=== PATIENT | female | born 1955 | race Caucasian/White ===

== ENCOUNTER 2019-01-14 13:45 | Inpatient (IN) | payer SELFPAY ==
[~2019-01-14] VITALS: Ht 160 cm; Wt 39.5 kg
[2019-01-14 15:08] LABS: VENOUS BASE EXCESS -3.6 (-2.0-2.0); VENOUS HCO3 29.7 MEQ/L (23.0-27.0); VENOUS O2 SATURATION 71.7 % (60.0-80.0); VENOUS PARTIAL PRESSURE CO2 90.7 mmHg (38.0-50.0); VENOUS PARTIAL PRESSURE O2 49.3 mmHg (30.0-50.0); VENOUS PH 7.133 UNITS (7.330-7.430); VENOUS STANDARD HCO3 20.8 MEQ/L; VENOUS TOTAL CO2 32.5 MEQ/L (24.0-28.0)
[2019-01-14 15:11] LABS: BASO # 0.1 10^3/uL (0.0-0.2); BASO % 0.7 % (0.0-1.0); HEMATOCRIT 58.2 % (36.0-47.0); LYMPH # 1.4 10^3/uL (1.5-4.5); LYMPH % 13.7 % (24.0-44.0); MEAN CORPUSCULAR HEMOGLOBIN 32.7 pg (27.0-33.0); MEAN CORPUSCULAR HGB CONC 33.2 g/dl (32.0-36.5); MEAN CORPUSCULAR VOLUME 98.6 fl (80.0-96.0); MONO # 0.6 10^3/uL (0.0-0.8); MONO % 5.4 % (0.0-5.0); NEUTROPHILS # 8.1 10^3/uL (1.8-7.7); NEUTROPHILS % 79.6 % (36.0-66.0); PLATELET COUNT, AUTOMATED 262 10^3/uL (150-450); WHITE BLOOD COUNT 10.2 10^3/uL (4.0-10.0)
--- NOTE | 2019-01-14 15:12 | REP ---
HISTORY: Weakness. COMPARISON: 09/07/2005, which is the latest prior, a two view exam. The technique utilized in obtaining the radiograph has magnified the cardiac silhouette and accentuated the interstitial markings. The lung loyola are markedly hyperexpanded. There is marked enlargement of the pulmonary arteries. The heart is enlarged and accentuated by technique. There are no patchy opacities or pleural effusions. IMPRESSION: Marked lung field hyperexpansion and evidence of pulmonary arterial hypertension. There is cardiomegaly accentuated by technique. Electronically Signed by Angel Blount DO 01/14/2019 03:40 P
[2019-01-14 15:14] LABS: HEMOGLOBIN 19.3 g/dl (12.0-15.5)
[2019-01-14] MEDS ORDERED: CALCIUM GLUCONATE 1,000 MG in D5W MINI-BAG PLUS 100 ML IV ONE ×2 (15:30→22:15)
[2019-01-14 15:33] LABS: ERYTHROCYTE SEDIMENTATION RATE 1 mm/hr (0-30)
[2019-01-14 15:59] LABS: ABG BASE EXCESS -3.5 (-2.0-2.0); ABG HCO3 28.5 MEQ/L (22.0-26.0); ABG O2 SATURATION 92.3 % (95.0-99.0); ABG PARTIAL PRESSURE O2 81.2 mmHg (75.0-100.0); ABG STANDARD HCO3 21.4 MEQ/L (22.0-26.0)
[2019-01-14 16:00] LABS: ABG PARTIAL PRESSURE CO2 81.6 mmHg (35.0-45.0); ABG pH (ARTERIAL) 7.161 UNITS (7.350-7.450)
[2019-01-14 17:51] LABS: ALBUMIN 3.7 GM/DL (3.2-5.2); BILIRUBIN,DIRECT 0.5 MG/DL (0.0-0.2); BILIRUBIN,TOTAL 1.1 MG/DL (0.2-1.0); C REACTIVE PROTEIN QUANTITATIV 0.46 MG/DL (0.00-0.30); CREATININE FOR GFR 1.23 MG/DL (0.55-1.30); GLOMERULAR FILTRATION RATE 46.8 (>45); MB/CK RELATIVE INDEX 6.03 (< OR =4); TOTAL PROTEIN 6.6 GM/DL (6.4-8.2); TROPONIN I 0.1 NG/ML (< 0.10)
--- NOTE | 2019-01-14 17:58 | ECGEPIP ---
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
[2019-01-14 18:05] LABS: PREALBUMIN 8.9 MG/DL (20.0-40.0)
[2019-01-14 18:39] LABS: ABG BASE EXCESS -1.4 (-2.0-2.0); ABG HCO3 29.3 MEQ/L (22.0-26.0); ABG O2 SATURATION 92.3 % (95.0-99.0); ABG PARTIAL PRESSURE O2 77.1 mmHg (75.0-100.0); ABG STANDARD HCO3 23.1 MEQ/L (22.0-26.0); ABG TOTAL CO2 31.6 MEQ/L (23.0-31.0); ABG pH (ARTERIAL) 7.211 UNITS (7.350-7.450)
[2019-01-14 18:40] LABS: ABG PARTIAL PRESSURE CO2 74.7 mmHg (35.0-45.0)
[2019-01-14] MEDS ORDERED: NS 500 ML IV ONE ×2 (19:15→20:00)
[2019-01-14] MEDS ORDERED: ISOVUE-370 76% 100ML VIAL (Q9967) As Ordered ONE (19:26)
[2019-01-14 20:18] LABS: CALCIUM LEVEL 8.8 MG/DL (8.8-10.2); CREATININE FOR GFR 1.09 MG/DL (0.55-1.30); GLOMERULAR FILTRATION RATE 53.8 (>45)
[2019-01-14 20:32] LABS: AMPHETAMINES LEVEL URINE NEGATIVE (NEGATIVE); BARBITURATES URINE NEGATIVE (NEGATIVE); BENZODIAZEPINES URINE NEGATIVE (NEGATIVE); CANNABINOIDS URINE NEGATIVE (NEGATIVE); COCAINE METABOLITE URINE NEGATIVE (NEGATIVE); METHADONE URINE NEGATIVE (NEGATIVE); OPIATES URINE NEGATIVE (NEGATIVE); PHENCYCLIDINE URINE NEGATIVE (NEGATIVE)
--- NOTE | 2019-01-14 20:33 | REPVR ---
EXAM: CT Head Without Contrast EXAM DATE/TIME: 01/14/2019 7:52 PM CLINICAL HISTORY: 63 years old, female; Signs and symptoms; Altered mental status/memory loss TECHNIQUE: Imaging protocol: Axial computed tomography images of the head without contrast. Radiation optimization: All CT scans at this facility use at least one of these dose optimization techniques: automated exposure control; mA and/or kV adjustment per patient size (includes targeted exams where dose is matched to clinical indication); or iterative reconstruction. COMPARISON: No relevant prior studies available. FINDINGS: Brain: Normal. No hemorrhage. Unremarkable white matter. No mass effect. Ventricles: Normal. No ventriculomegaly. Bones/joints: Unremarkable. No acute fracture. Sinuses: Visualized sinuses are unremarkable. No fluid levels. Mastoid air cells: Visualized mastoid air cells are well aerated. No mastoid effusion. Soft tissues: Unremarkable. IMPRESSION: No acute intracranial abnormality. Electronically signed by: Antonio Kemp On 01/14/2019 20:33:52 PM
[2019-01-14] MEDS ORDERED: DEXTROSE 50% 50 ML SYRINGE IV STA (20:36)
[2019-01-14] MEDS ORDERED: HumuLIN R (REGULAR) INSULIN (NovoLIN R) **100U/ML** PER UNIT IV STA (20:36)
[2019-01-14 20:45] LABS: ABG BASE EXCESS -1.1 (-2.0-2.0); ABG HCO3 29.3 MEQ/L (22.0-26.0); ABG O2 SATURATION 97.6 % (95.0-99.0); ABG PARTIAL PRESSURE O2 119.7 mmHg (75.0-100.0); ABG STANDARD HCO3 23.6 MEQ/L (22.0-26.0); ABG TOTAL CO2 31.5 MEQ/L (23.0-31.0)
[2019-01-14 20:47] LABS: ABG PARTIAL PRESSURE CO2 72.3 mmHg (35.0-45.0); ABG pH (ARTERIAL) 7.225 UNITS (7.350-7.450)
--- NOTE | 2019-01-14 20:58 | REPVR ---
EXAM: CT Angiography Chest With Contrast EXAM DATE/TIME: 01/14/2019 7:52 PM CLINICAL HISTORY: 63 years old, female; Signs and symptoms; Other: AMS; Discoloration or erythema; Lower extremity; Bilateral; Additional info: Altered mental status, PT unable to walk this week, PT put on bipap. PT aggitated on table, angio chest and runoff scanned together for fastest exam TECHNIQUE: Imaging protocol: Axial computed tomographic angiography images of the chest with intravenous contrast using CT angiography protocol. Coronal and sagittal reformatted images were created and reviewed. 3D rendering: MIP and 3D reconstructed images were created and reviewed. Radiation optimization: All CT scans at this facility use at least one of these dose optimization techniques: automated exposure control; mA and/or kV adjustment per patient size (includes targeted exams where dose is matched to clinical indication); or iterative reconstruction. Contrast material: ISOVUE 370; Contrast volume: 90 ml; Contrast route: IV; COMPARISON: CR PORTABLE CHEST X-RAY 01/14/2019 2:29 PM FINDINGS: Pulmonary arteries: There are no pulmonary emboli. Aorta: The aorta demonstrates mild atherosclerotic calcification. There is no aortic dissection or aneurysm. Lungs: Calcified granuloma right upper lobe, lingula lobe. Thickened bronchial miller both lower lobes right greater than left, findings consistent with peribronchial inflammation or bronchitis. Moderate to severe bilateral centrilobular emphysema most pronounced in the mid and upper lung zones. Pleural space: Normal. No pneumothorax. No pleural effusion. Heart: Normal. No cardiomegaly. No pericardial effusion. Lymph nodes: Bilateral calcified hilar lymphadenopathy. Bones/joints: Unremarkable. No acute fracture. Soft tissues: Unremarkable. IMPRESSION: 1. Thickened bronchial miller both lower lobes right greater than left, findings consistent with peribronchial inflammation or bronchitis. 2. Moderate to severe bilateral centrilobular emphysema most pronounced in the mid and upper lung zones. 3. There is no aortic dissection or aneurysm. 4. There are no pulmonary emboli. EXAM: CT Bilateral Angiogram of the Abdominal Aorta and Bilateral Lower Extremities (Run-off) With IV Contrast EXAM DATE/TIME: 01/14/2019 7:52 PM CLINICAL HISTORY: 63 years old, female; Signs and symptoms; Other: AMS; Discoloration or erythema; Lower extremity; Bilateral; Additional info: Altered mental status, PT unable to walk this week, PT put on bipap. PT aggitated on table, angio chest and runoff scanned together for fastest exam TECHNIQUE: Imaging protocol: Bilateral CT angiogram of the abdominal aorta, pelvis and bilateral lower extremities with IV iodinated contrast. Coronal and sagittal reformatted images were created and reviewed. 3D rendering: MIP and 3D reconstructed images were created and reviewed. Radiation optimization: All CT scans at this facility use at least one of these dose optimization techniques: automated exposure control; mA and/or kV adjustment per patient size (includes targeted exams where dose is matched to clinical indication); or iterative reconstruction. Contrast material: ISOVUE 370; Contrast volume: 90 ml; Contrast route: IV; COMPARISON: CR PORTABLE CHEST X-RAY 01/14/2019 2:29 PM FINDINGS: Aorta: The aorta demonstrates mild atherosclerotic calcification. Celiac trunk and mesenteric arteries: No occlusion or significant stenosis. Renal arteries: No occlusion or significant stenosis. Right iliac arteries: Mild atherosclerotic calcifications in the right iliac artery. Right femoral/popliteal arteries: Mild atherosclerotic changes in the right common femoral artery without evidence of high-grade stenosis. Mild diffuse atherosclerosis with attenuated flow in the superficial femoral artery which is patent but is diffusely narrowed lumen. Attenuated appearance of the right popliteal artery which is patent. Right infrapopliteal arteries: Three-vessel attenuated flow to the ankle on the right via the anterior tibial, posterior tibial and peroneal arteries.. Left iliac arteries: Mild atherosclerotic calcifications of the left iliac artery. Left femoral/popliteal arteries: Moderate atherosclerotic changes with moderate narrowing in the left common femoral artery. Mild diffuse atherosclerosis with attenuated flow throughout the course of the left superficial femoral artery which is patent. Patent but attenuated appearance of the left popliteal artery. Left infrapopliteal arteries: Three-vessel attenuated flow to the left ankle via the anterior tibial, posterior tibial and peroneal arteries. Liver: No mass. Gallbladder and bile ducts: Unremarkable. No calcified stones. No ductal dilation. Pancreas: Stop pancreatic atrophy. Pancreatic duct dilated to 3.5 cm in the pancreatic body. Spleen: The spleen demonstrates punctate calcifications, consistent with remote granulomatous organism exposure. Adrenals: Normal. No mass. Kidneys and ureters: Stop fatty liver left renal cyst measures 1.7 cm. Stomach and bowel: Unremarkable. No obstruction. No mucosal thickening. Appendix: No evidence of appendicitis. Bladder: Unremarkable. No mass. Catheter demonstrated. Reproductive: Unremarkable as visualized. Intraperitoneal space: Free fluid in the cul-de-sac. Lymph nodes: No lymphadenopathy. Bones/joints: No acute fracture. No dislocation. Soft tissues: Marked diffuse edema in both legs. There is soft tissue edema demonstrated in the abdominal wall, flanks and buttock regions consistent with anasarca. IMPRESSION: 1. Marked diffuse edema in both legs. 2. Anasarca. 3. Mild atherosclerotic changes in the abdominal aorta and iliac arteries. Markedly attenuated appearance of the leg arteries extending from the common femoral artery to the ankles bilaterally. Finding may be related to low flow however compression related to marked edema may also be etiologic. Electronically signed by: Antonio Kemp On 01/14/2019 20:58:06 PM
[2019-01-14] MEDS ORDERED: PATIROMER SORBITEX CALCIUM 8.4 GM POWDER PACKET (VELTASSA) PO ONE (21:15)
[2019-01-14] MEDS ORDERED: ACETAMINOPHEN TAB 650MG DOSE (2X325MG) PO PRN (22:15)
[2019-01-14] MEDS ORDERED: THIAMINE HCL 200 MG/2 ML VIAL (J3411) IV ONE (22:15)
[2019-01-14] MEDS ORDERED: MOM 30ML SUSPENSION UDC PO PRN (22:15)
[2019-01-14] MEDS ORDERED: MAALOX 30 ML SUSP *UDC PO PRN (22:15)
[2019-01-14] MEDS ORDERED: NS 1,000 ML IV SCH (22:15)
[2019-01-14] MEDS: LevoFLOXacin IV 750 MG in APPROPRIATE DILUENT 1 EA IV SCH (22:37)
[2019-01-14 23:46] VITALS: BP 113/67
[2019-01-14 23:58] LABS: OSMOLALITY URINE 561 MOSM/KG (500-800)
[2019-01-15] VITALS (28 sets, daily range): BP systolic 82–111; BP diastolic 50–69; O2SAT 92–98
[2019-01-15] MEDS ORDERED: PATIROMER SORBITEX CALCIUM 8.4 GM POWDER PACKET (VELTASSA) PO ONE
[2019-01-15 00:15] LABS: SODIUM,RANDOM URINE < 10 MEQ/L
[2019-01-15 00:19] LABS: CALCIUM LEVEL 8.6 MG/DL (8.8-10.2); CREATININE FOR GFR 1.02 MG/DL (0.55-1.30); GLOMERULAR FILTRATION RATE 58.1 (>45); POTASSIUM SERUM 5.4 MEQ/L (3.5-5.1)
[2019-01-15] MEDS ORDERED: IPRATROPIUM 0.5MG/ALBUTEROL 2.5MG INH SOL UD 3ML (DUONEB)(J7620) NEB PRN (00:45)
[2019-01-15] MEDS ORDERED: LORazepam 2 MG TAB PO PRN (00:45)
[2019-01-15] MEDS ORDERED: methylPREDNISolone INJ 125 MG/2 ML VIAL (J2930) IV SCH (01:00)
[2019-01-15 01:06] LABS: MAGNESIUM LEVEL 2.3 MG/DL (1.8-2.4); MB/CK RELATIVE INDEX 6.03 (< OR =4); TROPONIN I 0.07 NG/ML (< 0.10)
--- NOTE | 2019-01-15 01:12 | HPEPDOC ---
General Date of Admission January 14, 2019 at 22:09 Chief Complaint The patient is a 63-year-old female admitted with a reason for visit of Hyperka lemia,Ischemic Leg,Respiratory Failure. Source: Patient, Family, RN/MD, Old records History of Present Illness Mr. Harmon is a 63 years old alcoholic woman who doesn't like to utilize healthcare and has no primary care. She was brought to ER yesterday for evaluating of AMS. According to the daughter, pt lives alone, she is heavy alcoholic and drinks everyday. She has been on the floor for a week, and has refused to seek personal or medical care. The daughter who has been visiting her everyday could not convince pt to accept her help to get to the chair or bed. The daughter called "trooper" two days ago, but pt refused to go to hospital. because she was lucid, "troopers had to respect her decision". Today pt was found by daughter obtunded and not responding. EMS brought to ER. In the ER, pt was minimally responsive. Several acute issues were identified: 1. Hypoxia; CO2 retention (81.6) with low pH (7.161) in ABG, indicating respiratory acidosis. Chemistry CO2 is high normal. 2. Na 119, K 8.8 3. Cold, clammy, purplish feet and legs b/l, with dorsalis pedis pulse audible by Doppler only 4. Normal vitals, near normal renal fx 5. Elevated Lactate level and Transaminases CTA showed no arterial blockage in the legs, but diminished blood flow, indicating poor intravascular volume. CTA chest was negative for PE, showed bronchitis. Head CT showed no acute findings. After BiPaP application, IV Fluid and K-lowering cocktails, pt has now greatly improved in her mental status. She is fully alert alert and oriented by the time she arrived to ICU. K level is down 5.1; ABG pH is improved to 7.22 Home Medications No Active Prescriptions or Reported Meds Allergies Coded Allergies: Penicillins (Verified Allergy, Unknown, 01/14/19) clindamycin (Verified Allergy, Unknown, 01/14/19) Past Medical History Medical History COPD not on home O2, Neuropathy, Osteoporosis with compression fx of spine, Alcoholic, Heavy Smoker Surgical History None reported Family History Significant Family History: No pertinent family hx Social History * Smoker: current smoker Alcohol: heavy Drugs: denies A-FIB/CHADSVASC A-FIB History Current/History of A-Fib/PAF?: No Review of Systems Other systems Unable to review ROS because pt is a poor historian; info obtained from daughter is reported in HPI. Physical Examination General Exam: Positive: Alert (now alert, initially unresponsive) Eye Exam: Positive: PERRLA ENT Exam: Positive: Atraumatic Neck Exam: Positive: Supple; Negative: JVD Chest Exam: Positive: Other (poor air entry) Heart Exam: Positive: Rate Normal, Regular Rhythm Abdomen Exam: Positive: Normal bowel sounds, Soft; Negative: Tenderness Extremity Exam: Positive: Edema (3+ edema of both legs; dorsalis pedis pulses are not palpable by hand; cold; purple color improving; sensation intact; moving all toes and feet on command) Skin Exam: Negative: Rash, Breakdown Psych Exam: Positive: Mental status NL, Mood NL Vital Signs Vital Signs Date Time Temp Pulse Resp B/P (MAP) Pulse Ox O2 Delivery O2 Flow Rate FiO2 01/14/19 23:13 97.4 01/14/19 23:06 108/70 (83) 01/14/19 23:01 97 86 01/14/19 23:00 Nasal Cannula 4.0 01/14/19 22:45 40 01/14/19 14:58 14 Laboratory Data Labs 24H Laboratory Tests 2 01/14/19 14:40: Immature Granulocyte % (Auto) 0.6, White Blood Count 10.2H, Red Blood Count 5.90H, Hemoglobin 19.3H, Hematocrit 58.2H, Mean Corpuscular Volume 98.6H, Mean Corpuscular Hemoglobin 32.7, Mean Corpuscular Hemoglobin Concent 33.2, Red Cell Distribution Width 15.8H, Platelet Count 262, Neutrophils (%) (Auto) 79.6H, Lymphocytes (%) (Auto) 13.7L, Monocytes (%) (Auto) 5.4H, Eosinophils (%) (Auto) 0.0, Basophils (%) (Auto) 0.7, Neutrophils # (Auto) 8.1H, Lymphocytes # (Auto) 1.4L, Monocytes # (Auto) 0.6, Eosinophils # (Auto) 0.0, Basophils # (Auto) 0.1, Nucleated Red Blood Cells % (auto) 1.3H, Erythrocyte Sedimentation Rate 1, Blood Gas Bicarbonate Standard 20.8, Venous Blood pH 7.133L, Venous Blood Partial Pressure CO2 90.7H, Venous Blood Partial Pressure O2 49.3, Venous Blood Total Carbon Dioxide 32.5H, Venous Blood HCO3 29.7H, Venous Blood Oxygen Saturation 71.7, Venous Blood Base Excess -3.6L 01/14/19 14:55: POC Lactate (Misc Panel) 1.78 01/14/19 15:00: POC Glucose (Misc Panel) 68L, POC Sodium (Misc Panel) 119*L, POC Potassium (Misc Panel) 8.8*H, POC Chloride (Misc Panel) 85L, POC Total CO2 (Misc Panel) 35.0H, POC Blood Urea Nitrogen (Misc Panel 60H, POC Ionized Calcium (Misc Panel) 3.7L, POC Creatinine (Misc Panel) 1.4H, POC Hematocrit (Misc Panel) 67.0H 01/14/19 15:35: Anion Gap 8, Glomerular Filtration Rate 46.8, Calcium Level 9.0, Aspartate Amino Transf (AST/SGOT) 354H, Alanine Aminotransferase (ALT/SGPT) 265H, Alkaline Phosphatase 67, Total Bilirubin 1.1H, Direct Bilirubin 0.5H, Total Creatine Kinase 622H, Creatine Kinase MB 38.0H, Creatine Kinase MB Relative Index 6.03H, Troponin I 0.10, C-Reactive Protein, Quantitative 0.46H, Total Protein 6.6, Albumin 3.7, Albumin/Globulin Ratio 1.28, Prealbumin 8.9L, Amylase Level 51, Lipase 229 01/14/19 15:38: Blood Gas Bicarbonate Standard 21.4L, Arterial Blood pH 7.161*L, Arterial Blood Partial Pressure CO2 81.6*H, Arterial Blood Partial Pressure O2 81.2, Arterial Blood Total CO2 31.0, Arterial Blood HCO3 28.5H, Arterial Blood Base Excess - 3.5L, Arterial Blood Oxygen Saturation 92.3L 01/14/19 18:15: Blood Gas Bicarbonate Standard 23.1, Arterial Blood pH 7.211*L, Arterial Blood Partial Pressure CO2 74.7*H, Arterial Blood Partial Pressure O2 77.1, Arterial Blood Total CO2 31.6H, Arterial Blood HCO3 29.3H, Arterial Blood Base Excess - 1.4, Arterial Blood Oxygen Saturation 92.3L 01/14/19 19:29: Urine Color DK YELLOW, Urine Appearance CLOUDYH, Urine pH 5.0, Urine Specific [place] 1.019, Urine Protein 1+H, Urine Glucose (UA) NEGATIVE, Urine Ketones TRACEH, Urine Blood 3+H, Urine Nitrite NEGATIVE, Urine Bilirubin NEGATIVE, Urine Urobilinogen 4.0H, Urine Leukocyte Esterase TRACEH, Urine WBC (Auto) 27H, Urine RBC (Auto) 7H, Urine Hyaline Casts (Auto) 88, Urine Bacteria (Auto) 1+H, Urine Squamous Epithelial Cells 2, Urine Mucus (Auto) SMALL, Urine Sperm (Auto) , Urine Random Osmolality 561, Urine Random Sodium < 10, Anion Gap 9, Glomerular Filtration Rate 53.8, Osmolality 284, Blood Urea Nitrogen 37H, Creatinine 1.09, Sodium Level 127L, Potassium Level 7.0*H, Chloride Level 84L, Carbon Dioxide Level 34H, Calcium Level 8.8, Urine Amphetamines Screen NEGATIVE, Urine Benzodiazepines Screen NEGATIVE, Urine Opiates Screen NEGATIVE, Urine Methadone Screen NEGATIVE, Urine Barbiturates Screen NEGATIVE, Urine Phencyclidine Screen NEGATIVE, Urine Cocaine Metabolite Screen NEGATIVE, Urine Cannabinoids Screen NEGATIVE 01/14/19 20:37: Blood Gas Bicarbonate Standard 23.6, Arterial Blood pH 7.225*L, Arterial Blood Partial Pressure CO2 72.3*H, Arterial Blood Partial Pressure O2 119.7H, Arterial Blood Total CO2 31.5H, Arterial Blood HCO3 29.3H, Arterial Blood Base Excess - 1.1, Arterial Blood Oxygen Saturation 97.6 01/14/19 21:09: Bedside Glucose (Misc Panel) 127H 01/14/19 23:18: Anion Gap 6L, Glomerular Filtration Rate 58.1, Blood Urea Nitrogen 32H, Creatinine 1.02, Sodium Level 126L, Potassium Level 5.4H, Chloride Level 85L, Carbon Dioxide Level 35H, Calcium Level 8.6L CBC/BMP Laboratory Tests 01/14/19 14:40 Red Blood Count 5.90 H, Mean Corpuscular Volume 98.6 H, Mean Corpuscular Hemoglobin 32.7, Mean Corpuscular Hemoglobin Concent 33.2, Red Cell Distribution Width 15.8 H, Neutrophils (%) (Auto) 79.6 H, Lymphocytes (%) (Auto) 13.7 L, Monocytes (%) (Auto) 5.4 H, Eosinophils (%) (Auto) 0.0, Basophils (%) (Auto) 0.7, Neutrophils # (Auto) 8.1 H, Lymphocytes # (Auto) 1.4 L, Monocytes # (Auto) 0.6, Eosinophils # (Auto) 0.0, Basophils # (Auto) 0.1 01/14/19 15:35 01/14/19 19:29 Calcium Level 8.8 01/14/19 23:18 Calcium Level 8.6 L Microbiology Microbiology 01/14/19 Blood Culture, Received Pending 01/14/19 Blood Culture, Received Pending 01/14/19 Urine Culture, Received Pending Assessment/Plan 1. Acute Hypoxic and Hypercapnic Respiratory Failure; Suspect COPD Exacerbation; Acute Bronchitis - Admit to ICU; BiPaP - Keep O2 sat 88-92%; Repeat ABG in the morning - Discussed with Dr. Martinez; consult is placed - IV Levaquin; DuoNeb; one dose of Decadron now 2. Hyponatremia, Hyperkalemia - Urine sodium <10; leg edema, clinically dehydrated (intravascularly depleted) - Presentation is consistent with third-spacing - Pt has received about 2-3 L of IV boluses; will stop IV fluid for now - Monitor K level; it has already significantly decreased with initial treatment; repeat K-wasting agent if K level goes up. - Morning Cortisol level; Echo; cardiac markers; Liver US (r/o Adrenal, Cardiac and Hepatic causes of hyponatremia) - Monitor electrolytes and Renal fx 3. Heavy Alcohol Use - CIWA; Thiamine, Folate Plan / VTE VTE Prophylaxis Ordered?: Yes Plan Anticipated Discharge: Home With Services MATHEW BULLOCK MD January 15, 2019 01:12
[2019-01-15] MEDS ORDERED: dexameTHASONE 20 MG/5 ML VIAL (J1100) IV ONE (01:15)
[2019-01-15] MEDS: PANTOPRAZOLE 40MG INJ (PROTONIX) (C9113) IV SCH (01:27)
[2019-01-15 02:07] LABS: BLOOD UREA NITROGEN 31 MG/DL (7-18); CALCIUM LEVEL 8.4 MG/DL (8.8-10.2); CARBON DIOXIDE LEVEL 35 MEQ/L (21-32); CHLORIDE LEVEL 86 MEQ/L (98-107); CREATININE FOR GFR 0.89 MG/DL (0.55-1.30); GLOMERULAR FILTRATION RATE > 60.0 (>45); GLUCOSE, FASTING 116 MG/DL (70-100); POTASSIUM SERUM 5.5 MEQ/L (3.5-5.1); SODIUM LEVEL 126 MEQ/L (136-145)
[2019-01-15] MEDS: HEPARIN SOD (PORCINE) 5000 UNITS/ML VIAL SC SCH ×3 (05:57→22:22)
[2019-01-15 06:11] LABS: ABG BASE EXCESS 2.4 (-2.0-2.0); ABG HCO3 33.7 MEQ/L (22.0-26.0); ABG O2 SATURATION 93.5 % (95.0-99.0); ABG PARTIAL PRESSURE O2 77.5 mmHg (75.0-100.0); ABG STANDARD HCO3 26.5 MEQ/L (22.0-26.0); ABG TOTAL CO2 36.2 MEQ/L (23.0-31.0)
[2019-01-15 06:16] LABS: ABG PARTIAL PRESSURE CO2 81.6 mmHg (35.0-45.0); ABG pH (ARTERIAL) 7.234 UNITS (7.350-7.450)
[2019-01-15 06:34] LABS: HEMATOCRIT 54.9 % (36.0-47.0); HEMOGLOBIN 17.9 g/dl (12.0-15.5); MEAN CORPUSCULAR HGB CONC 32.6 g/dl (32.0-36.5); MEAN CORPUSCULAR VOLUME 101.3 fl (80.0-96.0); PLATELET COUNT, AUTOMATED 223 10^3/uL (150-450); RED BLOOD COUNT 5.42 10^6/uL (4.00-5.40); WHITE BLOOD COUNT 11.9 10^3/uL (4.0-10.0)
[2019-01-15 07:01] LABS: ALBUMIN 2.9 GM/DL (3.2-5.2); ALT/SGPT 200 U/L (12-78); BILIRUBIN,TOTAL 0.9 MG/DL (0.2-1.0); BLOOD UREA NITROGEN 29 MG/DL (7-18); CALCIUM LEVEL 8.5 MG/DL (8.8-10.2); CARBON DIOXIDE LEVEL 34 MEQ/L (21-32); CHLORIDE LEVEL 85 MEQ/L (98-107); GLOMERULAR FILTRATION RATE > 60.0 (>45); GLUCOSE, FASTING 74 MG/DL (70-100); POTASSIUM SERUM 5.9 MEQ/L (3.5-5.1); SODIUM LEVEL 127 MEQ/L (136-145); TOTAL PROTEIN 5.9 GM/DL (6.4-8.2)
[2019-01-15] MEDS: FOLIC ACID 1 MG TAB PO SCH (08:11)
[2019-01-15] MEDS: THIAMINE 100 MG TAB PO SCH ×2 (08:11→21:00)
[2019-01-15] MEDS: MULTIVITAMINS/MINERALS THERAP 1 TAB PO SCH (08:11)
[2019-01-15] MEDS ORDERED: FUROSEMIDE 20 MG/2 ML VIAL (J1940) As Ordered ONE (10:26)
--- NOTE | 2019-01-15 10:33 | REP ---
HISTORY: Abnormal LFTs. Multiple ultrasonographic images of the gallbladder show diffuse increased echoes throughout the lumen consistent with sludge. There are no abnormal echogenic foci which cast acoustic shadows, however, gravel-like calculi cannot be ruled out. There is no abnormal gallbladder wall thickening or pericholecystic edema. Multiple ultrasonographic images of the liver show diffuse increased echoes throughout the hepatic parenchyma consistent with fatty infiltration. There is no intrahepatic or extrahepatic ductal dilatation. The common bile duct measures between 1 and 2 mm. The imaged portion of the pancreas is within normal limits. The maximal splenic dimension is 7.6 cm which is within normal limits. Tiny echogenic foci are seen scattered throughout the splenic parenchyma consistent with granulomatous changes. There is no abnormal perisplenic fluid. The right kidney measures 9.9 x 5.1 x 4.5 cm. The cortical echoes are diffusely increased. There are no cystic or solid masses. There is no hydronephrosis. The left kidney measures 9.1 x 5.8 x 4.5 cm. In the lower pole of the left kidney there is a 1.7 x 1.6 x 1.8 cm size round anechoic structure which exhibits posterior wall enhancement and increased through transmission consistent with a Bosniak class I simple cyst. The renal cortical echoes are increased diffusely. There is no hydronephrosis or solid mass. The aorta is within normal limits. There is a trace amount of free fluid in the right upper quadrant. IMPRESSION: 1. Sludge filled gallbladder and possibly with gravel-like calculi as described above. 2. Diffuse fatty infiltration of the liver. 3. Simple left renal cyst. 4. Trace free fluid. Electronically Signed by Angel Blount DO 01/15/2019 10:46 A
[2019-01-15] MEDS: guaiFENesin ER 600 MG TAB PO SCH ×2 (10:37→21:00)
[2019-01-15] MEDS: methylPREDNISolone INJ 125 MG/2 ML VIAL (J2930) IV SCH ×2 (10:38→17:59)
[2019-01-15] MEDS ORDERED: FUROSEMIDE 20 MG/2 ML VIAL (J1940) IV ONE (10:45)
--- NOTE | 2019-01-15 11:10 | IPNPDOC ---
Date Seen The patient was seen on 01/15/19. Progress Note SUBJECTIVE: Patient tells me that she has pain when she moves, she tells me that her breathing is better she otherwise does not have specific complaints while laying comfortably in bed otherwise denies chest pain, nausea, vomiting, fevers, chills OBJECTIVE PHYSICAL EXAMINATION: VITAL SIGNS: Please see below. GENERAL: [Pleasant cachectic extremely frail elderly female sitting up in bed awake alert oriented to person and place she can tell me the month and year appears significantly older than stated age HEENT: Moist mucous membranes, grossly distended jugular venous pressure, wearing fullface BiPAP CARDIOVASCULAR: S1 S2 regular no additional heart sounds appreciated. RESPIRATORY: Diminished breath sounds throughout prolonged expiratory phase. ABDOMINAL: Bowel sounds present abdomen soft and scaphoid, she is a Andrea catheter in place EXTREMITIES: No clubbing, cyanosis, 2+ edema bilaterally, her feet bilaterally equal NEUROLOGICAL: Spontaneously moves all 4 extremities cranial 2 through 12 grossly intact, no gross focal deficits appreciated exam limited as the patient bed confined at this time PSYCHOLOGICAL: Appropriate LABORATORY DATA, MICROBIOLOGY: Please see below. IMAGING STUDIES: Chest x-ray:Marked lung field hyperexpansion and evidence of pulmonary arterial hypertension. There is cardiomegaly accentuated by technique. Head CT:No acute intracranial abnormality. CT angiography of the chest:1. Thickened bronchial miller both lower lobes right greater than left, findings consistent with peribronchial inflammation or bronchitis. 2. Moderate to severe bilateral centrilobular emphysema most pronounced in the mid and upper lung zones. 3. There is no aortic dissection or aneurysm. 4. There are no pulmonary emboli. CT angiography of the lower extremity:1. Marked diffuse edema in both legs. 2. Anasarca. 3. Mild atherosclerotic changes in the abdominal aorta and iliac arteries. Markedly attenuated appearance of the leg arteries extending from the common femoral artery to the ankles bilaterally. Finding may be related to low flow however compression related to marked edema may also be etiologic. Abdominal ultrasound:1. Sludge filled gallbladder and possibly with gravel-like calculi as described above. 2. Diffuse fatty infiltration of the liver. 3. Simple left renal cyst. 4. Trace free fluid. ECHOCARDIOGRAM: Ordered DVT prophylaxis ordered: Heparin every 8 ASSESSMENT AND PLAN: This is a 63-year-old female with a history of noncomplia nce and no medical follow-up presenting from home after being down and found to be in hypercarbic respiratory failure. PROBLEMS: 1. Hypercarbic respiratory failure: Patient is continued on BiPAP she did have significant elevation in PCO2 and decreased pH was does appear to be improving with fullface BiPAP. Pulmonary help is greatly appreciated. My suspicion is for a new diagnosis of congestive heart failure and pulmonary edema, clinically she is in congestive heart failure with lower extremity edema significantly elevated central venous pressure 2 sets of cardiac enzymes have been unremarkable in regards her troponin. I will provided with gentle diuresis of 20 mg IV Lasix 1 and monitor for response he has a Andrea catheter in place. Her blood pressure soft however she is a BMI 16.4 suspect that her blood pressure is not far from her baseline giving her significantly petite nature. Certainly COPD is in the differential diagnosis as well given her significant tobacco history for many many years. She has been started on IV steroids in the emergency room Dr. Martinez pulmonary has continued his help is greatly appreciated continue nebulizer treatments and fullface BiPAP as well She did have some noted bronchial thickening on the CT of the chest given her debility and being found down she certainly could've aspirated she continued to have bronchitis she has been started on empiric levofloxacin which will continue follow-up with cultures. 2. Metabolic encephalopathy: Baseline cognitive function is reportedly quite guarded within the last 2 weeks with her normally being oriented and very alert. She likely does have some underlying psychiatric condition and is a self- admitted hoarder to me during my visit this morning. Likely secondary to her acute medical illness respiratory failure and possible sepsis presentation including an abnormal urinalysis. 3. Hyponatremia: Initially she was found to be at 119 but does appear to be improving quite quickly as such IV fluids been discontinued for now we are simply monitoring I will recheck a BMP this afternoon this left be followed closely. It is likely multifactorial in nature given her presentation of severe protein calorie malnutrition poor by mouth intake there is certainly an element of intravascular dehydration however she certainly volume overloaded as well as such I suspect her hyponatremia is multifactorial. 4. Alcohol abuse: Family was present R unaware where she obtains alcohol from however they do not that she drinks significant amount liver function tests were initially elevated her ultrasound revealed fatty liver I will check an INR to evaluate the chronicity of this. LFTs do appear to be improving today and I suspect she may some acute alcoholic hepatitis. She is currently on folic acid thiamine and a multivitamin. She is being monitored via [facility] protocols with when necessary benzodiazepines she does not appear to be exhibiting any signs or symptoms of alcohol withdrawal at this time. Cessation counseling provided 5. Hyperkalemia: Possibly secondary to dehydration, it does appear improving wi th IV fluids, and providing with IV diuresis as well to help her diuresis of this she likely has a mixed picture. 6. Abnormal urinalysis: High suspicious for urinary tract infection given her presentation and his metabolic encephalopathy. She has been started on empiric levofloxacin will follow blood cultures closely I will check a pro-calcitonin 7. Severe protein calorie malnutrition: The patient is a shut in and reports good center home to the point that she is unable to sleep in her own bed and sleep and small spot on the floor. Family members were previously after home with daughter ventricular home with the last one week where the patient could no longer crawled to the bathroom and had urinated, provide stool cups of the daughter would dump out. 8. Polycythemia: Likely hemoconcentrated secondary to her malnourished presentation, does appear to be improving with some gentle rehydration 9. Cold lower extremities: CTA is unrevealing for any exclude acute occlusions, however she likely has some degree of peripheral arterial disease 10. Tobacco abuse: Cessation counseling provided DISPOSITION: The patient remains critically ill given her fragility and delayed presentation her clinical prognosis is certainly poor, one healthcare proxy presents to the bedside later this afternoon and I intend to discuss goals of care. Reportedly the patient verbally expressed wishes to be a DNR/DNI last night during the lucid interval. A-FIB/CHADSVASC A-FIB History Current/History of A-Fib/PAF?: No VS, I&O, 24H, Fishbone Vital Signs/I&O Vital Signs Date Time Temp Pulse Resp B/P (MAP) Pulse Ox O2 Delivery O2 Flow Rate FiO2 01/15/19 10:46 96 10 98 30 01/15/19 10:00 91/56 (68) 01/15/19 08:00 97.4 01/15/19 03:10 BIPAP/CPAP 01/14/19 23:00 4.0 I&O- Last 24 Hours up to 6 AM 01/15/19 06:00 Intake Total 1730 ml Output Total 675 ml Balance 1055 ml Laboratory Data 24H LABS Laboratory Tests 2 01/14/19 14:40: Immature Granulocyte % (Auto) 0.6, White Blood Count 10.2H, Red Blood Count 5.90H, Hemoglobin 19.3H, Hematocrit 58.2H, Mean Corpuscular Volume 98.6H, Mean Corpuscular Hemoglobin 32.7, Mean Corpuscular Hemoglobin Concent 33.2, Red Cell Distribution Width 15.8H, Platelet Count 262, Neutrophils (%) (Auto) 79.6H, Lymphocytes (%) (Auto) 13.7L, Monocytes (%) (Auto) 5.4H, Eosinophils (%) (Auto) 0.0, Basophils (%) (Auto) 0.7, Neutrophils # (Auto) 8.1H, Lymphocytes # (Auto) 1.4L, Monocytes # (Auto) 0.6, Eosinophils # (Auto) 0.0, Basophils # (Auto) 0.1, Nucleated Red Blood Cells % (auto) 1.3H, Erythrocyte Sedimentation Rate 1, Blood Gas Bicarbonate Standard 20.8, Venous Blood pH 7.133L, Venous Blood Partial Pressure CO2 90.7H, Venous Blood Partial Pressure O2 49.3, Venous Blood Total Carbon Dioxide 32.5H, Venous Blood HCO3 29.7H, Venous Blood Oxygen Saturation 71.7, Venous Blood Base Excess -3.6L 01/14/19 14:55: POC Lactate (Misc Panel) 1.78 01/14/19 15:00: POC Glucose (Misc Panel) 68L, POC Sodium (Misc Panel) 119*L, POC Potassium (Misc Panel) 8.8*H, POC Chloride (Misc Panel) 85L, POC Total CO2 (Misc Panel) 35.0H, POC Blood Urea Nitrogen (Misc Panel 60H, POC Ionized Calcium (Misc Panel) 3.7L, POC Creatinine (Misc Panel) 1.4H, POC Hematocrit (Misc Panel) 67.0H 01/14/19 15:35: Anion Gap 8, Glomerular Filtration Rate 46.8, Calcium Level 9.0, Aspartate Amino Transf (AST/SGOT) 354H, Alanine Aminotransferase (ALT/SGPT) 265H, Alkaline Phosphatase 67, Total Bilirubin 1.1H, Direct Bilirubin 0.5H, Total Creatine Kinase 622H, Creatine Kinase MB 38.0H, Creatine Kinase MB Relative Index 6.03H, Troponin I 0.10, C-Reactive Protein, Quantitative 0.46H, Total Protein 6.6, Albumin 3.7, Albumin/Globulin Ratio 1.28, Prealbumin 8.9L, Amylase Level 51, Lipase 229 01/14/19 15:38: Blood Gas Bicarbonate Standard 21.4L, Arterial Blood pH 7.161*L, Arterial Blood Partial Pressure CO2 81.6*H, Arterial Blood Partial Pressure O2 81.2, Arterial Blood Total CO2 31.0, Arterial Blood HCO3 28.5H, Arterial Blood Base Excess - 3.5L, Arterial Blood Oxygen Saturation 92.3L 01/14/19 18:15: Blood Gas Bicarbonate Standard 23.1, Arterial Blood pH 7.211*L, Arterial Blood Partial Pressure CO2 74.7*H, Arterial Blood Partial Pressure O2 77.1, Arterial Blood Total CO2 31.6H, Arterial Blood HCO3 29.3H, Arterial Blood Base Excess - 1.4, Arterial Blood Oxygen Saturation 92.3L 01/14/19 19:29: Urine Color DK YELLOW, Urine Appearance CLOUDYH, Urine pH 5.0, Urine Specific [place] 1.019, Urine Protein 1+H, Urine Glucose (UA) NEGATIVE, Urine Ketones TRACEH, Urine Blood 3+H, Urine Nitrite NEGATIVE, Urine Bilirubin NEGATIVE, Urine Urobilinogen 4.0H, Urine Leukocyte Esterase TRACEH, Urine WBC (Auto) 27H, Urine RBC (Auto) 7H, Urine Hyaline Casts (Auto) 88, Urine Bacteria (Auto) 1+H, Urine Squamous Epithelial Cells 2, Urine Mucus (Auto) SMALL, Urine Sperm (Auto) , Urine Random Osmolality 561, Urine Random Sodium < 10, Anion Gap 9, Glomerular Filtration Rate 53.8, Osmolality 284, Blood Urea Nitrogen 37H, Creatinine 1.09, Sodium Level 127L, Potassium Level 7.0*H, Chloride Level 84L, Carbon Dioxide Level 34H, Calcium Level 8.8, Urine Amphetamines Screen NEGATIVE, Urine Benzodiazepines Screen NEGATIVE, Urine Opiates Screen NEGATIVE, Urine Methadone Screen NEGATIVE, Urine Barbiturates Screen NEGATIVE, Urine Phencyclidine Screen NEGATIVE, Urine Cocaine Metabolite Screen NEGATIVE, Urine Cannabinoids Screen NEGATIVE 01/14/19 20:37: Blood Gas Bicarbonate Standard 23.6, Arterial Blood pH 7.225*L, Arterial Blood Partial Pressure CO2 72.3*H, Arterial Blood Partial Pressure O2 119.7H, Arterial Blood Total CO2 31.5H, Arterial Blood HCO3 29.3H, Arterial Blood Base Excess - 1.1, Arterial Blood Oxygen Saturation 97.6 01/14/19 21:09: Bedside Glucose (Misc Panel) 127H 01/14/19 23:18: Anion Gap 6L, Glomerular Filtration Rate 58.1, Blood Urea Nitrogen 32H, Creatinine 1.02, Sodium Level 126L, Potassium Level 5.4H, Chloride Level 85L, Carbon Dioxide Level 35H, Calcium Level 8.6L, Total Creatine Kinase 572H, Magnesium Level 2.3, Creatine Kinase MB 34.0H, Creatine Kinase MB Relative Index 6.03H, Troponin I 0.07#, LV-Knc-N-Type Natriuretic Peptide 9135H 01/15/19 01:44: Anion Gap 5L, Glomerular Filtration Rate > 60.0, Blood Urea Nitrogen 31H, Creatinine 0.89, Sodium Level 126L, Potassium Level 5.5H, Chloride Level 86L, Carbon Dioxide Level 35H, Calcium Level 8.4L 01/15/19 05:58: Blood Gas Bicarbonate Standard 26.5H, Arterial Blood pH 7.234*L, Arterial Blood Partial Pressure CO2 81.6*H, Arterial Blood Partial Pressure O2 77.5, Arterial Blood Total CO2 36.2H, Arterial Blood HCO3 33.7H, Arterial Blood Base Excess 2.4H, Arterial Blood Oxygen Saturation 93.5L 01/15/19 06:19: Nucleated Red Blood Cells % (auto) 0.5H, Anion Gap 8, Glomerular Filtration Rate > 60.0, Lactic Acid Level 1.0, Blood Urea Nitrogen 29H, Creatinine 0.80, Sodium Level 127L, Potassium Level 5.9H, Chloride Level 85L, Carbon Dioxide Level 34H, Calcium Level 8.5L, Aspartate Amino Transf (AST/SGOT) 180H, Alanine Aminotransferase (ALT/SGPT) 200H, Alkaline Phosphatase 57, Total Bilirubin 0.9, Total Protein 5.9L, Albumin 2.9#L, Albumin/Globulin Ratio 0.97L 01/15/19 10:38: CBC/BMP Laboratory Tests 01/14/19 14:40 Red Blood Count 5.90 H, Mean Corpuscular Volume 98.6 H, Mean Corpuscular Hemoglobin 32.7, Mean Corpuscular Hemoglobin Concent 33.2, Red Cell Distribution Width 15.8 H, Neutrophils (%) (Auto) 79.6 H, Lymphocytes (%) (Auto) 13.7 L, Monocytes (%) (Auto) 5.4 H, Eosinophils (%) (Auto) 0.0, Basophils (%) (Auto) 0.7, Neutrophils # (Auto) 8.1 H, Lymphocytes # (Auto) 1.4 L, Monocytes # (Auto) 0.6, Eosinophils # (Auto) 0.0, Basophils # (Auto) 0.1 01/14/19 15:35 01/14/19 19:29 Calcium Level 8.8 01/14/19 23:18 Calcium Level 8.6 L, Total Creatine Kinase 572 H 01/15/19 01:44 Calcium Level 8.4 L 01/15/19 06:19 Calcium Level 8.5 L, Red Blood Count 5.42 H, Mean Corpuscular Volume 101.3 H, Mean Corpuscular Hemoglobin 33.0, Mean Corpuscular Hemoglobin Concent 32.6, Red Cell Distribution Width 15.0 H, Aspartate Amino Transf (AST/SGOT) 180 H, Alanine Aminotransferase (ALT/SGPT) 200 H, Alkaline Phosphatase 57, Total Bilirubin 0.9, Total Protein 5.9 L, Albumin 2.9 #L Microbiology Microbiology 01/14/19 Blood Culture, Received Pending 01/14/19 Blood Culture, Received Pending 01/14/19 Urine Culture - Final, Complete Lactobacillus Species JHONNY LOZANO MD January 15, 2019 11:10
--- NOTE | 2019-01-15 11:42 | CCN ---
DATE OF VISIT: 01/15/2019 START TIME: 0850 hours STOP TIME: 0929 hours I attended Michelle Harmon here in the intensive care unit (ICU). The patient has been examined and chart reviewed. I spoke with Dr. Gunderson about the evening last night and Dr. Kaur this morning as well as the family at the bedside. In essence, this is a 63-year-old female with alcohol and tobacco use. She keeps herself in a disheveled situation at home. Does not seek medical care. Reportedly was ill and refused to be transported to the hospital last week but was brought in by family yesterday for altered mental status. Upon arrival, she was found to have significant combined acidosis with a pH 7.161, pCO2 81.6, pO2 of 81.2. She was placed on noninvasive support with some improvement with a pH as a high as 7.225, pCO2 72.3, and pO2 of 119.7. Blood gas this morning with a pH of 7.234, pCO2 of 31.6 and a pO2 of 77.5. Noninvasive manipulations were made by myself and repeat gas is pending. Reportedly was fairly obtunded again this morning but currently is awake, alert and able to answer my questions. She did sign a DO NOT RESUSCITATE, DO NOT INTUBATE yesterday. She complains of some mild discomfort in her feet but denies any other pain. She states shortness of breath at baseline. Other laboratories show a white blood cell count 11.9, hemoglobin 17.9, platelet count of 223,000. No differential this morning but yesterday no bands. Sodium 127, potassium of 5.9, chloride 85, CO2 34, BUN 29, creatinine 0.8, glucose 74, calcium 8.5. Brain natriuretic peptide (BNP) yesterday 9135. Troponin is negative. Toxicology screen negative. Urinalysis (UA) 1+ bacteria and trace leukocyte esterase, 4.0 urobilinogen. On exam, she has temperature 98.1, blood pressure 94 systolic, respiratory rate about 18-20 and unlabored, heart rate in the 80s-90s with a sinus mechanism. Pupils do react. Sclerae are clear. She is awake and able to follow commands. She is emaciated. Chest shows global decreased breath sound intensity with intercostal muscle wasting. There are some crackles at the bases but no other focal adventitious breath sounds are identified. Cardiac exam is regular with no gallop. Peripheral pulses markedly diminished. There is lower extremity edema at least 1-2+. Abdomen thin with active bowel sounds, although hypoactive, no convincing organomegaly or masses. Extremities showed 2+ edema Both legs are somewhat cool below the level of the mid calf. Dorsalis pedis pulses are obtainable only by Doppler. She has what appears to be already bilateral foot drop. Neurologically, she is awake, alert and does answer questions. Moves all extremities. CT scan of the chest shows hyperexpansion with several calcified granulomas. No acute infiltrates. CT scan of the head shows no acute abnormalities. Further imaging studies have been ordered by the primary service. The most pressing problem requiring my presence at the bedside: 1. Acute on chronic respiratory failure both hypoxemic and hypercapnic. 2. Suspect significant advanced underlying obstructive lung disease. 3. Continue tobacco abuse. 4. Heavy alcohol use. 5. Hyponatremia. 6. Hyperkalemia. 7. Underlying mixed acidosis with normal lactate. A long discussion was held with her apparently ex- at the bedside. At this point, I believe her code status is appropriate. Her prognosis is guarded at best in view of her multiorgan dysfunction. I believe that the DO NOT RESUSCITATE, DO NOT INTUBATE status is very appropriate. I suspect she has significant underlying component of cardiomyopathy. An echo is pending. I have spoken with Dr. Kaur who is in charge of her care at this point, and I am in agreement with this plan outlined. At this point, we will make whatever noninvasive adjustment she will tolerate, but again, in view of her multiorgan dysfunction I do not have much optimism for making much headway. I believe she may benefit from the addition of steroids for her lung disease. We will optimize her pulmonary toilet. At this point, we will proceed as outlined as outlined above. Ulcerative and deep venous thrombosis (DVT) prophylaxis per the primary service. I left the bedside at 0929 hours. 39 minutes of critical care time at the bedside not including procedures. MIKEY
[2019-01-15 12:18] LABS: ABG BASE EXCESS 3.3 (-2.0-2.0); ABG HCO3 34.1 MEQ/L (22.0-26.0); ABG O2 SATURATION 92.1 % (95.0-99.0); ABG PARTIAL PRESSURE O2 72.7 mmHg (75.0-100.0); ABG STANDARD HCO3 27.2 MEQ/L (22.0-26.0); ABG TOTAL CO2 36.5 MEQ/L (23.0-31.0); ABG pH (ARTERIAL) 7.255 UNITS (7.350-7.450)
[2019-01-15 12:22] LABS: ABG PARTIAL PRESSURE CO2 78.7 mmHg (35.0-45.0)
[2019-01-15] MEDS: IPRATROPIUM 0.5MG/ALBUTEROL 2.5MG INH SOL UD 3ML (DUONEB)(J7620) NEB SCH ×2 (13:09→19:46)
[2019-01-15 14:18] LABS: HEMATOCRIT 51.6 % (36.0-47.0); HEMOGLOBIN 17.3 g/dl (12.0-15.5); MEAN CORPUSCULAR HEMOGLOBIN 32.8 pg (27.0-33.0); MEAN CORPUSCULAR HGB CONC 33.5 g/dl (32.0-36.5); MEAN CORPUSCULAR VOLUME 97.7 fl (80.0-96.0); RED BLOOD COUNT 5.28 10^6/uL (4.00-5.40); WHITE BLOOD COUNT 11.2 10^3/uL (4.0-10.0)
[2019-01-15 14:27] LABS: INR 1.36
[2019-01-15 15:11] LABS: ALT/SGPT 180 U/L (12-78); BILIRUBIN,TOTAL 1.1 MG/DL (0.2-1.0); CALCIUM LEVEL 8.9 MG/DL (8.8-10.2); CHLORIDE LEVEL 85 MEQ/L (98-107); CREATININE FOR GFR 0.61 MG/DL (0.55-1.30); GLOMERULAR FILTRATION RATE > 60.0 (>45); POTASSIUM SERUM 5.7 MEQ/L (3.5-5.1); SODIUM LEVEL 125 MEQ/L (136-145); TOTAL PROTEIN 5.9 GM/DL (6.4-8.2)
[2019-01-15 15:12] LABS: BLOOD UREA NITROGEN 22 MG/DL (7-18); CARBON DIOXIDE LEVEL 14 MEQ/L (21-32)
[2019-01-15 15:13] LABS: ALBUMIN 1.3 GM/DL (3.2-5.2)
[2019-01-15 16:37] LABS: PLTBLUE- EDTA FREE CALC 178 K/mm3 (172-450)
[2019-01-15 17:17] LABS: PLTBLUE- EDTA FREE MACHINE 162 10^3/uL (172-450)
--- NOTE | 2019-01-15 18:22 | CR.PDOC ---
General Date of Consultation: January 15, 2019 Consultation REASON FOR CONSULTATION/CHIEF COMPLAINT: Poor perfusion BLE HISTORY OF PRESENT ILLNESS: Ms Harmon is a 63yo patient with h/o alcoholism, tobacco abuse, medical noncompliance, refusal of medical treatment, and recent decompensation to the point of becoming obtunded and her daughter was able to have her brought to the hospital. She has significant metabolic and respiratory derangements, and is being optimized by the medical team. She is already much better than this morning, and is almost able to have a normal conversation now and is sitting up in bed, eating jello (RN feeding her.) Family is at the bedside, and we discussed that the CTA did not reveal lower extremity vascular occlusion, but did reveal very small vessels, especially distally, which may be secondary to dehydration and cardiac insufficiency +/- Buergers disease from heavy tobacco use. Hopefully we will see her perfusion improve somewhat with improved hemodynamics and metabolic status. No intervention is needed at this time since no occlusions or thrombosis noted. Would recommend to keep her feet warm, and elevate to decrease swelling BLE. The patient and her family were counseled about the imaging, and all questions were answered. ALLERGIES: Please see below. HOME MEDICATIONS: Please see below. PAST MEDICAL HISTORY: 1. Alcoholism 2. tobacco abuse 3. COPD 4. Neuropathy PAST SURGICAL HISTORY: 1. none FAMILY HISTORY: No h/o bleeding or clotting disorders SOCIAL HISTORY: Lives alone in [facility] per EMS, heavy etoh and tobacco, denies illicit drug use REVIEW OF SYSTEMS: CONSTITUTIONAL: +malaise +fatigue HEENT: denies vision changes or hearing loss CARDIOVASCULAR: denies CP RESPIRATORY: +SOB +cough GENITOURINARY: deneis dyuria MUSCULOSKELETAL: +leg pain +back pain GASTROINTESTINAL: denies n/v. +diarrhea SKIN: denies skin cancer NEUROLOGICAL: Denies seizures or BARROS PSYCHIATRIC: +depression ENDOCRINE: denies DM HEMATOLOGIC/LYMPHATIC: denies bleeding or clotting disorder. ALLERGIC/IMMUNOLOGIC: denies PHYSICAL EXAMINATION: VITAL SIGNS: Please see below. GENERAL APPEARANCE: Initially disheveled and obtunded, now much improved HEENT: NC, vision grossly intact, not [place], poor dentition RESPIRATORY: coarse BS bilat, no wheezes CARDIOVASCULAR: RRR ABDOMEN: soft, NT ,ND EXTREMITIES: BLE swelling, extremities cool, femoral pulses palpable, popliteal signals dopplerable, DP PT dopplerable-monophasic. Cap refill sluggish. NEUROLOGICAL: Confused. MAEE PSYCHIATRIC: Now pleasant and cooperative LABORATORY DATA: Please see below. ASSESSMENT/PLAN: 3yo patient with BLE swelling and sluggish perfusion 1. Recommend ASA EC 81mg daily if pt can tolerate. 2. Elevate BLE above the level of the heart intermittently to help alleviate swelling. 3. Keep lower extremities warm. 4. Avoid nicotine patches, as well as other vasoconstrictors if possible. 5. No surgical intervention necessary at this time. Vital Signs/I&O Vital Signs Date Time Temp Pulse Resp B/P (MAP) Pulse Ox O2 Delivery O2 Flow Rate FiO2 01/15/19 16:00 30 01/15/19 16:00 98.0 97 9 85/55 (65) 98 01/15/19 03:10 BIPAP/CPAP 01/14/19 23:00 4.0 I&O- Last 24 Hours up to 6 AM 01/15/19 06:00 Intake Total 1730 ml Output Total 675 ml Balance 1055 ml Laboratory Data Labs 24H Laboratory Tests 2 01/14/19 18:15: Blood Gas Bicarbonate Standard 23.1, Arterial Blood pH 7.211*L, Arterial Blood Partial Pressure CO2 74.7*H, Arterial Blood Partial Pressure O2 77.1, Arterial Blood Total CO2 31.6H, Arterial Blood HCO3 29.3H, Arterial Blood Base Excess - 1.4, Arterial Blood Oxygen Saturation 92.3L 01/14/19 19:29: Urine Color DK YELLOW, Urine Appearance CLOUDYH, Urine pH 5.0, Urine Specific [place] 1.019, Urine Protein 1+H, Urine Glucose (UA) NEGATIVE, Urine Ketones TRACEH, Urine Blood 3+H, Urine Nitrite NEGATIVE, Urine Bilirubin NEGATIVE, Urine Urobilinogen 4.0H, Urine Leukocyte Esterase TRACEH, Urine WBC (Auto) 27H, Urine RBC (Auto) 7H, Urine Hyaline Casts (Auto) 88, Urine Bacteria (Auto) 1+H, Urine Squamous Epithelial Cells 2, Urine Mucus (Auto) SMALL, Urine Sperm (Auto) , Urine Random Osmolality 561, Urine Random Sodium < 10, Anion Gap 9, Glomerular Filtration Rate 53.8, Osmolality 284, Blood Urea Nitrogen 37H, Creatinine 1.09, Sodium Level 127L, Potassium Level 7.0*H, Chloride Level 84L, Carbon Dioxide Level 34H, Calcium Level 8.8, Urine Amphetamines Screen NEGATIVE, Urine Benzodiazepines Screen NEGATIVE, Urine Opiates Screen NEGATIVE, Urine Methadone Screen NEGATIVE, Urine Barbiturates Screen NEGATIVE, Urine Phencyclidine Screen NEGATIVE, Urine Cocaine Metabolite Screen NEGATIVE, Urine Cannabinoids Screen NEGATIVE 01/14/19 20:37: Blood Gas Bicarbonate Standard 23.6, Arterial Blood pH 7.225*L, Arterial Blood Partial Pressure CO2 72.3*H, Arterial Blood Partial Pressure O2 119.7H, Arterial Blood Total CO2 31.5H, Arterial Blood HCO3 29.3H, Arterial Blood Base Excess - 1.1, Arterial Blood Oxygen Saturation 97.6 01/14/19 21:09: Bedside Glucose (Misc Panel) 127H 01/14/19 23:18: Anion Gap 6L, Glomerular Filtration Rate 58.1, Blood Urea Nitrogen 32H, Crea tinine 1.02, Sodium Level 126L, Potassium Level 5.4H, Chloride Level 85L, Carbon Dioxide Level 35H, Calcium Level 8.6L, Total Creatine Kinase 572H, Magnesium Level 2.3, Creatine Kinase MB 34.0H, Creatine Kinase MB Relative Index 6.03H, Troponin I 0.07#, AD-Qrc-I-Type Natriuretic Peptide 9135H 01/15/19 01:44: Anion Gap 5L, Glomerular Filtration Rate > 60.0, Blood Urea Nitrogen 31H, Creatinine 0.89, Sodium Level 126L, Potassium Level 5.5H, Chloride Level 86L, Carbon Dioxide Level 35H, Calcium Level 8.4L 01/15/19 05:58: Blood Gas Bicarbonate Standard 26.5H, Arterial Blood pH 7.234*L, Arterial Blood Partial Pressure CO2 81.6*H, Arterial Blood Partial Pressure O2 77.5, Arterial Blood Total CO2 36.2H, Arterial Blood HCO3 33.7H, Arterial Blood Base Excess 2.4H, Arterial Blood Oxygen Saturation 93.5L 01/15/19 06:14: Estimated Mean Plasma Glucose 126H, Hemoglobin A1c 6.0 01/15/19 06:19: Nucleated Red Blood Cells % (auto) 0.5H, Anion Gap 8, Glomerular Filtration Rate > 60.0, Lactic Acid Level 1.0, Blood Urea Nitrogen 29H, Creatinine 0.80, Sodium Level 127L, Potassium Level 5.9H, Chloride Level 85L, Carbon Dioxide Level 34H, Calcium Level 8.5L, Aspartate Amino Transf (AST/SGOT) 180H, Alanine Aminotransferase (ALT/SGPT) 200H, Alkaline Phosphatase 57, Total Bilirubin 0.9, Total Protein 5.9L, Albumin 2.9#L, Albumin/Globulin Ratio 0.97L 01/15/19 10:38: Urine Random Creatinine 21.6 01/15/19 12:10: Blood Gas Bicarbonate Standard 27.2H, Arterial Blood pH 7.255L, Arterial Blood Partial Pressure CO2 78.7*H, Arterial Blood Partial Pressure O2 72.7L, Arterial Blood Total CO2 36.5H, Arterial Blood HCO3 34.1H, Arterial Blood Base Excess 3.3H, Arterial Blood Oxygen Saturation 92.1L 01/15/19 14:06: Nucleated Red Blood Cells % (auto) 0.4H, Anion Gap 26H, Glomerular Filtration Rate > 60.0, Blood Urea Nitrogen 22H, Creatinine 0.61, Sodium Level 125L, Potassium Level 5.7H, Chloride Level 85L, Carbon Dioxide Level 14L, Calcium Level 8.9, Aspartate Amino Transf (AST/SGOT) 144H, Alanine Aminotransferase (ALT/SGPT) 180H, Alkaline Phosphatase 57, Total Bilirubin 1.1H, Total Protein 5.9L, Albumin 1.3#L, Albumin/Globulin Ratio 0.28L, Prothrombin Time 17.0H, Prothromb Time International Ratio 1.36 01/15/19 15:47: Random Glucose 90 01/15/19 16:15: Platelet Count, EDTA Free 178 CBC/BMP Laboratory Tests 01/14/19 19:29 Calcium Level 8.8 01/14/19 23:18 Calcium Level 8.6 L, Total Creatine Kinase 572 H 01/15/19 01:44 Calcium Level 8.4 L 01/15/19 06:19 Calcium Level 8.5 L, Red Blood Count 5.42 H, Mean Corpuscular Volume 101.3 H, Mean Corpuscular Hemoglobin 33.0, Mean Corpuscular Hemoglobin Concent 32.6, Red Cell Distribution Width 15.0 H, Aspartate Amino Transf (AST/SGOT) 180 H, Alanine Aminotransferase (ALT/SGPT) 200 H, Alkaline Phosphatase 57, Total Bilirubin 0.9, Total Protein 5.9 L, Albumin 2.9 #L 01/15/19 14:06 Red Blood Count 5.28, Mean Corpuscular Volume 97.7 H, Mean Corpuscular Hemoglo bin 32.8, Mean Corpuscular Hemoglobin Concent 33.5, Red Cell Distribution Width 14.8 H, Calcium Level 8.9, Aspartate Amino Transf (AST/SGOT) 144 H, Alanine Aminotransferase (ALT/SGPT) 180 H, Alkaline Phosphatase 57, Total Bilirubin 1.1 H, Total Protein 5.9 L, Albumin 1.3 #L Microbiology Microbiology 01/14/19 Blood Culture - Preliminary, Resulted No growth after 24 hours . All specim... 01/14/19 Blood Culture - Preliminary, Resulted No growth after 24 hours . All specim... 01/14/19 Urine Culture - Final, Complete Lactobacillus Species Allergies Coded Allergies: Penicillins (Verified Allergy, Unknown, 01/14/19) clindamycin (Verified Allergy, Unknown, 01/14/19) Home Medications No Active Prescriptions or Reported Meds PORTER WU MD January 15, 2019 18:22
[2019-01-15 22:28] LABS: ALBUMIN 2.6 GM/DL (3.2-5.2); ALT/SGPT 145 U/L (12-78); BILIRUBIN,TOTAL 0.8 MG/DL (0.2-1.0); BLOOD UREA NITROGEN 24 MG/DL (7-18); CARBON DIOXIDE LEVEL 36 MEQ/L (21-32); CHLORIDE LEVEL 87 MEQ/L (98-107); CREATININE FOR GFR 0.96 MG/DL (0.55-1.30); GLOMERULAR FILTRATION RATE > 60.0 (>45); GLUCOSE, FASTING 255 MG/DL (70-100); POTASSIUM SERUM 4.5 MEQ/L (3.5-5.1); SODIUM LEVEL 130 MEQ/L (136-145); TOTAL PROTEIN 4.8 GM/DL (6.4-8.2)
[2019-01-16] VITALS (26 sets, daily range): BP systolic 85–107; BP diastolic 50–67; O2SAT 97–98
[2019-01-16] MEDS: IPRATROPIUM 0.5MG/ALBUTEROL 2.5MG INH SOL UD 3ML (DUONEB)(J7620) NEB SCH ×4 (01:16→19:55)
[2019-01-16] MEDS: methylPREDNISolone INJ 125 MG/2 ML VIAL (J2930) IV SCH ×3 (01:52→18:03)
[2019-01-16] MEDS: PANTOPRAZOLE 40MG INJ (PROTONIX) (C9113) IV SCH (01:52)
[2019-01-16 04:25] LABS: HEMATOCRIT 44.9 % (36.0-47.0); MEAN CORPUSCULAR HEMOGLOBIN 32.3 pg (27.0-33.0); MEAN CORPUSCULAR HGB CONC 33.6 g/dl (32.0-36.5); MEAN CORPUSCULAR VOLUME 95.9 fl (80.0-96.0); PLATELET COUNT, AUTOMATED 221 10^3/uL (150-450); RED BLOOD COUNT 4.68 10^6/uL (4.00-5.40); WHITE BLOOD COUNT 10.2 10^3/uL (4.0-10.0)
[2019-01-16 04:47] LABS: ALBUMIN 2.7 GM/DL (3.2-5.2); ALT/SGPT 142 U/L (12-78); BILIRUBIN,TOTAL 0.7 MG/DL (0.2-1.0); BLOOD UREA NITROGEN 21 MG/DL (7-18); CALCIUM LEVEL 8.2 MG/DL (8.8-10.2); CARBON DIOXIDE LEVEL 36 MEQ/L (21-32); CHLORIDE LEVEL 88 MEQ/L (98-107); CREATININE FOR GFR 0.64 MG/DL (0.55-1.30); GLOMERULAR FILTRATION RATE > 60.0 (>45); GLUCOSE, FASTING 201 MG/DL (70-100); POTASSIUM SERUM 4.8 MEQ/L (3.5-5.1); SODIUM LEVEL 127 MEQ/L (136-145); TOTAL PROTEIN 5.4 GM/DL (6.4-8.2)
[2019-01-16 04:54] LABS: HEMOGLOBIN 15.1 g/dl (12.0-15.5)
[2019-01-16] MEDS: HEPARIN SOD (PORCINE) 5000 UNITS/ML VIAL SC SCH ×3 (06:06→21:51)
--- NOTE | 2019-01-16 06:34 | ECHO ---
DATE OF PROCEDURE: 01/15/2019 AGE: 63 GENDER: Female HEIGHT: 63 inches WEIGHT: 94 pounds BODY SURFACE AREA: 1.4 meters squared INPATIENT: ICU - Room 3209 REFERRING PHYSICIAN: Dr. Sushant Gunderson INDICATION: Respiratory failure, edema. MEASUREMENTS 2-D Measurements: RV: 4.2 cm LV: 2.4 cm Septum: 0.8 cm Posterior wall: 0.8 cm Aortic root: 2.7 cm LA: 2.8 cm LVEF 55% Doppler Measurements: AV: 1.17 m/s LVOT: 0.8 m/s LVOT diameter: 1.6 cm MV - A 72 A 87 EA ratio 0.8 Early mitral deceleration time: 186 ms E prime: 6 A prime: 6.5 E/E prime ratio: 12 PWCP: 16 mmHg PV: 0.8 m/s Pulmonary artery acceleration time: 79 ms RVSP: 64 mmHg IVC: 2.0 cm COMMENTS: Normal sinus rhythm without intraventricular conduction disturbance. M-mode and two-dimensional echocardiography was performed with pulsed, continuous wave, color flow and tissue Doppler studies. Normal left ventricular size and wall thickness with septal flattening consistent with right ventricular pressure overload. Preserved global resting left ventricular systolic function. Normal left atrial size with a degree of impairment of LV diastolic function, but current estimated mean left atrial pressure upper limits of normal to marginally elevated. Moderately dilated right heart chambers with right ventricular free wall hypokinesis and severe pulmonary hypertension. At least mildly dilated IVC for her size with absent respiratory collapse in keeping with significantly elevated central venous pressure/heart failure. Normal appearing valvular structures with moderately severe tricuspid insufficiency. No apparent intracardiac mass. Minuscule posterior pericardial effusion. The above test findings are consistent with severe cor pulmonale with right heart failure.
[2019-01-16 08:12] LABS: ABG BASE EXCESS 9.1 (-2.0-2.0); ABG HCO3 38.4 MEQ/L (22.0-26.0); ABG O2 SATURATION 94.8 % (95.0-99.0); ABG PARTIAL PRESSURE O2 76.6 mmHg (75.0-100.0); ABG STANDARD HCO3 32.8 MEQ/L (22.0-26.0); ABG TOTAL CO2 40.6 MEQ/L (23.0-31.0); ABG pH (ARTERIAL) 7.338 UNITS (7.350-7.450)
[2019-01-16 08:16] LABS: ABG PARTIAL PRESSURE CO2 73.1 mmHg (35.0-45.0)
[2019-01-16] MEDS: guaiFENesin ER 600 MG TAB PO SCH ×2 (09:24→20:39)
[2019-01-16] MEDS: THIAMINE 100 MG TAB PO SCH ×2 (09:24→20:39)
[2019-01-16] MEDS: MULTIVITAMINS/MINERALS THERAP 1 TAB PO SCH (09:24)
[2019-01-16] MEDS: FOLIC ACID 1 MG TAB PO SCH (09:24)
--- NOTE | 2019-01-16 11:53 | IPNPDOC ---
Date Seen The patient was seen on 01/16/19. Progress Note SUBJECTIVE: Patient was seen and examined this morning. She currently on BiPAP. She was arousable however was not very conversive. There were no adverse events reported overnight. OBJECTIVE PHYSICAL EXAMINATION: VITAL SIGNS: Please see below. GENERAL: Awake and alert. She is cachetic and ill appearing. She is lying in bed with BiPAP on. She is in no acute distress HEENT: Atraumatic, normocephalic. Eyes are nonicteric. Trachea is midline. BiPAP in place CARDIOVASCULAR: Distant heart sounds. Regular rate and rhythm. No clicks rubs or murmurs. JVD present. RESPIRATORY: Diminished breath sounds throughout. Crackles present in the bases bilaterally. Prolonged expiratory phase. No wheezes or rhonchi. ABDOMINAL: soft, nondistended. No tenderness to palpation throughout. No rebound tenderness or guarding. Positive bowel sounds EXTREMITIES: 2mm pitting edema in bilateral lower extremities. Palpable dorsalis pedis and posterior tibial pulses bilaterally. NEUROLOGICAL: No focal neurological deficits PSYCHOLOGICAL: Mood and affect appear appropriate LABORATORY DATA, IMAGING STUDIES, MICROBIOLOGY: Please see below. Echocardiogram: DATE OF PROCEDURE: 01/15/2019 AGE: 63 GENDER: Female HEIGHT: 63 inches WEIGHT: 94 pounds BODY SURFACE AREA: 1.4 meters squared INPATIENT: ICU - Room 3209 REFERRING PHYSICIAN: Dr. Sushant Gunderson INDICATION: Respiratory failure, edema. MEASUREMENTS 2-D Measurements: RV: 4.2 cm LV: 2.4 cm Septum: 0.8 cm Posterior wall: 0.8 cm Aortic root: 2.7 cm LA: 2.8 cm LVEF 55% Doppler Measurements: AV: 1.17 m/s LVOT: 0.8 m/s LVOT diameter: 1.6 cm MV - A 72 A 87 EA ratio 0.8 Early mitral deceleration time: 186 ms E prime: 6 A prime: 6.5 E/E prime ratio: 12 PWCP: 16 mmHg PV: 0.8 m/s Pulmonary artery acceleration time: 79 ms RVSP: 64 mmHg IVC: 2.0 cm COMMENTS: Normal sinus rhythm without intraventricular conduction disturbance. M-mode and two-dimensional echocardiography was performed with pulsed, continuous wave, color flow and tissue Doppler studies. Normal left ventricular size and wall thickness with septal flattening consistent with right ventricular pressure overload. Preserved global resting left ventricular systolic function. Normal left atrial size with a degree of impairment of LV diastolic function, but current estimated mean left atrial pressure upper limits of normal to marginally elevated. Moderately dilated right heart chambers with right ventricular free wall hypokinesis and severe pulmonary hypertension. At least mildly dilated IVC for her size with absent respiratory collapse in keeping with significantly elevated central venous pressure/heart failure. Normal appearing valvular structures with moderately severe tricuspid insufficiency. No apparent intracardiac mass. Minuscule posterior pericardial effusion. The above test findings are consistent with severe cor pulmonale with right heart failure. DD: Hammad Mclaughlin MD, [facility] 01/15/19 1549 DT: MORRIS 01/16/19 0626 DS: LUIS FELIPE 01/16/19 0852 <Electronically signed by Hammad Mclaughlin > 01/16/1953 DVT prophylaxis ordered?: YES ASSESSMENT AND PLAN: Patient is a 63 year old female with a past medical history of noncompliance, tobacco abuse, and likely undiagnosed COPD who presented to the [facility] ER with hypercarbic hypoxemic respiratory failure PROBLEMS: 1. Acute on chronic hypercarbic hypoxemic respiratory failure -Patient is continued on noninvasive ventilation with BiPAP. She appears to be improving. Pulmonary Medicine is consulted and their help is greatly appreciated. Her respiratory failure is likely secondary to longstanding COPD. She does not hold a formal diagnosis of COPD as she has never received spirometry however, clinically this is supported. Patient will be continued on BiPAP with sleep and naps. 2. Severe Pulmonary Artery Hypertension; Cor Pulmonale -The patient received an Echocardiogram as it was felt that her symptoms may have been due to an exacerbation of congestive heart failure. Her Echocardiogram shown above, revealed an EF of 55%. She had findings consistent with severe pulmonary hypertension and Cor Pulmonale. She does have lower extremity swelling which is likely consistent with right heart failure picture. Her PAH may be contributed to long standing untreated pulmonary disease. -Given her degree of fluid retention and lower extremity edema she may benefit from diuretics although she has had fairly low blood pressure and may not tolerate Lasix. -Patient will continue on BiPAP 3. Hyponatremia -Patient continues to be hyponatremic. She has multiple etiologies for her hyponatremia including chronic and acute ethanol use and right hear failure. -She has fairly low blood pressure; AM cortisol pending for possible adrenal insufficiency -Nephrology consult has been placed as an effort to attempt to normalize the patients hyponatremia 4. Elevated Transaminases -Patient presented with elevated transaminases. This could have been secondary to alcoholic hepatitis vs chronic hepatic congestion from her right sided heart failure. Here transaminases appear to be improving. Will continue to trend. 5. Metabolic Encephalopathy -Appears to be resolving. Likely secondary to her acute on chronic hypercarbic hypoxemic respiratory failure 6. Alcohol Abuse -Patient is on CIWA protocol -Thiamine, Multivitamin, and folic acid supplementation 7. Severe Protein Calorie Malnutrition -Patient has had nutrition secondary to her alcoholism 8. Polycythemia -This is resolving. Likely a result of hemoconcentration 9. DVT prophylaxis -Heparin SQ DISPOSITION: Patient has an overall guarding poor prognosis. If she continues to smoke and drink her prognosis will remain very poor A-FIB/CHADSVASC A-FIB History Current/History of A-Fib/PAF?: No VS, I&O, 24H, Fishbone Vital Signs/I&O Vital Signs Date Time Temp Pulse Resp B/P (MAP) Pulse Ox O2 Delivery O2 Flow Rate FiO2 01/16/19 07:27 30 01/16/19 07:27 97 BIPAP/CPAP 01/16/19 06:00 97 100/64 (76) 01/16/19 04:00 97.9 18 01/14/19 23:00 4.0 l I&O- Last 24 Hours up to 6 AM 01/16/19 06:00 Intake Total 1560 ml Output Total 1690 ml Balance -130 ml Laboratory Data 24H LABS Laboratory Tests 2 01/15/19 12:10: Blood Gas Bicarbonate Standard 27.2H, Arterial Blood pH 7.255L, Arterial Blood Partial Pressure CO2 78.7*H, Arterial Blood Partial Pressure O2 72.7L, Arterial Blood Total CO2 36.5H, Arterial Blood HCO3 34.1H, Arterial Blood Base Excess 3.3H, Arterial Blood Oxygen Saturation 92.1L 01/15/19 14:06: Nucleated Red Blood Cells % (auto) 0.4H, Prothrombin Time 17.0H, Prothromb Time International Ratio 1.36, Anion Gap 26H, Glomerular Filtration Rate > 60.0, Blood Urea Nitrogen 22H, Creatinine 0.61, Sodium Level 125L, Potassium Level 5.7H, Chloride Level 85L, Carbon Dioxide Level 14L, Calcium Level 8.9, Aspartate Amino Transf (AST/SGOT) 144H, Alanine Aminotransferase (ALT/SGPT) 180H, Alkaline Phosphatase 57, Total Bilirubin 1.1H, Total Protein 5.9L, Albumin 1.3#L, Albumin/Globulin Ratio 0.28L 01/15/19 15:47: Random Glucose 90 01/15/19 16:15: Platelet Count, EDTA Free 178 01/15/19 21:38: Anion Gap 7L, Glomerular Filtration Rate > 60.0, Blood Urea Nitrogen 24H, Creatinine 0.96#, Sodium Level 130L, Potassium Level 4.5#, Chloride Level 87L, Carbon Dioxide Level 36H, Calcium Level 8.0L, Aspartate Amino Transf (AST/SGOT) 99H, Alanine Aminotransferase (ALT/SGPT) 145H, Alkaline Phosphatase 46, Total Bilirubin 0.8, Total Protein 4.8L, Albumin 2.6#L, Albumin/Globulin Ratio 1.18 01/16/19 04:08: Anion Gap 3L, Glomerular Filtration Rate > 60.0, Blood Urea Nitrogen 21H, Creatinine 0.64, Sodium Level 127L, Potassium Level 4.8, Chloride Level 88L, Carbon Dioxide Level 36H, Calcium Level 8.2L, Aspartate Amino Transf (AST/SGOT) 88H, Alanine Aminotransferase (ALT/SGPT) 142H, Alkaline Phosphatase 50, Total Bilirubin 0.7, Total Protein 5.4L, Albumin 2.7L, Albumin/Globulin Ratio 1.00, Nucleated Red Blood Cells % (auto) 0.4H 01/16/19 07:55: Blood Gas Bicarbonate Standard 32.8H, Arterial Blood pH 7.338L, Arterial Blood Partial Pressure CO2 73.1*H, Arterial Blood Partial Pressure O2 76.6, Arterial Blood Total CO2 40.6H, Arterial Blood HCO3 38.4H, Arterial Blood Base Excess 9.1H, Arterial Blood Oxygen Saturation 94.8L CBC/BMP Laboratory Tests 01/15/19 14:06 Red Blood Count 5.28, Mean Corpuscular Volume 97.7 H, Mean Corpuscular Hemoglobin 32.8, Mean Corpuscular Hemoglobin Concent 33.5, Red Cell Distribution Width 14.8 H, Calcium Level 8.9, Aspartate Amino Transf (AST/SGOT) 144 H, Alanine Aminotransferase (ALT/SGPT) 180 H, Alkaline Phosphatase 57, Total Bilirubin 1.1 H, Total Protein 5.9 L, Albumin 1.3 #L 01/15/19 21:38 Calcium Level 8.0 L, Aspartate Amino Transf (AST/SGOT) 99 H, Alanine Aminotransferase (ALT/SGPT) 145 H, Alkaline Phosphatase 46, Total Bilirubin 0.8, Total Protein 4.8 L, Albumin 2.6 #L 01/16/19 04:08 Red Blood Count 4.68, Mean Corpuscular Volume 95.9, Mean Corpuscular Hemoglobin 32.3, Mean Corpuscular Hemoglobin Concent 33.6, Red Cell Distribution Width 14.8 H, Calcium Level 8.2 L, Aspartate Amino Transf (AST/SGOT) 88 H, Alanine Aminotransferase (ALT/SGPT) 142 H, Alkaline Phosphatase 50, Total Bilirubin 0.7, Total Protein 5.4 L, Albumin 2.7 L Microbiology Microbiology 01/14/19 Blood Culture - Preliminary, Resulted No growth after 24 hours . All specim... 01/14/19 Blood Culture - Preliminary, Resulted No growth after 24 hours . All specim... 01/16/19 Respiratory Virus Panel (PCR) (DOTTY), Received Pending 01/14/19 Urine Culture - Final, Complete Lactobacillus Species GME ATTESTATION GME ATTESTATION My faculty preceptor for this patient encounter was physically present during the encounter and was fully available. All aspects of the patient interview, examination, medical decision making process, and medical care plan development were reviewed and approved by the faculty preceptor. The faculty preceptor is aware and concurs with the plan as stated in the body of this note and will attest to such by his/her cosignature. ATTENDING NOTE I saw and evaluated the patient. I agree with the findings and plan of care as documented in the resident's note ANABEL MEYER DO January 16, 2019 11:53 JHONNY LOZANO MD January 21, 2019 17:07
[2019-01-16 13:31] LABS: FREE T4 0.83 NG/DL (0.76-1.46); NT-PRO BNP 2936 PG/ML (<125)
--- NOTE | 2019-01-16 13:36 | CR ---
DATE OF CONSULTATION: 01/16/2019 REQUESTING PHYSICIAN: Lio Kaur MD REASON FOR CONSULTATION: Hypervolemic hyponatremia. HISTORY OF PRESENT ILLNESS: Michelle Harmon is a 63-year-old female with a past medical history of noncompliance, poor lack of medical care. Reportedly has not seen a primary care physician in several years and takes no home medication. Chart review shows a history of advanced chronic obstructive pulmonary disease (COPD), neuropathy, history of osteoporosis, alcoholism, and heavy smoking, along with severe protein-calorie malnutrition and peripheral vascular disease. The patient lives at home alone and has some underlying psychiatric condition. Family members do her grocery shopping and visit occasionally. Her daughter noticed the patient was lethargic and confused a couple of weeks ago and called emergency medical services (EMS). However, the patient refused to go to the hospital at that time. On 01/14/2019, the daughter found the patient in obtunded state and unresponsive, and EMS subsequently brought her to the emergency room. In the emergency room (ER), the patient was noted to be minimally responsive. Blood gas revealed hypercarbic respiratory failure with a pH of 7.1, and initial laboratory studies revealed severe hyperkalemia, metabolic alkalosis, hyponatremia. The patient was admitted to the intensive care unit (ICU) and placed on bilateral positive airway pressure (BiPAP) and started on intravenous (IV) steroids. She received several liters of fluid boluses, and her potassium level did normalize. She had a mild acute kidney injury on admission that did normalize, as well. Her hyponatremia persists, and she is noted to have significant leg edema, and nephrology evaluation is subsequently requested. I saw and examined the patient this morning in the ICU, and she was conversant, though gave very tangential history. She reports she feels better since coming in. She denied any shortness of breath at rest. PAST MEDICAL HISTORY: As mentioned above, advanced COPD noncompliant with any home oxygen, malnutrition, alcohol abuse, right heart failure, peripheral vascular disease, neuropathy, osteoporosis. ALLERGIES: PENICILLIN, CLINDAMYCIN. HOME MEDICATIONS: She reports she does not take any medicines at home. SURGICAL HISTORY: None reported. FAMILY HISTORY: No history of known renal failure. SOCIAL HISTORY: The patient lives alones under some hoarder and squalor conditions. There is a heavy alcohol and tobacco use. She does not leave the home, and family brings her groceries. REVIEW OF SYSTEMS: CONSTITUTIONAL: The patient reports a generalized debility and weakness. She denies fevers or chills. EYES: She denies tearing or visual changes. EARS, NOSE, AND THROAT (ENT): She denies rhinorrhea or tinnitus. CARDIAC: She reports leg edema. She denies shortness of breath at rest. She denies palpitations. RESPIRATORY: She has COPD. She is noncompliant with oxygen at home. She is a long-term smoker. GASTROINTESTINAL: She denies nausea, vomiting, diarrhea. GENITOURINARY: She denies dysuria, hematuria. MUSCULOSKELETAL: She denies any acute myalgias or arthralgias. ENDOCRINE: She denies a prior known history of hyperkalemia or hyponatremia. HEMATOLOGY: She denies anticoagulant use. She denies bleeding. Denies anemia. PSYCHIATRIC: As mentioned in history of present illness (HPI). NEUROLOGIC: Recent episode of encephalopathy as mentioned in HPI. PHYSICAL EXAMINATION: VITAL SIGNS: Temperature 97.9, pulse 93, respiratory rate 18, blood pressure 89/56, saturating 97% on BiPAP. INTAKE: Yesterday was 1560. Urine output yesterday was 1625. Net negative 65 mL. Weight in the bed scale today is 43 kg. GENERAL: The patient is seen in the intensive care unit sitting upright in bed. Head of bed elevated. She appears older than stated age, cachectic, and chronically ill-appearing. She is awake, alert, and speaking in run-on sentences. She is seen with a nasal cannula in place. No tachypnea or accessory muscle use. Jugular veins are elevated. Heart sounds S1, S2, regular rate and rhythm. 3+ edema in the periphery that extends up to the hip, thigh, and dependent areas. RESPIRATORY: Shows diminished breath sounds bilaterally. There is no tachypnea or accessory muscle use. She speaks in run-on sentences. ABDOMEN: Is soft. There is no tenderness to palpation. There are bowel sounds. GENITOURINARY: Show Andrea catheter with urine. EXTREMITIES: Show 3+ pitting edema that extends up to the hips, thighs, and dependent areas. She appears to have a foot drop. NEUROLOGIC: She answers simple questions appropriately and is cooperative with physical examination and is feeding herself. LABORATORIES: White count 10.2, hemoglobin 15.1, platelets 221. Sodium 127, potassium 4.8, bicarbonate 36, BUN 21, creatinine 0.6, BNP 9000, albumin 2.7, a.m. cortisol 23. IMAGING: Abdominal ultrasound: There is only a trace free fluid in the abdomen. There is a Bosniak class I simple cyst in the left kidney. There is a sludge-filled gallbladder. INPATIENT MEDICATIONS: Levaquin 750 mg intravenous (IV) every 48 hours. Mucinex 1200 mg by mouth twice a day. Tylenol as needed. Albuterol around the clock every 6 hours. Folic acid 1 mg by mouth daily. Heparin 5000 units subcutaneous every 8. Methylprednisone 60 mg IV every 8 hours. Multivitamin one tablet by mouth daily. Protonix 40 mg IV every day. Thiamine 100 mg by mouth twice a day. PROBLEMS: 1. Decompensated right heart failure. Echocardiogram is noted with dilated inferior vena cava with absent respiratory collapse and with moderately dilated right heart and severe pulmonary hypertension. She has 2-3+ peripheral edema. Chronic hypotension will complicate her diuresis. Her systolic has mostly been in the 80s-low 90s for the past day. I will hold off on use of midodrine (vasoconstrictor) due to her small vessel disease noted on CT angiography and concomitant input from vascular surgery. Hence, we will put her on albumin infusion every 8 hours with low-dose Lasix 20 mg IV twice a day in attempt to improve renal perfusion and diurese her. 2. Hypervolemic hyponatremia. In the setting of decompensated heart failure, there is no significant ascites seen on abdominal imaging. Her albumin is slowly improving. Would encourage dietary protein intake. We will try to gently diurese her to correct her sodium level. I have also added on thyroid-stimulating hormone (TSH) and T4 to the morning laboratories. Her cortisol level did return appropriately. Her hyponatremia is mild, and her serum osmolality is within acceptable limits. There is no strong criteria for complete correction of her sodium levels. She may chronically run on the low sides, given her alcoholism. 3. Metabolic alkalosis. It is compensatory and appropriate in view of her severe respiratory acidosis from COPD. 4. Hyperkalemia. It has resolved. She should continue on potassium-restricted diet. 5. Peripheral vascular disease. CT angiography as noted. We will avoid vasoconstrictor use in view of the above. 6. Chronic hypercarbic respiratory failure. Would suggest to wean IV steroid if possible, as it will worsen her fluid and salt retention. Thank you for involving me in the care of . Michelle Harmon. I will be happy to follow the patient along with you. Plan of care was discussed with the primary team.
[2019-01-16] MEDS: FUROSEMIDE 20 MG/2 ML VIAL (J1940) IV SCH ×2 (18:03→20:39)
[2019-01-16 18:58] LABS: BLOOD UREA NITROGEN 18 MG/DL (7-18); CALCIUM LEVEL 8.1 MG/DL (8.8-10.2); CARBON DIOXIDE LEVEL 34 MEQ/L (21-32); CHLORIDE LEVEL 86 MEQ/L (98-107); CREATININE FOR GFR 0.83 MG/DL (0.55-1.30); GLOMERULAR FILTRATION RATE > 60.0 (>45); GLUCOSE, FASTING 313 MG/DL (70-100); POTASSIUM SERUM 4.3 MEQ/L (3.5-5.1); SODIUM LEVEL 126 MEQ/L (136-145)
[2019-01-16] MEDS: LevoFLOXacin IV 750 MG in APPROPRIATE DILUENT 1 EA IV SCH (21:52)
[2019-01-17] VITALS (25 sets, daily range): BP systolic 86–105; BP diastolic 50–60
[2019-01-17] MEDS: IPRATROPIUM 0.5MG/ALBUTEROL 2.5MG INH SOL UD 3ML (DUONEB)(J7620) NEB SCH ×4 (01:18→19:39)
[2019-01-17] MEDS: PANTOPRAZOLE 40MG INJ (PROTONIX) (C9113) IV SCH (01:27)
[2019-01-17] MEDS: methylPREDNISolone INJ 125 MG/2 ML VIAL (J2930) IV SCH (01:27)
[2019-01-17 04:58] LABS: HEMATOCRIT 40.5 % (36.0-47.0); HEMOGLOBIN 13.3 g/dl (12.0-15.5); MEAN CORPUSCULAR HEMOGLOBIN 33.2 pg (27.0-33.0); MEAN CORPUSCULAR HGB CONC 32.8 g/dl (32.0-36.5); PLATELET COUNT, AUTOMATED 186 10^3/uL (150-450); RED BLOOD COUNT 4.01 10^6/uL (4.00-5.40); WHITE BLOOD COUNT 9.8 10^3/uL (4.0-10.0)
[2019-01-17 05:38] LABS: ALBUMIN 3.2 GM/DL (3.2-5.2); ALT/SGPT 100 U/L (12-78); BILIRUBIN,TOTAL 0.7 MG/DL (0.2-1.0); BLOOD UREA NITROGEN 13 MG/DL (7-18); CALCIUM LEVEL 8.3 MG/DL (8.8-10.2); CARBON DIOXIDE LEVEL 35 MEQ/L (21-32); CHLORIDE LEVEL 84 MEQ/L (98-107); CREATININE FOR GFR 0.94 MG/DL (0.55-1.30); GLOMERULAR FILTRATION RATE > 60.0 (>45); GLUCOSE, FASTING 282 MG/DL (70-100); POTASSIUM SERUM 3.3 MEQ/L (3.5-5.1); SODIUM LEVEL 127 MEQ/L (136-145); TOTAL PROTEIN 5.4 GM/DL (6.4-8.2)
[2019-01-17] MEDS: HEPARIN SOD (PORCINE) 5000 UNITS/ML VIAL SC SCH ×3 (06:23→21:22)
[2019-01-17] MEDS ORDERED: POTASSIUM CHLORIDE 10 MEQ SR TABLET PO ONE ×2 (07:30→08:00)
[2019-01-17 08:18] LABS: MAGNESIUM LEVEL 1.3 MG/DL (1.8-2.4)
[2019-01-17] MEDS: guaiFENesin ER 600 MG TAB PO SCH ×2 (08:32→21:21)
[2019-01-17] MEDS: THIAMINE 100 MG TAB PO SCH ×2 (08:32→21:21)
[2019-01-17] MEDS: FUROSEMIDE 20 MG/2 ML VIAL (J1940) IV SCH ×2 (08:32→21:22)
[2019-01-17] MEDS: FOLIC ACID 1 MG TAB PO SCH (08:32)
[2019-01-17] MEDS: MULTIVITAMINS/MINERALS THERAP 1 TAB PO SCH (08:32)
--- NOTE | 2019-01-17 08:58 | IPNPDOC ---
Date Seen The patient was seen on 01/17/19. Progress Note SUBJECTIVE: Patient was seen and examined this morning. She currently has no new complaints. She appears more awake and alert this morning. She is continued on noninvasive ventilation at night. She denies difficulty breathing. OBJECTIVE PHYSICAL EXAMINATION: VITAL SIGNS: Please see below. GENERAL: awake, alert, and oriented. She is sitting up in bed comfortably eating breakfast. She appears in no acute distress. She is cachetic and frail appearing HEENT: Atraumatic, normocephalic. Eyes are nonicteric. Trachea is midline. Dentition is fair CARDIOVASCULAR: Distant heart sounds. Tachycardic. Regular rhythm. No clicks, rubs, or murmurs. JVD present RESPIRATORY: Diminished breath sounds throughout. Prolonged expiratory phase. No wheezes, rhonchi, or rales. No accessory muscle use ABDOMINAL: Soft, nondistended. Nontender to palpation. No rebound tenderness or guarding. Positive bowel sounds throughout EXTREMITIES: 1mm pitting edema in bilateral lower extremities. Decreased edema in lower extremities from previous exam. Palpable dorsalis pedis and posterior tibial pulses bilaterally NEUROLOGICAL: No focal neurological deficits PSYCHOLOGICAL: Mood and affect appear appropriate for situation LABORATORY DATA, IMAGING STUDIES, MICROBIOLOGY: Please see below. Echocardiogram: DATE OF PROCEDURE: 01/15/2019 AGE: 63 GENDER: Female HEIGHT: 63 inches WEIGHT: 94 pounds BODY SURFACE AREA: 1.4 meters squared INPATIENT: ICU - Room 3209 REFERRING PHYSICIAN: Dr. Sushant Gunderson INDICATION: Respiratory failure, edema. MEASUREMENTS 2-D Measurements: RV: 4.2 cm LV: 2.4 cm Septum: 0.8 cm Posterior wall: 0.8 cm Aortic root: 2.7 cm LA: 2.8 cm LVEF 55% Doppler Measurements: AV: 1.17 m/s LVOT: 0.8 m/s LVOT diameter: 1.6 cm MV - A 72 A 87 EA ratio 0.8 Early mitral deceleration time: 186 ms E prime: 6 A prime: 6.5 E/E prime ratio: 12 PWCP: 16 mmHg PV: 0.8 m/s Pulmonary artery acceleration time: 79 ms RVSP: 64 mmHg IVC: 2.0 cm COMMENTS: Normal sinus rhythm without intraventricular conduction disturbance. M-mode and two-dimensional echocardiography was performed with pulsed, continuous wave, color flow and tissue Doppler studies. Normal left ventricular size and wall thickness with septal flattening consistent with right ventricular pressure overload. Preserved global resting left ventricular systolic function. Normal left atrial size with a degree of impairment of LV diastolic function, but current estimated mean left atrial pressure upper limits of normal to marginally elevated. Moderately dilated right heart chambers with right ventricular free wall hypokinesis and severe pulmonary hypertension. At least mildly dilated IVC for her size with absent respiratory collapse in keeping with significantly elevated central venous pressure/heart failure. Normal appearing valvular structures with moderately severe tricuspid insufficiency. No apparent intracardiac mass. Minuscule posterior pericardial effusion. The above test findings are consistent with severe cor pulmonale with right heart failure. DD: Hammad Mclaughlin MD, [facility] 01/15/19 1549 DT: MORRIS 01/16/19 0626 DS: LUIS FELIPE 01/16/19 0852 <Electronically signed by Hammad Mclaughlin > 01/16/1953 DVT prophylaxis ordered?: YES ASSESSMENT AND PLAN: Patient is a 63 year old female with a past medical history of noncompliance, tobacco abuse, alcohol abuse, and likely undiagnosed COPD who presented to the [facility] ER with hypercarbic hypoxemic respiratory failure PROBLEMS: 1. Acute on chronic hypercarbic hypoxemic respiratory failure -Patient is continued on noninvasive ventilation with BiPAP at night. She appears to be improving. -Pulmonary Medicine is consulted and their help is greatly appreciated. Her respiratory failure is likely secondary to longstanding COPD. She does not hold a formal diagnosis of COPD as she has never received spirometry however, clinically this is supported. 2. Severe Pulmonary Artery Hypertension; Cor Pulmonale -The patient received an Echocardiogram as it was felt that her symptoms may have been due to an exacerbation of congestive heart failure. Her Echocardiogram shown above, revealed an EF of 55%. She had findings consistent with severe pulmonary hypertension and Cor Pulmonale. She does have lower extremity swelling which is likely consistent with right heart failure picture. Her PAH may be contributed to long standing untreated pulmonary disease. -Nephrology consultation was placed due to her hypervolemic state. Their recommendations and assistance is greatly appreciated. Patient was started on Albumin infusion q8h with low dose lasix. She appears to be diuresing well. 3. Hypervolemic Hyponatremia -Patient continues to be hyponatremic. She has multiple etiologies for her hyponatremia including chronic and acute ethanol use and right hear failure. -Nephrology consult has been placed as an effort to attempt to normalize the patients hyponatremia. Their recommendations are greatly appreciated. -Patient is continued on Albumin infusion q8h with low dose lasix. She was slightly hypokalemic this morning. Will replete with 40mg PO K. Will continue to monitor 4. Elevated Transaminases -Patient presented with elevated transaminases. This could have been secondary to alcoholic hepatitis vs chronic hepatic congestion from her right sided heart failure. -Continuing to improve. Will trend 5. Metabolic Encephalopathy -Resolved. -Likely secondary to acute on chronic hypercarbic hypoxemic respiratory failure secondary to her pulmonary disease 6. Alcohol Abuse -Patient is on CIWA protocol -Thiamine, Multivitamin, and folic acid supplementation 7. Severe Protein Calorie Malnutrition -Patient has had poor nutrition secondary to her alcoholism -2 gram sodium restricted diet 8. Polycythemia -This is resolving. Likely a result of hemoconcentration 9. DVT prophylaxis -Heparin SQ DISPOSITION: Patient has an overall guarded poor prognosis. If she continues to smoke and drink her prognosis will remain very poor A-FIB/CHADSVASC A-FIB History Current/History of A-Fib/PAF?: No VS, I&O, 24H, Fishbone Vital Signs/I&O Vital Signs Date Time Temp Pulse Resp B/P (MAP) Pulse Ox O2 Delivery O2 Flow Rate FiO2 01/17/19 06:00 109 92/50 01/17/19 06:00 96 2.0 01/17/19 05:00 30 01/17/19 04:00 98.6 18 01/16/19 07:27 BIPAP/CPAP I&O- Last 24 Hours up to 6 AM 01/17/19 06:00 Intake Total 3590 ml Output Total 4660 ml Balance -1070 ml Laboratory Data 24H LABS Laboratory Tests 2 01/16/19 18:12: Anion Gap 6L, Glomerular Filtration Rate > 60.0, Blood Urea Nitrogen 18, Creatinine 0.83, Sodium Level 126L, Potassium Level 4.3, Chloride Level 86L, Carbon Dioxide Level 34H, Calcium Level 8.1L 01/17/19 04:47: Anion Gap 8, Glomerular Filtration Rate > 60.0, Blood Urea Nitrogen 13, Creatinine 0.94, Sodium Level 127L, Potassium Level 3.3#L, Chloride Level 84L, Carbon Dioxide Level 35H, Calcium Level 8.3L, Nucleated Red Blood Cells % (auto) 0.2H, Osmolality 285, Aspartate Amino Transf (AST/SGOT) 42H, Alanine Aminotrans ferase (ALT/SGPT) 100H, Alkaline Phosphatase 69, Total Bilirubin 0.7, Total Protein 5.4L, Albumin 3.2, Magnesium Level 1.3L, Albumin/Globulin Ratio 1.45 CBC/BMP Laboratory Tests 01/16/19 18:12 Calcium Level 8.1 L 01/17/19 04:47 Calcium Level 8.3 L, Red Blood Count 4.01, Mean Corpuscular Volume 101.0 H, Mean Corpuscular Hemoglobin 33.2 H, Mean Corpuscular Hemoglobin Concent 32.8, Red Cell Distribution Width 14.7 H, Aspartate Amino Transf (AST/SGOT) 42 H, Alanine Aminotransferase (ALT/SGPT) 100 H, Alkaline Phosphatase 69, Total Bilirubin 0.7, Total Protein 5.4 L, Albumin 3.2 Microbiology Microbiology 01/14/19 Blood Culture - Preliminary, Resulted No Growth after 48 hours. All Specime... 01/14/19 Blood Culture - Preliminary, Resulted No Growth after 48 hours. All Specime... 01/16/19 Respiratory Virus Panel (PCR) (DOTTY) - Final, Complete 01/14/19 Urine Culture - Final, Complete Lactobacillus Species GME ATTESTATION GME ATTESTATION My faculty preceptor for this patient encounter was physically present during the encounter and was fully available. All aspects of the patient interview, examination, medical decision making process, and medical care plan development were reviewed and approved by the faculty preceptor. The faculty preceptor is aware and concurs with the plan as stated in the body of this note and will attest to such by his/her cosignature. ATTENDING NOTE Pt was seen and examined at bedside. case discussed with resident and agree with the management plan. Liberalize diet Fluid restriction OOb ad maria dolores with assistance Dietary consult May transfer to [facility] ANABEL MEYER DO January 17, 2019 08:58 SIMON STILES MD January 17, 2019 11:27
[2019-01-17] MEDS ORDERED: SODIUM CHLORIDE 1 GM TAB PO SCH (09:00)
--- NOTE | 2019-01-17 10:14 | CCN ---
[facility] CRITICAL CARE NOTE DATE OF SERVICE: 01/17/2019 I again attended Michelle Harmon. She has been able to be off the bilateral positive airway pressure (BiPAP) this morning. She did wear it last night. Maximum temperature (Tmax) overnight 99.1, blood pressure 80s to the low 100s, heart rate generally in the low 100s. Intake and output (I and O) midnight to midnight 2410 in with 2750 mL out. She is already negative a little over a liter this morning. White blood cell count 9.8, hemoglobin 13.3, platelet count 186,000. Sodium 127, potassium of 3.3, chloride 84, CO2 35, BUN 13, creatinine 0.94, transaminases better this morning. Pro-BNP yesterday down to 2936. On exam, she is awake, alert, and appropriate. Answers all questions. Pupils react. Sclerae clear. Trach is in the midline. Chest diminished but symmetric expansion. Intercostal muscle wasting is noted. tactile fremitus diminished throughout. No focal wheeze, rhonchus, crackles, or rubs. Cardiovascular examination: Is generally regular. I do believe there is a mid- systolic click versus a gallop. Peripheral pulses are diminished. Less edema. Abdomen: Thin, soft, nontender. Extremities: No cyanosis or clubbing. Neurologically, she is awake, alert. IMPRESSION: 1. Acute on chronic respiratory failure, both hypoxemic and hypercapnic. 2. Advanced obstructive lung disease suspected and no objective results available. 3. Longstanding tobacco use. 4. Alcohol use. 5. Vascular disease. 6. Abnormal liver function studies. 7. Pulmonary hypertension. 8. Hyponatremia. RECOMMENDATIONS: At this point, I am in agreement with her gentle diuresis. She has been able to be weaned somewhat from noninvasive support, and we will see how she does off it completely. Will taper her steroids. Ulcer and deep venous thrombosis (DVT) prophylaxes are in place. Given her alcohol use, we need to be on the lookout for withdrawal. This is being managed through primary service. We will continue her current bronchodilator regimen. There is no evidence of pulmonary infection. At this point, however, given her multisystem dysfunction, she is certainly at risk for further compromise. Will proceed as outlined above. Further recommendations will be made in the progress record as soon as information becomes available. MIKEY
[2019-01-17] MEDS: methylPREDNISolone INJ 40 MG/1 ML VIAL (J2920) IV SCH ×2 (10:20→18:22)
[2019-01-17] MEDS: POTASSIUM CHLORIDE 10 MEQ SR TABLET PO SCH (10:21)
[2019-01-17] MEDS: MAGNESIUM OXIDE 400 MG TAB (MAG-OX) PO SCH (10:21)
--- NOTE | 2019-01-17 11:44 | IPN ---
DATE OF SERVICE: 01/17/2019 SUBJECTIVE: Michelle is seen and examined this morning at the bedside. She has no complaints. She is awake, alert, and conversational. She is seen on nasal cannula during the day and was on BiPAP overnight. She has diuresed well and her peripheral edema is improving. VITAL SIGNS: Temperature 98.6, pulse 115, respiratory rate 18, blood pressure 95/50, saturating 92-96% on 2 liter nasal cannula. Intake yesterday was 2.4 liters. Urine output yesterday was 2.8 liters. Net negative 400. Urine output thus far today is already 2.2 liters. Weight in the bed scale is 45.1 kg. GENERAL: The patient is seen in bed in the intensive care unit, head of bed elevated, appears older than stated age, cachectic and chronically ill appearing, awake, alert, and in no distress. Nasal cannula in placed. No tachypnea or accessory muscle use. Jugular veins are only mildly elevated. CARDIAC: Heart sounds, S1/S2, regular rate and rhythm. Peripheral edema has improved and is now about 2+ and extends up to the hip, thigh, and dependent areas. RESPIRATORY: Shows diminished breath sounds bilaterally. She is comfortable on nasal cannula. There is no tachypnea or accessory muscle use. There is no crackle or rale. ABDOMEN: Soft, no tenderness to palpation. GENITOURINARY: Shows Andrea catheter with urine. EXTREMITIES: Show lower extremity 2+ edema that is improving. There is a foot drop bilaterally. NEUROLOGIC: She is cooperative with physical examination. Oriented to person, place, situtation, and feeding herself. LABORATORY DATA: White count 9.8, hemoglobin 13.3, sodium 127, corrected sodium is 130, potassium 3.3, bicarbonate 35, osmolality 285, magnesium 1.3, albumin 3.2. INPATIENT MEDICATIONS: Reviewed by myself and her Solu-Medrol is tapered down to 40 mg IV every 8 hours. She is started on magnesium oxide 400 mg by mouth daily, potassium chloride 20 mEq by mouth daily and I discontinued the salt tablet. PROBLEMS: 1. Decompensated right heart failure. Echocardiogram showed dilated inferior vena cava without absent respiratory collapse and moderately dilated right heart. Her peripheral edema is improving. Chronic hypotension complicates her diuresis. We will continue Lasix 20 mg IV twice a day although she has had good urine output she did have a significant oral fluid intake I am putting her a 1500 mL fluid restriction. Tomorrow we will likely transition her over to oral diuretics. Vasoconstrictors (Midodrine) are not being used due to small vessel disease noted on CT angio. 2. Hypervolemic hyponatremia. Her corrected sodium is 130. Her hyponatremia is very mild and it is secondary to decompensated heart failure and also alcoholism. There is no role for salt tablets and decompensated CHF, I have discontinued the salt tablet. Continue with fluid restriction and low dose Lasix. Of note her serum osmolality is within normal limits hence there is no strong criteria for complete normalization of her sodium levels, it is accetable for her to run on the low side. 3. Metabolic alkalosis. It is compensatory and appropriate in view of her severe respiratory acidosis from chronic obstructive pulmonary artery disease (COPD). 4. Hyperkalemia. She received 60 mEq potassium supplementation this morning and will continue with daily supplement of potassium while she is being diuresed. 5. Hypomagnesemia. She is started on magnesium oxide supplementation. 6. Chronic hypercarbic respiratory failure. I suggested to continue wean IV steroids as it will worsen her fluid retention.
[2019-01-17 18:51] LABS: BLOOD UREA NITROGEN 10 MG/DL (7-18); CALCIUM LEVEL 7.9 MG/DL (8.8-10.2); CARBON DIOXIDE LEVEL 41 MEQ/L (21-32); CHLORIDE LEVEL 83 MEQ/L (98-107); CREATININE FOR GFR 0.83 MG/DL (0.55-1.30); GLOMERULAR FILTRATION RATE > 60.0 (>45); GLUCOSE, FASTING 247 MG/DL (70-100); POTASSIUM SERUM 3.8 MEQ/L (3.5-5.1); SODIUM LEVEL 127 MEQ/L (136-145)
[2019-01-18] VITALS (8 sets, daily range): BP systolic 85–122; BP diastolic 50–63
[2019-01-18] MEDS: NYSTATIN 500,000 U/5 ML SUSP UDC SS SCH ×4 (00:33→17:21)
[2019-01-18] MEDS: PANTOPRAZOLE 40MG INJ (PROTONIX) (C9113) IV SCH (00:33)
[2019-01-18] MEDS: IPRATROPIUM 0.5MG/ALBUTEROL 2.5MG INH SOL UD 3ML (DUONEB)(J7620) NEB SCH ×4 (01:32→20:00)
[2019-01-18] MEDS: methylPREDNISolone INJ 40 MG/1 ML VIAL (J2920) IV SCH (02:19)
[2019-01-18] MEDS: HEPARIN SOD (PORCINE) 5000 UNITS/ML VIAL SC SCH ×3 (05:08→21:29)
[2019-01-18 05:21] LABS: HEMATOCRIT 42.4 % (36.0-47.0); HEMOGLOBIN 13.9 g/dl (12.0-15.5); MEAN CORPUSCULAR HEMOGLOBIN 33.3 pg (27.0-33.0); MEAN CORPUSCULAR HGB CONC 32.8 g/dl (32.0-36.5); MEAN CORPUSCULAR VOLUME 101.7 fl (80.0-96.0); PLATELET COUNT, AUTOMATED 197 10^3/uL (150-450); RED BLOOD COUNT 4.17 10^6/uL (4.00-5.40)
[2019-01-18 05:46] LABS: ALBUMIN 3.3 GM/DL (3.2-5.2); ALT/SGPT 83 U/L (12-78); BILIRUBIN,TOTAL 0.8 MG/DL (0.2-1.0); BLOOD UREA NITROGEN 9 MG/DL (7-18); CALCIUM LEVEL 7.8 MG/DL (8.8-10.2); CARBON DIOXIDE LEVEL 45 MEQ/L (21-32); CHLORIDE LEVEL 81 MEQ/L (98-107); CREATININE FOR GFR 0.67 MG/DL (0.55-1.30); GLOMERULAR FILTRATION RATE > 60.0 (>45); GLUCOSE, FASTING 138 MG/DL (70-100); POTASSIUM SERUM 3.6 MEQ/L (3.5-5.1); SODIUM LEVEL 132 MEQ/L (136-145); TOTAL PROTEIN 5.8 GM/DL (6.4-8.2)
[2019-01-18 08:27] LABS: ABG BASE EXCESS 19.6 (-2.0-2.0); ABG HCO3 48.7 MEQ/L (22.0-26.0); ABG O2 SATURATION 90.5 % (95.0-99.0); ABG PARTIAL PRESSURE O2 55.1 mmHg (75.0-100.0); ABG STANDARD HCO3 43.8 MEQ/L (22.0-26.0); ABG TOTAL CO2 51.1 MEQ/L (23.0-31.0); ABG pH (ARTERIAL) 7.429 UNITS (7.350-7.450)
[2019-01-18 08:31] LABS: ABG PARTIAL PRESSURE CO2 75.3 mmHg (35.0-45.0)
[2019-01-18] MEDS ORDERED: FUROSEMIDE 20 MG TAB PO SCH (09:00)
[2019-01-18 09:16] LABS: MAGNESIUM LEVEL 1.2 MG/DL (1.8-2.4)
--- NOTE | 2019-01-18 09:35 | IPNPDOC ---
Date Seen The patient was seen on 01/18/19. Progress Note SUBJECTIVE: Patient was seen and examined this morning. She states that she his currently feeling well. She did have a complaint of "white plaques" on her tongue last night and was given Nystatin S&S. She had remained off of BiPAP overnight and has shown improvement. There were no adverse events reported overnight. OBJECTIVE PHYSICAL EXAMINATION: VITAL SIGNS: Please see below. GENERAL: Awake, alert, and oriented. Cachetic and frail appearing. In no acute distress. Sitting up in bed comfortably HEENT:Atraumatic, normocephalic. Eyes are nonicteric. Trachea is midline. Dentition is fair CARDIOVASCULAR: Distant heart sounds. Tachycardic. Regular rhythm. No clicks, rubs, or murmurs. JVD present RESPIRATORY:Diminished breath sounds throughout. Prolonged expiratory phase. No wheezes, rhonchi, or rales. No accessory muscle use ABDOMINAL: Soft, nondistended. Nontender to palpation. No rebound tenderness or guarding. Positive bowel sounds throughout EXTREMITIES: Significant decrease in edema from previous examination. Area of erythema in right arm anticubital fossa consistent with infiltrated IV. Not cellulitic. Palpable dorsalis pedis and posterior tibial pulses bilaterally NEUROLOGICAL: No focal neurological deficits PSYCHOLOGICAL: Mood and affect appear appropriate for situation LABORATORY DATA, IMAGING STUDIES, MICROBIOLOGY: Please see below. Echocardiogram: Echocardiogram: DATE OF PROCEDURE: 01/15/2019 AGE: 63 GENDER: Female HEIGHT: 63 inches WEIGHT: 94 pounds BODY SURFACE AREA: 1.4 meters squared INPATIENT: ICU - Room 3209 REFERRING PHYSICIAN: Dr. Sushant Gunderson INDICATION: Respiratory failure, edema. MEASUREMENTS 2-D Measurements: RV: 4.2 cm LV: 2.4 cm Septum: 0.8 cm Posterior wall: 0.8 cm Aortic root: 2.7 cm LA: 2.8 cm LVEF 55% Doppler Measurements: AV: 1.17 m/s LVOT: 0.8 m/s LVOT diameter: 1.6 cm MV - A 72 A 87 EA ratio 0.8 Early mitral deceleration time: 186 ms E prime: 6 A prime: 6.5 E/E prime ratio: 12 PWCP: 16 mmHg PV: 0.8 m/s Pulmonary artery acceleration time: 79 ms RVSP: 64 mmHg IVC: 2.0 cm COMMENTS: Normal sinus rhythm without intraventricular conduction disturbance. M-mode and two-dimensional echocardiography was performed with pulsed, continuous wave, color flow and tissue Doppler studies. Normal left ventricular size and wall thickness with septal flattening consistent with right ventricular pressure overload. Preserved global resting left ventricular systolic function. Normal left atrial size with a degree of impairment of LV diastolic function, but current estimated mean left atrial pressure upper limits of normal to marginally elevated. Moderately dilated right heart chambers with right ventricular free wall hypokinesis and severe pulmonary hypertension. At least mildly dilated IVC for her size with absent respiratory collapse in keeping with significantly elevated central venous pressure/heart failure. Normal appearing valvular structures with moderately severe tricuspid insufficiency. No apparent intracardiac mass. Minuscule posterior pericardial effusion. The above test findings are consistent with severe cor pulmonale with right heart failure. DD: Hammad Mclaughlin MD, [facility] 01/15/19 1549 DT: MORRIS 01/16/19 0626 DS: LUIS FELIPE 01/16/19 0852 <Electronically signed by Hammad Mclaughlin > 01/16/19851 DVT prophylaxis ordered?: YES ASSESSMENT AND PLAN: Patient is a 63 year old female with a past medical history of noncompliance, tobacco abuse, alcohol abuse, and likely undiagnosed COPD who presented to the [facility] ER with hypercarbic hypoxemic respiratory failure PROBLEMS: 1. Acute on chronic hypercarbic hypoxemic respiratory failure -Resolved. Patient was kept off BiPAP overnight with no adverse event. -Patient had been receiving Solumedrol 60mg Q8h IV. She will be continued on Prednisone 40mg PO daily 2. Severe Pulmonary Artery Hypertension; Cor Pulmonale -The patient received an Echocardiogram as it was felt that her symptoms may have been due to an exacerbation of congestive heart failure. Her Echocardiogram shown above, revealed an EF of 55%. She had findings consistent with severe pulmonary hypertension and Cor Pulmonale. She does have lower extremity swelling which is likely consistent with right heart failure picture. Her PAH may be contributed to long standing untreated pulmonary disease. -Nephrology consultation was placed due to her hypervolemic state. Their recommendations and assistance is greatly appreciated. -s/P 6 total albumin infusions. 3. Hypervolemic Hyponatremia -Patient is being followed by Nephrology. Their recommendations are greatly appreciated. She is s/p 6 units of albumin. She had received low dose lasix and responded well. -Lower extremity edema and hyponatremia appear to be resolving 4. Elevated Transaminases -Patient presented with elevated transaminases. This could have been second gisel to alcoholic hepatitis vs chronic hepatic congestion from her right sided heart failure. -Continuing to improve. Will trend 5. Metabolic Encephalopathy -Resolved. -Likely secondary to acute on chronic hypercarbic hypoxemic respiratory failure secondary to her pulmonary disease 6. Alcohol Abuse -Patient is on CIWA protocol -Thiamine, Multivitamin, and folic acid supplementation 7. Severe Protein Calorie Malnutrition -Patient has had poor nutrition secondary to her alcoholism -2 gram sodium restricted diet 8. Polycythemia -This is resolving. Likely a result of hemoconcentration 9. GI prophylaxis -Patient has been receiving Protonix 40mg IV as she was receiving high dose steroids. Will change to PO protonix tomorrow 10. DVT prophylaxis -Heparin SQ DISPOSITION: Patient has an overall guarded poor prognosis. If she continues to smoke and drink her prognosis will remain very poor A-FIB/CHADSVASC A-FIB/CHADSVASC A-FIB History Current/History of A-Fib/PAF?: No VS, I&O, 24H, Fishbone Vital Signs/I&O Vital Signs Date Time Temp Pulse Resp B/P (MAP) Pulse Ox O2 Delivery O2 Flow Rate FiO2 01/18/19 05:17 110 18 92/56 (68) 92 1.0 01/18/19 04:30 98.9 01/17/19 16:38 30 01/16/19 07:27 BIPAP/CPAP I&O- Last 24 Hours up to 6 AM 01/18/19 06:00 Intake Total 2830 ml Output Total 5850 ml Balance -3020 ml Laboratory Data 24H LABS Laboratory Tests 2 01/17/19 18:15: Anion Gap 3L, Glomerular Filtration Rate > 60.0, Blood Urea Nitrogen 10, Cr eatinine 0.83, Sodium Level 127L, Potassium Level 3.8, Chloride Level 83L, Carbon Dioxide Level 41H, Calcium Level 7.9L 01/18/19 05:01: Anion Gap 6L, Glomerular Filtration Rate > 60.0, Blood Urea Nitrogen 9, Creatinine 0.67, Sodium Level 132L, Potassium Level 3.6, Chloride Level 81L, Carbon Dioxide Level 45H, Calcium Level 7.8L, Nucleated Red Blood Cells % (auto) 0.3H, Aspartate Amino Transf (AST/SGOT) 31, Alanine Aminotransferase (ALT/SGPT) 83H, Alkaline Phosphatase 53, Total Bilirubin 0.8, Total Protein 5.8L, Albumin 3.3, Albumin/Globulin Ratio 1.32 01/18/19 08:13: Blood Gas Bicarbonate Standard 43.8H, Arterial Blood pH 7.429, Arterial Blood Partial Pressure CO2 75.3*H, Arterial Blood Partial Pressure O2 55.1L, Arterial Blood Total CO2 51.1H, Arterial Blood HCO3 48.7H, Arterial Blood Base Excess 19.6H, Arterial Blood Oxygen Saturation 90.5L CBC/BMP Laboratory Tests 01/17/19 18:15 Calcium Level 7.9 L 01/18/19 05:01 Calcium Level 7.8 L, Red Blood Count 4.17, Mean Corpuscular Volume 101.7 H, Mean Corpuscular Hemoglobin 33.3 H, Mean Corpuscular Hemoglobin Concent 32.8, Red Cell Distribution Width 15.0 H, Aspartate Amino Transf (AST/SGOT) 31, Alanine Aminotransferase (ALT/SGPT) 83 H, Alkaline Phosphatase 53, Total Bilirubin 0.8, Total Protein 5.8 L, Albumin 3.3 Microbiology Microbiology 01/14/19 Blood Culture - Preliminary, Resulted No Growth after 72 hours. All specime... 01/14/19 Blood Culture - Preliminary, Resulted No Growth after 72 hours. All specime... 01/16/19 Respiratory Virus Panel (PCR) (DOTTY) - Final, Complete 01/14/19 Urine Culture - Final, Complete Lactobacillus Species GME ATTESTATION GME ATTESTATION My faculty preceptor for this patient encounter was physically present during the encounter and was fully available. All aspects of the patient interview, exa mination, medical decision making process, and medical care plan development were reviewed and approved by the faculty preceptor. The faculty preceptor is aware and concurs with the plan as stated in the body of this note and will attest to such by his/her cosignature. ATTENDING NOTE Patient was seen and examined at bedside with resident Case discussed with biomedical specialist Electrolytes supplemented Patient is medically stable to be transferred to MedSur floor with telemetry Continuous pulse ox and telemetry For possible be discharged from medical floor once stable ANABEL MEYER DO January 18, 2019 09:35 SIMON STILES MD January 19, 2019 07:10
--- NOTE | 2019-01-18 09:42 | CCN ---
PULMONARY CRITICAL CARE NOTE: DATE OF SERVICE: 01/18/2019 TIME OF VISIT: 0850 hours I again attended Michelle Harmon here in the intensive care unit. The patient has been examined and the chart reviewed. I spoke at length with the nurse, the patient as well as family at the bedside. She has been able to stay off noninvasive support for greater than 24 hours. She has no new complaints. Blood gas done this morning on 2 liters nasal cannula has a pH 7.429, pCO2 of 75.3 and a pO2 of 55. Maximum temperature (Tmax) overnight 98.9, blood pressure 85-95 systolic, heart rate generally low 100s with a sinus mechanism, respiratory rate approximately 18-22 without accessory muscle use. HEENT is otherwise, normocephalic, atraumatic. Pupils react. Neck reasonably supple. Trachea is in the midline. Chest shows intercostal muscle wasting. Diffuse hyperresonant to percussion, tactile fremitus diminished but palpable. No focal wheeze, rhonchus, crackles, or rubs. Cardiac exam borderline tachycardic but regular. I do believe her gallop versus her mid systolic click persist. Peripheral pulses markedly diminished but are able to be obtained by Doppler. Minimal edema. Abdomen soft with active bowel sounds. No convincing organomegaly or masses. Extremities with no cyanosis or clubbing. Neurologically, she is awake, alert and appropriate. Electrolytes show a sodium of 132, potassium 3.6, chloride 81, CO2 45, BUN 9, creatinine 0.67, glucose 138. White blood cell count 11.0, hemoglobin 13.9, and platelet count 197,000. No new imaging. IMPRESSION: 1. Acute on chronic respiratory failure, both hypoxemic and hypercapnic. 2. Suspected advanced obstructive lung disease with exacerbation. 3. Tobacco abuse up until the time of admission. 4. DO NOT RESUSCITATE, DO NOT INTUBATE status. 5. Alcohol abuse. 6. Hyponatremia. At this point, she has been able to be maintained off of noninvasive support and she is on bronchodilators. We will change her to an oral regimen as best we can at this point. I have encouraged her to be out of bed. Ulcerative deep venous thrombosis (DVT) prophylaxis per her primary service. She has been alcohol free probably for several days prior to admission since we have not noticed any significant evidence of withdrawal at this point. In view of the above, I will sign off for now. If she wishes I would be glad to see her in the outpatient setting 3-4 weeks post discharge if she is willing to remain tobacco free. Otherwise, will proceed as outlined above. MIKEY
[2019-01-18] MEDS: POTASSIUM CHLORIDE 10 MEQ SR TABLET PO SCH (10:08)
[2019-01-18] MEDS: FOLIC ACID 1 MG TAB PO SCH (10:09)
[2019-01-18] MEDS: predniSONE 20 MG TAB PO SCH (10:09)
[2019-01-18] MEDS: guaiFENesin ER 600 MG TAB PO SCH ×2 (10:09→21:29)
[2019-01-18] MEDS: MULTIVITAMINS/MINERALS THERAP 1 TAB PO SCH (10:09)
[2019-01-18] MEDS: MAGNESIUM OXIDE 400 MG TAB (MAG-OX) PO SCH ×2 (10:09→21:29)
[2019-01-18] MEDS ORDERED: MAG SULF 1GM/100ML (MAG RUN) 1 GM in APPROPRIATE DILUENT 1 EA IV ONE (12:00)
[2019-01-18] MEDS: TIOTROPIUM INHALER/CAPSULE (SPIRIVA) INH SCH (12:19)
[2019-01-18] MEDS: ADVAIR HFA 115/21MCG INHALER INH SCH ×2 (12:20→20:16)
--- NOTE | 2019-01-18 12:50 | IPN ---
DATE OF SERVICE: 01/18/2019 SUBJECTIVE: Michelle is seen and examined this morning sitting out of bed to the chair in the intensive care unit. She denies any overnight events or complaints. She did not require BiPap overnight. She has been on nasal cannula at 1-2 liters. She had a significant diuresis of a little more than 7 liters yesterday with marked improvement in peripheral edema and also serum sodium. She continues on a oral fluid restriction. Vital Signs: Temperature 98.9, pulse 112, respiratory rate 18, blood pressure 85/54, saturating 93% on 1 liter nasal cannula. Intake yesterday was 3.7 liters and urine output yesterday was 7.4 liters, net negative 3.4 liters. Weight in the bed scale today is 42.5. General: The patient is seen sitting in the chair out of bed in the intensive care unit. Appears older than stated age, frail, cachectic, chronically ill appearing. Extraocular muscles are intact. Tongue is moist. Neck is supple. The jugular veins are not elevated while she is sitting upright. There is severe and prominent muscle wasting and cachexia. Cardiac: Tachycardiac, but regular with pedal edema and edema also at the thigh and hip. The lungs show no crackles, rale or wheeze. There are diminished breath sounds bilaterally. The abdomen is soft and nontender. Genitourinary: Shows Andrea catheter with urine. The extremities show purplish and mottled discoloration to the feet with pedal edema bilaterally. Her calves are now wrinkled, but there is still edema at the hip and thigh. Neurologic: She is awake, alert and oriented. LABORATORY DATA: Sodium 132, potassium 3.6, bicarbonate 45, BUN 9, creatinine 0.6, magnesium 1.2. INPATIENT MEDICATIONS: She was discontinued off of IV Lasix. She is ordered for magnesium sulfate 1 gram IV times one and her magnesium oxide is increased to 400 mg by mouth twice a day. Her steroids have been weaned to 40 mg of prednisone by mouth daily. She was started on Nystatin swish and swallow. The remainder of medications are unchanged from prior. PROBLEMS: 1. Decompensated right heart failure. Volume status is significantly improving. She does still have edema at the thigh and hip about 1 to 2+ and also pedal edema, however, her calves are now wrinkled. Her daily weights are down trending and she is in daily net negative fluid balance. We are stopping the IV Lasix at this time and switching her over to low dose oral Lasix. Chronic hypotension complicates her diuresis. 2. Hypervolemic hyponatremia. It is improved. Sodium level today was 132 which is acceptable in this patient with a normal serum osmolality, history of alcoholism and congestive heart failure. I would continue with fluid restriction and low dose Lasix. There is no other intervention necessary at this point. 3. Metabolic alkalosis. Serum bicarbonate of 45. This is an appropriate alkalosis and it is compensatory in view of her severe respiratory acidosis and COPD. The diuretic is also contributing towards the alkalemia. 4. Hypokalemia. Continue with potassium supplementation while she is on diuretics. 5. Hypomagnesemia. Her magnesium supplementation has been increased. 6. Chronic hypercapnic respiratory failure. She likely has advanced/end-stage COPD given the marked elevation of CO2 on blood gas. She is symptomatically improved on nasal cannula and the usual nebulizers and inhaled steroids. Her systemic steroids are being weaned by the primary team.
[2019-01-18] MEDS: LevoFLOXacin IV 750 MG in APPROPRIATE DILUENT 1 EA IV SCH (21:29)
[2019-01-19] MEDS: NYSTATIN 500,000 U/5 ML SUSP UDC SS SCH ×2 (01:01→06:30)
[2019-01-19] MEDS: PANTOPRAZOLE 40MG INJ (PROTONIX) (C9113) IV SCH (01:01)
[2019-01-19] MEDS: IPRATROPIUM 0.5MG/ALBUTEROL 2.5MG INH SOL UD 3ML (DUONEB)(J7620) NEB SCH ×4 (02:13→20:00)
[2019-01-19 06:00] VITALS: BP 97/61
[2019-01-19 06:05] LABS: ABG BASE EXCESS 17.6 (-2.0-2.0); ABG HCO3 46.4 MEQ/L (22.0-26.0); ABG PARTIAL PRESSURE CO2 73.2 mmHg (35.0-45.0); ABG STANDARD HCO3 41.8 MEQ/L (22.0-26.0); ABG TOTAL CO2 48.7 MEQ/L (23.0-31.0)
[2019-01-19 06:10] LABS: HEMATOCRIT 43.9 % (36.0-47.0); HEMOGLOBIN 14.1 g/dl (12.0-15.5); MEAN CORPUSCULAR HGB CONC 32.1 g/dl (32.0-36.5); MEAN CORPUSCULAR VOLUME 102.8 fl (80.0-96.0); PLATELET COUNT, AUTOMATED 178 10^3/uL (150-450); RED BLOOD COUNT 4.27 10^6/uL (4.00-5.40); WHITE BLOOD COUNT 11.5 10^3/uL (4.0-10.0)
[2019-01-19] MEDS: HEPARIN SOD (PORCINE) 5000 UNITS/ML VIAL SC SCH ×3 (06:29→20:25)
[2019-01-19] MEDS: ADVAIR HFA 115/21MCG INHALER INH SCH ×2 (07:33→19:51)
[2019-01-19] MEDS: TIOTROPIUM INHALER/CAPSULE (SPIRIVA) INH SCH (07:33)
[2019-01-19 08:19] LABS: ALBUMIN 3.6 GM/DL (3.2-5.2); ALT/SGPT 82 U/L (12-78); BILIRUBIN,TOTAL 0.7 MG/DL (0.2-1.0); BLOOD UREA NITROGEN 10 MG/DL (7-18); CALCIUM LEVEL 8.5 MG/DL (8.8-10.2); CARBON DIOXIDE LEVEL 49 MEQ/L (21-32); CHLORIDE LEVEL 80 MEQ/L (98-107); CREATININE FOR GFR 0.49 MG/DL (0.55-1.30); GLOMERULAR FILTRATION RATE > 60.0 (>45); GLUCOSE, FASTING 92 MG/DL (70-100); POTASSIUM SERUM 3.4 MEQ/L (3.5-5.1); SODIUM LEVEL 132 MEQ/L (136-145); TOTAL PROTEIN 5.8 GM/DL (6.4-8.2)
[2019-01-19] MEDS ORDERED: MAGIC MOUTHWASH SUSPENSION BTL SSP PRN (09:45)
[2019-01-19] MEDS: MULTIVITAMINS/MINERALS THERAP 1 TAB PO SCH (09:49)
[2019-01-19] MEDS: POTASSIUM CHLORIDE 10 MEQ SR TABLET PO SCH (09:49)
[2019-01-19] MEDS: predniSONE 20 MG TAB PO SCH (09:49)
[2019-01-19] MEDS: FOLIC ACID 1 MG TAB PO SCH (09:50)
[2019-01-19] MEDS: guaiFENesin ER 600 MG TAB PO SCH ×2 (09:50→20:23)
[2019-01-19] MEDS: MAGNESIUM OXIDE 400 MG TAB (MAG-OX) PO SCH ×2 (09:50→20:24)
[2019-01-19] MEDS: FUROSEMIDE 20 MG TAB PO SCH (09:50)
--- NOTE | 2019-01-19 11:00 | IPNPDOC ---
Date Seen The patient was seen on 01/19/19. Progress Note SUBJECTIVE: Patient was seen and examined this morning. She has remained off BiPAP and appears to be doing well. There have been no adverse events reported overnight. She does complain of throat pain. Several nights ago she was started on Nystatin S&S for suspected candidiasis. She has not noted much improvement. She otherwise states that she feels fairly well OBJECTIVE PHYSICAL EXAMINATION: VITAL SIGNS: Please see below. GENERAL: Awake, alert, and oriented. She appears in no acute distress. She is lying comfortably in bed. HEENT: Atraumatic normocephalic. Examination of throat reveals multiple small shallow ulcers present on the hard palate and extending down the oropharynx. Tongue has small white patches. Scraping of tongue does not result in bleeding. No palpable cervical lymphadenopathy CARDIOVASCULAR: Distant heart sounds. Tachycardic rate. Regular rhythm. No clicks, rubs, or murmurs. JVD present RESPIRATORY: Diminished breath sounds throughout with a prolonged expiratory phase. No wheezes, rhonchi, or rales. No accessory muscle use ABDOMINAL: Soft, nondistended. Nontender to palpation in all 4 quadrants. No rebound tenderness or guarding. Positive bowel sounds throughout EXTREMITIES: Significant improvement in lower extremity edema. Slight sacral edema. Right arm erythema consistent with recent IV infiltration. No cellulitic features present. NEUROLOGICAL: No focal neurological deficits present PSYCHOLOGICAL: Mood and affect appear appropriate LABORATORY DATA, IMAGING STUDIES, MICROBIOLOGY: Please see below. Echocardiogram: DATE OF PROCEDURE: 01/15/2019 AGE: 63 GENDER: Female HEIGHT: 63 inches WEIGHT: 94 pounds BODY SURFACE AREA: 1.4 meters squared INPATIENT: ICU - Room 3209 REFERRING PHYSICIAN: Dr. Sushant Gunderson INDICATION: Respiratory failure, edema. MEASUREMENTS 2-D Measurements: RV: 4.2 cm LV: 2.4 cm Septum: 0.8 cm Posterior wall: 0.8 cm Aortic root: 2.7 cm LA: 2.8 cm LVEF 55% Doppler Measurements: AV: 1.17 m/s LVOT: 0.8 m/s LVOT diameter: 1.6 cm MV - A 72 A 87 EA ratio 0.8 Early mitral deceleration time: 186 ms E prime: 6 A prime: 6.5 E/E prime ratio: 12 PWCP: 16 mmHg PV: 0.8 m/s Pulmonary artery acceleration time: 79 ms RVSP: 64 mmHg IVC: 2.0 cm COMMENTS: Normal sinus rhythm without intraventricular conduction disturbance. M-mode and two-dimensional echocardiography was performed with pulsed, continuous wave, color flow and tissue Doppler studies. Normal left ventricular size and wall thickness with septal flattening consistent with right ventricular pressure overload. Preserved global resting left ventricular systolic function. Normal left atrial size with a degree of impairment of LV diastolic function, but current estimated mean left atrial pressure upper limits of normal to marginally elevated. Moderately dilated right heart chambers with right ventricular free wall hypokinesis and severe pulmonary hypertension. At least mildly dilated IVC for her size with absent respiratory collapse in keeping with significantly elevated central venous pressure/heart failure. Normal appearing valvular structures with moderately severe tricuspid insufficiency. No apparent intracardiac mass. Minuscule posterior pericardial effusion. The above test findings are consistent with severe cor pulmonale with right heart failure. DD: Hammad Mclaughlin MD, [facility] 01/15/19 1549 DT: MORRIS 01/16/19 0626 DS: LUIS FELIPE 01/16/19 0852 <Electronically signed by Hammad Mclaughlin > 01/16/1953 DVT prophylaxis ordered?: YES ASSESSMENT AND PLAN: Patient is a 63 year old female with a past medical history of noncompliance, tobacco abuse, alcohol abuse, and likely undiagnosed COPD who presented to the [facility] ER with hypercarbic hypoxemic respiratory failure PROBLEMS: 1. Acute on chronic hypercarbic hypoxemic respiratory failure -Resolved. Patient was kept off BiPAP overnight with no adverse event. -Patient had been receiving Solumedrol 60mg Q8h IV. She will be continued on Prednisone 40mg PO daily 2. Severe Pulmonary Artery Hypertension; Cor Pulmonale; Decompensated Right Heart Failure -The patient received an Echocardiogram as it was felt that her symptoms may have been due to an exacerbation of congestive heart failure. Her Echocardiogram shown above, revealed an EF of 55%. She had findings consistent with severe pulmonary hypertension and Cor Pulmonale. She does have lower extremity swelling which is likely consistent with right heart failure picture. Her PAH may be contributed to long standing untreated pulmonary disease. -Nephrology consultation was placed due to her hypervolemic state. Their recommendations and assistance is greatly appreciated. -s/P 6 total albumin infusions. -Patient is continued on PO low dose lasix. 3. Hypervolemic Hyponatremia -Patient is being followed by Nephrology. Their recommendations are greatly appreciated. She is s/p 6 units of albumin. She had received low dose lasix and responded well. -Lower extremity edema and hyponatremia appear to be resolving 4. Oropharyngeal Ulcers/Pain likely 2/2 Candidiasis vs HSV -Patient had complained of pain in her throat. She was originally placed on Nystatin S&S. She has not noticed much improvement if any at all. On examination, the patient appears to have multiple shallow based ulcers in the oropharynx. This could be candidiasis or possibly HSV. Will obtain HSV and Z sherin PCR. Will obtain throat swab and culture for fungal. I will stop Nystatin and place patient on Diflucan. Magic mouthwash will be added for pain. 5. Elevated Transaminases -Patient presented with elevated transaminases. This could have been secondary to alcoholic hepatitis vs chronic hepatic congestion from her right sided heart failure. -Continuing to improve. Will trend 6. Metabolic Encephalopathy -Resolved. -Likely secondary to acute on chronic hypercarbic hypoxemic respiratory failure secondary to her pulmonary disease 7. Alcohol Abuse -Patient is on CIWA protocol -Thiamine, Multivitamin, and folic acid supplementation 8. Severe Protein Calorie Malnutrition -Patient has had poor nutrition secondary to her alcoholism -2 gram sodium restricted diet 9. Polycythemia -This is resolving. Likely a result of hemoconcentration 10. GI prophylaxis -Patient has been receiving Protonix 40mg IV as she was receiving high dose steroids. Will change to PO protonix tomorrow 11. DVT prophylaxis -Heparin SQ DISPOSITION: Patients overall prognosis is poor given her multiple comorbidities. If she continues to smoke and drink outpatient she will carry a poor prognosis. A-FIB/CHADSVASC A-FIB History Current/History of A-Fib/PAF?: No VS, I&O, 24H, Fishbone Vital Signs/I&O Vital Signs Date Time Temp Pulse Resp B/P (MAP) Pulse Ox O2 Delivery O2 Flow Rate FiO2 01/19/19 10:23 2.0 01/19/19 06:00 97.8 108 16 97/61 (73) 93 01/17/19 16:38 30 01/16/19 07:27 BIPAP/CPAP I&O- Last 24 Hours up to 6 AM 01/19/19 06:00 Intake Total 1270 ml Output Total 275 ml Balance 995 ml Laboratory Data 24H LABS Laboratory Tests 2 01/19/19 05:28: Nucleated Red Blood Cells % (auto) 0.3H, Anion Gap 3L, Glomerular Filtration Rate > 60.0, Blood Urea Nitrogen 10, Creatinine 0.49L, Sodium Level 132L, Potassium Level 3.4L, Chloride Level 80L, Carbon Dioxide Level 49H, Calcium Level 8.5L, Aspartate Amino Transf (AST/SGOT) 38H, Alanine Aminotransferase (ALT/SGPT) 82H, Alkaline Phosphatase 53, Total Bilirubin 0.7, Total Protein 5.8L, Albumin 3.6, Albumin/Globulin Ratio 1.64 01/19/19 05:46: Blood Gas Bicarbonate Standard 41.8H, Arterial Blood pH 7.420, Arterial Blood Partial Pressure CO2 73.2*H, Arterial Blood Partial Pressure O2 73.0L, Arterial Blood Total CO2 48.7H, Arterial Blood HCO3 46.4H, Arterial Blood Base Excess 17.6H, Arterial Blood Oxygen Saturation 96.0 01/19/19 09:40: CBC/BMP Laboratory Tests 01/19/19 05:28 Red Blood Count 4.27, Mean Corpuscular Volume 102.8 H, Mean Corpuscular Hemoglobin 33.0, Mean Corpuscular Hemoglobin Concent 32.1, Red Cell Distribution Width 15.7 H, Calcium Level 8.5 L, Aspartate Amino Transf (AST/SGOT) 38 H, Alanine Aminotransferase (ALT/SGPT) 82 H, Alkaline Phosphatase 53, Total Bilirubin 0.7, Total Protein 5.8 L, Albumin 3.6 Microbiology Microbiology 01/14/19 Blood Culture - Preliminary, Resulted No Growth after 72 hours. All specime... 01/14/19 Blood Culture - Preliminary, Resulted No Growth after 72 hours. All specime... 01/16/19 Respiratory Virus Panel (PCR) (DOTTY) - Final, Complete 01/14/19 Urine Culture - Final, Complete Lactobacillus Species GME ATTESTATION GME ATTESTATION My faculty preceptor for this patient encounter was physically present during the encounter and was fully available. All aspects of the patient interview, examination, medical decision making process, and medical care plan development were reviewed and approved by the faculty preceptor. The faculty preceptor is aware and concurs with the plan as stated in the body of this note and will attest to such by his/her cosignature. ATTENDING NOTE Patient seen and examined at bedside with the resident physician, case discussed with resident Continue present care. We will repeat laboratory work in a.m. Discharge planning ANABEL MEYER DO January 19, 2019 11:00 SIMON STILES MD January 19, 2019 13:56
[2019-01-19] MEDS ORDERED: aMILoride 5 MG TAB PO SCH (12:00)
[2019-01-19] MEDS: FLUCONAZOLE 100 MG TAB PO SCH (12:13)
[2019-01-19] MEDS: aMILoride 5 MG TAB PO SCH ×2 (12:14→20:23)
[2019-01-19 14:00] VITALS: BP 105/60
--- NOTE | 2019-01-19 15:22 | IPN ---
DATE: 01/19/2019 SUBJECTIVE: Michelle is and examined this morning sitting out of bed to the chair. She complains of shortness of breath at rest. Continues on a nasal cannula, which was increased from 1 to 2 liters this morning. She also complains of leg edema. Intake yesterday was 1 liter. Urine output yesterday was not fully recorded. There were three bowel movement, three voids, and urine of 975 mL. Weight in the bed scale today is 41.8 kg, which is decreased from prior. VITAL SIGNS: Temperature 97.8, pulse 108, respiratory rate 16, blood pressure 97/61, saturating 93% on 1-2 liters nasal cannula. GENERAL: The patient is seen sitting in the chair out of bed. Legs are elevated. Appears older than stated age, frail, cachectic, chronically ill appearing. Extraocular muscles are intact and is moist. Nasal cannula is in place. Jugular veins are not elevated while she is sitting upright. There is severe and prominent muscle wasting. CARDIAC: Tachycardia with regular rhythm and 2+ edema in the lower extremities that extends up to the hip, thigh, and groin LUNGS: Show prolonged expiration and scattered rhonchus. There is no crackle or rale. ABDOMEN: Soft and nontender. GENITOURINARY: Shows Andrea catheter has been removed. NEUROLOGIC: She is awake, alert, and oriented. LABORATORY DATA: White count 11.5, hemoglobin 14.1. Sodium 132, potassium 3.4, bicarbonate 49, creatinine 0.49, BUN 10. INPATIENT MEDICATIONS: I have added amiloride 2.5 mg by mouth twice a day. She continues on furosemide 20 mg by mouth daily. Her remainder of medications are unchanged from prior. PROBLEMS: 1. Decompensated right heart failure. Volume status is improving, but she still has significant peripheral edema that extends up to the hip, thigh, and the groin. Her daily weights are down trending. She is in daily net-negative fluid balance. There is increasing metabolic alkalosis. At this point, we will add amiloride 2.5 mg by mouth twice daily to help ameliorate the hypokalemic metabolic alkalosis. 2. Hypervolemic hyponatremia. It is stable. Sodium level is 132, which is acceptable in this patient with normal serum osmolality. 3. History of alcoholism and congestive heart failure. Continue fluid restriction and continue diuretics. 4. Metabolic alkalosis and respiratory acidosis. Respiratory acidosis is secondary to chronic obstructive pulmonary disease (COPD), and metabolic alkalosis is compensatory in nature and also secondary to diuresis. Her serum bicarbonate is up to 49 today with blood gas showing a normal pH. I have started her on amiloride 2.5 mg by mouth twice a day, which will help with the hypokalemia as well as alkalemia. 5. Hypokalemia. Continue with potassium supplementation, and amiloride is also being started. 6. Hypomagnesemia. Continue magnesium supplementation twice daily and will check a magnesium level tomorrow. 7. Chronic hypercapnic respiratory failure. She likely has advanced COPD given the trend of her blood gases. She continues on supplemental oxygen and the usual treatment of nebulizers and inhaled steroids. Her systemic steroids are being weaned by the primary team, and the overall prognosis is likely poor.
[2019-01-19 22:00] VITALS: BP 108/70
[2019-01-20] MEDS: PANTOPRAZOLE 40MG INJ (PROTONIX) (C9113) IV SCH (00:44)
[2019-01-20] MEDS: IPRATROPIUM 0.5MG/ALBUTEROL 2.5MG INH SOL UD 3ML (DUONEB)(J7620) NEB SCH ×4 (01:54→20:00)
[2019-01-20] MEDS: HEPARIN SOD (PORCINE) 5000 UNITS/ML VIAL SC SCH ×3 (05:13→22:36)
[2019-01-20 06:00] VITALS: BP 110/76
[2019-01-20 06:01] LABS: HEMATOCRIT 43.9 % (36.0-47.0); HEMOGLOBIN 14.1 g/dl (12.0-15.5); MEAN CORPUSCULAR HEMOGLOBIN 32.2 pg (27.0-33.0); MEAN CORPUSCULAR HGB CONC 32.1 g/dl (32.0-36.5); MEAN CORPUSCULAR VOLUME 100.2 fl (80.0-96.0); PLATELET COUNT, AUTOMATED 170 10^3/uL (150-450); RED BLOOD COUNT 4.38 10^6/uL (4.00-5.40); WHITE BLOOD COUNT 12.1 10^3/uL (4.0-10.0)
[2019-01-20 06:52] LABS: ALBUMIN 3.5 GM/DL (3.2-5.2); ALT/SGPT 74 U/L (12-78); BILIRUBIN,TOTAL 0.7 MG/DL (0.2-1.0); BLOOD UREA NITROGEN 12 MG/DL (7-18); CALCIUM LEVEL 8.8 MG/DL (8.8-10.2); CHLORIDE LEVEL 81 MEQ/L (98-107); CREATININE FOR GFR 0.38 MG/DL (0.55-1.30); GLOMERULAR FILTRATION RATE > 60.0 (>45); GLUCOSE, FASTING 94 MG/DL (70-100); MAGNESIUM LEVEL 1.8 MG/DL (1.8-2.4); SODIUM LEVEL 132 MEQ/L (136-145); TOTAL PROTEIN 5.6 GM/DL (6.4-8.2)
[2019-01-20 06:53] LABS: CARBON DIOXIDE LEVEL 51 MEQ/L (21-32); POTASSIUM SERUM 5.2 MEQ/L (3.5-5.1)
[2019-01-20] MEDS: TIOTROPIUM INHALER/CAPSULE (SPIRIVA) INH SCH (07:21)
[2019-01-20] MEDS: ADVAIR HFA 115/21MCG INHALER INH SCH ×2 (07:21→20:10)
[2019-01-20] MEDS: predniSONE 20 MG TAB PO SCH (08:22)
[2019-01-20] MEDS: FOLIC ACID 1 MG TAB PO SCH (08:23)
[2019-01-20] MEDS: FLUCONAZOLE 100 MG TAB PO SCH (08:23)
[2019-01-20] MEDS: MAGNESIUM OXIDE 400 MG TAB (MAG-OX) PO SCH ×2 (08:23→22:35)
[2019-01-20] MEDS: MULTIVITAMINS/MINERALS THERAP 1 TAB PO SCH (08:23)
[2019-01-20] MEDS: guaiFENesin ER 600 MG TAB PO SCH ×2 (08:23→22:36)
[2019-01-20] MEDS: FUROSEMIDE 20 MG TAB PO SCH (08:24)
[2019-01-20] MEDS ORDERED: POTASSIUM CHLORIDE 10 MEQ SR TABLET PO SCH (09:00)
[2019-01-20 14:00] VITALS: BP 108/67
--- NOTE | 2019-01-20 15:13 | IPNPDOC ---
Date Seen The patient was seen on 01/20/19. Progress Note SUBJECTIVE: Patient was seen and examined this morning. She currently has no new complaints. She states that the discomfort in her mouth is improving. She currently denies any shortness of breath. The patient is planning on going back to her home at discharge. She states that she understands that she will need to stop smoking and drinking alcohol. OBJECTIVE PHYSICAL EXAMINATION: VITAL SIGNS: Please see below. ENERAL: Awake, alert, and oriented. She appears in no acute distress. She is lyi ng comfortably in bed. HEENT: Atraumatic normocephalic. Examination of throat reveals multiple small shallow ulcers present on the hard palate and extending down the oropharynx. Tongue has small white patches. Scraping of tongue does not result in bleeding. No palpable cervical lymphadenopathy CARDIOVASCULAR: Distant heart sounds. Tachycardic rate. Regular rhythm. No clicks, rubs, or murmurs. JVD present RESPIRATORY: Diminished breath sounds throughout with a prolonged expiratory phase. No wheezes, rhonchi, or rales. No accessory muscle use ABDOMINAL: Soft, nondistended. Nontender to palpation in all 4 quadrants. No rebound tenderness or guarding. Positive bowel sounds throughout EXTREMITIES: Significant improvement in lower extremity edema. Slight sacral edema. Right arm erythema consistent with recent IV infiltration. No cellulitic features present. NEUROLOGICAL: No focal neurological deficits present PSYCHOLOGICAL: Mood and affect appear appropriate LABORATORY DATA, IMAGING STUDIES, MICROBIOLOGY: Please see below. Echocardiogram: DATE OF PROCEDURE: 01/15/2019 AGE: 63 GENDER: Female HEIGHT: 63 inches WEIGHT: 94 pounds BODY SURFACE AREA: 1.4 meters squared INPATIENT: ICU - Room 3209 REFERRING PHYSICIAN: Dr. Sushant Gunderson INDICATION: Respiratory failure, edema. MEASUREMENTS 2-D Measurements: RV: 4.2 cm LV: 2.4 cm Septum: 0.8 cm Posterior wall: 0.8 cm Aortic root: 2.7 cm LA: 2.8 cm LVEF 55% Doppler Measurements: AV: 1.17 m/s LVOT: 0.8 m/s LVOT diameter: 1.6 cm MV - A 72 A 87 EA ratio 0.8 Early mitral deceleration time: 186 ms E prime: 6 A prime: 6.5 E/E prime ratio: 12 PWCP: 16 mmHg PV: 0.8 m/s Pulmonary artery acceleration time: 79 ms RVSP: 64 mmHg IVC: 2.0 cm COMMENTS: Normal sinus rhythm without intraventricular conduction disturbance. M-mode and two-dimensional echocardiography was performed with pulsed, cont inuous wave, color flow and tissue Doppler studies. Normal left ventricular size and wall thickness with septal flattening consistent with right ventricular pressure overload. Preserved global resting left ventricular systolic function. Normal left atrial size with a degree of impairment of LV diastolic function, but current estimated mean left atrial pressure upper limits of normal to marginally elevated. Moderately dilated right heart chambers with right ventricular free wall hypokinesis and severe pulmonary hypertension. At least mildly dilated IVC for her size with absent respiratory collapse in keeping with significantly elevated central venous pressure/heart failure. Normal appearing valvular structures with moderately severe tricuspid insufficiency. No apparent intracardiac mass. Minuscule posterior pericardial effusion. The above test findings are consistent with severe cor pulmonale with right heart failure. DD: Hammad Mclaughlin MD, [facility] 01/15/19 1549 DT: MORRIS 01/16/19 0626 DS: LUIS FELIPE 01/16/19 0852 <Electronically signed by Hammad Mclaughlin > 01/16/1953 DVT prophylaxis ordered?: YES ASSESSMENT AND PLAN: Patient is a 63 year old female with a past medical history of noncompliance, tobacco abuse, alcohol abuse, and likely undiagnosed COPD who presented to the [facility] ER with hypercarbic hypoxemic respiratory failure PROBLEMS: 1. Acute on chronic hypercarbic hypoxemic respiratory failure -Resolved. Patient was kept off BiPAP overnight with no adverse event. -Patient had been receiving Solumedrol 60mg Q8h IV. -Will continue to decrease steroids. Decrease to 20mg PO daily. Patient will likely be discharged with 10mg PO Prednisone given her degree of lung disease 2. Severe Pulmonary Artery Hypertension; Cor Pulmonale; Decompensated Right Heart Failure -The patient received an Echocardiogram as it was felt that her symptoms may have been due to an exacerbation of congestive heart failure. Her Echocardiogram shown above, revealed an EF of 55%. She had findings consistent with severe pulmonary hypertension and Cor Pulmonale. She does have lower extremity swelling which is likely consistent with right heart failure picture. Her PAH may be cont ributed to long standing untreated pulmonary disease. -Nephrology consultation was placed due to her hypervolemic state. Their recommendations and assistance is greatly appreciated. -s/P 6 total albumin infusions. -Patient is continued on PO low dose lasix. -She had been receiving supplemental potassium due to hypokalemia. This has been stopped as patient was fairly hyperkalemic this morning 3. Hypervolemic Hyponatremia -Patient is being followed by Nephrology. Their recommendations are greatly appreciated. She is s/p 6 units of albumin. She had received low dose lasix and responded well. -Lower extremity edema has improved significantly. 4. Oropharyngeal Ulcers/Pain likely 2/2 Candidiasis vs HSV -Patient had complained of pain in her throat. She was originally placed on N ystatin S&S. She has not noticed much improvement if any at all. On examination, the patient appears to have multiple shallow based ulcers in the oropharynx. This could be candidiasis or possibly HSV. -Cultures of throat are currently pending. -Continue with Diflucan PO and magic mouthwash 5. Hyperkalemia -Patient had been hypokalemic throughout most of her hospitalization. She was fairly hyperkalemic this morning. She was started on Amiloride and potassium supplementation due to her hypokalemia. This has been discontinued given her current hyperkalemic state -Will continue to monitor 6. Elevated Transaminases -Patient presented with elevated transaminases. This could have been secondary to alcoholic hepatitis vs chronic hepatic congestion from her right sided heart failure. -Continuing to improve. Will trend 7. Metabolic Encephalopathy -Resolved. -Likely secondary to acute on chronic hypercarbic hypoxemic respiratory failure secondary to her pulmonary disease 8. Alcohol Abuse -Patient is on CIWA protocol -Thiamine, Multivitamin, and folic acid supplementation 9. Severe Protein Calorie Malnutrition -Patient has had poor nutrition secondary to her alcoholism -2 gram sodium restricted diet 10. Polycythemia -This is resolving. Likely a result of hemoconcentration 11. GI prophylaxis -Patient has been receiving Protonix 40mg IV as she was receiving high dose steroids. Will change to PO protonix tomorrow 12. DVT prophylaxis -Heparin SQ DISPOSITION: Patient will likely be discharged in 48-72 hours. Her overall prognosis is guarded and dependant on her abstaining from tobacco use and alcohol use. VS, I&O, 24H, Fishbone Vital Signs/I&O Vital Signs Date Time Temp Pulse Resp B/P (MAP) Pulse Ox O2 Delivery O2 Flow Rate FiO2 01/20/19 14:00 97.2 67 17 108/67 (81) 94 1.0 01/20/19 07:22 Nasal Cannula 01/17/19 16:38 30 I&O- Last 24 Hours up to 6 AM 01/20/19 06:00 Intake Total 1550 ml Balance 1550 ml Laboratory Data 24H LABS Laboratory Tests 2 01/20/19 05:24: Nucleated Red Blood Cells % (auto) 0.2H, Anion Gap 0L, Glomerular Filtration Rate > 60.0, Blood Urea Nitrogen 12, Creatinine 0.38L, Sodium Level 132L, Potassium Level 5.2H, Chloride Level 81L, Carbon Dioxide Level 51H, Calcium Level 8.8, Aspartate Amino Transf (AST/SGOT) 32, Alanine Aminotransferase (ALT/SGPT) 74, Alkaline Phosphatase 61, Total Bilirubin 0.7, Total Protein 5.6L, Albumin 3.5, Magnesium Level 1.8, Albumin/Globulin Ratio 1.67 CBC/BMP Laboratory Tests 01/20/19 05:24 Red Blood Count 4.38, Mean Corpuscular Volume 100.2 H, Mean Corpuscular Hemoglobin 32.2, Mean Corpuscular Hemoglobin Concent 32.1, Red Cell Distribution Width 15.9 H, Calcium Level 8.8, Aspartate Amino Transf (AST/SGOT) 32, Alanine Aminotransferase (ALT/SGPT) 74, Alkaline Phosphatase 61, Total Bilirubin 0.7, Total Protein 5.6 L, Albumin 3.5 Microbiology Microbiology 01/14/19 Blood Culture - Final, Complete NO GROWTH AFTER 5 DAYS 01/14/19 Blood Culture - Final, Complete NO GROWTH AFTER 5 DAYS 01/19/19 Fungal Smear, Received Pending 01/19/19 Fungal Culture, Received Pending 01/16/19 Respiratory Virus Panel (PCR) (DOTTY) - Final, Complete 01/14/19 Urine Culture - Final, Complete Lactobacillus Species GME ATTESTATION GME ATTESTATION My faculty preceptor for this patient encounter was physically present during the encounter and was fully available. All aspects of the patient interview, examination, medical decision making process, and medical care plan development were reviewed and approved by the faculty preceptor. The faculty preceptor is aware and concurs with the plan as stated in the body of this note and will attest to such by his/her cosignature. ATTENDING NOTE Patient seen and examined at bedside Guest discussed and agreed with management and plan by resident physician Decreased potassium, decrease prednisone,possible DC soon Hypomagnesemia has been corrected Good by mouth oral intake Patient possibly will need rehabilitation facility. Discussed with case management at 9:00 rounds ANABEL MEYER DO January 20, 2019 15:13 SIMON STILES MD January 20, 2019 15:52
--- NOTE | 2019-01-20 17:32 | IPN ---
DATE: 01/20/2019 SUBJECTIVE: Patient is seen and examined this morning at the bedside. Denies any acute overnight events or issues. Has continued leg edema. Complains of dyspnea on exertion. Has been ambulating to the bathroom. VITAL SIGNS: Temperature 98.3, pulse 92, respiratory rate 16, blood pressure 110/76, saturating 92-94% on 1 liter nasal cannula. INTAKE AND OUTPUT: Intake yesterday was 1740. Urine output yesterday was not recorded. There were 15 urinary voids recorded and three bowel movements. Weight in the bed scale today is 42.6 kg. GENERAL: Patient is seen sitting up in the chair, legs elevated. Appears older than stated age, chronically ill-appearing, cachectic, in no acute distress. Extraocular muscles are intact. The oral mucosa showed thrush. Neck is supple. Jugular veins are elevated. Heart sounds are regular and tachycardiac. There is 2+ pitting edema in the periphery. Lungs show diminished breath sounds bilaterally. No crackles or rales. Abdomen is soft and nontender. The lower extremities show 2+ pitting edema that extends up to the hip, groin and dependent area. NEUROLOGIC: She is oriented at baseline mentation. No focal deficits. LABORATORY DATA: White count 12.1, hemoglobin 14.1. Sodium 132, potassium 5.2, bicarbonate 51, creatinine 0.3, BUN 12. INPATIENT MEDICATIONS: I discontinued amiloride and potassium and I started the patient on Diamox 250 mg by mouth twice a day. Primary team has decreased the prednisone to 20 mg by mouth daily. PROBLEMS: 1. Decompensated right heart failure. Peripheral edema persists. She became hyperkalemic with low dose amiloride. Amiloride is being discontinued and we will continue diuresis with Lasix and add twice daily Diamox. She continues on oral fluid restriction. 2. Respiratory acidosis, compensatory metabolic alkalosis, secondary metabolic alkalosis from diuretics. Serum bicarbonate is up to 50. Blood gas shows a normal pH. Her primary acid base disorder is severe respiratory acidosis with an accompanying metabolic alkalosis; however, she is also alkalotic from the diuretic. Her diuretic regimen today is being switched to Lasix plus Diamox. 3. Hypervolemic hyponatremia. It is stable. Sodium level is 132, which is acceptable in this patient with alcoholism, decompensated heart failure and a normal serum osmolality. Continue fluid restriction and continue diuresis. 4. Hyperkalemia. Amiloride is being discontinued. Potassium is discontinued. Switch diuretic to Lasix plus Diamox. 5. Hypomagnesemia. It is improved from prior. Continue magnesium supplementation and intermittently monitor magnesium level. 6. Chronic hypercapnic respiratory failure. I suspect she has end stage chronic obstructive pulmonary disease (COPD) given her trend of blood gases and accompanying cachexia. She continues on supplemental oxygen and the usual treatment of nebulizers and inhaled steroids. Her systemic steroids are being weaned by the primary team. Her overall prognosis is poor.
[2019-01-20 22:00] VITALS: BP 108/65
[2019-01-20] MEDS: AcetaZOLAMIDE 250 MG TAB PO SCH (22:35)
[2019-01-21] VITALS (7 sets, daily range): BP systolic 94–102; BP diastolic 53–72; O2SAT 94–99
[2019-01-21] MEDS: PANTOPRAZOLE 40MG INJ (PROTONIX) (C9113) IV SCH (00:28)
[2019-01-21] MEDS: IPRATROPIUM 0.5MG/ALBUTEROL 2.5MG INH SOL UD 3ML (DUONEB)(J7620) NEB SCH ×4 (01:47→20:00)
[2019-01-21] MEDS: HEPARIN SOD (PORCINE) 5000 UNITS/ML VIAL SC SCH ×3 (05:35→21:35)
[2019-01-21 06:35] LABS: HEMOGLOBIN 14.7 g/dl (12.0-15.5); MEAN CORPUSCULAR HEMOGLOBIN 32.5 pg (27.0-33.0); MEAN CORPUSCULAR HGB CONC 32.7 g/dl (32.0-36.5); MEAN CORPUSCULAR VOLUME 99.3 fl (80.0-96.0); PLATELET COUNT, AUTOMATED 176 10^3/uL (150-450); RED BLOOD COUNT 4.53 10^6/uL (4.00-5.40)
[2019-01-21 07:21] LABS: ALBUMIN 3.4 GM/DL (3.2-5.2); ALT/SGPT 68 U/L (12-78); BILIRUBIN,TOTAL 0.7 MG/DL (0.2-1.0); BLOOD UREA NITROGEN 22 MG/DL (7-18); CALCIUM LEVEL 8.5 MG/DL (8.8-10.2); CARBON DIOXIDE LEVEL 48 MEQ/L (21-32); CHLORIDE LEVEL 87 MEQ/L (98-107); CREATININE FOR GFR 0.41 MG/DL (0.55-1.30); GLOMERULAR FILTRATION RATE > 60.0 (>45); GLUCOSE, FASTING 86 MG/DL (70-100); POTASSIUM SERUM 4.3 MEQ/L (3.5-5.1); SODIUM LEVEL 133 MEQ/L (136-145); TOTAL PROTEIN 6.2 GM/DL (6.4-8.2)
[2019-01-21] MEDS: TIOTROPIUM INHALER/CAPSULE (SPIRIVA) INH SCH (07:52)
[2019-01-21] MEDS: ADVAIR HFA 115/21MCG INHALER INH SCH ×2 (07:53→20:18)
[2019-01-21] MEDS: AcetaZOLAMIDE 250 MG TAB PO SCH ×2 (09:34→21:35)
[2019-01-21] MEDS: FLUCONAZOLE 100 MG TAB PO SCH (09:34)
[2019-01-21] MEDS: MULTIVITAMINS/MINERALS THERAP 1 TAB PO SCH (09:34)
[2019-01-21] MEDS: guaiFENesin ER 600 MG TAB PO SCH ×2 (09:34→21:35)
[2019-01-21] MEDS: predniSONE 20 MG TAB PO SCH (09:34)
[2019-01-21] MEDS: MAGNESIUM OXIDE 400 MG TAB (MAG-OX) PO SCH ×2 (09:35→21:35)
[2019-01-21] MEDS: FOLIC ACID 1 MG TAB PO SCH (09:35)
[2019-01-21] MEDS: FUROSEMIDE 20 MG TAB PO SCH (09:37)
--- NOTE | 2019-01-21 12:18 | IPNPDOC ---
Date Seen The patient was seen on 01/21/19. Progress Note SUBJECTIVE: Patient was seen and examined this morning. She currently has no new complaints. OBJECTIVE PHYSICAL EXAMINATION: VITAL SIGNS: Please see below. GENERAL: Awake, alert, and oriented. She appears in no acute distress. She is lying comfortably in bed. HEENT: Atraumatic normocephalic. White patches on throat and tongue appear to have resolved. No palpable cervical lymphadenopathy CARDIOVASCULAR: Distant heart sounds. Tachycardic rate. Regular rhythm. No clicks, rubs, or murmurs. JVD present RESPIRATORY: Diminished breath sounds throughout with a prolonged expiratory phase. No wheezes, rhonchi, or rales. No accessory muscle use ABDOMINAL: Soft, nondistended. Nontender to palpation in all 4 quadrants. No rebound tenderness or guarding. Positive bowel sounds throughout EXTREMITIES: Significant improvement in lower extremity edema. Slight sacral edema. Right arm erythema consistent with recent IV infiltration. No cellulitic features present. NEUROLOGICAL: No focal neurological deficits present PSYCHOLOGICAL: Mood and affect appear appropriate LABORATORY DATA, IMAGING STUDIES, MICROBIOLOGY: Please see below. Echocardiogram: DATE OF PROCEDURE: 01/15/2019 AGE: 63 GENDER: Female HEIGHT: 63 inches WEIGHT: 94 pounds BODY SURFACE AREA: 1.4 meters squared INPATIENT: ICU - Room 3209 REFERRING PHYSICIAN: Dr. Sushant Gunderson INDICATION: Respiratory failure, edema. MEASUREMENTS 2-D Measurements: RV: 4.2 cm LV: 2.4 cm Septum: 0.8 cm Posterior wall: 0.8 cm Aortic root: 2.7 cm LA: 2.8 cm LVEF 55% Doppler Measurements: AV: 1.17 m/s LVOT: 0.8 m/s LVOT diameter: 1.6 cm MV - A 72 A 87 EA ratio 0.8 Early mitral deceleration time: 186 ms E prime: 6 A prime: 6.5 E/E prime ratio: 12 PWCP: 16 mmHg PV: 0.8 m/s Pulmonary artery acceleration time: 79 ms RVSP: 64 mmHg IVC: 2.0 cm COMMENTS: Normal sinus rhythm without intraventricular conduction disturbance. M-mode and two-dimensional echocardiography was performed with pulsed, c ontinuous wave, color flow and tissue Doppler studies. Normal left ventricular size and wall thickness with septal flattening consistent with right ventricular pressure overload. Preserved global resting left ventricular systolic function. Normal left atrial size with a degree of impairment of LV diastolic function, but current estimated mean left atrial pressure upper limits of normal to marginally elevated. Moderately dilated right heart chambers with right ventricular free wall hypokinesis and severe pulmonary hypertension. At least mildly dilated IVC for her size with absent respiratory collapse in keeping with significantly elevated central venous pressure/heart failure. Normal appearing valvular structures with moderately severe tricuspid insufficiency. No apparent intracardiac mass. Minuscule posterior pericardial effusion. The above test findings are consistent with severe cor pulmonale with right heart failure. DD: Hammad Mclaughlin MD, [facility] 01/15/19 1549 DT: MORRIS 01/16/19 0626 DS: LUIS FELIPE 01/16/19 0852 <Electronically signed by Hammad Mclaughlin > 01/16/19 0852 DVT prophylaxis ordered?: YES ASSESSMENT AND PLAN: Patient is a 63 year old female with a past medical history of noncompliance, tobacco abuse, alcohol abuse, and likely undiagnosed COPD who presented to the [facility] ER with hypercarbic hypoxemic respiratory failure PROBLEMS: 1. Acute on chronic hypercarbic hypoxemic respiratory failure -Resolved. Patient has been off of BiPAP -Prednisone 20mg PO. Patient will be discharged with 10mg PO Prednisone given her degree of lung disease 2. Severe Pulmonary Artery Hypertension; Cor Pulmonale; Decompensated Right Heart Failure -The patient received an Echocardiogram as it was felt that her symptoms may have been due to an exacerbation of congestive heart failure. Her Echocardiogram shown above, revealed an EF of 55%. She had findings consistent with severe pulmonary hypertension and Cor Pulmonale. She does have lower extremity swelling which is likely consistent with right heart failure picture. Her PAH may be contributed to long standing untreated pulmonary disease. -Nephrology consultation was placed due to her hypervolemic state. Their r ecommendations and assistance is greatly appreciated. -s/P 6 total albumin infusions. -Patient is continued on PO low dose lasix. -She had been receiving supplemental potassium due to hypokalemia. This has been stopped as patient was fairly hyperkalemic this morning 3. Hypervolemic Hyponatremia -Patient is being followed by Nephrology. Their recommendations are greatly appreciated. She is s/p 6 units of albumin. She had received low dose lasix and responded well. -Lower extremity edema has improved significantly. -BUN is elevated this morning. Patient may be diuresing too much 4. Oropharyngeal Ulcers/Pain likely 2/2 Candidiasis vs HSV -Patient had complained of pain in her throat. She was originally placed on Nystatin S&S. She has not noticed much improvement if any at all. On examination, the patient appears to have multiple shallow based ulcers in the oropharynx. This could be candidiasis or possibly HSV. -Cultures of throat are currently pending. -Continue with Diflucan PO and magic mouthwash 5. Hyperkalemia -Patient had been hypokalemic throughout most of her hospitalization. She was fairly hyperkalemic this morning. She was started on Amiloride and potassium supplementation due to her hypokalemia. This has been discontinued given her current hyperkalemic state -Will continue to monitor 6. Elevated Transaminases -Patient presented with elevated transaminases. This could have been secondary to alcoholic hepatitis vs chronic hepatic congestion from her right sided heart failure. -Continuing to improve. Will trend 7. Metabolic Encephalopathy -Resolved. -Likely secondary to acute on chronic hypercarbic hypoxemic respiratory failure secondary to her pulmonary disease 8. Alcohol Abuse -Patient is on CIWA protocol -Thiamine, Multivitamin, and folic acid supplementation 9. Severe Protein Calorie Malnutrition -Patient has had poor nutrition secondary to her alcoholism -2 gram sodium restricted diet 10. Polycythemia -This is resolving. Likely a result of hemoconcentration 11. GI prophylaxis -Patient has been receiving Protonix 40mg IV as she was receiving high dose steroids. Will change to PO protonix tomorrow 12. DVT prophylaxis -Heparin SQ DISPOSITION: Patients overall halfway prognosis is guarded given her multiple comorbidities VS, I&O, 24H, Fishbone Vital Signs/I&O Vital Signs Date Time Temp Pulse Resp B/P (MAP) Pulse Ox O2 Delivery O2 Flow Rate FiO2 01/21/19 11:55 2.0 01/21/19 11:47 94 Nasal Cannula 01/21/19 10:00 97.5 105 20 96/72 (80) 01/17/19 16:38 30 I&O- Last 24 Hours up to 6 AM 01/21/19 06:00 Intake Total 1595 ml Output Total 3575 ml Balance -1980 ml Laboratory Data 24H LABS Laboratory Tests 2 01/21/19 05:30: Nucleated Red Blood Cells % (auto) 0.2H, Anion Gap , Glomerular Filtration Rate > 60.0, Blood Urea Nitrogen 22#H, Creatinine 0.41L, Sodium Level 133L, Potassium Level 4.3, Chloride Level 87L, Carbon Dioxide Level 48H, Calcium Level 8.5L, Aspartate Amino Transf (AST/SGOT) 28, Alanine Aminotransferase (ALT/SGPT) 68, Alkaline Phosphatase 78, Total Bilirubin 0.7, Total Protein 6.2L, Albumin 3.4, Albumin/Globulin Ratio 1.21 CBC/BMP Laboratory Tests 01/21/19 05:30 Red Blood Count 4.53, Mean Corpuscular Volume 99.3 H, Mean Corpuscular Hemoglobin 32.5, Mean Corpuscular Hemoglobin Concent 32.7, Red Cell Distribution Width 16.0 H, Calcium Level 8.5 L, Aspartate Amino Transf (AST/SGOT) 28, Alanine Aminotransferase (ALT/SGPT) 68, Alkaline Phosphatase 78, Total Bilirubin 0.7, Total Protein 6.2 L, Albumin 3.4 Microbiology Microbiology 01/14/19 Blood Culture - Final, Complete NO GROWTH AFTER 5 DAYS 01/14/19 Blood Culture - Final, Complete NO GROWTH AFTER 5 DAYS 01/19/19 Fungal Smear, Received Pending 01/19/19 Fungal Culture, Received Pending 01/16/19 Respiratory Virus Panel (PCR) (DOTTY) - Final, Complete 01/14/19 Urine Culture - Final, Complete Lactobacillus Species GME ATTESTATION GME ATTESTATION My faculty preceptor for this patient encounter was physically present during the encounter and was fully available. All aspects of the patient interview, examination, medical decision making process, and medical care plan development were reviewed and approved by the faculty preceptor. The faculty preceptor is aware and concurs with the plan as stated in the body of this note and will attest to such by his/her cosignature. ATTENDING NOTE Patient seen and examined at bedside Discussed with resident physician Patient probably will require placement in subacute rehabilitation facility Electrolytes and her other laboratory work is essentially within normal limit, now , She probably can be transferred once the bed is available ANABEL MEYER DO January 21, 2019 12:18 SIMON STILES MD January 21, 2019 16:31
--- NOTE | 2019-01-21 16:22 | IPN ---
DATE: 01/21/2019 SUBJECTIVE: Patient was seen and examined at the bedside today morning. She was sitting up in the bed. She is responding well to the diuretics. Renal function is stable. Her metabolic alkalosis is getting better with the addition of acetazolamide yesterday. She has soft blood pressures, but otherwise hemodynamically stable. OBJECTIVE: VITAL SIGNS: Temperature is 97.5 degrees Fahrenheit. Blood pressure 96/72, pulse is 105, respiratory rate of 20, saturating 94% on nasal cannula at 2 liters. INTAKE AND OUTPUT: Urine output recorded is 2.1 liters yesterday, 3.2 liters so far today since overnight. Weight in the bed scale is 40 kg. PHYSICAL EXAMINATION: GENERAL: The patient is awake, alert, oriented times three, sitting up in the bed. She is hard of hearing. She is weak and cachectic and malnourished. HEAD AND NECK EXAM: Extraocular muscles intact. Pupils equally round and reactive to light. Bitemporal wasting. Neck is supple. Mildly elevated jugular venous distention (JVD). CARDIOVASCULAR: S1, S2. Regular rate. 2+ edema of the bilateral lower extremities. RESPIRATORY: Decreased breath sounds at the bases, otherwise no active rales or rhonchi. ABDOMEN: Soft. Positive bowel sounds. Nontender. MUSCULOSKELETAL: 2+ edema of the bilateral lower extremities up to the thighs. Clubbing of the fingernails was noted. 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 The patient moves all extremities. LABORATORY REVIEW: Complete blood count (CBC) showed a WBC of 12, hemoglobin is 14.7, platelets of 176. Basic metabolic panel (BMP) showed sodium 133, potassium 4.3, chloride 87, bicarbonate is 48, BUN 22, creatinine is 0.4, glucose is 86, calcium 8.5. CURRENT INPATIENT MEDICATIONS: Patient's medications were all reviewed by me. She continues to be on Lasix 20 mg by mouth daily and she was started on acetazolamide 250 mg by mouth twice a day. Prednisone has been tapered down to 20 mg by mouth daily. No other change in the medications today as compared with yesterday. ASSESSMENT/PLAN 1. Decompensated cor pulmonale. Patient still has significant lower extremity edema. She is responding very well to the low dose of diuretics. Continue current dose of Lasix 20 mg daily. Continue to monitor daily intake and output. 2. Chronic respiratory acidosis with metabolic alkalosis. Patient has metabolic alkalosis, which is for chronic respiratory acidosis compensation and also secondary to diuresis. Okay to continue current dose of Lasix. Acetazolamide 250 mg by mouth twice a day was started yesterday. Serum bicarbonate level is dropping now. 3. Hyponatremia. Patient has hypervolemic hyponatremia, which is improving with diuresis. Sodium is 133 today. 4. Hyperkalemia. It was secondary to use of amiloride with Lasix. Potassium level is improving today. 5. Chronic obstructive pulmonary disease (COPD). Patient has chronic CO2 retention. She is currently getting nebulizations and steroids as per primary team. She is a chronic active smoker and smokes about half a pack per day. Patient was advised to quit smoking.
[2019-01-22] MEDS: PANTOPRAZOLE 40MG INJ (PROTONIX) (C9113) IV SCH (01:12)
[2019-01-22] MEDS: IPRATROPIUM 0.5MG/ALBUTEROL 2.5MG INH SOL UD 3ML (DUONEB)(J7620) NEB SCH ×4 (02:04→20:00)
[2019-01-22 05:23] VITALS: O2SAT 96
[2019-01-22 05:54] LABS: HEMATOCRIT 44.3 % (36.0-47.0); HEMOGLOBIN 14.2 g/dl (12.0-15.5); MEAN CORPUSCULAR HEMOGLOBIN 31.8 pg (27.0-33.0); MEAN CORPUSCULAR HGB CONC 32.1 g/dl (32.0-36.5); MEAN CORPUSCULAR VOLUME 99.3 fl (80.0-96.0); PLATELET COUNT, AUTOMATED 184 10^3/uL (150-450); RED BLOOD COUNT 4.46 10^6/uL (4.00-5.40); WHITE BLOOD COUNT 10.1 10^3/uL (4.0-10.0)
[2019-01-22 06:00] VITALS: BP 102/74
[2019-01-22 06:15] LABS: ALBUMIN 3.3 GM/DL (3.2-5.2); ALT/SGPT 60 U/L (12-78); BILIRUBIN,TOTAL 0.9 MG/DL (0.2-1.0); BLOOD UREA NITROGEN 33 MG/DL (7-18); CALCIUM LEVEL 8.7 MG/DL (8.8-10.2); CARBON DIOXIDE LEVEL 41 MEQ/L (21-32); CHLORIDE LEVEL 91 MEQ/L (98-107); CREATININE FOR GFR 0.48 MG/DL (0.55-1.30); GLOMERULAR FILTRATION RATE > 60.0 (>45); GLUCOSE, FASTING 92 MG/DL (70-100); POTASSIUM SERUM 4.6 MEQ/L (3.5-5.1); SODIUM LEVEL 134 MEQ/L (136-145); TOTAL PROTEIN 6.3 GM/DL (6.4-8.2)
[2019-01-22] MEDS: HEPARIN SOD (PORCINE) 5000 UNITS/ML VIAL SC SCH ×3 (06:18→21:41)
[2019-01-22] MEDS: TIOTROPIUM INHALER/CAPSULE (SPIRIVA) INH SCH (08:10)
[2019-01-22] MEDS: ADVAIR HFA 115/21MCG INHALER INH SCH ×2 (08:11→21:11)
[2019-01-22 09:00] VITALS: O2SAT 95
[2019-01-22] MEDS: predniSONE 20 MG TAB PO SCH (10:03)
[2019-01-22] MEDS: FLUCONAZOLE 100 MG TAB PO SCH (10:03)
[2019-01-22] MEDS: MAGNESIUM OXIDE 400 MG TAB (MAG-OX) PO SCH ×2 (10:03→21:40)
[2019-01-22] MEDS: FUROSEMIDE 20 MG TAB PO SCH (10:03)
[2019-01-22] MEDS: FOLIC ACID 1 MG TAB PO SCH (10:04)
[2019-01-22] MEDS: MULTIVITAMINS/MINERALS THERAP 1 TAB PO SCH (10:04)
[2019-01-22] MEDS: AcetaZOLAMIDE 250 MG TAB PO SCH (10:04)
[2019-01-22] MEDS: guaiFENesin ER 600 MG TAB PO SCH ×2 (10:04→21:41)
--- NOTE | 2019-01-22 10:50 | IPNPDOC ---
Subjective Date Seen The patient was seen on 01/22/19. Subjective Chief Complaint/HPI Patient is comfortably, easily awoke . Offers no new complaints General: Denies: ROS Unobtainable, Chills, Night Sweats, Fatigue, Malaise, Normal Appetite, Other Symptoms Constitutional: Denies: Chills, Fever, Malaise, Night Sweats, Weakness, Fatigue, Weight Loss, Lethargy, Other Eyes: Denies: Pain, Vision change, Conjunctivae inflammation, Eyelid inflammation, Redness, Other ENT: Denies: Head Aches, Ear Pain, Dysphagia, Sinus Congestion, Post Nasal Dri p, Sore Throat, Epistaxis, Other Symptoms Skin: Denies: Rash, Lesions, Jaundice, Bruising, Itching, Dry, Breakdown, Nail Changes, Other Pulmonary: Denies: Dyspnea, Cough, Pleuritic Chest Pain, Other Symptoms Cardiovascular: Denies: Chest Pain, Palpitations, Orthopnea, Paroxysmal Noc. Dyspnea, Edema, Lt Headedness, Other Symptoms Gastrointestinal: Denies: Nausea, Vomiting, Abdominal Pain, Diarrhea, Constipation, Melena, Hematochezia, Other Symptoms Genitourinary: Denies: Dysuria, Frequency, Incontinence, Hematuria, Retention, Other Symptoms Hematologic: Denies: Bruising, Bleeding Excessively, Petecchia, Purpura, Enlarged Lymph Nodes, Other Hematologic Endocrine: Denies: Polydipsia, Polyphagia, Polyuria, Heat Intolerance, Cold Intolerance, Other Endocrine Sx Musculoskeletal: Denies: Neck Pain, Back Pain, Shoulder Pain, Arm Pain, Hand Pain, Leg Pain, Foot Pain, Joint Pain, Muscle Pain, Spasms, Other Symptoms Neurological: Denies: Weakness, Numbness, Incoordination, Change in speech, Confusion, Seizures, Other Symptoms Psych: Denies: Mood Normal, Anxiety, Depression, Memory Issues, Thoughts of Self Harm, Anger, Thoughts of Harming Other, Other Psych Objective Physical Examination General Exam: Positive: Alert (now alert, initially unresponsive) Eye Exam: Positive: PERRLA ENT Exam: Positive: Atraumatic Neck Exam: Positive: Supple; Negative: JVD Chest Exam: Positive: Other (poor air entry) Heart Exam: Positive: Rate Normal, Regular Rhythm Abdomen Exam: Positive: Normal bowel sounds, Soft; Negative: Tenderness Extremity Exam: Positive: Edema (3+ edema of both legs; dorsalis pedis pulses are not palpable by hand; cold; purple color improving; sensation intact; moving all toes and feet on command) Skin Exam: Negative: Rash, Breakdown Psych Exam: Positive: Mental status NL, Mood NL Assessment /Plan Problems (1) Hyponatremia Status: Acute (2) Rhabdomyolysis Status: Resolved (3) Hyperkalemia Status: Resolved (4) Respiratory failure Status: Chronic Response to Treatment: Stable, Improving (5) Cor pulmonale Status: Chronic Response to Treatment: Stable, Improving Plan/VTE VTE Prophylaxis Ordered?: Yes Plan Anticipated Discharge: Home With Services 1. Acute on chronic hypercarbic hypoxemic respiratory failure -Resolved. Patient has been off of BiPAP -Prednisone 20mg PO. Patient will be discharged with 10mg PO Prednisone given her degree of lung disease 2. Severe Pulmonary Artery Hypertension; Cor Pulmonale; Decompensated Right Heart Failure -The patient received an Echocardiogram as it was felt that her symptoms may have been due to an exacerbation of congestive heart failure. Her Echocardiogram shown above, revealed an EF of 55%. She had findings consistent with severe pulmonary hypertension and Cor Pulmonale. She does have lower extremity swelling which is likely consistent with right heart failure picture. Her PAH may be contributed to long standing untreated pulmonary disease. -Nephrology consultation was placed due to her hypervolemic state. Their recommendations and assistance is greatly appreciated. -s/P 6 total albumin infusions. -Patient is continued on PO low dose lasix. -She had been receiving supplemental potassium due to hypokalemia. This has been stopped as patient was fairly hyperkalemic this morning -Nephrology follow with appreciated, continue diuresis and followI/O 3. Hypervolemic Hyponatremia -Patient is being followed by Nephrology. Their recommendations are greatly appreciated. She is s/p 6 units of albumin. She had received low dose lasix and responded well. -Lower extremity edema has improved significantly. -BUN is elevated this morning. Patient may be diuresing too much 4. Oropharyngeal Ulcers/Pain likely 2/2 Candidiasis vs HSV -Patient had complained of pain in her throat. She was originally placed on Nystatin S&S. She has not noticed much improvement if any at all. On examination, the patient appears to have multiple shallow based ulcers in the oropharynx. This could be candidiasis or possibly HSV. -Cultures of throat are currently pending. -Continue with Diflucan PO and magic mouthwash 5. Hyperkalemia -Patient had been hypokalemic throughout most of her hospitalization. She was fairly hyperkalemic this morning. She was started on Amiloride and potassium supplementation due to her hypokalemia. This has been discontinued given her current hyperkalemic state -Will continue to monitor 6. Elevated Transaminases -Patient presented with elevated transaminases. This could have been secondary to alcoholic hepatitis vs chronic hepatic congestion from her right sided heart failure. -Continuing to improve. Will trend 7. Metabolic Encephalopathy -Resolved. -Likely secondary to acute on chronic hypercarbic hypoxemic respiratory failure secondary to her pulmonary disease 8. Alcohol Abuse -Patient is on CIWA protocol -Thiamine, Multivitamin, and folic acid supplementation 9. Severe Protein Calorie Malnutrition -Patient has had poor nutrition secondary to her alcoholism -2 gram sodium restricted diet 10. Polycythemia -This is resolving. Likely a result of hemoconcentration 11. GI prophylaxis -Patient has been receiving Protonix 40mg IV as she was receiving high dose steroids. Will change to PO protonix tomorrow 12. DVT prophylaxis -Heparin SQ VS, I&O, 24H, Fishbone Vital Signs/I&O Vital Signs Date Time Temp Pulse Resp B/P (MAP) Pulse Ox O2 Delivery O2 Flow Rate FiO2 01/22/19 06:00 98.1 112 17 102/74 (83) 97 1.0 01/22/19 05:23 Nasal Cannula 01/17/19 16:38 30 I&O- Last 24 Hours up to 6 AM 01/22/19 06:00 Intake Total 950 ml Output Total 4700 ml Balance -3750 ml Laboratory Data 24H LABS Laboratory Tests 2 01/22/19 05:25: Nucleated Red Blood Cells % (auto) 0.0, Anion Gap 2L, Glomerular Filtration Rate > 60.0, Blood Urea Nitrogen 33H, Creatinine 0.48L, Sodium Level 134L, Potassium Level 4.6, Chloride Level 91L, Carbon Dioxide Level 41H, Calcium Level 8.7L, Aspartate Amino Transf (AST/SGOT) 22, Alanine Aminotransferase (ALT/SGPT) 60, Alkaline Phosphatase 91, Total Bilirubin 0.9, Total Protein 6.3L, Albumin 3.3, Albumin/Globulin Ratio 1.10 CBC/BMP Laboratory Tests 01/22/19 05:25 Red Blood Count 4.46, Mean Corpuscular Volume 99.3 H, Mean Corpuscular Hemoglobin 31.8, Mean Corpuscular Hemoglobin Concent 32.1, Red Cell Distribution Width 16.1 H, Calcium Level 8.7 L, Aspartate Amino Transf (AST/SGOT) 22, Alanine Aminotransferase (ALT/SGPT) 60, Alkaline Phosphatase 91, Total Bilirubin 0.9, Total Protein 6.3 L, Albumin 3.3 Microbiology Microbiology 01/14/19 Blood Culture - Final, Complete NO GROWTH AFTER 5 DAYS 01/14/19 Blood Culture - Final, Complete NO GROWTH AFTER 5 DAYS 01/19/19 Fungal Smear, Received Pending 01/19/19 Fungal Culture, Received Pending 01/16/19 Respiratory Virus Panel (PCR) (DOTTY) - Final, Complete 01/14/19 Urine Culture - Final, Complete Lactobacillus Species SIMON STILES MD January 22, 2019 10:50
[2019-01-22 14:00] VITALS: BP 105/56
[2019-01-22 22:00] VITALS: BP 109/58
[2019-01-23] VITALS (7 sets, daily range): BP systolic 91–116; BP diastolic 48–58; O2SAT 84–93
[2019-01-23] MEDS: PANTOPRAZOLE 40MG INJ (PROTONIX) (C9113) IV SCH (00:38)
--- NOTE | 2019-01-23 00:59 | IPN ---
DATE: 01/22/2019 SUBJECTIVE: The patient was seen and examined at the bedside today morning. The patient is afebrile, hemodynamically. She is responding very well to the current dose of diuretics. Renal function is stable. Her metabolic alkalosis is slightly better today as compared with yesterday. The patient's nurse reported today that she was having a few episodes of confusion yesterday. OBJECTIVE: VITAL SIGNS: Temperature is 98.1 degrees Fahrenheit, blood pressure 102/74, pulse is 112, respiratory rate of 70, saturating 97% on nasal cannula at 1 liter. INTAKE AND OUTPUT: Urine output recorded is 5.2 liters yesterday and 3.7 liters so far today since overnight. Weight in the bed scale is stable at 40 kg. PHYSICAL EXAMINATION: GENERAL: The patient is awake, alert, oriented x3, sitting up in the bed, weak and cachectic. HEAD AND NECK EXAM: The patient has bitemporal wasting. Mucous membranes are moist. Neck is supple. Mildly elevated jugular venous distention (JVD). CARDIOVASCULAR SYSTEM: S1, S2 regular rate, 2+ edema of the thighs and 1+ edema of the legs. RESPIRATORY: Decreased breath sounds at the bases, otherwise no active rales or rhonchi. The patient is wearing the nasal cannula. ABDOMEN: Soft. Positive bowel sounds. Abdominal wall edema was noted. MUSCULOSKELETAL: 2+ edema of the thighs as mentioned above, otherwise pulses are 2+. CENTRAL NERVOUS SYSTEM (CONTROL OPERATOR): No focal deficit. Power is 5/5 in bilateral upper extremities. LABORATORY REVIEW: Complete blood count (CBC) showed a white blood cell (WBC) of 10.1, hemoglobin 14.2, platelets of 184. Basic metabolic panel (BMP) showed sodium 134, potassium 4.6, chloride 91, bicarbonate 41, BUN 33, creatinine is 0.48, calcium 8.7, AST is 22, ALT is 60, alkaline phosphatase is 91. CURRENT INPATIENT MEDICATIONS: The patient's medications were all reviewed by me. - acetazolamide - The patient got the last dose of acetazolamide today morning. - Lasix - She also got a dose of Lasix. However I am stopping the Lasix from now. There is no other change in the medications today as compared with yesterday. ASSESSMENT/PLAN: 1. Decompensated cor pulmonale. The patient is responding very well to current combination of Lasix and acetazolamide; however, because of aggressive diuresis she is developing prerenal azotemia. The patient would not receive the dose of Lasix tomorrow morning. 2. Chronic respiratory acidosis with metabolic alkalosis. The patient is receiving acetazolamide along with the diuretics. Her serum bicarbonate level has nicely improved to 41 today. 3. Hyponatremia. The patient has hypervolemic hyponatremia. Sodium has improved to 134 today which is almost close to normal. 4. End-stage chronic obstructive pulmonary disease (COPD). The patient has chronic CO2 retention. She is weak and cachectic. She is currently getting nebulizations and steroids. Her breathing is significantly better.
[2019-01-23] MEDS: IPRATROPIUM 0.5MG/ALBUTEROL 2.5MG INH SOL UD 3ML (DUONEB)(J7620) NEB SCH ×4 (02:00→19:57)
[2019-01-23] MEDS: HEPARIN SOD (PORCINE) 5000 UNITS/ML VIAL SC SCH ×3 (05:14→21:20)
[2019-01-23 06:01] LABS: HEMATOCRIT 42.7 % (36.0-47.0); MEAN CORPUSCULAR HEMOGLOBIN 32.8 pg (27.0-33.0); MEAN CORPUSCULAR HGB CONC 32.8 g/dl (32.0-36.5); PLATELET COUNT, AUTOMATED 181 10^3/uL (150-450); RED BLOOD COUNT 4.27 10^6/uL (4.00-5.40); WHITE BLOOD COUNT 8.8 10^3/uL (4.0-10.0)
[2019-01-23 06:37] LABS: ALBUMIN 3.3 GM/DL (3.2-5.2); ALT/SGPT 53 U/L (12-78); BILIRUBIN,TOTAL 0.8 MG/DL (0.2-1.0); BLOOD UREA NITROGEN 34 MG/DL (7-18); CALCIUM LEVEL 9.1 MG/DL (8.8-10.2); CARBON DIOXIDE LEVEL 40 MEQ/L (21-32); CHLORIDE LEVEL 93 MEQ/L (98-107); CREATININE FOR GFR 0.43 MG/DL (0.55-1.30); GLOMERULAR FILTRATION RATE > 60.0 (>45); GLUCOSE, FASTING 86 MG/DL (70-100); POTASSIUM SERUM 4.4 MEQ/L (3.5-5.1); SODIUM LEVEL 136 MEQ/L (136-145); TOTAL PROTEIN 5.8 GM/DL (6.4-8.2)
[2019-01-23] MEDS: TIOTROPIUM INHALER/CAPSULE (SPIRIVA) INH SCH (07:10)
[2019-01-23] MEDS: ADVAIR HFA 115/21MCG INHALER INH SCH ×2 (07:11→19:57)
[2019-01-23] MEDS: predniSONE 20 MG TAB PO SCH (08:46)
[2019-01-23] MEDS: guaiFENesin ER 600 MG TAB PO SCH ×2 (08:46→21:20)
[2019-01-23] MEDS: MULTIVITAMINS/MINERALS THERAP 1 TAB PO SCH (08:46)
[2019-01-23] MEDS: FLUCONAZOLE 100 MG TAB PO SCH (08:46)
[2019-01-23] MEDS: FOLIC ACID 1 MG TAB PO SCH (08:46)
[2019-01-23] MEDS: MAGNESIUM OXIDE 400 MG TAB (MAG-OX) PO SCH ×2 (08:46→21:20)
--- NOTE | 2019-01-23 09:59 | IPNPDOC ---
Subjective Date Seen The patient was seen on 01/23/19. Subjective Chief Complaint/HPI Patient's ex- at the bedside. She is not in her usual mood today, but offers no complaints General: Denies: ROS Unobtainable, Chills, Night Sweats, Fatigue, Malaise, Normal Appetite, Other Symptoms Constitutional: Denies: Chills, Fever, Malaise, Night Sweats, Weakness, Fatigue, Weight Loss, Lethargy, Other Eyes: Denies: Pain, Vision change, Conjunctivae inflammation, Eyelid inflammation, Redness, Other ENT: Denies: Head Aches, Ear Pain, Dysphagia, Sinus Congestion, Post Nasal Drip, Sore Throat, Epistaxis, Other Symptoms Skin: Denies: Rash, Lesions, Jaundice, Bruising, Itching, Dry, Breakdown, Nail Changes, Other Pulmonary: Denies: Dyspnea, Cough, Pleuritic Chest Pain, Other Symptoms Cardiovascular: Denies: Chest Pain, Palpitations, Orthopnea, Paroxysmal Noc. Dyspnea, Edema, Lt Headedness, Other Symptoms Gastrointestinal: Denies: Nausea, Vomiting, Abdominal Pain, Diarrhea, Constipation, Melena, Hematochezia, Other Symptoms Genitourinary: Denies: Dysuria, Frequency, Incontinence, Hematuria, Retention, Other Symptoms Hematologic: Denies: Bruising, Bleeding Excessively, Petecchia, Purpura, Enlarged Lymph Nodes, Other Hematologic Endocrine: Denies: Polydipsia, Polyphagia, Polyuria, Heat Intolerance, Cold Intolerance, Other Endocrine Sx Musculoskeletal: Denies: Neck Pain, Back Pain, Shoulder Pain, Arm Pain, Hand Pain, Leg Pain, Foot Pain, Joint Pain, Muscle Pain, Spasms, Other Symptoms Neurological: Denies: Weakness, Numbness, Incoordination, Change in speech, Confusion, Seizures, Other Symptoms Psych: Denies: Mood Normal, Anxiety, Depression, Memory Issues, Thoughts of Self Harm, Anger, Thoughts of Harming Other, Other Psych Objective Physical Examination General Exam: Positive: Alert (now alert, initially unresponsive) Eye Exam: Positive: PERRLA ENT Exam: Positive: Atraumatic Neck Exam: Positive: Supple; Negative: JVD Chest Exam: Positive: Other (poor air entry) Heart Exam: Positive: Rate Normal, Regular Rhythm Abdomen Exam: Positive: Normal bowel sounds, Soft; Negative: Tenderness Extremity Exam: Positive: Edema (3+ edema of both legs; dorsalis pedis pulses are not palpable by hand; cold; purple color improving; sensation intact; moving all toes and feet on command) Skin Exam: Negative: Rash, Breakdown Psych Exam: Positive: Mental status NL, Mood NL Assessment /Plan Problems (1) Hyponatremia Status: Acute Problem Text: Shows a serum sodium is close to normal limit, now Nephrology follow-up appreciated Will continue monitoring serum electrolytes Good appetite (2) Rhabdomyolysis Status: Resolved Problem Text: Resolved (3) Hyperkalemia Status: Resolved Problem Text: Resolved (4) Respiratory failure Status: Chronic Response to Treatment: Stable, Improving Problem Text: Resolved (5) Cor pulmonale Status: Chronic Response to Treatment: Stable, Improving Problem Text: Patient was on IV diuresis with the good urinary output but has a prerenal azotemia now and the Lasix has been on hold by nephrology. Further, as per notes nephrology recommendations Possible DC to subacute rehabilitation facility tomorrow Plan/VTE VTE Prophylaxis Ordered?: Yes Plan Anticipated Discharge: Home With Services VS, I&O, 24H, [facility] Vital Signs/I&O Vital Signs Date Time Temp Pulse Resp B/P (MAP) Pulse Ox O2 Delivery O2 Flow Rate FiO2 01/23/19 09:52 90 Nasal Cannula 1.0 01/23/19 06:00 96.8 64 17 116/56 (76) 01/17/19 16:38 30 I&O- Last 24 Hours up to 6 AM 01/23/19 06:00 Intake Total 1410 ml Output Total 3700 ml Balance -2290 ml Laboratory Data 24H LABS Laboratory Tests 2 01/23/19 05:30: Nucleated Red Blood Cells % (auto) 0.0, Anion Gap 3L, Glomerular Filtration Rate > 60.0, Blood Urea Nitrogen 34H, Creatinine 0.43L, Sodium Level 136, Potassium Level 4.4, Chloride Level 93L, Carbon Dioxide Level 40H, Calcium Level 9.1, Aspartate Amino Transf (AST/SGOT) 32, Alanine Aminotransferase (ALT/SGPT) 53, Alkaline Phosphatase 93, Total Bilirubin 0.8, Total Protein 5.8L, Albumin 3.3, Albumin/Globulin Ratio 1.32 CBC/BMP Laboratory Tests 01/23/19 05:30 Red Blood Count 4.27, Mean Corpuscular Volume 100.0 H, Mean Corpuscular Hemoglobin 32.8, Mean Corpuscular Hemoglobin Concent 32.8, Red Cell Distribution Width 16.1 H, Calcium Level 9.1, Aspartate Amino Transf (AST/SGOT) 32, Alanine Aminotransferase (ALT/SGPT) 53, Alkaline Phosphatase 93, Total Bilirubin 0.8, Total Protein 5.8 L, Albumin 3.3 Microbiology Microbiology 01/14/19 Blood Culture - Final, Complete NO GROWTH AFTER 5 DAYS 01/14/19 Blood Culture - Final, Complete NO GROWTH AFTER 5 DAYS 01/19/19 Fungal Smear, Received Pending 01/19/19 Fungal Culture, Received Pending 01/16/19 Respiratory Virus Panel (PCR) (DOTTY) - Final, Complete 01/14/19 Urine Culture - Final, Complete Lactobacillus Species SIMON STILES MD January 23, 2019 09:59
--- NOTE | 2019-01-23 16:08 | IPN ---
DATE OF SERVICE: 01/23/2019 SUBJECTIVE: The patient was seen and examined at the bedside today morning. She was sitting in the sofa today. She reports that her breathing is getting better. She still reports abdominal distention and feels like there might be fluid in the abdomen. Her renal function is stable. Hyponatremia has also improved. The patient's diuretics were held yesterday. However, she got the dose of diuretic yesterday. She did not get the today morning dose of Lasix. OBJECTIVE: Vital signs: Temperature is 96.8 degrees Fahrenheit, blood pressure 116/56, pulse is 64, respiratory rate of 17, saturating 96% on nasal cannula at 1 liter. Intake and output: Urine output recorded is 4.2 liters yesterday, 1 liter so far today since overnight. Weight in the bed scale is 40 kg. PHYSICAL EXAMINATION: General: The patient is awake, alert, oriented times three, weak and cachectic, sitting up in the sofa. Head and neck examination: Bitemporal wasting. Mucous membranes are moist. Jugular venous distention (JVD) is mildly elevated. Cardiovascular: S1, S2, regular rate. 1+ edema of the thighs. No edema of the legs. Respiratory: Decreased breath sounds at the bases. Poor air entry at the bases. Otherwise, no active rales or rhonchi. Abdomen: Soft. Positive bowel sounds. Mild abdominal distention. No ascites was noted. Musculoskeletal: There is no edema of the legs. However, she has 1+ edema on the thighs. Clubbing of the fingernails was noted. Central nervous system (LETTERPRESS SETTER): No focal deficit. Power is 5/5 in bilateral upper extremities. LABORATORY REVIEW: Complete blood count (CBC) showed a WBC of 8.8, hemoglobin is 14, platelets are 181. Basic metabolic profile (BMP) showed sodium 136, potassium 4.4, chloride 93, bicarbonate is 40, BUN 34, creatinine is 0.43. CURRENT INPATIENT MEDICATIONS: The patient's medications were all reviewed by me. She is currently not on any diuretics at this point. No other change in the medications today as compared with yesterday. ASSESSMENT AND PLAN: 1. Decompensated cor. pulmonale. The patient's acetazolamide and Lasix was stopped yesterday. However, she got the morning doses yesterday morning. She will give her diuretic holiday, and she is being monitored on a daily basis for adjustment of diuretics. Her volume status is significantly better today as compared with day of admission. 2. Chronic respiratory acidosis and metabolic alkalosis. The patient got acetazolamide for 2 days. Her serum bicarbonate level has improved to 40 today. Continue to monitor for now. No further need of acetazolamide. 3. Hyponatremia. The patient had hypervolemic hyponatremia. Sodium has improved to 136 after aggressive diuresis. 4. End-stage chronic obstructive pulmonary disease (COPD). Continue steroid and nebulizations. Volume status management is as mentioned above. MTDD
[2019-01-24] MEDS: PANTOPRAZOLE 40MG INJ (PROTONIX) (C9113) IV SCH (00:42)
[2019-01-24] MEDS: IPRATROPIUM 0.5MG/ALBUTEROL 2.5MG INH SOL UD 3ML (DUONEB)(J7620) NEB SCH ×4 (01:48→20:00)
[2019-01-24 05:51] LABS: HEMATOCRIT 40.5 % (36.0-47.0); HEMOGLOBIN 13.2 g/dl (12.0-15.5); MEAN CORPUSCULAR HEMOGLOBIN 31.7 pg (27.0-33.0); MEAN CORPUSCULAR HGB CONC 32.6 g/dl (32.0-36.5); MEAN CORPUSCULAR VOLUME 97.1 fl (80.0-96.0); PLATELET COUNT, AUTOMATED 193 10^3/uL (150-450); RED BLOOD COUNT 4.17 10^6/uL (4.00-5.40); WHITE BLOOD COUNT 7.8 10^3/uL (4.0-10.0)
[2019-01-24] MEDS: HEPARIN SOD (PORCINE) 5000 UNITS/ML VIAL SC SCH ×3 (05:51→22:28)
[2019-01-24 06:00] VITALS: BP 91/58
[2019-01-24 06:16] VITALS: O2SAT 94
[2019-01-24] MEDS: TIOTROPIUM INHALER/CAPSULE (SPIRIVA) INH SCH (07:22)
[2019-01-24] MEDS: ADVAIR HFA 115/21MCG INHALER INH SCH ×2 (07:25→20:02)
[2019-01-24] MEDS: FOLIC ACID 1 MG TAB PO SCH (08:31)
[2019-01-24] MEDS: guaiFENesin ER 600 MG TAB PO SCH ×2 (08:31→22:28)
[2019-01-24] MEDS: predniSONE 20 MG TAB PO SCH (08:31)
[2019-01-24] MEDS: FLUCONAZOLE 100 MG TAB PO SCH (08:31)
[2019-01-24] MEDS: MAGNESIUM OXIDE 400 MG TAB (MAG-OX) PO SCH ×2 (08:31→22:28)
[2019-01-24] MEDS: MULTIVITAMINS/MINERALS THERAP 1 TAB PO SCH (08:31)
[2019-01-24 09:43] VITALS: O2SAT 94
[2019-01-24 10:03] LABS: ALBUMIN 3.4 GM/DL (3.2-5.2); BLOOD UREA NITROGEN 32 MG/DL (7-18); CALCIUM LEVEL 8.9 MG/DL (8.8-10.2); CARBON DIOXIDE LEVEL 40 MEQ/L (21-32); CHLORIDE LEVEL 94 MEQ/L (98-107); CREATININE FOR GFR 0.48 MG/DL (0.55-1.30); GLOMERULAR FILTRATION RATE > 60.0 (>45); GLUCOSE, FASTING 87 MG/DL (70-100); PHOSPHORUS LEVEL 3.3 MG/DL (2.5-4.9); POTASSIUM SERUM 4.5 MEQ/L (3.5-5.1); SODIUM LEVEL 137 MEQ/L (136-145)
--- NOTE | 2019-01-24 10:41 | IPNPDOC ---
Subjective Date Seen The patient was seen on 01/24/19. Subjective Chief Complaint/HPI Patient is quite a but offers no complaints. She is alert, oriented 3 General: Denies: ROS Unobtainable, Chills, Night Sweats, Fatigue, Malaise, Normal Appetite, Other Symptoms Constitutional: Denies: Chills, Fever, Malaise, Night Sweats, Weakness, Fatigue, Weight Loss, Lethargy, Other Eyes: Denies: Pain, Vision change, Conjunctivae inflammation, Eyelid inflammation, Redness, Other ENT: Denies: Head Aches, Ear Pain, Dysphagia, Sinus Congestion, Post Nasal Drip, Sore Throat, Epistaxis, Other Symptoms Skin: Denies: Rash, Lesions, Jaundice, Bruising, Itching, Dry, Breakdown, Nail Changes, Other Pulmonary: Denies: Dyspnea, Cough, Pleuritic Chest Pain, Other Symptoms Cardiovascular: Denies: Chest Pain, Palpitations, Orthopnea, Paroxysmal Noc. Dyspnea, Edema, Lt Headedness, Other Symptoms Gastrointestinal: Denies: Nausea, Vomiting, Abdominal Pain, Diarrhea, Cons tipation, Melena, Hematochezia, Other Symptoms Genitourinary: Denies: Dysuria, Frequency, Incontinence, Hematuria, Retention, Other Symptoms Hematologic: Denies: Bruising, Bleeding Excessively, Petecchia, Purpura, Enlarged Lymph Nodes, Other Hematologic Endocrine: Denies: Polydipsia, Polyphagia, Polyuria, Heat Intolerance, Cold Intolerance, Other Endocrine Sx Musculoskeletal: Denies: Neck Pain, Back Pain, Shoulder Pain, Arm Pain, Hand Pain, Leg Pain, Foot Pain, Joint Pain, Muscle Pain, Spasms, Other Symptoms Neurological: Denies: Weakness, Numbness, Incoordination, Change in speech, Confusion, Seizures, Other Symptoms Psych: Denies: Mood Normal, Anxiety, Depression, Memory Issues, Thoughts of Self Harm, Anger, Thoughts of Harming Other, Other Psych Objective Physical Examination General Exam: Positive: Alert (now alert, initially unresponsive) Eye Exam: Positive: PERRLA ENT Exam: Positive: Atraumatic Neck Exam: Positive: Supple; Negative: JVD Chest Exam: Positive: Other (poor air entry) Heart Exam: Positive: Rate Normal, Regular Rhythm Abdomen Exam: Positive: Normal bowel sounds, Soft; Negative: Tenderness Extremity Exam: Positive: Edema (3+ edema of both legs; dorsalis pedis pulses are not palpable by hand; cold; purple color improving; sensation intact; moving all toes and feet on command) Skin Exam: Negative: Rash, Breakdown Psych Exam: Positive: Mental status NL, Mood NL Assessment /Plan Problems (1) Hyponatremia Status: Resolved Problem Text: Resolved Nephrology follow-up appreciated Will continue monitoring serum electrolytes occasionally Good appetite (2) Rhabdomyolysis Status: Resolved Problem Text: Resolved (3) Hyperkalemia Status: Resolved Problem Text: Resolved (4) Respiratory failure Status: Chronic Response to Treatment: Stable, Improving Problem Text: Resolved (5) Cor pulmonale Status: Chronic Response to Treatment: Stable, Improving Problem Text: Patient was on IV diuresis with the good urinary output but has a prerenal azotemia now and the Lasix has been on hold by nephrology. Further, as per notes nephrology recommendations Patient will be transferred to [facility] status Possible transfer to subacute rehabilitation facility was the bed is available Plan/VTE VTE Prophylaxis Ordered?: Yes Plan Anticipated Discharge: Home With Services VS, I&O, 24H, [facility] Vital Signs/I&O Vital Signs Date Time Temp Pulse Resp B/P (MAP) Pulse Ox O2 Delivery O2 Flow Rate FiO2 01/24/19 09:43 94 Nasal Cannula 1.0 01/24/19 06:00 98.1 104 17 91/58 (69) I&O- Last 24 Hours up to 6 AM 01/24/19 06:00 Intake Total 1738 ml Output Total 1500 ml Balance 238 ml Laboratory Data 24H LABS Laboratory Tests 2 01/24/19 05:21: Blood Urea Nitrogen 32H, Creatinine 0.48L, Sodium Level 137, Potassium Level 4.5, Chloride Level 94L, Carbon Dioxide Level 40H, Anion Gap 3L, Glomerular Filtration Rate > 60.0, Calcium Level 8.9, Phosphorus Level 3.3, Albumin 3.4 01/24/19 05:23: Nucleated Red Blood Cells % (auto) 0.0 CBC/BMP Laboratory Tests 01/24/19 05:21 Anion Gap 3 L 01/24/19 05:23 Red Blood Count 4.17, Mean Corpuscular Volume 97.1 H, Mean Corpuscular Hemoglobin 31.7, Mean Corpuscular Hemoglobin Concent 32.6, Red Cell Distribution Width 16.0 H Microbiology Microbiology 01/14/19 Blood Culture - Final, Complete NO GROWTH AFTER 5 DAYS 01/14/19 Blood Culture - Final, Complete NO GROWTH AFTER 5 DAYS 01/19/19 Fungal Smear, Received Pending 01/19/19 Fungal Culture, Received Pending 01/16/19 Respiratory Virus Panel (PCR) (DOTTY) - Final, Complete 01/14/19 Urine Culture - Final, Complete Lactobacillus Species SIMON STILES MD January 24, 2019 10:41
--- NOTE | 2019-01-24 11:26 | IPN ---
DATE OF SERVICE: 01/24/2019 SUBJECTIVE: Patient was seen and examined at the bedside today, morning. She was sitting up in the sofa. She reports baseline shortness of breath. Her diuretics were held yesterday. Renal function is stable. Creatinine is 0.4. Patient got the liver ultrasound done today, morning. Official report is pending. OBJECTIVE: Vital signs: Temperature is 98.1 degrees Fahrenheit. Blood pressure is 91/58. Pulse is 104, respiratory rate of 17, saturating 98% on nasal cannula at 1 liter. Intake and output: Urine output recorded is 1 liter yesterday and 1 liter so far today since overnight. Weight in the bed scale is not available. PHYSICAL EXAMINATION: General: Patient is awake, alert, oriented times three, weak and cachectic, sitting up in the sofa. Head and neck exam: Patient has bitemporal wasting. Mucous membranes are moist. Jugular venous distention (JVD) is mildly elevated. Cardiovascular: S1, S2, regular rate. 1+ edema in the thighs. No edema on the legs. Respiratory: Decreased breath sounds at the bases. Poor air entry bilaterally because of chronic obstructive pulmonary disease (COPD) and she is wearing nasal cannula. Abdomen is soft, positive bowel sounds, mild abdominal distension. Musculoskeletal: Clubbing of the fingernails was noted. 1+ edema on the thighs as mentioned above. Central nervous system (LAUNCH ENGINEER): No focal deficit. Power is 5/5 in all extremities. LAB REVIEW: Complete blood count (CBC) showed WBC 7.8, hemoglobin is 13.2, platelets of 193. Basic metabolic panel (BMP) showed sodium 137, potassium 4.5, chloride 94, bicarbonate is 40, BUN 32, creatinine is 0.48. IMAGING: Ultrasound of the liver is done. Official report is not available yet. CURRENT INPATIENT MEDICATIONS: Patient's medications were all reviewed by me. She has not received diuretics since yesterday. No other change in the medications today as compared with yesterday. ASSESSMENT AND PLAN: 1. Decompensated cor pulmonary. Patient was aggressively diuresed initially with Lasix and later on with Lasix and acetazolamide. Patient was developing azotemia so diuretic was held yesterday. Volume status is optimal. I will restart the diuretics tomorrow morning. 2. Chronic respiratory acidosis and metabolic alkalosis. Patient's bicarbonate level is staying stable at around 40 now. She needed acetazolamide for 2 days while she was being aggressively diuresed for heart failure. 3. Hyponatremia. Patient's hyponatremia has improved with the diuretics. Sodium is 137 today, which is optimal. 4. Chronic obstructive pulmonary disease. Patient has severe COPD currently getting nebulizations and steroids. She is oxygen dependent at this point.
--- NOTE | 2019-01-24 12:29 | REP ---
Right upper quadrant sonography: History: CHF. Distension. Rule out ascites versus cirrhosis. Comparison study: Comparison CT study January 14, 2019. Comparison sonography January 15, 2019. Findings: Scanning through the right upper quadrant of the abdomen demonstrates a normal sized, thin-walled gallbladder without evidence of stone or polyp. Common bile duct is normal measuring 0.3 cm in greatest diameter. There are too is three tiny echogenic foci in the liver consistent with granulomatous calcifications. No focal liver lesion is seen. Liver size is normal. No pancreatic abnormality is observed. No right renal abnormality is seen. There is no evidence of ascites. The right kidney measures 10.0 x 4.7 x 4.5 cm. Impression: Negative right upper quadrant sonography. Electronically Signed by Jc Ventura MD 01/24/2019 12:21 P
[2019-01-24 14:00] VITALS: BP 112/72
[2019-01-24 14:13] LABS: HSV-1 DNA Negative (Negative); HSV-2 DNA Negative (Negative); VARICELLA ZOSTER VIRUS PCR Negative (Negative)
[2019-01-24 14:13] LABS: HSV-1 DNA Negative (Negative); HSV-2 DNA Negative (Negative); VARICELLA ZOSTER VIRUS PCR Negative (Negative)
[2019-01-24 22:00] VITALS: BP_SYST 118; BP_SYST 130; BP_DIAS 82; BP_DIAS 91
[2019-01-25 01:19] VITALS: O2SAT 90
[2019-01-25] MEDS: IPRATROPIUM 0.5MG/ALBUTEROL 2.5MG INH SOL UD 3ML (DUONEB)(J7620) NEB SCH ×4 (02:50→19:40)
[2019-01-25] MEDS: HEPARIN SOD (PORCINE) 5000 UNITS/ML VIAL SC SCH ×3 (05:09→21:09)
[2019-01-25 06:00] VITALS: BP 92/58
[2019-01-25] MEDS: TIOTROPIUM INHALER/CAPSULE (SPIRIVA) INH SCH (08:59)
[2019-01-25] MEDS: ADVAIR HFA 115/21MCG INHALER INH SCH ×2 (08:59→19:40)
[2019-01-25] MEDS: FLUCONAZOLE 100 MG TAB PO SCH (09:00)
[2019-01-25] MEDS: FOLIC ACID 1 MG TAB PO SCH (10:22)
[2019-01-25] MEDS: MULTIVITAMINS/MINERALS THERAP 1 TAB PO SCH (10:23)
[2019-01-25] MEDS: guaiFENesin ER 600 MG TAB PO SCH ×2 (10:23→21:09)
[2019-01-25] MEDS: predniSONE 20 MG TAB PO SCH (10:23)
[2019-01-25] MEDS: PANTOPRAZOLE 40MG TAB (PROTONIX) PO SCH (10:23)
[2019-01-25] MEDS: MAGNESIUM OXIDE 400 MG TAB (MAG-OX) PO SCH ×2 (10:23→21:09)
[2019-01-25] MEDS ORDERED: FUROSEMIDE 20 MG TAB PO ONE (11:15)
--- NOTE | 2019-01-25 11:28 | IPNPDOC ---
Subjective Date Seen The patient was seen on 01/25/19. Subjective Chief Complaint/HPI Offers no new complaints General: Denies: ROS Unobtainable, Chills, Night Sweats, Fatigue, Malaise, Normal Appetite, Other Symptoms Constitutional: Denies: Chills, Fever, Malaise, Night Sweats, Weakness, Fatigue, Weight Loss, Lethargy, Other Eyes: Denies: Pain, Vision change, Conjunctivae inflammation, Eyelid inflammation, Redness, Other ENT: Denies: Head Aches, Ear Pain, Dysphagia, Sinus Congestion, Post Nasal Drip, Sore Throat, Epistaxis, Other Symptoms Skin: Denies: Rash, Lesions, Jaundice, Bruising, Itching, Dry, Breakdown, Nail Changes, Other Pulmonary: Denies: Dyspnea, Cough, Pleuritic Chest Pain, Other Symptoms Cardiovascular: Denies: Chest Pain, Palpitations, Orthopnea, Paroxysmal Noc. Dyspnea, Edema, Lt Headedness, Other Symptoms Gastrointestinal: Denies: Nausea, Vomiting, Abdominal Pain, Diarrhea, Co nstipation, Melena, Hematochezia, Other Symptoms Genitourinary: Denies: Dysuria, Frequency, Incontinence, Hematuria, Retention, Other Symptoms Hematologic: Denies: Bruising, Bleeding Excessively, Petecchia, Purpura, Enlarged Lymph Nodes, Other Hematologic Endocrine: Denies: Polydipsia, Polyphagia, Polyuria, Heat Intolerance, Cold Intolerance, Other Endocrine Sx Musculoskeletal: Denies: Neck Pain, Back Pain, Shoulder Pain, Arm Pain, Hand Pain, Leg Pain, Foot Pain, Joint Pain, Muscle Pain, Spasms, Other Symptoms Neurological: Denies: Weakness, Numbness, Incoordination, Change in speech, Confusion, Seizures, Other Symptoms Psych: Denies: Mood Normal, Anxiety, Depression, Memory Issues, Thoughts of Self Harm, Anger, Thoughts of Harming Other, Other Psych Objective Physical Examination General Exam: Positive: Alert (now alert, initially unresponsive) Eye Exam: Positive: PERRLA ENT Exam: Positive: Atraumatic Neck Exam: Positive: Supple; Negative: JVD Chest Exam: Positive: Other (poor air entry) Heart Exam: Positive: Rate Normal, Regular Rhythm Abdomen Exam: Positive: Normal bowel sounds, Soft; Negative: Tenderness Extremity Exam: Positive: Edema (3+ edema of both legs; dorsalis pedis pulses are not palpable by hand; cold; purple color improving; sensation intact; moving all toes and feet on command) Skin Exam: Negative: Rash, Breakdown Psych Exam: Positive: Mental status NL, Mood NL Assessment /Plan Problems (1) Hyponatremia Status: Resolved Problem Text: Resolved Nephrology follow-up appreciated Will continue monitoring serum electrolytes occasionally Good appetite (2) Rhabdomyolysis Status: Resolved Problem Text: Resolved (3) Hyperkalemia Status: Resolved Problem Text: Resolved (4) Respiratory failure Status: Chronic Response to Treatment: Stable, Improving Problem Text: Resolved (5) Cor pulmonale Status: Chronic Response to Treatment: Stable, Improving Problem Text: Patient was on IV diuresis with the good urinary output but has a prerenal azotemia now and the Lasix has been on hold by nephrology. Further, as per notes nephrology recommendations Patient will be transferred to [facility] status Possible transfer to subacute rehabilitation facility was the bed is available Plan/VTE VTE Prophylaxis Ordered?: Yes Plan Anticipated Discharge: Home With Services VS, I&O, 24H, [facility] Vital Signs/I&O Vital Signs Date Time Temp Pulse Resp B/P (MAP) Pulse Ox O2 Delivery O2 Flow Rate FiO2 01/25/19 06:00 97.4 114 18 92/58 (69) 93 1.0 01/25/19 01:19 Nasal Cannula I&O- Last 24 Hours up to 6 AM 01/25/19 06:00 Intake Total 2010 ml Output Total 675 ml Balance 1335 ml Laboratory Data Microbiology Microbiology 01/19/19 Fungal Smear, Received Pending 01/19/19 Fungal Culture, Received Pending 01/16/19 Respiratory Virus Panel (PCR) (DOTTY) - Final, Complete SIMON STILES MD January 25, 2019 11:28
--- NOTE | 2019-01-25 11:59 | IPN ---
DATE: 01/25/2019 SUBJECTIVE: The patient was seen and examined at the bedside this morning. She was sitting up in the sofa. She is hemodynamically stable. She still has a very good urine output. She does report edema in the thighs. There are no labs available today so I cannot assess the renal function. OBJECTIVE: Vital signs: Temperature is 97.4 degrees Fahrenheit, blood pressure 92/58, pulse is 114, respiratory of 80, saturating 93% on nasal cannula at 1 liter. Intake and output: Urine output recorded as 1.4 liters yesterday. There is no urine output recorded since overnight, she has two voids since overnight. Weight on the bed scale is 46.4 kg. PHYSICAL EXAMINATION General: The patient is awake, alert, oriented times three, weak and cachectic, chronically malnourished, sitting up in the sofa in no apparent distress. Head and neck exam: The patient has bitemporal wasting, emaciated. Neck is supple. Mildly elevated jugular venous distention (JVD). Cardiovascular: S1, S2. Regular rate. 1+ edema of the thighs. Respiratory: Decreased breath sounds at the bases. Decreased air entry bilaterally in the bases. She is getting nasal cannula. Abdomen is soft. Positive bowel sounds, nontender, no organomegaly. Musculoskeletal: Clubbing of the fingernails. 1+ edema in the thighs CENTRAL NERVOUS SYSTEM (FITNESS CENTER ATTENDANT): No focal deficit. Power is 5/5 in all extremities. LABORATORY REVIEW: CBC showed a hemoglobin of 13.2 yesterday and BMP done yesterday showed creatinine of 0.4. There are no labs available from today. CURRENT INPATIENT MEDICATIONS: The patient's medications were all reviewed by me. She continues to be on prednisone 20 mg by mouth daily. Diflucan has been stopped. I have ordered a new dose of Lasix 20 mg by mouth to be given today. ASSESSMENT AND PLAN: 1. Decompensated cor pulmonale. The patient was aggressively diuresed. She was given diuretic holiday for prerenal azotemia. She still has some edema on the thighs. I have given her and a dose of Lasix 20 mg today. 2. Chronic respiratory acidosis and metabolic alkolosis. The patient's latest bicarbonate level was 40, which is acceptable. No need of acetazolamide at this point. I would check the bicarbonate level with the BMP tomorrow morning. 3. Chronic obstructive pulmonary disease (COPD). The patient is currently getting nebulizations and steroids and she is oxygen dependent. Her breathing is significantly better and the patient told me that she is very determined to quit smoking now.
[2019-01-25 22:00] VITALS: BP 104/59
[2019-01-26] MEDS: IPRATROPIUM 0.5MG/ALBUTEROL 2.5MG INH SOL UD 3ML (DUONEB)(J7620) NEB SCH ×3 (02:26→13:10)
[2019-01-26 06:00] VITALS: BP 116/57
[2019-01-26] MEDS: HEPARIN SOD (PORCINE) 5000 UNITS/ML VIAL SC SCH (06:25)
[2019-01-26 06:37] LABS: BASO % 0.2 % (0.0-1.0); EOS % 0.1 % (0.0-3.0); HEMATOCRIT 37.5 % (36.0-47.0); HEMOGLOBIN 12.4 g/dl (12.0-15.5); LYMPH # 1.9 10^3/uL (1.5-4.5); MEAN CORPUSCULAR HGB CONC 33.1 g/dl (32.0-36.5); MEAN CORPUSCULAR VOLUME 96.9 fl (80.0-96.0); MONO # 0.6 10^3/uL (0.0-0.8); MONO % 6.9 % (0.0-5.0); NEUTROPHILS # 6.7 10^3/uL (1.8-7.7); NEUTROPHILS % 71.9 % (36.0-66.0); PLATELET COUNT, AUTOMATED 220 10^3/uL (150-450); RED BLOOD COUNT 3.87 10^6/uL (4.00-5.40); WHITE BLOOD COUNT 9.3 10^3/uL (4.0-10.0)
[2019-01-26] MEDS ORDERED: ADVA115A INH (06:57)
[2019-01-26] MEDS ORDERED: MAGICMW SSP (06:57)
[2019-01-26] MEDS ORDERED: PRED10PA PO (06:57)
[2019-01-26] MEDS ORDERED: FOLI1TAB11 PO (06:57)
[2019-01-26] MEDS ORDERED: IPRA0.00 NEB (06:57)
[2019-01-26] MEDS ORDERED: TIOT18INH INH (06:57)
[2019-01-26] MEDS ORDERED: MYLASSUD PO (06:57)
[2019-01-26] MEDS ORDERED: VITMTA PO (06:57)
[2019-01-26] MEDS ORDERED: PANT40TA3 PO (06:57)
[2019-01-26] MEDS ORDERED: MAG400TA PO (06:57)
[2019-01-26] MEDS ORDERED: MOM30SS2 PO (06:57)
[2019-01-26] MEDS ORDERED: ACET1TAB55 PO (06:57)
[2019-01-26 07:04] LABS: ALBUMIN 3.1 GM/DL (3.2-5.2); BLOOD UREA NITROGEN 27 MG/DL (7-18); CALCIUM LEVEL 8.4 MG/DL (8.8-10.2); CARBON DIOXIDE LEVEL 40 MEQ/L (21-32); CHLORIDE LEVEL 95 MEQ/L (98-107); CREATININE FOR GFR 0.34 MG/DL (0.55-1.30); GLOMERULAR FILTRATION RATE > 60.0 (>45); GLUCOSE, FASTING 83 MG/DL (70-100); PHOSPHORUS LEVEL 2.6 MG/DL (2.5-4.9); POTASSIUM SERUM 4.4 MEQ/L (3.5-5.1); SODIUM LEVEL 138 MEQ/L (136-145)
--- NOTE | 2019-01-26 07:04 | DS.PDOC ---
Discharge Summary General Date of Admission January 14, 2019 at 22:09 Date of Discharge 01/26/2019 Attending Physician: SIMON STILES MD Specialist/Consultants Involve: A Discharge Summary PROCEDURES PERFORMED DURING STAY: None. ADMITTING DIAGNOSES: 1. Acute on chronic respiratory failure secondary to exacerbation of COPD, hyponatremia, hypokalemia, alcohol abuse,,. DISCHARGE DIAGNOSES: 1. Acute on chronic respiratory failure secondary to exacerbation of COPD, hyponatremia, hypokalemia, hypomagnesemia, alcohol abuse, decompensated cor pulmonale, prerenal azotemia. COMPLICATIONS/CHIEF COMPLAINT: Hyperkalemia,Ischemic Leg,Respiratory Failure. HISTORY OF PRESENT ILLNESS: Mr. Harmon is a 63 years old alcoholic woman who doesn't like to utilize healthcare and has no primary care. She was brought to ER yesterday for evaluating of AMS. According to the daughter, pt lives alone, she is heavy alcoholic and drinks everyday. She has been on the floor for a we ek, and has refused to seek personal or medical care. The daughter who has been visiting her everyday could not convince pt to accept her help to get to the chair or bed. The daughter called "trooper" two days ago, but pt refused to go to hospital. because she was lucid, "troopers had to respect her decision". Today pt was found by daughter obtunded and not responding. EMS brought to ER. . HOSPITAL COURSE: (1) Hyponatremia Hyponatremia has resolved with IV hydration Patient was followed by Dr. Vick from nephrology Monitors patient's serum electrolytes, occasionally Has a good appetite now and has good oral intake of liquids (2) Rhabdomyolysis Secondary to alcohol as of and frequent falls Rhabdomyolysis has resolved with IV hydration Patient is clinically stable now for discharge (3) Hyperkalemia Secondary to malnutrition and electrolyte imbalance Hyperkalemia had resolved now (4) Respiratory failure Acute on chronic respiratory failure secondary to exacerbation of COPD Patient received nebulizer treatment along with IV steroids initially Patient will be discharged back to SNF with Advair, Spiriva, as per schedule and DuoNeb when necessary She needs oxygen support with 2 L nasal cannula to keep her pulse ox more than 88. . She will continue prednisone 10 mg by mouth daily for 5 more days Acute on chronic decompensated cor pulmonale Status is improved now Patient was on IV diuresis with the good urinary output but has a prerenal azotemia now and the Lasix has been on hold by nephrology. Ptr is to follow with nephrology as an outpatient. Dr. Nicanor Ring is clinically stable at the present time and is off diuretics at present (5) alcohol dependence Patient has been started on folic acid, thiamine and multivitamins No evidence of withdrawal symptoms at the present time Abstinence has been stressed and counseled (6) Hoarding Disorder History of hoarding disorder at home. As per family Will benefit from psychiatric consultation at subacute rehabilitation facility . DISCHARGE MEDICATIONS: Please see below. ALLERGIES: Please see below. PHYSICAL EXAMINATION ON DISCHARGE: VITAL SIGNS: Please see below. GENERAL: Within normal limits HEENT: PERRLA NECK: Supple CARDIOVASCULAR EXAMINATION: S1, S2, regular RESPIRATORY EXAMINATION: Clear to A&P ABDOMINAL EXAMINATION: Benign EXTREMITIES: No clubbing, cyanosis, edema SKIN: Within normal limits NEUROLOGICAL EXAMINATION: No motor or focal sensory deficit PSYCHIATRIC EXAMINATION: Awake, alert, oriented 3 LABORATORY DATA: Please see below. IMAGING: As per EMR PROGNOSIS: Good ACTIVITY: As tolerated. DIET: Regular DISCHARGE PLAN: Transfer to subacute rehabilitation facility DISPOSITION: [facility] DISCHARGE INSTRUCTIONS: 1. As above. ITEMS TO FOLLOWUP ON ON OUTPATIENT: 1. As above. DISCHARGE CONDITION: Stable. TIME SPENT ON DISCHARGE: 42 minutes. Vital Signs/I&Os Vital Signs Date Time Temp Pulse Resp B/P (MAP) Pulse Ox O2 Delivery O2 Flow Rate FiO2 01/26/19 06:00 98.6 120 18 116/57 (76) 99 01/25/19 21:00 1.0 01/25/19 01:19 Nasal Cannula I&O- Last 24 Hours up to 6 AM 01/26/19 06:00 Intake Total 1100 ml Output Total 1850 ml Balance -750 ml Laboratory Data Labs 24H Laboratory Tests 2 01/26/19 05:28: Immature Granulocyte % (Auto) 0.9, White Blood Count 9.3, Red Blood Count 3.87L, Hemoglobin 12.4, Hematocrit 37.5, Mean Corpuscular Volume 96.9H, Mean Corpuscular Hemoglobin 32.0, Mean Corpuscular Hemoglobin Concent 33.1, Red Cell Distribution Width 16.4H, Platelet Count 220, Neutrophils (%) (Auto) 71.9H, Lymphocytes (%) (Auto) 20.0L, Monocytes (%) (Auto) 6.9H, Eosinophils (%) (Auto) 0.1, Basophils (%) (Auto) 0.2, Neutrophils # (Auto) 6.7, Lymphocytes # (Auto) 1.9, Monocytes # (Auto) 0.6, Eosinophils # (Auto) 0.0, Basophils # (Auto) 0.0, Nucleated Red Blood Cells % (auto) 0.0 CBC/BMP Laboratory Tests 01/26/19 05:28 Red Blood Count 3.87 L, Mean Corpuscular Volume 96.9 H, Mean Corpuscular Hemog lobin 32.0, Mean Corpuscular Hemoglobin Concent 33.1, Red Cell Distribution Width 16.4 H, Neutrophils (%) (Auto) 71.9 H, Lymphocytes (%) (Auto) 20.0 L, Monocytes (%) (Auto) 6.9 H, Eosinophils (%) (Auto) 0.1, Basophils (%) (Auto) 0.2, Neutrophils # (Auto) 6.7, Lymphocytes # (Auto) 1.9, Monocytes # (Auto) 0.6, Eosinophils # (Auto) 0.0, Basophils # (Auto) 0.0 Microbiology Microbiology 01/19/19 Fungal Smear, Received Pending 01/19/19 Fungal Culture, Received Pending 01/16/19 Respiratory Virus Panel (PCR) (DOTTY) - Final, Complete Discharge Medications Scheduled Fluticasone Propion/Salmeterol (Advair Hfa 115-21 Mcg Inhaler) 12 Gm Hfa.aer.ad, 2 PUFF INH BID Folic Acid (Folic Acid) 1 Mg Tablet, 1 MG PO DAILY Magnesium Oxide (Magnesium Oxide) 400 Mg Tablet, 400 MG PO BID Multivitamins (Thera M Plus Tablet) 1 Each Tablet, 1 TAB PO DAILY Pantoprazole Sodium (Pantoprazole Sodium) 40 Mg Tablet.dr, 40 MG PO DAILY Prednisone (Prednisone) 10 Mg Tab.ds.pk, 10 MG PO DAILY Tiotropium [place] Monohydrate (Spiriva) 18 Mcg Cap.w.dev, 1 INHALATION INH DAILY@08 Scheduled PRN Acetaminophen (Acetaminophen) 325 Mg Tablet, 650 MG PO Q4H PRN for PAIN OR FEVER Aluminum/Magnesium/Simeth (Mag-Al Plus Suspension) 30 Ml Oral.susp, 10 ML PO DAILY PRN for DYSPEPSIA Ipratropium/Albuterol Sulfate (Iprat-Albut 0.5-3(2.5) mg/3 ml) 3 Ml Ampul.neb, 3 ML NEB Q4HP PRN for SOB/WHEEZING Magic Mouthwash (First-Mouthwash Blm) 1 Ea Susp, 0 EA SSP TIDP PRN for DISCOMFORT Magnesium Hydroxide (Milk of Magnesia) 400 Mg/5 Ml Oral.susp, 30 ML PO DAILY PRN for CONSTIPATION Allergies Coded Allergies: Penicillins (Verified Allergy, Unknown, 01/14/19) clindamycin (Verified Allergy, Unknown, 01/14/19) SIMON STILES MD January 26, 2019 07:04
[2019-01-26] MEDS: MAGNESIUM OXIDE 400 MG TAB (MAG-OX) PO SCH (09:49)
[2019-01-26] MEDS: guaiFENesin ER 600 MG TAB PO SCH (09:49)
[2019-01-26] MEDS: MULTIVITAMINS/MINERALS THERAP 1 TAB PO SCH (09:49)
[2019-01-26] MEDS: predniSONE 20 MG TAB PO SCH (09:49)
[2019-01-26] MEDS: FOLIC ACID 1 MG TAB PO SCH (09:49)
[2019-01-26] MEDS: PANTOPRAZOLE 40MG TAB (PROTONIX) PO SCH (09:49)
[2019-01-26] MEDS: TIOTROPIUM INHALER/CAPSULE (SPIRIVA) INH SCH (10:22)
[2019-01-26] MEDS: ADVAIR HFA 115/21MCG INHALER INH SCH (10:22)
--- NOTE | 2019-01-26 16:26 | IPN ---
DATE OF SERVICE: 01/26/2019 SUBJECTIVE: Patient was seen and examined at the bedside today morning. She was given a dose of diuretics yesterday. She had a good urine output. Renal function is stable. She reports that edema on the thighs is getting better. The patient also reports that she is probably going to be discharged to a rehab soon. OBJECTIVE: Vital signs: Temperature is 98.6 degrees Fahrenheit. Blood pressure 116/57. Pulse is 120, respiratory rate of 18, saturating 99% on nasal cannula at 1 liter. Intake and output: Urine output recorded is 1.4 liters yesterday, 450 mL so far today since overnight. Weight in the bed scale is 39.5 kg. PHYSICAL EXAMINATION: General: The patient is awake, alert, oriented times three, sitting up in the bed, in no apparent distress, weak and cachectic and chronically malnourished. Head and neck exam: Extraocular muscles intact. Pupils equally round and reactive to light. Neck is supple. Mildly elevated jugular venous distention (JVD). Cardiovascular: S1, S2, tachycardia. 1+ edema of the thighs was noted. Respiratory: Decreased breath sounds at the bases. Decreased air entry bilaterally. Abdomen: Soft. Positive bowel sounds. Nontender. No organomegaly. Musculoskeletal: Clubbing of the fingernails. 1+ edema of the thighs. Central nervous system (PET RESORT CONCIERGE): No focal deficit. Power is 5/5 in all extremities. LAB REVIEW: Complete blood count (CBC) showed WBC of 9.3, hemoglobin 12.4, platelets of 220. Basic metabolic panel (BMP) showed sodium 138, potassium 4.4, chloride 95, bicarbonate 40, BUN 27, creatinine is 0.34, calcium is 8.4, phosphorus is 2.6. CURRENT INPATIENT MEDICATIONS: The patient's medications were all reviewed by me. The patient was given a dose of furosemide 20 mg yesterday. No other change in the medications today as compared with yesterday. ASSESSMENT AND PLAN: 1. Decompensated cor pulmonale. Patient was aggressively diuresed. Now I have started on Lasix 20 mg every IV 48 hours. She only has edema left in the thighs. Otherwise, volume status is significantly better. 2. Chronic respiratory acidosis and metabolic alkalosis. Okay to continue diuretics every 48 hours. Bicarbonate level is staying stable. 3. Chronic obstructive pulmonary disease. Patient is oxygen dependent. She is on daily steroids. Continue the DuoNebs every 6 hours. She has been started on Advair as well. Patient's renal function is stable. Her volume status is optimized. Sodium level is staying stable now. Nephrology service is going to sign off at this moment. Please call nephrology service for any help in the management of this patient during this hospitalization.
[2019-01-27] MEDS ORDERED: FUROSEMIDE 20 MG TAB PO SCH (09:00)
== END 2019-01-26 13:22 | DRG 140 ==
LOC: M ED 13:45 → M ED INP 22:09 → M ICU 23:26 → M MSPAV 01-18 15:02
PROVIDERS: ADMIT Internal Medicine; ATTEND Internal Medicine
DX: J44.1 Chronic obstructive pulmonary disease with (acute) exacerbation (principal); I26.09 Other pulmonary embolism with acute cor pulmonale; J96.21 Acute and chronic respiratory failure with hypoxia; E43 Unspecified severe protein-calorie malnutrition; G93.41 Metabolic encephalopathy; B37.0 Candidal stomatitis; E87.2 Acidosis; E86.0 Dehydration; J96.22 Acute and chronic respiratory failure with hypercapnia; I27.20 Pulmonary hypertension, unspecified; M62.82 Rhabdomyolysis; I50.811 Acute right heart failure; E87.1 Hypo-osmolality and hyponatremia; E83.42 Hypomagnesemia; G62.9 Polyneuropathy, unspecified; D75.1 Secondary polycythemia; E87.6 Hypokalemia; F10.20 Alcohol dependence, uncomplicated; Z79.899 Other long term (current) drug therapy; Z88.0 Allergy status to penicillin; Z88.8 Allergy status to other drugs, medicaments and biological substances; M81.0 Age-related osteoporosis without current pathological fracture; F17.200 Nicotine dependence, unspecified, uncomplicated; I73.9 Peripheral vascular disease, unspecified; Z66 Do not resuscitate; J39.2 Other diseases of pharynx

== ENCOUNTER → 2019-04-06 | Outpatient (REF) | payer OTHER ==
[~2019-04-06] MED LIST: ACET1TAB55 PO; ADVA115A INH; FOLI1TAB11 PO; IPRA0.00 NEB; MAG400TA PO; MAGICMW SSP; MOM30SS2 PO; MYLASSUD PO; PANT40TA3 PO; PRED10PA PO; TIOT18INH INH; VITMTA PO
[2019-04-06 14:55] LABS: BASO # 0.1 10^3/uL (0.0-0.2); BASO % 0.7 % (0.0-1.0); EOS # 0.2 10^3/uL (0.0-0.50); EOS % 2.4 % (0.0-3.0); HEMATOCRIT 41.8 % (36.0-47.0); HEMOGLOBIN 13.5 g/dl (12.0-15.5); LYMPH # 2.1 10^3/uL (1.5-4.5); LYMPH % 28.2 % (24.0-44.0); MEAN CORPUSCULAR HEMOGLOBIN 31.8 pg (27.0-33.0); MEAN CORPUSCULAR HGB CONC 32.3 g/dl (32.0-36.5); MEAN CORPUSCULAR VOLUME 98.6 fl (80.0-96.0); MONO # 0.7 10^3/uL (0.0-0.8); MONO % 9.5 % (0.0-5.0); NEUTROPHILS # 4.4 10^3/uL (1.8-7.7); NEUTROPHILS % 58.3 % (36.0-66.0); PLATELET COUNT, AUTOMATED 475 10^3/uL (150-450); RED BLOOD COUNT 4.24 10^6/uL (4.00-5.40); WHITE BLOOD COUNT 7.6 10^3/uL (4.0-10.0)
[2019-04-06 15:29] LABS: ALBUMIN 3.4 GM/DL (3.2-5.2); ALT/SGPT 32 U/L (12-78); BILIRUBIN,TOTAL 0.3 MG/DL (0.2-1.0); BLOOD UREA NITROGEN 13 MG/DL (7-18); CALCIUM LEVEL 9.5 MG/DL (8.8-10.2); CARBON DIOXIDE LEVEL 38 MEQ/L (21-32); CHLORIDE LEVEL 98 MEQ/L (98-107); GLOMERULAR FILTRATION RATE > 60.0 (>45); GLUCOSE, FASTING 99 MG/DL (70-100); MAGNESIUM LEVEL 2.3 MG/DL (1.8-2.4); POTASSIUM SERUM 4.3 MEQ/L (3.5-5.1); SODIUM LEVEL 139 MEQ/L (136-145); TOTAL PROTEIN 7.3 GM/DL (6.4-8.2)
== END ==
LOC: M LAB REF 12:40
PROVIDERS: ATTEND Physician Assistant Medical
DX: E83.42 Hypomagnesemia (principal); E87.6 Hypokalemia

== ENCOUNTER → 2019-10-24 | Outpatient (CLI) | payer MEDICARE ==
[2019-10-24 12:50] LABS: ABG BASE EXCESS 3.1 (-2.0-2.0); ABG HCO3 27.6 MEQ/L (22.0-26.0); ABG O2 SATURATION 96.9 % (95.0-99.0); ABG PARTIAL PRESSURE CO2 41.8 mmHg (35.0-45.0); ABG PARTIAL PRESSURE O2 85.2 mmHg (75.0-100.0); ABG STANDARD HCO3 27.2 MEQ/L (22.0-26.0); ABG TOTAL CO2 28.9 MEQ/L (23.0-31.0); ABG pH (ARTERIAL) 7.438 UNITS (7.350-7.450)
== END ==
LOC: M LAB 12:37
PROVIDERS: ATTEND Nurse Practitioner Family
DX: J44.9 Chronic obstructive pulmonary disease, unspecified (principal)

== ENCOUNTER 2019-11-10 07:29 | Day surgery (SDC) | payer MEDICARE ==
[~2019-11-10] VITALS: Ht 157.5 cm; Wt 46.3 kg
[~2019-11-10 07:29] MED LIST changes: +BUDE10.2 IH; +FURO40TA2 PO; +LIDOCAINE 2% INJ 100 MG/5 ML SDV (FOR ANES.) As Ordered ONE; +NS 1,000 ML IV ONE; +OMEP40CA97 PO; +POTA10CA32 PO; +propofoL 200 MG/20 ML VIAL As Ordered ONE
--- NOTE | 2019-11-10 09:22 | ROOR ---
Patient Name: Michelle Harmon Procedure Date: 11/10/2019 8:33 AM Date of : 1955 Age: 64 Room: [facility] Gender: Female Note Status: Finalized Procedure: Upper GI endoscopy Indications: Heartburn, Suspected gastro-esophageal reflux disease Providers: Alden Youssef MD Referring MD: Deysi Crawford MD Requesting Provider: Medicines: Monitored Anesthesia Care Complications: No immediate complications. Procedure: Pre-Anesthesia Assessment: - Prior to the procedure, a History and Physical was performed, and patient medications and allergies were reviewed. The patient is competent. The risks and benefits of the procedure and the sedation options and risks were discussed with the patient. All questions were answered and informed consent was obtained. Patient identification and proposed procedure were verified by the physician, the nurse and the anesthesiologist in the procedure room. Mental Status Examination: alert and oriented. Airway Examination: normal oropharyngeal airway and neck mobility. Respiratory Examination: clear to auscultation. CV Examination: normal. Prophylactic Antibiotics: The patient does not require prophylactic antibiotics. Prior Anticoagulants: The patient has taken no previous anticoagulant or antiplatelet agents. ASA Grade Assessment: III - A patient with severe systemic disease. After reviewing the risks and benefits, the patient was deemed in satisfactory condition to undergo the procedure. The anesthesia plan was to use monitored anesthesia care (MAC). Immediately prior to administration of medications, the patient was re-assessed for adequacy to receive sedatives. The heart rate, respiratory rate, oxygen saturations, blood pressure, adequacy of pulmonary ventilation, and response to care were monitored throughout the procedure. The physical status of the patient was re-assessed after the procedure. The Endoscope was introduced through the mouth, and advanced to the second part of duodenum. The upper GI endoscopy was accomplished without difficulty. The patient tolerated the procedure well. Findings: A small hiatal hernia was present. LA Grade A (one or more mucosal breaks less than 5 mm, not extending between tops of 2 mucosal folds) esophagitis with no bleeding was found in the distal esophagus. Biopsies were taken with a cold forceps for histology. Verification of patient identification for the specimen was done by the physician and nurse using the patient's name, date and medical record number. Estimated blood loss was minimal. Scattered mild inflammation characterized by erythema, friability and granularity was found in the gastric antrum. Biopsies were taken with a cold forceps for Helicobacter pylori testing. The duodenal bulb and second portion of the duodenum were normal. Impression: - Small hiatal hernia. - LA Grade A reflux esophagitis. Rule out Hartmann's esophagus. Biopsied. - Gastritis. Biopsied. - Normal duodenal bulb and second portion of the duodenum. Recommendation: - Patient has a contact number available for emergencies. The signs and symptoms of potential delayed complications were discussed with the patient. Return to normal activities tomorrow. Written discharge instructions were provided to the patient. - High fiber diet. - Continue present medications. - Await pathology results. - Follow an antireflux regimen. - Telephone GI clinic for pathology results in 2 weeks. - Return to primary care physician. Alden Youssef MD Alden Youssef MD 11/10/2019 9:22:26 AM Electronically signed by Alden Youssef MD Number of Addenda: 0 Note Initiated On: 11/10/2019 8:33 AM Estimated Blood Loss: Estimated blood loss was minimal.
--- NOTE | 2019-11-10 09:26 | ROOR ---
Patient Name: Michelle Harmon Procedure Date: 11/10/2019 8:34 AM Date of : 1955 Age: 64 Room: [facility] Gender: Female Note Status: Finalized Procedure: Colonoscopy Indications: Screening for colorectal malignant neoplasm Providers: Alden Youssef MD Referring MD: Deysi Crawford MD Requesting Provider: Medicines: Monitored Anesthesia Care Complications: No immediate complications. Procedure: Pre-Anesthesia Assessment: - Prior to the procedure, a History and Physical was performed, and patient medications and allergies were reviewed. The patient is competent. The risks and benefits of the procedure and the sedation options and risks were discussed with the patient. All questions were answered and informed consent was obtained. Patient identification and proposed procedure were verified by the physician, the nurse and the anesthesiologist in the procedure room. Mental Status Examination: alert and oriented. Airway Examination: normal oropharyngeal airway and neck mobility. Respiratory Examination: clear to auscultation. CV Examination: normal. Prophylactic Antibiotics: The patient does not require prophylactic antibiotics. Prior Anticoagulants: The patient has taken no previous anticoagulant or antiplatelet agents. ASA Grade Assessment: III - A patient with severe systemic disease. After reviewing the risks and benefits, the patient was deemed in satisfactory condition to undergo the procedure. The anesthesia plan was to use monitored anesthesia care (MAC). Immediately prior to administration of medications, the patient was re-assessed for adequacy to receive sedatives. The heart rate, respiratory rate, oxygen saturations, blood pressure, adequacy of pulmonary ventilation, and response to care were monitored throughout the procedure. The physical status of the patient was re-assessed after the procedure. The Colonoscope was introduced through the anus and advanced to the terminal ileum, with identification of the appendiceal orifice and IC valve. The colonoscopy was performed without difficulty. The patient tolerated the procedure well. The quality of the bowel preparation was good. The terminal ileum, ileocecal valve, appendiceal orifice, and rectum were photographed. Scope insertion time was 4 minutes. Scope withdrawal time was 10 minutes. The total duration of the procedure was 14 minutes. Findings: The perianal and digital rectal examinations were normal. The terminal ileum appeared normal. Two sessile polyps were found in the transverse colon. The polyps were 5 to 8 mm in size. These polyps were removed with a cold snare. Resection and retrieval were complete. Verification of patient identification for the specimen was done by the physician and nurse using the patient's name, date and medical record number. Estimated blood loss was minimal. A 10 mm polyp was found in the rectum. The polyp was sessile. The polyp was removed with a cold snare. Resection and retrieval were complete. For hemostasis, one hemostatic clip was successfully placed. There was no bleeding at the end of the procedure. Non-bleeding external and internal hemorrhoids were found during retroflexion. The hemorrhoids were medium-sized. Impression: - The examined portion of the ileum was normal. - Two 5 to 8 mm polyps in the transverse colon, removed with a cold snare. Resected and retrieved. - One 10 mm polyp in the rectum, removed with a cold snare. Resected and retrieved. Clip was placed. - Non-bleeding external and internal hemorrhoids. Recommendation: - Patient has a contact number available for emergencies. The signs and symptoms of potential delayed complications were discussed with the patient. Return to normal activities tomorrow. Written discharge instructions were provided to the patient. - High fiber diet. - Continue present medications. - Await pathology results. - Repeat colonoscopy in 3 - 5 years for surveillance based on pathology results. - Telephone GI clinic for pathology results in 2 weeks. - Return to primary care physician. Alden Youssef MD Alden Youssef MD 11/10/2019 9:26:25 AM Electronically signed by Alden Youssef MD Number of Addenda: 0 Note Initiated On: 11/10/2019 8:34 AM Estimated Blood Loss: Estimated blood loss was minimal.
[2019-11-10 09:35] VITALS: BP 115/56
== END 2019-11-10 09:46 | disposition home or self-care (01) ==
LOC: M OPP 07:29
PROVIDERS: ATTEND Internal Medicine Gastroenterology
DX: Z12.11 Encounter for screening for malignant neoplasm of colon (principal); K64.8 Other hemorrhoids; D12.3 Benign neoplasm of transverse colon; K62.1 Rectal polyp; K44.9 Diaphragmatic hernia without obstruction or gangrene; K21.0 Gastro-esophageal reflux disease with esophagitis; K29.70 Gastritis, unspecified, without bleeding; R12 Heartburn; Z79.899 Other long term (current) drug therapy; Z88.0 Allergy status to penicillin; Z88.1 Allergy status to other antibiotic agents; Z87.891 Personal history of nicotine dependence

== ENCOUNTER → 2020-02-01 | Outpatient (CLI) | payer MEDICARE ==
[~2020-02-01] MED LIST changes: -LIDOCAINE 2% INJ 100 MG/5 ML SDV (FOR ANES.) As Ordered ONE; -NS 1,000 ML IV ONE; -propofoL 200 MG/20 ML VIAL As Ordered ONE
--- NOTE | 2020-02-01 18:00 | REP ---
REASON FOR EXAM: Followup emphysema. The only prior for comparison is 01/14/2029. As per the protocol, only lung window images were sent to the read station for interpretation. Patient has a history of tobacco abuse. The lung loyola are hyperexpanded, status quo. There are emphysematous changes, status quo. There is cylindrical bronchiectasis, status quo. Incidental note is again made of calcified granulomas. There is a new 6-mm sized nodule in the right lower lobe and there is a new 6-mm sized nodule in the left lower lobe. IMPRESSION: Lung nodules, as described above. According to the revised Fleischner Society criteria, these represent category 4A lesions, for which a 3-month followup standard contrast-enhanced CT examination of the chest is recommended. Electronically Signed by Angel Blount DO 02/02/2020 11:14 A
== END ==
LOC: M RAD 10:54
PROVIDERS: ATTEND Nurse Practitioner Family
DX: Z12.2 Encounter for screening for malignant neoplasm of respiratory organs (principal); Z87.891 Personal history of nicotine dependence; R91.8 Other nonspecific abnormal finding of lung field; J43.9 Emphysema, unspecified

== ENCOUNTER → 2020-02-19 | Outpatient (CLI) | payer MEDICARE ==
[~2020-02-19] MED LIST changes: +PANT40TA29 PO; -PANT40TA3 PO
[2020-02-19 14:00] LABS: POTASSIUM SERUM 3.6 MEQ/L (3.5-5.1)
[2020-02-19 14:09] LABS: TOTAL 25(OH) VITAMIN D 43.7 NG/ML (30.0-100.0)
== END ==
LOC: M LAB 13:08
PROVIDERS: ATTEND Physician Assistant Medical
DX: M79.10 Myalgia, unspecified site (principal); E55.9 Vitamin D deficiency, unspecified; Z79.899 Other long term (current) drug therapy

== ENCOUNTER → 2020-05-09 | Outpatient (CLI) | payer MEDICARE ==
--- NOTE | 2020-05-30 13:13 | REP ---
PARTIAL LUMOSCARAL SPINE SERIES: 05/09/20 CLINICAL: Lower back pain. TECHNIQUE: AP, lateral, coned down views of the lumbosacral spine. FINDINGS: Examination is limited by positioning as well as advanced osteopenia at multilevel degenerative changes. There is a compression fracture involving presumed L4 with approximately 60% loss of vertebral body height of uncertain chronicity. There also appears to be a more subtle compression deformity involving L3 with approximately 15 % loss of vertebral body height. These findings require correlation with physical examination and history of injury. IMPRESSION: 1. Advanced osteopenia and degenerative changes limiting evaluation. 2. Compression deformities at presumed L4 and L3 as noted above. Findings may represent acute versus chronic findings and require correlation. No prior examinations are available for comparison. [facility]
== END ==
LOC: M RAD 10:00
PROVIDERS: ATTEND Physician Assistant Medical
DX: M54.5 Low back pain (principal); M85.80 Other specified disorders of bone density and structure, unspecified site

== ENCOUNTER → 2020-05-09 | Outpatient (CLI) | payer MEDICARE ==
--- NOTE | 2020-07-29 14:51 | REP ---
NON-CONTRAST CHEST CT: 05/09/20 CLINICAL: Follow-up abnormal lung findings. COMPARISON: 02/01/20. TECHNIQUE: Axial non-contrast images from the thoracic inlet to the upper abdomen with coronal and sagittal reformations. FINDINGS: The lung loyola are well aerated and demonstrate moderate emphysematous disease with bronchiectasis and minimal scarring including linear platelike scarring in the right lower lobe. Scattered calcified granulomata and calcified lymph nodes are again noted and consistent with prior granulomatous disease. There is no acute consolidation. The previously identified 6mm densities in the right and left lower lobes have resolved and likely represented small foci of atelectasis. Of note, there is a small patchy new opacity in the right apex adjacent to a calcified granuloma (image 20) which represents new changes as compared to 02/01/20. No further consolidation, suspicious nodule or mass lesion. No effusion. No pneumothorax. No obvious acute adenopathy. Mediastinum demonstrates thoracic aorta without aneurysm or dissection and no cardiomegaly or pericardial effusion. Musculoskeletal structures are intact and without acute osseous abnormality. Sagittal views demonstrate chronic depression deformities at T9 AND T11 which appear relatively unchanged as compared to ct dated 01/14/19. IMPRESSION: 1. Chronic emphysematous changes with scattered scarring and bronchiectasis unchanged. 2. Previously noted 6mm densities in the bilateral lower lobes have resolved 3. There is a small patchy density in the right apical lung zone adjacent to a calcified granuloma which represents a new finding. While this may represent chronic change, subtle acute active disease cannot be excluded. Follow-up examination at 6 months may be warranted. 4. Chronic relatively stable appearance to t9 and T11 compression deformities similar to 01/14/19. [facility]TDD
== END ==
LOC: M RAD 09:56
PROVIDERS: ATTEND Nurse Practitioner Family
DX: R91.8 Other nonspecific abnormal finding of lung field (principal)

== ENCOUNTER → 2020-07-30 | Outpatient (CLI) | payer MEDICARE, BC ==
--- NOTE | 2020-07-30 13:02 | REPVR ---
PROCEDURE INFORMATION: Exam: MR Lumbar Spine Without Contrast. Exam date and time: 07/30/2020 12:24 PM Age: 65 years old Clinical indication: Low back pain; Additional info: R/O stenosis TECHNIQUE: Imaging protocol: Multiplanar magnetic resonance images of the lumbar spine without intravenous contrast. COMPARISON: CR Spine, Lumbosacral, partial 05/09/2020 10:34 AM FINDINGS: The numbering scheme assumes the presence of a sacralized L5 body with a rudimentary disc. Vertebrae: There is a moderate lumbar dextroscoliosis. There are moderate to severe T11, moderate L3 and severe L4 compression deformities. Minimally increased edema at L4 may be indicative of acute/subacute time course. There is a chronic S1/S2 sacral fracture. Spinal cord: Normal signal. No cord compression. L1-L2: There is shallow disc bulging. There is mild facet hypertrophy. There is mild left neural foraminal narrowing. L2-L3: There is diffuse disc bulging. There is moderate right and severe left facet hypertrophy. There is mild bilateral neural foraminal narrowing. L3-L4: There is diffuse disc bulging. There is moderate facet and ligamentous hypertrophy. There is mild to moderate bilateral neural foraminal narrowing. L4-L5: There is shallow disc bulging. There is [id number] facet hypertrophy. There is moderate to severe right and moderate left neural foraminal narrowing. L5-S1: There is a sacralized L5 with a rudimentary disc. Soft tissues: Unremarkable. IMPRESSION: 1. Multilevel compression fractures as above. At L4, there is minimal edema, suggestive of a acute/subacute time course. 2. Degenerative disc disease and spondylosis. Electronically signed by: Marianne Freitas On 07/30/2020 13:02:28 PM
--- NOTE | 2020-07-30 14:58 | REP ---
INDICATION: COPD. COMPARISON: Comparison CT imaging May 09, 2020 and February 01, 2020.. TECHNIQUE: Helical scanning is acquired and 3 mm axial images are generated. Coronal and sagittal MPR and coronal MIP images are generated and reviewed. FINDINGS: The lungs are somewhat hyperinflated as before. There are granulomatous lymph node calcifications in the mediastinum and hilar regions bilaterally. There are good multiple scattered granulomatous calcified nodules in the lung loyola bilaterally and there are innumerable granulomatous calcifications throughout the spleen. There are a few in the liver as well. These are all unchanged. The somewhat ill-defined nodular opacity seen in the right upper lobe on the 05/19/2020 prior study is again seen although it appears improved. There is a small ill-defined nodular opacity which is new in the right upper lobe on today's study page 31 of 124 series 201. This measures 6 mm in diameter. There is another new peribronchovascular nodule in the right lower lobe on page 64 of 124. This measures 4 mm in diameter. No other new pulmonary nodule is appreciated. This patient has a pattern of waxing and waning small peribronchovascular pulmonary nodules. These are likely inflammatory. No pleural or pericardial effusion is seen. No adrenal lesion is observed. There is a cyst in the left kidney. IMPRESSION: Waxing and waning pattern of nodular opacities with a background of granulomatous disease within numerous calcifications. Hyper inflation and emphysematous changes. The nodular opacities are most likely inflammatory. There are 2 new subcentimeter nodular opacities visible on today's CT study. Consider 6 month follow-up. <Electronically signed by Dima Ventura > 07/30/20 [id number]
--- NOTE | 2020-07-30 16:01 | REP ---
INDICATION: R/O MENISCUS TEAR. COMPARISON: None TECHNIQUE: Sagittal spin-echo proton density, T2 STIR and T2 FLASH. Coronal spin-echo proton density and fat suppressed proton density. Axial fat suppressed proton density. FINDINGS: Grade 1 and grade 2 signal changes are seen in the anterior and posterior horns of the lateral meniscus particularly the posterior horn. Grade 1 and grade 2 signal change is seen in the posterior horn of the medial meniscus. The anterior and posterior cruciate ligaments are intact. The quadriceps and patellar tendons are intact. The medial and lateral collateral ligaments are intact. The medial and lateral patellar retinacula are intact. There is patchy T2 hyper signal seen in the patella particularly medially and there is patchy T2 hyper signal seen throughout the mid and posterior aspect of the proximal medial tibial metaphysis. There is no joint effusion or Hilton's cyst. There is thinning and irregularity of all articular cartilages. IMPRESSION: 1. Degenerative type meniscal signal changes seen in both anterior and posterior horns of the lateral meniscus and within the posterior horn of the medial meniscus without evidence of a anurag tear. 2. Marrow edema in the patella and proximal medial tibial metaphysis as described above. The etiology is uncertain but is likely secondary to an osseous contusion. This needs to be correlated clinically. There are no plain films to review. I cannot completely rule out the possibility of subtle patellar and tibial fractures. 3. Other findings as described above. <Electronically signed by Angel Blount > 07/30/20 [id number]
== END ==
LOC: M RAD 10:55
PROVIDERS: ATTEND Physician Assistant
DX: M25.561 Pain in right knee (principal)

== ENCOUNTER → 2020-07-30 | Outpatient (CLI) | payer MEDICARE, BC | LOC: M RAD 10:51 | PROVIDERS: ATTEND Orthopaedic Surgery | DX: M51.36 Other intervertebral disc degeneration, lumbar region (principal) ==

== ENCOUNTER → 2020-07-30 | Outpatient (CLI) | payer MEDICARE, BC | LOC: M RAD 10:47 | PROVIDERS: ATTEND Nurse Practitioner Family | DX: J44.9 Chronic obstructive pulmonary disease, unspecified (principal) ==

== ENCOUNTER 2020-08-31 11:26 | Inpatient (IN) | payer MEDICARE, BC ==
[~2020-08-31] VITALS: Ht 160 cm; Wt 48.4 kg
[2020-08-31] MEDS ORDERED: ONDANSETRON 4MG/2ML VIAL IV ONE (12:00)
[2020-08-31] MEDS: MORPHINE 2 MG/ML 1ML VIAL (J2270) IV PRN ×4 (12:07→22:14)
[2020-08-31] MEDS ORDERED: NS 1,000 ML IV SCH (13:00)
--- NOTE | 2020-08-31 13:07 | REP ---
INDICATION: pain COMPARISON: None. TECHNIQUE: AP and cross-table lateral views of the left hip. FINDINGS: Transverse displaced left femoral neck fracture noted. IMPRESSION: Acute left femoral neck fracture. <Electronically signed by Rashel Lee > 08/31/20 [id number]
--- NOTE | 2020-08-31 13:08 | REP ---
INDICATION: pain. COMPARISON: None. TECHNIQUE: Single frontal view of the pelvis. FINDINGS: Displaced left femoral neck fracture noted. Generalized age-related osteopenia and degenerative changes noted. IMPRESSION: Acute left femoral neck fracture. <Electronically signed by Rashel Lee > 08/31/20 [id number]
--- NOTE | 2020-08-31 13:10 | REP ---
INDICATION: preop COMPARISON: 10/23/2019 TECHNIQUE: Portable AP view of the chest FINDINGS: The mediastinum and cardiac silhouette are stable and within normal limits for portable technique. The lung loyola demonstrate stable chronic changes without acute consolidation, effusion, or pneumothorax. Skeletal structures demonstrate age-related osteopenia degenerative changes without acute process. IMPRESSION: No acute cardiopulmonary process appreciated. <Electronically signed by Rashel Lee > 08/31/20 2021
[2020-08-31 13:13] LABS: BASO % 0.2 % (0.0-1.0); HEMATOCRIT 40.8 % (36.0-47.0); HEMOGLOBIN 13.5 g/dl (12.0-15.5); LYMPH # 1.4 10^3/uL (1.5-5.0); LYMPH % 8.4 % (24.0-44.0); MEAN CORPUSCULAR HGB CONC 33.1 g/dl (32.0-36.5); MEAN CORPUSCULAR VOLUME 93.8 fl (80.0-96.0); MONO # 0.8 10^3/uL (0.0-0.8); MONO % 4.9 % (0.0-5.0); NEUTROPHILS # 14.4 10^3/uL (1.5-8.5); NEUTROPHILS % 85.9 % (36.0-66.0); PLATELET COUNT, AUTOMATED 403 10^3/uL (150-450); RED BLOOD COUNT 4.35 10^6/uL (4.00-5.40); WHITE BLOOD COUNT 16.7 10^3/uL (4.0-10.0)
[2020-08-31] MEDS ORDERED: OMEP-218 PO (13:20)
[2020-08-31] MEDS ORDERED: ADVA230A INH (13:20)
[2020-08-31] MEDS ORDERED: INCR1INH INH (13:20)
[2020-08-31 13:28] LABS: ALBUMIN 3.6 GM/DL (3.2-5.2); ALT/SGPT 28 U/L (12-78); BILIRUBIN,TOTAL 1.5 MG/DL (0.2-1.0); BLOOD UREA NITROGEN 11 MG/DL (7-18); CALCIUM LEVEL 9.4 MG/DL (8.8-10.2); CARBON DIOXIDE LEVEL 31 MEQ/L (21-32); CHLORIDE LEVEL 89 MEQ/L (98-107); ETHYL ALCOHOL (ETHANOL) < 0.003 % (0.000-0.010); GLOMERULAR FILTRATION RATE > 60.0 (>45); GLUCOSE, FASTING 134 MG/DL (70-100); SODIUM LEVEL 130 MEQ/L (136-145); TOTAL PROTEIN 7.4 GM/DL (6.4-8.2)
[2020-08-31 13:29] LABS: INR 0.95; PROTHROMBIN TIME 12.9 SECONDS (12.5-14.3)
[2020-08-31] MEDS ORDERED: MOM 30ML SUSPENSION UDC PO PRN (13:45)
[2020-08-31] MEDS ORDERED: VITMTA PO (13:59)
[2020-08-31] MEDS ORDERED: APAP325T4 PO (13:59)
--- NOTE | 2020-08-31 14:01 | REP ---
INDICATION: trauma COMPARISON: None. TECHNIQUE: Portable AP and lateral views of the mid to distal femur. FINDINGS: Visualized portions of the femur demonstrate osteopenia and degenerative changes at the knee. No acute fracture or dislocation. IMPRESSION: Visualized portions of the femur without fracture. Known proximal femur/hip fracture.. <Electronically signed by Rashel Lee > 08/31/20 [id number]
[2020-08-31] MEDS ORDERED: ONDANSETRON 4MG/2ML VIAL IV PRN (14:15)
[2020-08-31 14:20] LABS: RSV AMPLIFICATION NEGATIVE (NEGATIVE)
--- NOTE | 2020-08-31 14:42 | ECGEPIP ---
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
--- NOTE | 2020-08-31 14:54 | HPEPDOC ---
General Date of Admission 08/31/20 Date of Service: Aug 31, 2020 Chief Complaint The patient is a 65-year-old female admitted with a reason for visit of Groin Pain. Source: Patient, RN/MD History of Present Illness 65 year old female with PMH of advanced COPD with chronic hypoxic and hypercarbic respiratory failure, severe pulmonary hypertension, chronic hyponatremia, osteoporosis, recent right 4 metatarsal fracture, No h/o alcohol abuse stood up from her bed yesterday and felt a sudden sharp pain in her left groin. The pain was about 8/10 in intensity sharp stabbing kind with no radiation. Since then she has not been able to walk. She relaxed yesterday thinking the pain is going to go away with rest however today pain continued and she was unable to bear weight to even go to the bathroom so came to ED. In the ED she was found to have left femoral neck fracture. When I asked about her alcohol usage patient clarified about the documentation in her chart of being an alcoholic is wrong. She says she only drinks occasionally and never been a daily drinker and wanted it to be taken off her records. She was admitted for left hip fracture. Home Medications Scheduled Fluticasone Propion/Salmeterol (Advair Hfa 230-21 Mcg Inhaler) 12 Gm Hfa.aer.ad, 2 PUFF INH BID, (Reported) Furosemide (Furosemide) 40 Mg Tablet, 40 MG PO DAILY, (Reported) Multivitamins (Thera M Plus Tablet) 1 Each Tablet, 1 TAB PO DAILY, (Reported) Omeprazole (Omeprazole) 20 Mg Capsule.dr, 20 MG PO DAILY, (Reported) Potassium Chloride (Potassium Chloride) 10 Meq Capsule.er, 10 MEQ PO DAILY, (Reported) Umeclidinium [place] (Incruse Ellipta) 62.5 Mcg Blst.w.dev, 1 PUFF INH DAILY, (Reported) Scheduled PRN Acetaminophen (Acetaminophen) 325 Mg Tablet, 650 MG PO Q4H PRN for PAIN, (Reported) Allergies Coded Allergies: Penicillins (Verified Allergy, Unknown, 01/14/19) clarithromycin (Verified Allergy, Unknown, 11/03/19) clindamycin (Verified Allergy, Unknown, 01/14/19) Past Medical History Medical History COPD Chronic hypoxic and hypercarbic respiratory failure Severe pulmonary hypertension and corpulmonale Protein calorie malnutrition PAD Hiatal hernia GERD h/o gastritis Hemorrhoids Neuropathy Osteoporosis Recent right 4 metatarsal bone fractures 8 weeks ago. Acute/ subacute L4 Lumber vertebral compression fracture in Jul 2020 Chronic S1/S2 sacral fracture Family History Patient is adapted. 1 son has cholesterol, hypertension. 1 daughter may have osteoporosis Social History * Smoker: current smoker Alcohol: occationally A-FIB/CHADSVASC A-FIB History Current/History of A-Fib/PAF?: No Review of Systems Constitutional: Denies: Chills, Fever, Night Sweats Eyes: Denies: Pain, Vision change ENT: Denies: Head Aches, Ear Pain, Dysphagia Skin: Denies: Rash, Lesions, Breakdown Pulmonary: Reports: Dyspnea Cardiovascular: Denies: Chest Pain, Palpitations, Orthopnea, Paroxysmal Noc. Dyspnea, Lt Headedness Gastrointestinal: Denies: Nausea, Vomiting, Abdominal Pain, Diarrhea Genitourinary: Denies: Dysuria, Frequency, Incontinence, Retention Hematologic: Denies: Bruising, Bleeding Excessively Musculoskeletal: Reports: Back Pain, Foot Pain (right ), Joint Pain (left groin) Psych: Reports: Mood Normal; Denies: Depression, Memory Issues Physical Examination General Exam: Positive: Alert, Cooperative, No Acute Distress, Other (conversational dyspnea present) Eye Exam: Positive: PERRLA, Conjunctiva & lids normal, EOMI; Negative: Sclera icteric ENT Exam: Positive: Atraumatic, Pharynx Normal, Tongue Midline Neck Exam: Positive: Supple, JVD, Other (bitemporal wasting); Negative: thyromegaly Chest Exam: Positive: Diminished (overall diminished breath sounds, no wheezing or crackles heard.), Other (intercostal muscle wasting) Heart Exam: Positive: Tachycardic, Regular Rhythm, Normal S1, Normal S2; Negative: Irregular Rhythm, Gallops, Murmurs, Rubs Telemetry: Positive: Sinus, Tachycardia Abdomen Exam: Positive: Normal bowel sounds, Soft; Negative: Tenderness, Hepatospenomegaly Extremity Exam: Negative: Cyanosis, Edema Skin Exam: Positive: Nl turgor and temperature; Negative: Breakdown, Lesion Neuro Exam: Positive: Normal Speech, Normal Tone, Sensation Intact Vital Signs Vital Signs Date Time Temp Pulse Resp B/P (MAP) Pulse Ox O2 Delivery O2 Flow Rate FiO2 08/31/20 13:38 16 08/31/20 11:45 96.0 128 130/60 (83) 95 Nasal Cannula 2.0 Laboratory Data Labs 24H Laboratory Tests 2 08/31/20 12:53: Prothrombin Time 12.9, Prothromb Time International Ratio 0.95, Anion Gap 10, Gl omerular Filtration Rate > 60.0, Calcium Level 9.4, Total Bilirubin 1.5H, Aspartate Amino Transf (AST/SGOT) 29, Alanine Aminotransferase (ALT/SGPT) 28, Alkaline Phosphatase 117, Total Protein 7.4, Albumin 3.6, Albumin/Globulin Ratio 0.9L, Ethyl Alcohol Level < 0.003 08/31/20 13:06: Immature Granulocyte % (Auto) 0.6, Neutrophils (%) (Auto) 85.9H, Lymphocytes (%) (Auto) 8.4L, Monocytes (%) (Auto) 4.9, Eosinophils (%) (Auto) 0.0, Basophils (%) (Auto) 0.2, Neutrophils # (Auto) 14.4H, Lymphocytes # (Auto) 1.4L, Monocytes # (Auto) 0.8, Eosinophils # (Auto) 0.0, Basophils # (Auto) 0.0, Nucleated Red Blood Cells % (auto) 0.0 CBC/BMP Laboratory Tests 08/31/20 12:53 08/31/20 13:06 Assessment/Plan 65 year old female with PMH of advanced COPD with chronic hypoxic and hypercarbic respiratory failure, severe pulmonary hypertension, chronic hypon atremia, osteoporosis, recent right 4 metatarsal fracture, No h/o alcohol abuse stood up from her bed yesterday and felt a sudden sharp pain in her left groin. The pain was about 8/10 in intensity sharp stabbing kind with no radiation. Since then she has not been able to walk. She relaxed yesterday thinking the pain is going to go away with rest however today pain continued and she was unable to bear weight to even go to the bathroom so came to ED. In the ED she was found to have left femoral neck fracture. When I asked about her alcohol usage patient clarified about the documentation in her chart of being an alcoholic is wrong. She says she only drinks occasionally and never been a daily drinker and wanted it to be taken off her records. She was admitted for left hip fracture. Left Hip fracture bed rest , pain control with morphine prn mustafa Zofran prn. will need early surgical fixation so that patient can start mobilization as soon as possible Seen by ortho planned for surgery on 09/01/20 Medical Optimization Patient at present not cleared for surgery will ask for cardiac and pulmonary consult. Patient has severe pulmonary hypertension and corpulmonale Advanced COPD with chronic respiratory failure with hypoxia and hypercarbia. Patient is at high cardiac risk for the proposed procedure High risk of having difficulty extubation after surgery ECHO ordered. Hold lasix. COPD with chronic respiratory failure with hypoxia and hypercarbia. continue Spiriva, Advair albuterol prn. Sinus tachycardia probably due to pain and advanced COPD. Chronic hyponatremia due to advanced lung disease Severe protein calorie malnutrition BMI 18.6. bitemporal wasting. Wasting of small muscle of hands. GERD PPI Severe osteoporosis. Has recent right metatarsal fractures. Also had L4 vertebral compression fracture in Jul 2020. Also has chronic sacral vertebral fractures. DVT prophylaxis: mechanical. Plan / VTE VTE Prophylaxis Ordered?: Yes AARON ROCHE MD Aug 31, 2020 13:51
[2020-08-31] MEDS: IPRATROPIUM 0.5MG/ALBUTEROL 2.5MG INH SOL UD 3ML (DUONEB) NEB PRN ×2 (15:56→21:31)
[2020-08-31 16:50] VITALS: BP 128/86
[2020-08-31] MEDS: OMEPRAZOLE 20 MG CAP PO SCH (17:00)
--- NOTE | 2020-08-31 20:50 | CR ---
INPATIENT CONSULTATION DATE: 08/31/2020 at 7:30 PM CONSULTING SERVICE: Orthopedic Surgery CONSULTING PHYSICIAN: Parag Ingram M.D. REASON FOR CONSULTATION: Left femoral neck fracture. HISTORY OF PRESENT ILLNESS: This is a 65-year-old female with a left femoral neck fracture she sustained after getting up from bed, ultimately ambulated to the bathroom. She immediately with a walker for use as an assistive device. The patient is a 65-year-old female with a past medical history of advanced chronic obstructive pulmonary disease, chronic hypoxic and hypercarbic respiratory failure, severe pulmonary hypertension, chronic hyponatremia, osteoporosis, recent right four metatarsal fractures, as well as recent L-2, 3, 4, lumbar compression vertebral fractures. She presented to the [facility] after sustaining this injury to her left hip. She was seen by Dr. Christopher Ingram, Orthopedic Surgeon concrete pile driver operator for further evaluation and treatment. The patient was unable to ambulate after the aforementioned injury. PAST MEDICAL HISTORY: The patient's past medical history is significant for: 1. Advanced chronic obstructive pulmonary disease. 2. Chronic hypoxic and hypercarbic respiratory failure. 3. Severe pulmonary hypertension and cor pulmonale. 4. Protein calorie malnutrition. 5. PAD. 6. Hiatal hernia. 7. Gastroesophageal reflux disease. 8. History of gastritis. 9. Hemorrhoids. 10. Neuropathy. 11. Osteoporosis. 12. Recent right four metatarsal bone fractures 8 weeks prior. 13. Acute and subacute L-2, L-3, L-4 lumbar vertebral compression fractures in July 2020. 14. Chronic S-1, S-2 sacral fracture. PAST SURGICAL HISTORY: The patient's past surgical history is significant for: 1. Tonsillectomy. 2. Tubal ligation. ALLERGIES: Penicillin causes hives. CURRENT MEDICATIONS: 1. Fluticasone. 2. Furosemide. 3. Multivitamin. 4. Omeprazole. 5. Potassium Chloride. 6. Umeclidinium [place]. SOCIAL HISTORY: She is a 20 pack year history smoker, stopped smoking 2 years prior, non intravenous drug user. Social drinker. REVIEW OF SYSTEMS: A 14-point review of systems was negative unless as noted and described in the HPI above. PHYSICAL EXAMINATION: GENERAL APPEARANCE: Alert to person, time and place. EXTREMITIES: Left lower extremity, the patient was resting her left hip in the flexed, externally rotated abduction position. There was no appreciable ecchymosis about the left hip. She was otherwise neurovascularly intact of the left lower extremity. She had a 2+ dorsalis pedis and posterior tibial arterial pulse. Brisk capillary refill to the digits of the left foot, 5/5 motor strength of the EHL, FHL, tib and gastrocs and peroneal musculature. She had sensation intact to light touch to the deep and superficial peroneal, sural, saphenous and tibial nerve distributions. IMAGING DATA: The patient's left hip and A.P. pelvis radiographs demonstrate a femoral neck fracture, director chemistry type 4 fracture. IMPRESSION: This is a 65-year-old female with multiple medical comorbidities with a left femoral neck fracture. PLAN: Given the fact that this patient has chronic obstructive pulmonary disease, among many other medical issues, this necessitates a left hip hemiarthroplasty as soon as possible and as soon as medically cleared in order to optimize her recovery and get her out of bed and moving in order to hasten her recovery. The patient is a prime candidate for a left hip hemiarthroplasty. This will restore both flexion and her ability to ambulate. I am working with Internal Medicine in order to optimize her for surgery tomorrow morning on the August 2020 for a left hip hemiarthroplasty. The patient was consented and after I explained all the risks and benefits of surgery, risks including infection, nerve damage, blood loss, iatrogenic fracture of the femur and acetabulum and . Despite all of these risks, the patient elected to proceed with surgery. The patient will be n.p.o. at midnight and we plan for operative fixation of the left hip tomorrow on the August 2020 after the patient is optimized.
[2020-08-31 21:23] VITALS: BP 117/67
[2020-08-31] MEDS: ADVAIR HFA 230/21MCG INHALER INH SCH (21:31)
[2020-08-31] MEDS: DOCUSATE SODIUM 100MG CAPSULE PO SCH (22:14)
[2020-09-01] VITALS (9 sets, daily range): BP systolic 92–120; BP diastolic 57–80; O2SAT 96–97
[2020-09-01] MEDS: MORPHINE 2 MG/ML 1ML VIAL (J2270) IV PRN (05:34)
[2020-09-01] MEDS ORDERED: VANCOMYCIN HCL 1,000 MG, VIAL MATE ADAPTER 1 EACH in D5W 250 ML IV SCH (06:00)
[2020-09-01] MEDS: LEVALBUTEROL 1.25 MG/0.5 ML CONCENTRATE NEB INH PRN (06:06)
[2020-09-01 07:00] LABS: BASO % 0.2 % (0.0-1.0); EOS # 0.1 10^3/uL (0.0-0.5); EOS % 0.7 % (0.0-3.0); HEMATOCRIT 38.8 % (36.0-47.0); HEMOGLOBIN 12.5 g/dl (12.0-15.5); LYMPH # 1.2 10^3/uL (1.5-5.0); LYMPH % 8.7 % (24.0-44.0); MEAN CORPUSCULAR HEMOGLOBIN 31.3 pg (27.0-33.0); MEAN CORPUSCULAR HGB CONC 32.2 g/dl (32.0-36.5); MEAN CORPUSCULAR VOLUME 97.2 fl (80.0-96.0); MONO # 0.6 10^3/uL (0.0-0.8); NEUTROPHILS # 12.2 10^3/uL (1.5-8.5); NEUTROPHILS % 85.8 % (36.0-66.0); RED BLOOD COUNT 3.99 10^6/uL (4.00-5.40); WHITE BLOOD COUNT 14.2 10^3/uL (4.0-10.0)
[2020-09-01 07:02] LABS: PLATELET COUNT, AUTOMATED 298 10^3/uL (150-450)
[2020-09-01 07:19] LABS: BLOOD UREA NITROGEN 11 MG/DL (7-18); CALCIUM LEVEL 8.9 MG/DL (8.8-10.2); CARBON DIOXIDE LEVEL 32 MEQ/L (21-32); CHLORIDE LEVEL 93 MEQ/L (98-107); CREATININE FOR GFR 0.54 MG/DL (0.55-1.30); GLOMERULAR FILTRATION RATE > 60.0 (>45); GLUCOSE, FASTING 116 MG/DL (70-100); POTASSIUM SERUM 3.8 MEQ/L (3.5-5.1); SODIUM LEVEL 129 MEQ/L (136-145)
[2020-09-01] MEDS: DOCUSATE SODIUM 100MG CAPSULE PO SCH ×2 (07:51→20:31)
[2020-09-01] MEDS: OMEPRAZOLE 20 MG CAP PO SCH (07:51)
[2020-09-01] MEDS: ADVAIR HFA 230/21MCG INHALER INH SCH (08:22)
[2020-09-01] MEDS: TIOTROPIUM INHALER/CAPSULE (SPIRIVA) INH SCH (08:33)
--- NOTE | 2020-09-01 10:14 | IPNPDOC ---
Subjective Date Seen The patient was seen on 09/01/20. Subjective Chief Complaint/HPI pateitn remains tachycardic since admission. Does not seem to be in any pain when not moving. SOB at baseline. Objective Physical Examination General Exam: Positive: Alert, Cooperative, No Acute Distress, Other (conversational dyspnea present) Eye Exam: Positive: PERRLA, Conjunctiva & lids normal, EOMI; Negative: Sclera icteric ENT Exam: Positive: Atraumatic, Pharynx Normal, Tongue Midline Neck Exam: Positive: Supple, JVD, Other (bitemporal wasting); Negative: thyromegaly Chest Exam: Positive: Diminished (overall diminished breath sounds, no wheezing or crackles heard.), Other (intercostal muscle wasting) Heart Exam: Positive: Tachycardic, Regular Rhythm, Normal S1, Normal S2; Negative: Irregular Rhythm, Gallops, Murmurs, Rubs Telemetry: Positive: Sinus, Tachycardia Abdomen Exam: Positive: Normal bowel sounds, Soft; Negative: Tenderness, Hepatospenomegaly Extremity Exam: Negative: Cyanosis, Edema Skin Exam: Positive: Nl turgor and temperature; Negative: Breakdown, Lesion Neuro Exam: Positive: Normal Speech, Normal Tone, Sensation Intact Assessment /Plan Assessment 65 year old female with PMH of advanced COPD with chronic hypoxic and hypercarbic respiratory failure, severe pulmonary hypertension, chronic hyponatremia, osteoporosis, recent right 4 metatarsal fracture, No h/o alcohol abuse stood up from her bed yesterday and felt a sudden sharp pain in her left groin. The pain was about 8/10 in intensity sharp stabbing kind with no radiation. Since then she has not been able to walk. She relaxed yesterday thin henrik the pain is going to go away with rest however today pain continued and she was unable to bear weight to even go to the bathroom so came to ED. In the ED she was found to have left femoral neck fracture. When I asked about her alcohol usage patient clarified about the documentation in her chart of being an alcoholic is wrong. She says she only drinks occasionally and never been a daily drinker and wanted it to be taken off her records. She was admitted for left hip fracture. Left Hip fracture bed rest , pain control with morphine prn mustafa Zofran prn. will need early surgical fixation so that patient can start mobilization as soon as possible Seen by ortho planned for surgery on 09/01/20 Medical Optimization Patient very high risk for both cardiac and pulmonary complications post surgery due to her moderate to severe pulmonary hypertension and very low FEV1. High chance of her going into acute heart failure post surgery specially acute right heart failure. Advanced COPD with chronic respiratory failure with hypoxia and hypercarbia. High risk of having difficulty extubation after surgery Would suggest avoiding general anaesthesia. Suggest being cautious with fluids. Would benefit from slowing the heart rate so will start on low dose metoprolol ( selective so Ok with Pulmonary) if BP tolerates low dose will increase dosage. Selective Beta efra is Ok with her COPD. Will need to be in PCU for at least 48 hours after surgery. Hold lasix. Patient is as medically optimized as possible for her surgery at this point. COPD with chronic respiratory failure with hypoxia and hypercarbia. continue Spiriva, Advair albuterol prn. Sinus tachycardia probably due to pain and advanced COPD, pain, anxiety will start low dose metoprolol Chronic hyponatremia due to advanced lung disease Severe protein calorie malnutrition BMI 18.6. bitemporal wasting. Wasting of small muscle of hands. GERD PPI Severe osteoporosis. Has recent right metatarsal fractures. Also had L4 vertebral compression fracture in Jul 2020. Also has chronic sacral vertebral fractures. DVT prophylaxis: mechanical. Plan/VTE VTE Prophylaxis Ordered?: Yes VS, I&O, 24H, Fishbone Vital Signs/I&O Vital Signs Date Time Temp Pulse Resp B/P (MAP) Pulse Ox O2 Delivery O2 Flow Rate FiO2 09/01/20 06:19 99.0 137 20 92 Nasal Cannula 2.0 08/31/20 21:23 117/67 (84) I&O- Last 24 Hours up to 6 AM 09/01/20 06:00 Intake Total 989 ml Output Total 825 ml Balance 164 ml Laboratory Data 24H LABS Laboratory Tests 2 08/31/20 12:53: Prothrombin Time 12.9, Prothromb Time International Ratio 0.95, Anion Gap 10, Gl omerular Filtration Rate > 60.0, Calcium Level 9.4, Total Bilirubin 1.5H, Aspartate Amino Transf (AST/SGOT) 29, Alanine Aminotransferase (ALT/SGPT) 28, Alkaline Phosphatase 117, Total Protein 7.4, Albumin 3.6, Albumin/Globulin Ratio 0.9L, Ethyl Alcohol Level < 0.003 08/31/20 13:06: Immature Granulocyte % (Auto) 0.6, Neutrophils (%) (Auto) 85.9H, Lymphocytes (%) (Auto) 8.4L, Monocytes (%) (Auto) 4.9, Eosinophils (%) (Auto) 0.0, Basophils (%) (Auto) 0.2, Neutrophils # (Auto) 14.4H, Lymphocytes # (Auto) 1.4L, Monocytes # (Auto) 0.8, Eosinophils # (Auto) 0.0, Basophils # (Auto) 0.0, Nucleated Red Blood Cells % (auto) 0.0 08/31/20 13:37: Coronavirus (COVID-19)(PCR) NEGATIVE, Influenza Type A (RT-PCR) NEGATIVE, Influenza Type B (RT-PCR) NEGATIVE, Respiratory Syncytial Virus (PCR) NEGATIVE 09/01/20 06:39: Anion Gap 4L, Glomerular Filtration Rate > 60.0, Calcium Level 8.9, Immature Granulocyte % (Auto) 0.6, Neutrophils (%) (Auto) 85.8H, Lymphocytes (%) (Auto) 8.7L, Monocytes (%) (Auto) 4.0, Eosinophils (%) (Auto) 0.7, Basophils (%) (Auto) 0.2, Neutrophils # (Auto) 12.2H, Lymphocytes # (Auto) 1.2L, Monocytes # (Auto) 0.6, Eosinophils # (Auto) 0.1, Basophils # (Auto) 0.0, Nucleated Red Blood Cells % (auto) 0.0 CBC/BMP Laboratory Tests 08/31/20 12:53 08/31/20 13:06 09/01/20 06:39 AARON ROCHE MD Sep 01, 2020 10:13
[2020-09-01 10:24] LABS: NT-PRO BNP 1870 PG/ML (<125)
[2020-09-01] MEDS: METOPROLOL TART 12.5 MG PER 1/2 TAB PO SCH ×2 (11:49→18:31)
[2020-09-01] MEDS ORDERED: EPINEPHrine INJ 1 MG/ML 1ML AMP As Ordered ONE (12:37)
[2020-09-01] MEDS ORDERED: ceFAZolin 1GM VIAL (J0690 PER 500MG) As Ordered ONE (12:37)
[2020-09-01] MEDS ORDERED: DOBUTamine 500 MG/250 ML BAG IN D5W (2,000 MCG/ML) (J1250) As Ordered ONE (12:45)
[2020-09-01] MEDS ORDERED: VANCOMYCIN 1000MG/20ML VIAL As Ordered ONE ×2 (13:04→13:07)
--- NOTE | 2020-09-01 13:24 | CR ---
PULMONARY CONSULTATION DATE: 09/01/2020 CHIEF COMPLAINT: Pre-optimization for surgery. HISTORY OF PRESENT ILLNESS: Ms. Harmon is a 65-year-old female with a past medical history of COPD with chronic hypoxemic respiratory failure on nasal cannula oxygen supplementation, history of pulmonary hypertension, osteoporosis who presented with complaints initially of pain in her left groin and difficulty with ambulation. The patient has a previous history of fracture in her right metatarsal bone which she sustained with just walking without any shoes. She also has a history of compression fractures in her spine as well, nontraumatic related. The patient states this current episode occurred when she had just gotten out of bed when she felt the sudden pain in her left groin and then was unable to ambulate afterwards. She denied any injury or falls to that area. The patient states prior to this, she was in her usual state of health. She does have significant dyspnea with exertion with very minimal activity including prolonged conversation and her activities of daily living. She has to frequently pause and rest while speaking because of her dyspnea. She uses two liters nasal cannula oxygen continuously and she is on maintenance inhalers with triple inhaler therapy of Advair and Incruse when she has been compliant with. She does have a rescue bronchodilator which she uses frequently throughout the day but has not had any recent increased use. She does feel after her fracture that her breathing has been slightly worse which she feels may be due to pain as well as discomfort. She denies noticing any significant wheezing or coughing and no significant mucus production. She was recently seen in our outpatient clinic on August 28. She had not had any recent exacerbations. She was recommended at her last clinic visit for sleep testing given her history of severe pulmonary hypertension which she had refused at that time. PAST MEDICAL AND SURGICAL HISTORY: 1. COPD 2. Chronic hypoxemic respiratory failure on nasal cannula oxygen supplementation. 3. GERD. 4. History of severe pulmonary hypertension. 5. Protein calorie malnutrition. 6. Hiatal hernia. 7. Prior nicotine dependence. 8. Status post ganglion cyst removal. 9. Osteoporosis. 10. History of a right metatarsal bone fracture. 11. History of acute/subacute L4 lumbar vertebral compression fracture. 12. History of chronic S1/S2 sacral fracture. HOME MEDICATIONS: 1. Advair. 2. Furosemide. 3. Multivitamin. 4. Omeprazole. 5. Potassium chloride. 6. Incruse. ALLERGIES: PENICILLIN, CLARITHROMYCIN, CLINDAMYCIN. FAMILY HISTORY: The patient is adopted. There is a son with history of cholesterol and hypertension. SOCIAL HISTORY: The patient is a former smoker, quit in November of 2018. Was one pack a day for 45 years. The patient report social drinking. PHYSICAL EXAMINATION: Vitals: Temperature 99.0, pulse 137, respirations 29, blood pressure 117/67, O2 sat 97% on two liters nasal cannula, ins 989, outs 825, net positive 104 mL. General: The patient is a thin female, is sitting in bed and speaking in short phrases. There is some evidence of accessory respiratory muscle use particularly with conversation and occasional pursed lip breathing. HEENT: Normocephalic, atraumatic. Pupils are reactive. Neck: Supple. Trachea is midline. There is no cervical adenopathy. JVD is elevated. Cardiac: Tachycardic, regular rate and rhythm, normal S-1, S-2. Somewhat distant heart sounds, difficult to auscultate murmurs. Pulmonary: Severely diminished breath sounds bilaterally with prolonged expiration. No rales, rhonchi or wheezes noted. Abdomen: Soft and nontender with normoactive bowel sounds. Extremities: Warm bilaterally and there is no significant lower extremity edema noted bilaterally. LABORATORY DATA: WBC 14.2, hemoglobin 12.5, platelets are 298. Chemistries: Sodium is 129. Potassium is 3.8. Chloride is 93. Bicarb is 32, BUN 11. Creatinine is 0.54. Glucose is 116. IMAGING: Chest x-ray 08/31/20 shows chronic changes but no focal opacities or infiltrates. Hip x-ray shows acute left femoral neck fracture. ASSESSMENT AND PLAN: Miss Harmon is a 65-year-old female with a past medical history of severe COPD with chronic hypoxemic respiratory failure on nasal cannula oxygen supplementation, history of pulmonary hypertension, osteoporosis, who presented with complaints of left groin pain secondary to a left femoral neck fracture. The patient has history of previous fractures which occur with no trauma, just with her usual daily activity such as walking with bare feet and in the case of this current fracture, just getting out of her bed. Pulmonary has been consulted for preoperative evaluation as she is planned for possible surgery by orthopedic of a left hip hemiarthroplasty. The patient did have colonoscopy earlier this year which was performed under moderate sedation which she tolerated well with no difficulty, or issues with respiration. The patient is an intermediate to high risk for procedure under general anesthesia for perioperative and postoperative respiratory complications given her history. Of more significant concern is her history of pulmonary hypertension with reportedly severe pulmonary pressures on her last echocardiogram. From a pulmonary standpoint, the patient is as optimized as she could possibly be for her chronic COPD and chronic hypoxemic respiratory failure. She is recommended to continue with her home inhalers of Advair and Incruse although can change her Incruse to Spiriva while inpatient and continue with nebulizer bronchodilators particularly prior to surgery. The patient is also at increased risk with general anesthesia procedures so if feasible, would recommend procedure with moderate sedation and local anesthesia such as potential epidural if possible. If she does require general anesthesia, would attempt to limit the time under general anesthesia as much as possible. With her pulmonary hypertension, the patient is also at risk for acute decompensation particularly if there are changes in the pulmonary vascular resistance with pulmonary vessel constriction such as with hypoxia. The patient should therefore be closely monitored to prevent hypoxia as well as systemic hypotension which may increase the risk of RV ischemia and worsen her RV function. Arrhythmias and tachycardia should also be avoided as well given her pulmonary hypertension and risk for decompensation particularly of her right ventricle. The patient would be advised if she needs pressors intraoperatively to avoid pure alpha agonists due to their effects on the pulmonary circulation. Norepinephrine would be preferable if she did require vasopressors. Large fluid boluses should also be avoided to counteract hypotension as the increase in the preload may worsen her right ventricular oxygen consumption. Cardiology has been consulted as well for further evaluation and optimization of her cardiac status given her history of pulmonary hypertension. It does not appear however that she has had a complete evaluation for her pulmonary hypertension in the past although suspect it is likely group 3 given her history. The patient does appear to be significantly tachycardic during her admission here. She does have some mild tachycardia at baseline which has worsened with her acute fracture as well as the pain. Would ensure she has adequate pain control and can also consider a low dose selective beta efra to help with rate control. DVT prophylaxis on hold due to her surgery. She should start DVT prophylaxis as soon as allowed by surgery. Code Status: DNR/DNI. MTDD
--- NOTE | 2020-09-01 13:49 | ECGEPIP ---
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
[2020-09-01] MEDS ORDERED: TRANEXAMIC ACID 100 MG/ML 10ML VIAL IV ONE (14:17)
[2020-09-01] MEDS ORDERED: fentaNYL 100 MCG/2 ML INJECTION (J3010) As Ordered ONE (14:33)
[2020-09-01] MEDS ORDERED: propofoL 200 MG/20 ML VIAL As Ordered ONE (14:33)
[2020-09-01] MEDS ORDERED: LIDOCAINE PRES-FREE 2% 10ML AMP As Ordered ONE ×2 (14:33→14:35)
[2020-09-01] MEDS ORDERED: NOREPINEPHRINE 4 MG/4 ML AMP As Ordered ONE (14:33)
[2020-09-01] MEDS ORDERED: KETAMINE HCL 200 MG/20 ML VIAL As Ordered ONE (14:33)
[2020-09-01] MEDS ORDERED: MIDAZOLAM INJ 2MG/2ML VIAL (J2250 PER 1MG) As Ordered ONE (14:33)
[2020-09-01] MEDS ORDERED: ALBUTEROL 6.7GM INHALER **FOR ANES. CART/OMNICELL ONLY As Ordered ONE (15:03)
[2020-09-01] MEDS ORDERED: DESFLURANE 240 ML INHALANT As Ordered ONE (15:09)
[2020-09-01] MEDS ORDERED: PERCOCET 5MG/325MG TAB As Ordered ONE (17:03)
[2020-09-01] MEDS ORDERED: NOREPINEPHRINE BITARTRATE 8 MG in D5W 492 ML IV SCH (17:15)
[2020-09-01] MEDS ORDERED: ONDANSETRON 4MG/2ML VIAL IV PRN (17:15)
[2020-09-01] MEDS ORDERED: METOCLOPRAMIDE INJ 10MG/2ML VIAL (J2765 PER 1) IV PRN (17:15)
[2020-09-01] MEDS ORDERED: PERCOCET 5MG/325MG TAB PO PRN ×2 (17:15→20:45)
[2020-09-01] MEDS ORDERED: fentaNYL 100 MCG/2 ML INJECTION (J3010) IV PRN (17:15)
[2020-09-01] MEDS ORDERED: LR 1,000 ML IV SCH (17:15)
[2020-09-01] MEDS ORDERED: ONDANSETRON 4MG/2ML VIAL As Ordered ONE (17:20)
--- NOTE | 2020-09-01 17:24 | REP ---
INDICATION: POST OP Nontraumatic hip pain. COMPARISON: None. TECHNIQUE: Portable AP view of the pelvis and left hip. FINDINGS: Status post left hip replacement. Overlying postsurgical changes to the soft tissues including soft tissue swelling and subcutaneous emphysema. Skin oleg noted. IMPRESSION: Status post left hip replacement. <Electronically signed by Rashel Lee > 09/01/20 1433
--- NOTE | 2020-09-01 18:37 | RO ---
OPERATIVE NOTE DATE OF OPERATION: 09/01/2020 TIME: 5:20 p.m. PREOPERATIVE DIAGNOSIS: Left femoral neck fracture. POSTOPERATIVE DIAGNOSIS: Left femoral neck fracture. NAME OF OPERATION: Left hip hemiarthroplasty. SURGEON: Christopher Ingram MD DIGITAL MEDIA STRATEGIST: None. SUPERVISING ATTENDING: Christopher Ingram MD FINDINGS: Fracture, femoral neck. INDICATIONS: Left hip fracture, Lr type IV femoral neck fracture. This is a 65-year-old female who was getting of bed to use the restroom on the August, and heard a crack in her left hip and had debilitating left hip pain where she sustained a Lr type IV left femoral neck fracture. She presented to the [facility] emergency department with the aforementioned left hip fracture. She was then admitted by the hospitalist to manage her medical comorbidities which is complicated. She then underwent operative intervention of her left hip on the August, with a left hip hemiarthroplasty. ANESTHESIA: Epidural. ESTIMATED BLOOD LOSS: 100 mL. TOURNIQUET TIME: None used. IMPLANTS: DePuy Synthes size 6 standard femoral implant, femoral head 47, femoral neck was a minus 3. The cement restrictor was size 4 and a 13 mm centralizer. CULTURES: None. SPECIMENS: None. IV FLUIDS: Please see anesthesia report. IV ANTIBIOTICS: Please see anesthesia report, one gram TXA. PROCEDURE: The patient was met in the preoperative holding area where the patient's left hip was signed. The patient's consent was confirmed to be correct, and the patient's identity was confirmed to be correct. The patient was then transported to the operating theater where she was placed in the lateral decubitus position. Safety straps secured the patient to the bed. An SCD was placed on her contralateral limb and all bony prominences were well padded. A timeout was called. This confirmed the correct patient, correct operative extremity and correct consent. All staff was in agreement. The patient was then draped in the usual sterile fashion. We began the procedure by marking out our skin incision which would be a lateral Hardinge approach to the hip. We sharply incised the skin, measuring approximately 5 inches in length centered along the greater trochanter. We then used electrocautery to make our way to the IT band which was sharply incised and extended proximally approximately 5 cm using scissors, then placed a Charnley retractor in arm two to make our way to the vastus lateralis, greater trochanter and gluteus medius. We then sharply incised along the central aspect of the greater trochanter, splitting both the vastus lateralis and gluteus medius approximately 4 cm from the tip of the greater troch which was then elevated using a scalpel. We elevated the gluteus medius and the anterior aspect of the vastus lateralis down to the femoral neck. We then incised the capsule and used #2 FiberWire suture in order to tag the capsule and elevate this for better exposure. We identified the femoral neck fracture. At this point in time, I was able to palpate the greater trochanter and made my femoral neck cut 10 mm proximal to the lesser trochanter. We then used a saw to make our femoral neck cut to protect the posterior aspect of the capsule using a blunt Hohmann. This was then excised. We used a corkscrew screwdriver to remove the femoral head was then sized to 47 mm. We then cleaned the ligamentum teres using electrocautery and ensured that we had no bone fragments within the acetabulum. At this point in time, we then turned our attention to preparation of the femoral canal. We used a corrugated box machine operator in order lateralize our entry into the proximal aspect in the femoral medullary canal. We used a lateralizing reamer in order to lateralize our entry and then began to eventually broaching from 1 to 6 and lateralizing each of the times to ensure that we did not put the patient's implant into varus. Once we got to a 6 broach, I was satisfied with provisional fixation with the broach. We had good fit. We then trialed the standard femoral trial implant with a -3 femoral neck and a 47 mm femoral head. Once it was trialed, we had stability with super physiologic range of motion. There was good suction seal fit and the length of the left lower extremity was restored to the contralateral right lower extremity. The patient was unable to be dislocated in flexion, adduction and internal rotation. The patient also was not able to be dislocated with abduction and extension of the hip and it appeared to be stable with appropriate congregational of length and suction seal. We were satisfied with our trialing with a size 6 femoral implant with a standard femoral neck shaft angle, a -3 femoral neck, 47 head. We then dislocated the hip, removed the trials including the size 6 broach and prepared our femoral canal for cementation. We copiously irrigated the femoral canal using a brush and brush electronic assembler group leader in order to clean any residual trabecular bone from the canal. We then placed a size 4 cement restrictor in the femoral canal which appeared to have good fixation distally. We then inserted our cement using the cement loaded gun and used pressurized fourth generation pressurization technique in order to ensure that we had our pressurized cement within the canal. At this point in time, we placed our size 6 femoral implant with approximately 15 degrees of anteversion and left the cement dry. Once the cement was dried, we then put the femoral head implant with the -3 femoral neck spacer into position and secured it with gentle taps of the mallet and this was secured to the end of the implant. The hip was then reduced and taken through a super physiologic range of motion in which we were satisfied with both length, congregational and stability of the hip with super physiologic range of motion. We then poured Betadine-soaked solution into the hip and let it sit for three minutes. We then copiously irrigated the surgical site. We closed the capsule using #2 FiberWire suture, closed the gluteus medius utilizing interrupted #2 FiberWire suture followed by a #1 Stratafix suture. We then closed the IT band using Stratafix #1 suture. We repeated the copious irrigation of the residual surgical incision. We closed the dermal layer using 2-0 Vicryl and used metallic oleg to close the epidermis. We placed a Xeroform over the surgical incision followed by 4x4s, ABD pads and Medipore tape. The patient was placed in an abduction pillow. The patient was then positioned supine onto the hospital bed and transported to the postanesthesia care unit. The patient's care will be transferred to the hospitalist service. The patient will be weightbearing as tolerated to the left lower extremity tomorrow with the dressing to remain in place. The patient will be range of motion and weightbearing as tolerated to the left lower extremity. We encouraged the patient to walk. If she requires a walker for pain control, that will be acceptable. The patient will follow up with the [facility] in two weeks for a postoperative wound check. The patient will be discharged with pain control as appropriate per the hospitalist. Given her complicated medical history, I think this is most appropriate.
[2020-09-01 19:34] LABS: HEMATOCRIT 33.4 % (36.0-47.0); HEMOGLOBIN 10.8 g/dl (12.0-15.5); MEAN CORPUSCULAR HEMOGLOBIN 31.9 pg (27.0-33.0); MEAN CORPUSCULAR HGB CONC 32.3 g/dl (32.0-36.5); MEAN CORPUSCULAR VOLUME 98.5 fl (80.0-96.0); PLATELET COUNT, AUTOMATED 320 10^3/uL (150-450); RED BLOOD COUNT 3.39 10^6/uL (4.00-5.40); WHITE BLOOD COUNT 17.8 10^3/uL (4.0-10.0)
[2020-09-01] MEDS ORDERED: MORPHINE 2 MG/ML 1ML VIAL (J2270) IV PRN (21:00)
[2020-09-02] VITALS (13 sets, daily range): BP systolic 88–107; BP diastolic 49–67; O2SAT 95–98
[2020-09-02] MEDS: ADVAIR HFA 230/21MCG INHALER INH SCH ×3 (01:06→19:23)
[2020-09-02] MEDS: LEVALBUTEROL 1.25 MG/0.5 ML CONCENTRATE NEB INH PRN ×3 (01:06→18:45)
[2020-09-02] MEDS: METOPROLOL TART 12.5 MG PER 1/2 TAB PO SCH ×2 (01:39→05:38)
[2020-09-02 05:25] LABS: BASO % 0.2 % (0.0-1.0); EOS # 0.1 10^3/uL (0.0-0.5); EOS % 1.2 % (0.0-3.0); HEMATOCRIT 31.6 % (36.0-47.0); HEMOGLOBIN 10.2 g/dl (12.0-15.5); LYMPH % 9.3 % (24.0-44.0); MEAN CORPUSCULAR HEMOGLOBIN 31.7 pg (27.0-33.0); MEAN CORPUSCULAR HGB CONC 32.3 g/dl (32.0-36.5); MEAN CORPUSCULAR VOLUME 98.1 fl (80.0-96.0); MONO # 0.7 10^3/uL (0.0-0.8); MONO % 7.1 % (0.0-5.0); NEUTROPHILS # 8.4 10^3/uL (1.5-8.5); NEUTROPHILS % 81.6 % (36.0-66.0); PLATELET COUNT, AUTOMATED 243 10^3/uL (150-450); RED BLOOD COUNT 3.22 10^6/uL (4.00-5.40); WHITE BLOOD COUNT 10.3 10^3/uL (4.0-10.0)
[2020-09-02 05:46] LABS: BLOOD UREA NITROGEN 9 MG/DL (7-18); CALCIUM LEVEL 8.1 MG/DL (8.8-10.2); CARBON DIOXIDE LEVEL 32 MEQ/L (21-32); CHLORIDE LEVEL 95 MEQ/L (98-107); CREATININE FOR GFR 0.38 MG/DL (0.55-1.30); GLOMERULAR FILTRATION RATE > 60.0 (>45); GLUCOSE, FASTING 102 MG/DL (70-100); POTASSIUM SERUM 3.9 MEQ/L (3.5-5.1); SODIUM LEVEL 131 MEQ/L (136-145)
[2020-09-02] MEDS: TIOTROPIUM INHALER/CAPSULE (SPIRIVA) INH SCH (07:30)
--- NOTE | 2020-09-02 07:47 | ECHO ---
DATE OF PROCEDURE: 08/31/2020 Age: 65 Gender: Female PATIENT LOCATION: Room 5130 REFERRING PHYSICIAN: Gretel Beal MD. REASON FOR STUDY: Preop, pulmonary hypertension. 2D MEASUREMENTS: IVS 1.0 cm LV 2.4 cm LVPW 1.0 cm LA 2.5 cm Aorta 2.6 cm IVC 1.0 cm DOPPLER MEASUREMENT Peak velocity across the aortic valve 1.2 msec Peak velocity across the LVOT 0.58 msec Mitral E 0.93 Maximum tricuspid valve velocity 3.5 msec 2D COMMENTS: 1. Normal left ventricular size, wall thickness, and normal global left ventricular systolic function with a hyperdynamic left ventricle. The estimated left ventricular systolic ejection fraction is between 65% to 70%. 2. Normal left atrium. The right atrium and the right ventricle appeared to be mildly enlarged in limited views. The right ventricular free wall was not well visualized. 3. The atrial septum did not reveal any defect or shunt. 4. Normal aortic root. 5. Trace pericardial effusion noted, no evidence of cardiac tamponade. 6. Normal aortic valve. Mildly calcified mitral annulus with normal anterior mitral valve leaflet motion. Normal tricuspid valve. The pulmonic valve and proximal pulmonary artery branches were not well visualized. 7. The inferior vena cava was normal in size, central venous pressure is most likely normal. Doppler detects trace mitral regurgitation and moderate tricuspid regurgitation. The calculated pulmonary artery systolic pressure varies between 40 to 50 mmHg. Assessment of the left ventricular diastolic function was limited. IMPRESSION: 1. Normal global left ventricular systolic function with a hyperdynamic left ventricle. Assessment of the left ventricular diastolic function was limited due to sinus tachycardia. 2. Mitral annulus calcification with trace mitral regurgitation. 3. Moderate tricuspid regurgitation with moderate pulmonary hypertension and dilated right heart chambers. Could not rule out more severe pulmonary hypertension. 4. This study was technically limited due to poor acoustic window. 5. This was compared with a prior study on 01/15/2019, no remarkable changes, but the heart rate at that time was slower. MTDD
[2020-09-02] MEDS: DOCUSATE SODIUM 100MG CAPSULE PO SCH ×2 (08:25→21:14)
[2020-09-02] MEDS: OMEPRAZOLE 20 MG CAP PO SCH (08:25)
--- NOTE | 2020-09-02 12:18 | IPNPDOC ---
Subjective Date Seen The patient was seen on 09/02/20. Subjective Chief Complaint/HPI Expect for pain at the hip otherwise feels ok. She does also complains of pain at don right ankle. No swelling or redness noted. Denies any SOB, no fever or chills, no abdominel apin , nausea or vomiting. She is doing very well postoperatively Objective Physical Examination General Exam: Positive: Alert, Cooperative, No Acute Distress, Other (conversational dyspnea present) Eye Exam: Positive: PERRLA, Conjunctiva & lids normal, EOMI; Negative: Sclera icteric ENT Exam: Positive: Atraumatic, Pharynx Normal, Tongue Midline Neck Exam: Positive: Supple, JVD, Other (bitemporal wasting); Negative: thyromegaly Chest Exam: Positive: Diminished (overall diminished breath sounds, no wheezing or crackles heard.), Other (intercostal muscle wasting) Heart Exam: Positive: Tachycardic, Regular Rhythm, Normal S1, Normal S2; Negative: Irregular Rhythm, Gallops, Murmurs, Rubs Telemetry: Positive: Sinus, Tachycardia Abdomen Exam: Positive: Normal bowel sounds, Soft; Negative: Tenderness, Hepatospenomegaly Extremity Exam: Negative: Cyanosis, Edema Skin Exam: Positive: Nl turgor and temperature; Negative: Breakdown, Lesion Neuro Exam: Positive: Normal Speech, Normal Tone, Sensation Intact Assessment /Plan Assessment 65 year old female with PMH of advanced COPD with chronic hypoxic and hypercarbic respiratory failure, severe pulmonary hypertension, chronic hyponatremia, osteoporosis, recent right 4 metatarsal fracture, No h/o alcohol abuse stood up from her bed yesterday and felt a sudden sharp pain in her left groin. The pain was about 8/10 in intensity sharp stabbing kind with no radiation. Since then she has not been able to walk. She relaxed yesterday thinking the pain is going to go away with rest however today pain continued and she was unable to bear weight to even go to the bathroom so came to ED. In the ED she was found to have left femoral neck fracture. When I asked about her alcohol usage patient clarified about the documentation in her chart of being an alcoholic is wrong. She says she only drinks occasionally and never been a daily drinker and wanted it to be taken off her records. She was admitted for left hip fracture. Left Hip fracture S/p Left hip layla arthroplasty on 09/01/20 PT/OT DVT prophylaxis as per ortho pain control with percocet, tramadol and tylenol. Bowel regimen will need to be in PCU for 48 hours post op. COPD with chronic respiratory failure with hypoxia and hypercarbia. continue Spiriva, Advair albuterol prn. Sinus tachycardia improved. probably due to advanced COPD, pain, anxiety she does have some baseline tachycardia. Chronic hyponatremia due to advanced lung disease Severe protein calorie malnutrition BMI 18.6. Bitemporal wasting. Wasting of small muscle of hands. GERD PPI Severe osteoporosis. Has recent right metatarsal fractures. Also had L4 vertebral compression fracture in Jul 2020. Also has chronic sacral vertebral fractures. DVT prophylaxis: mechanical. Plan/VTE VTE Prophylaxis Ordered?: Yes VS, I&O, 24H, Fishbone Vital Signs/I&O Vital Signs Date Time Temp Pulse Resp B/P (MAP) Pulse Ox O2 Delivery O2 Flow Rate FiO2 09/02/20 08:56 20 09/02/20 08:11 88/62 (71) 09/02/20 08:10 99.3 121 96 Nasal Cannula 2.0 I&O- Last 24 Hours up to 6 AM 09/02/20 06:00 Intake Total 1160 ml Output Total 1425 ml Balance -265 ml Laboratory Data 24H LABS Laboratory Tests 2 09/01/20 17:24: Nucleated Red Blood Cells % (auto) 0.0 09/02/20 05:06: Nucleated Red Blood Cells % (auto) 0.0, Immature Granulocyte % (Auto) 0.6, Neutrophils (%) (Auto) 81.6H, Lymphocytes (%) (Auto) 9.3L, Monocytes (%) (Auto) 7.1H, Eosinophils (%) (Auto) 1.2, Basophils (%) (Auto) 0.2, Neutrophils # (Auto) 8.4, Lymphocytes # (Auto) 1.0L, Monocytes # (Auto) 0.7, Eosinophils # (Auto) 0.1, Basophils # (Auto) 0.0, Anion Gap 4L, Glomerular Filtration Rate > 60.0, Ca lcium Level 8.1L CBC/BMP Laboratory Tests 09/01/20 17:24 09/02/20 05:06 AARON ROCHE MD Sep 02, 2020 12:18
[2020-09-02] MEDS: ULTRACET TAB PO PRN ×2 (13:32→17:35)
[2020-09-02] MEDS: PERCOCET 5MG/325MG TAB PO PRN ×2 (15:48→21:15)
[2020-09-03] VITALS: BP 115/77
[2020-09-03 04:00] VITALS: BP 109/67
[2020-09-03 05:25] LABS: BASO % 0.3 % (0.0-1.0); EOS # 0.2 10^3/uL (0.0-0.5); HEMATOCRIT 27.1 % (36.0-47.0); HEMOGLOBIN 8.7 g/dl (12.0-15.5); LYMPH % 13.1 % (24.0-44.0); MEAN CORPUSCULAR HEMOGLOBIN 31.1 pg (27.0-33.0); MEAN CORPUSCULAR HGB CONC 32.1 g/dl (32.0-36.5); MEAN CORPUSCULAR VOLUME 96.8 fl (80.0-96.0); MONO # 0.8 10^3/uL (0.0-0.8); MONO % 10.6 % (0.0-5.0); NEUTROPHILS # 5.5 10^3/uL (1.5-8.5); NEUTROPHILS % 72.3 % (36.0-66.0); PLATELET COUNT, AUTOMATED 210 10^3/uL (150-450); WHITE BLOOD COUNT 7.7 10^3/uL (4.0-10.0)
[2020-09-03 05:48] LABS: BLOOD UREA NITROGEN 12 MG/DL (7-18); CALCIUM LEVEL 7.9 MG/DL (8.8-10.2); CARBON DIOXIDE LEVEL 34 MEQ/L (21-32); CHLORIDE LEVEL 95 MEQ/L (98-107); CREATININE FOR GFR 0.42 MG/DL (0.55-1.30); GLOMERULAR FILTRATION RATE > 60.0 (>45); GLUCOSE, FASTING 126 MG/DL (70-100); SODIUM LEVEL 134 MEQ/L (136-145)
[2020-09-03] MEDS ORDERED: HEPARIN SOD (PORCINE) 5000UNITS/ML 1ML VIAL/SYRINGE SQ ONE (06:30)
[2020-09-03 08:00] VITALS: BP 104/53
[2020-09-03] MEDS: DOCUSATE SODIUM 100MG CAPSULE PO SCH (08:03)
[2020-09-03] MEDS: OMEPRAZOLE 20 MG CAP PO SCH (08:03)
[2020-09-03] MEDS: ULTRACET TAB PO PRN (08:11)
[2020-09-03] MEDS: LEVALBUTEROL 1.25 MG/0.5 ML CONCENTRATE NEB INH PRN ×2 (08:46→13:04)
[2020-09-03] MEDS: TIOTROPIUM INHALER/CAPSULE (SPIRIVA) INH SCH (09:18)
[2020-09-03] MEDS: ADVAIR HFA 230/21MCG INHALER INH SCH (09:18)
--- NOTE | 2020-09-03 10:38 | IPNPDOC ---
Date Seen The patient was seen on 09/03/20. Progress Note SUBJECTIVE: c/o pain in left ankle requesting ice pack. 5/10 pain scale. says sob is at baseline despite having 5-6 word conversational dyspnea. "It's my lungs and heart you know." OBJECTIVE PHYSICAL EXAMINATION: VITAL SIGNS: Please see below. GENERAL: cachectic mild distress with use of resp acc mm. HEENT: no jvd. dry mm. no carotid bruit bitemporal wasting CARDIOVASCULAR: LLSB KAMAR slight displaced PMI S1S2 RRR RESPIRATORY: scattered expiratory wheezing, + use resp acc mm. no tripod po sitioning diminished bs b/l. ABDOMINAL: +bs soft nt nd EXTREMITIES: postop Left hip without erythema or swelling. left knee elevated on 2 pillows. no edema LABORATORY DATA, IMAGING STUDIES, MICROBIOLOGY: Please see below. ECHOCARDIOGRAM DATE OF PROCEDURE: 08/31/2020 Age: 65 Gender: Female PATIENT LOCATION: Room 5130 REFERRING PHYSICIAN: Gretel Beal MD. REASON FOR STUDY: Preop, pulmonary hypertension. 2D MEASUREMENTS: IVS 1.0 cm LV 2.4 cm LVPW 1.0 cm LA 2.5 cm Aorta 2.6 cm IVC 1.0 cm DOPPLER MEASUREMENT Peak velocity across the aortic valve 1.2 msec Peak velocity across the LVOT 0.58 msec Mitral E 0.93 Maximum tricuspid valve velocity 3.5 msec 2D COMMENTS: 1. Normal left ventricular size, wall thickness, and normal global left ventricular systolic function with a hyperdynamic left ventricle. The estimated left ventricular systolic ejection fraction is between 65% to 70%. 2. Normal left atrium. The right atrium and the right ventricle appeared to be mildly enlarged in limited views. The right ventricular free wall was not well visualized. 3. The atrial septum did not reveal any defect or shunt. 4. Normal aortic root. 5. Trace pericardial effusion noted, no evidence of cardiac tamponade. 6. Normal aortic valve. Mildly calcified mitral annulus with normal anterior mitral valve leaflet motion. Normal tricuspid valve. The pulmonic valve and proximal pulmonary artery branches were not well visualized. 7. The inferior vena cava was normal in size, central venous pressure is most likely normal. Doppler detects trace mitral regurgitation and moderate tricuspid regurgitation.The calculated pulmonary artery systolic pressure varies between 40 to 50 mmHg. Assessment of the left ventricular diastolic function was limited. ASSESSMENT AND PLAN: 65 year old female with PMH of advanced COPD with chronic hypoxic and hypercarbic respiratory failure on home oxygen, , severe pulmonary hypertension, chronic hyponatremia, osteoporosis, recent right 4 metatarsal fracture, No h/o alcohol abuse c/o left groin pain admitted for a left femoral neck fracture. Left Hip fracture S/p Left hip layla arthroplasty on 09/01/20 discharge to ARU postop mgt including pain control, activity, dvt prophylaxis, bowel regimen, perioperative abx per ortho Left foot pain ortho consulted elevated with ice pack COPD with chronic respiratory failure with hypoxia and hypercarbia. 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 complicating care right metatarsal fractures surgical shoe L4 vertebral compression fracture in Jul 2020/chronic sacral vertebral fractures. aru screen DVT prophylaxis: mechanical. disposition: dc to aru if accepted. VS, I&O, 24H, Liangbone Vital Signs/I&O Vital Signs Date Time Temp Pulse Resp B/P (MAP) Pulse Ox O2 Delivery O2 Flow Rate FiO2 09/03/20 04:00 99.0 107 20 109/67 (81) 95 Nasal Cannula 2.0 I&O- Last 24 Hours up to 6 AM 09/03/20 06:00 Intake Total 240 ml Output Total 1050 ml Balance -810 ml Laboratory Data 24H LABS Laboratory Tests 2 09/03/20 05:08: Immature Granulocyte % (Auto) 0.7, Neutrophils (%) (Auto) 72.3H, Lymphocytes (%) (Auto) 13.1L, Monocytes (%) (Auto) 10.6H, Eosinophils (%) (Auto) 3.0, Basophils (%) (Auto) 0.3, Neutrophils # (Auto) 5.5, Lymphocytes # (Auto) 1.0L, Monocytes # (Auto) 0.8, Eosinophils # (Auto) 0.2, Basophils # (Auto) 0.0, Nucleated Red Blood Cells % (auto) 0.0, Anion Gap 5L, Glomerular Filtration Rate > 60.0, Calcium Level 7.9L CBC/BMP Laboratory Tests 09/03/20 05:08 JNENIFER LLAMAS MD Sep 03, 2020 07:22
[2020-09-03] MEDS ORDERED: TIOT18INH INH (10:44)
[2020-09-03] MEDS ORDERED: XARE10TA PO (10:44)
[2020-09-03] MEDS ORDERED: TRAM37.53 PO (10:44)
[2020-09-03] MEDS ORDERED: PERCOCET PO (10:44)
[2020-09-03] MEDS ORDERED: LEVA12INH INH (10:44)
[2020-09-03] MEDS ORDERED: MOM30SS2 PO (10:44)
[2020-09-03] MEDS ORDERED: DOK1CAP7 PO (10:44)
[2020-09-03] MEDS: PERCOCET 5MG/325MG TAB PO PRN (11:36)
[2020-09-03 12:00] VITALS: BP 96/54
--- NOTE | 2020-09-03 12:00 | REP ---
INDICATION: sob COMPARISON: 08/31/2020 TECHNIQUE: Portable AP view of the chest FINDINGS: Chronic COPD and interstitial changes are again noted and superimposed interstitial infiltrates involving the lower lobes cannot be excluded. No discrete focal consolidation. No effusion. No pneumothorax. Stable calcified nodule in the left mid lung zone and calcified lymph nodes again noted. Mediastinum and cardiac silhouette are normal. Skeletal structures demonstrate age-related osteopenia and degenerative changes. IMPRESSION: Superimposed interstitial infiltrates primarily involving the lower lobes (left greater than right) cannot be excluded. No discrete focal consolidation or effusion. <Electronically signed by Rashel Lee > 09/03/20 1159
--- NOTE | 2020-09-03 16:55 | DS.PDOC ---
Discharge Summary General Date of Admission Aug 31, 2020 at 13:34 Date of Discharge 09/03/20 DISCHARGED TO ACUTE REHAB UNIT Discharge Summary CONSULTANTS: ORTHOPEDIC SURGERY-DR INGRAM APPLICATIONS INTERN-DR [employer]S IMPORT SPECIALIST-DR. MCQUEEN DISCHARGE DIAGNOSES: Left Hip fracture s/p Left hip layla arthroplasty on 09/01/20 Left foot pain COPD with chronic respiratory failure with hypoxia and hypercarbia. Sinus tachycardia Chronic hyponatremia Severe protein calorie malnutrition severe pulmonary hypertension Pulmonary cachexia GERD Severe osteoporosis. right metatarsal fractures L4 vertebral compression fracture in Jul 2020/chronic sacral vertebral fractures. DISCHARGE MEDICATIONS: Please see below. DISCHARGE INSTRUCTIONS: POSTOP MGT INCLUDING ACTIVITY, DVT PROPHYLAXIS, PAIN MGT, SURGICAL WOUND CARE PER ORTHOPEDIC SURGERY. HISTORY OF PRESENT ILLNESS: 65 year old female with PMH of advanced COPD with chronic hypoxic and hypercarbic respiratory failure, severe pulmonary hypertension, chronic hyponatremia, osteoporosis, recent right 4 metatarsal fracture, presented to the ER with right groin pain after standing, with no recent history of trauma or fall, found to have an acute left hip fracture. Due to severe pulmonary HTN, chronic hypoxic and hypercarbic respiratory failure, him coder and car diologist were consulted for medical optimization prior to surgery. Pt was kept in PCU on nebs, avoided ivfluids, and did not require vasopressor therapy postoperatively. She had baseline chronic hypoxia which remained stable. HOSPITAL COURSE: Left Hip fracture S/p Left hip layla arthroplasty on 09/01/20 discharge to ARU postop mgt including pain control, activity, dvt prophylaxis, bowel regimen, p erioperative abx per ortho Left foot pain ortho consulted elevated with ice pack COPD with chronic respiratory failure with hypoxia and hypercarbia. 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 complicating care right metatarsal fractures surgical shoe L4 vertebral compression fracture in Jul 2020/chronic sacral vertebral f ractures. aru screen DVT prophylaxis: mechanical. DISCHARGE PHYSICAL EXAMINATION: VITAL SIGNS: Please see below. GENERAL: cachectic mild distress with use of resp acc mm. HEENT: no jvd. dry mm. no carotid bruit bitemporal wasting CARDIOVASCULAR: LLSB KAMAR slight displaced PMI S1S2 RRR RESPIRATORY: scattered expiratory wheezing, + use resp acc mm. no tripod positioning diminished bs b/l. ABDOMINAL: +bs soft nt nd EXTREMITIES: postop Left hip without erythema or swelling. left knee elevated on 2 pillows. no edema LABORATORY DATA, IMAGING STUDIES, MICROBIOLOGY: Please see below. PROCEDURES PERFORMED DURING STAY: DATE OF OPERATION: 09/01/2020 TIME: 5:20 p.m. PREOPERATIVE DIAGNOSIS: Left femoral neck fracture. POSTOPERATIVE DIAGNOSIS: Left femoral neck fracture. NAME OF OPERATION: Left hip hemiarthroplasty. SURGEON: Christopher Ingram MD TIP LENGTH CHECKER: None. SUPERVISING ATTENDING: Christopher Ingram MD FINDINGS: Fracture, femoral neck. ECHOCARDIOGRAM 08/31/20 DATE OF PROCEDURE: 08/31/2020 Age: 65 Gender: Female PATIENT LOCATION: Room 5130 REFERRING PHYSICIAN: Gretel Beal MD. REASON FOR STUDY: Preop, pulmonary hypertension. 2D MEASUREMENTS: IVS 1.0 cm LV 2.4 cm LVPW 1.0 cm LA 2.5 cm Aorta 2.6 cm IVC 1.0 cm DOPPLER MEASUREMENT Peak velocity across the aortic valve 1.2 msec Peak velocity across the LVOT 0.58 msec Mitral E 0.93 Maximum tricuspid valve velocity 3.5 msec 2D COMMENTS: 1. Normal left ventricular size, wall thickness, and normal global left ventricular systolic function with a hyperdynamic left ventricle. The estimated left ventricular systolic ejection fraction is between 65% to 70%. 2. Normal left atrium. The right atrium and the right ventricle appeared to be mildly enlarged in limited views. The right ventricular free wall was not well visualized. 3. The atrial septum did not reveal any defect or shunt. 4. Normal aortic root. 5. Trace pericardial effusion noted, no evidence of cardiac tamponade. 6. Normal aortic valve. Mildly calcified mitral annulus with normal anterior mitral valve leaflet motion. Normal tricuspid valve. The pulmonic valve and proximal pulmonary artery branches were not well visualized. 7. The inferior vena cava was normal in size, central venous pressure is most likely normal. Doppler detects trace mitral regurgitation and moderate tricuspid regurgitation.The calculated pulmonary artery systolic pressure varies between 40 to 50 mmHg. Assessment of the left ventricular diastolic function was limited. IMPRESSION: 1. Normal global left ventricular systolic function with a hyperdynamic left ventricle. Assessment of the left ventricular diastolic function was limited dueto sinus tachycardia. 2. Mitral annulus calcification with trace mitral regurgitation. 3. Moderate tricuspid regurgitation with moderate pulmonary hypertension and dilated right heart chambers. Could not rule out more severe pulmonary hypertension. 4. This study was technically limited due to poor acoustic window. 5. This was compared with a prior study on 01/15/2019, no remarkable changes, but the heart rate at that time was slower. DD: DEVANTE MCQUEEN MD 08/31/202010 DT: RUDY 09/01/201952 IMAGING STUDIES: 08/31/20 HIP XRAY TECHNIQUE: AP and cross-table lateral views of the left hip. FINDINGS: Transverse displaced left femoral neck fracture noted. IMPRESSION: Acute left femoral neck fracture. <Electronically signed by Rashel Lee > 08/31/20 1304 CXR 08/31/20 INDICATION: preop COMPARISON: 10/23/2019 TECHNIQUE: Portable AP view of the chest FINDINGS: The mediastinum and cardiac silhouette are stable and within normal limits for portable technique. The lung loyola demonstrate stable chronic changes without acute consolidation, effusion, or pneumothorax. Skeletal structures demonstrate age- related osteopenia degenerative changes without acute process. IMPRESSION: No acute cardiopulmonary process appreciated. <Electronically signed by Rashel Lee > 08/31/20 1306 TIME SPENT ON DISCHARGE: 30 minutes. Vital Signs/I&Os Vital Signs Date Time Temp Pulse Resp B/P (MAP) Pulse Ox O2 Delivery O2 Flow Rate FiO2 09/03/20 12:00 99.2 117 18 96/54 (68) 97 Nasal Cannula 2.0 I&O- Last 24 Hours up to 6 AM 09/03/20 06:00 Intake Total 240 ml Output Total 1050 ml Balance -810 ml Laboratory Data Labs 24H Laboratory Tests 2 09/03/20 05:08: Immature Granulocyte % (Auto) 0.7, Neutrophils (%) (Auto) 72.3H, Lymphocytes (%) (Auto) 13.1L, Monocytes (%) (Auto) 10.6H, Eosinophils (%) (Auto) 3.0, Basophils (%) (Auto) 0.3, Neutrophils # (Auto) 5.5, Lymphocytes # (Auto) 1.0L, Monocytes # (Auto) 0.8, Eosinophils # (Auto) 0.2, Basophils # (Auto) 0.0, Nucleated Red Blood Cells % (auto) 0.0, Anion Gap 5L, Glomerular Filtration Rate > 60.0, Calcium Level 7.9L CBC/BMP Laboratory Tests 09/03/20 05:08 Discharge Medications Scheduled Docusate Sodium (Dok) 100 Mg Capsule, 100 MG PO BID Fluticasone Propion/Salmeterol (Advair Hfa 230-21 Mcg Inhaler) 12 Gm Hfa.aer.ad, 2 PUFF INH BID, (Reported) Multivitamins (Thera M Plus Tablet) 1 Each Tablet, 1 TAB PO DAILY, (Reported) Omeprazole (Omeprazole) 20 Mg Capsule.dr, 20 MG PO DAILY, (Reported) Potassium Chloride (Potassium Chloride) 10 Meq Capsule.er, 10 MEQ PO DAILY, (Reported) Rivaroxaban (Xarelto) 10 Mg Tablet, 10 MG PO DAILY@18 Tiotropium [place] Monohydrate (Spiriva) 18 Mcg Cap.w.dev, 1 INHALATION INH DAILY@08 Umeclidinium [place] (Incruse Ellipta) 62.5 Mcg Blst.w.dev, 1 PUFF INH DAILY, (Reported) Scheduled PRN Levalbuterol Hydrochloride (Xopenex Concentrate) 1.25 Mg/0.5 Ml Vial.neb, 1.25 MG INH Q4HP PRN for SOB/WHEEZING Magnesium Hydroxide (Milk of Magnesia) 400 Mg/5 Ml Oral.susp, 30 ML PO DAILY PRN for CONSTIPATION Oxycodone/Acetaminophen (Oxycodone-Acetaminophen 5-325) 1 Each Tablet, 1 TAB PO Q6HP PRN for MODERATE/SEVERE PAIN (PS 5-10) Tramadol HCl/Acetaminophen (Tramadol-Acetaminophn 37.5-325) 1 Each Tablet, 1 TAB PO Q4HP PRN for PAIN LEVEL 1-4 Allergies Coded Allergies: Penicillins (Verified Allergy, Unknown, 01/14/19) clarithromycin (Verified Allergy, Unknown, 11/03/19) clindamycin (Verified Allergy, Unknown, 01/14/19) JENNIFER LLAMAS MD Sep 03, 2020 16:33
[2020-09-03] MEDS ORDERED: RIVAROXABAN 10 MG TAB (XARELTO) PO SCH (18:00)
== END 2020-09-03 14:15 | DRG 521 ==
LOC: M ED 11:26 → M ED INP 13:34 → M MS5PR 16:42 → M PCU 09-01 14:19
PROVIDERS: ADMIT Internal Medicine Nephrology; ATTEND Internal Medicine Nephrology
PROC: 0SRS0J9 Replacement of Left Hip Joint, Femoral Surface with Synthetic Substitute, Cemented, Open Approach (ICD-10-PCS; principal; 2020-09-01 12:00)
DX: M80.852A Other osteoporosis with current pathological fracture, left femur, initial encounter for fracture (principal); E43 Unspecified severe protein-calorie malnutrition; J96.11 Chronic respiratory failure with hypoxia; J96.12 Chronic respiratory failure with hypercapnia; R64 Cachexia; E87.1 Hypo-osmolality and hyponatremia; J44.9 Chronic obstructive pulmonary disease, unspecified; I27.29 Other secondary pulmonary hypertension; M80.08XD Age-related osteoporosis with current pathological fracture, vertebra(e), subsequent encounter for fracture with routine healing; K21.9 Gastro-esophageal reflux disease without esophagitis; Z95.1 Presence of aortocoronary bypass graft; Z79.899 Other long term (current) drug therapy; Z88.0 Allergy status to penicillin; Z66 Do not resuscitate

== ENCOUNTER 2020-09-03 11:04 | Inpatient (IN) | payer MEDICARE, BC ==
[~2020-09-03] VITALS: Ht 160 cm; Wt 45.3 kg
[~2020-09-03 11:04] MED LIST changes: +ADVA230A INH; +APAP325T4 PO; +BISACODYL 10 MG SUPP PR PRN; +DOK1CAP7 PO; +INCR1INH INH; +LEVA12INH INH; +OMEP-218 PO; +PERCOCET PO; +TRAM37.53 PO; +XARE10TA PO
[2020-09-03] MEDS: METOPROLOL TART 12.5 MG PER 1/2 TAB PO SCH ×2 (12:00→17:54)
[2020-09-03] MEDS ORDERED: IPRATROPIUM 0.5MG/ALBUTEROL 2.5MG INH SOL UD 3ML (DUONEB) NEB SCH (13:00)
[2020-09-03 14:20] VITALS: BP 101/56
--- NOTE | 2020-09-03 15:20 | HPEPDOC ---
Sand Shoveler Note DATE OF ADMISSION: 09-03-20 DATE OF SERVICE: 09-04-20 TIME OF ADMISSION: Please refer to physician's admission order. SOURCE OF ADMISSION INFORMATION: [facility] record and patient CHIEF COMPLAINT: left hip fracture HISTORY OF PRESENT ILLNESS: 65F pmh COPD with chronic hypoxia and hypercapnic respiratory failure, severe pulmonary HTN, PAD, chronic hyponatremia, osteoporosis with multiple fractures including recent right 4th metatarsal, multiple lumbosacral fractures , GERD who presented to [facility] ED on 08-31-20 with groin pain and difficulty walking where she was diagnosed with a left femoral neck fracture. She was cleared for surgery from a medical standpoint and underwent a left hip layla-arthroplasty on 09-01-20 without immediate post-op complication. She developed post-op anemia and her leukocytosis on presentation resolved. She was found to have sinus tachycardia which was thought to be due to poor pain tolerance and chronic lung condition requiring frequent breathing treatments. She was evaluated by therapy, found to be well below her prior level of function requiring assistance with mobility and ADLs and deemed medically appropriate for discharge to ARU on 09-03-20. On admission patient reports she is concerned about her left ankle which hurts and she is concerned she had a fracture. REVIEW OF SYSTEMS: The following is a completed review of systems and has been reviewed. Review of systems otherwise unremarkable. PAIN: Patient self reports left ankle pain and left hip pain EYES: No recent vision changes EARS, NOSE, & THROAT: No throat pain, or dysphagia, or rhinorrhea CARDIOVASCULAR: Denies chest pain or palpitations PULMONARY: + shortness of breath with speaking (chronic) GASTROINTESTINAL: Denies constipation/diarrhea GENITOURINARY: denies dysuria MUSCULOSKELETAL: left hip pain NEUROLOGICAL:+paresthesias right foot HEMATOLOGICAL: denies easy bruising SKIN: left hip incision PSYCHIATRIC: +anxious All other review of systems found to be negative. PAST MEDICAL HISTORY: as per [facility] PAST SURGICAL HISTORY: right ankle surgery ALLERGIES: Please see below. MEDICATIONS: Please see below. SOCIAL HISTORY: +smoker, occasional etoh use, no illicit drugs DIET: regular PHYSICAL EXAMINATION: VITAL SIGNS: Please see below. GENERAL: Pleasant and cooperative. No acute distress. anxious HEENT: PERRL. Extraocular movements intact. Clear conjunctiva CARDIOVASCULAR: Regular rate and rhythm. No murmurs, rubs, or gallops LUNGS: diminished breath sounds bilaterally. No wheezes. No rhonchi ABDOMEN: Soft, nontender, nondistended. Positive bowel sounds. Normal active bowel sounds NEUROLOGICAL: Alert and oriented times three. Cranial nerves II through XII grossly intact. Sensation grossly intact except diminished dorsum of right foot (chronic) EXTREMITIES: 5\5 strength bilateral upper extremities. 5\5 strength right lower extremity. 5/5 strength in left ankle DF/EHL and PF (limited due to surgery SKIN: left hip incision bandaged without any periwound induration ecchymosis or erythema, no drainage LABORATORY DATA: Please see below. IMAGING:Imaging documentation personally reviewed by record FUNCTIONAL STATUS: Premorbid: Independent with all activities of daily life as well as mobility On Admission: Min assist to contact guard for functional transfers, bed moblilty, toileting, and ambulation GOALS: Mod-I household distances functional transfers, bed mobility, dressing, toileting, stairs, bathing ASSESSMENT:65-year-old F with past medical history of COPD, osteoporosis who presents status post left femur fracture PLAN: 1. Rehab- PT/OT advance gait and ADLs, strengthen/stretch/maintain ROM all 4 limbs 2. CArdiac- no specific cardiac history noted, however patient was on lasix at home and recent ECHO was unable to assess diastolic function, will monitor daily weights and monitor for fluid overload -sinus tachycardia, will add low dose metoprolol and optimize pain control -medicine consulted to assist in overall management 3. resp- severe COPD with chronic hypoxia and hypercapnea, c/u supplemental 02 88-92%, monitor for hypercapnea, c/u breathing treatments, will order Acapella 4. Ortho- pt with osteoporosis sustaining left femur fracture without fall s/p left hip hemiarthroplasty, WBAT with posterior-lateral hip precautions -left ankle Xr ordered to rule out fracture 5. GI ppx- prilosec 6. DVT ppx- xarelto -dopplers ordered to r/o DVT 7. Pain oxycodone and tylenol 8. Dispo- tbd POST ADMISSION PHYSICIAN EVALUATION: Medical and functional status: Description of medical status, medical assessment: As above. Rehabilitation diagnosis and current and prior cold morbid medical conditions as above. Risk of complications and plans to mitigate them as above. Description of functional status current status is as above. Prior status as above. Status compared to preadmission: There are no clinically significant differences between the patient's current status and the information described on the preadmission screening document. Treatment plan anticipated: Treatment plan is as described above. Required disciplines including physical therapy, occupational therapy, others as noted above. Intensity of services: 3 hours a day, 6 days a week. Special considerations: There are no specific special or safety considerations that would likely preclude immediate implementation of an intensive rehabilitation program or subsequently influence the plan of care. ATTESTATION: Considering all the information above, it is my best judgment that this patient requires intensive rehabilitation therapy as described above and an inpatient hospital environment due to the complexity of nursing, medical, and rehabilitation needs required by the patient. Furthermore, this patient can reasonably be expected to participate in an benefit from an inpatient rehabilitation stay with an interdisciplinary team approach to the delivery of rehabilitation care under the direction and supervision of rehabilitation physician. PROGNOSIS: Excellent ESTIMATED LENGTH OF STAY:10-14 days. PROJECTED DISCHARGE DESTINATION: Home with family support and any durable medical equipment required to increase functional safety and mobility TIME SPENT COUNSELING AND COORDINATING INITIAL CARE: Greater than 70 minutes. Vital Signs Vital Signs Date Time Temp Pulse Resp B/P (MAP) Pulse Ox O2 Delivery O2 Flow Rate FiO2 09/03/20 14:20 99.2 122 24 101/56 (71) 94 Nasal Cannula 2.0 Home Medications Scheduled Docusate Sodium (Dok) 100 Mg Capsule, 100 MG PO BID Fluticasone Propion/Salmeterol (Advair Hfa 230-21 Mcg Inhaler) 12 Gm Hfa.aer.ad, 2 PUFF INH BID, (Reported) Multivitamins (Thera M Plus Tablet) 1 Each Tablet, 1 TAB PO DAILY, (Reported) Omeprazole (Omeprazole) 20 Mg Capsule.dr, 20 MG PO DAILY, (Reported) Potassium Chloride (Potassium Chloride) 10 Meq Capsule.er, 10 MEQ PO DAILY, (Rep orted) Rivaroxaban (Xarelto) 10 Mg Tablet, 10 MG PO DAILY@18 Tiotropium [place] Monohydrate (Spiriva) 18 Mcg Cap.w.dev, 1 INHALATION INH DAILY@08 Umeclidinium [place] (Incruse Ellipta) 62.5 Mcg Blst.w.dev, 1 PUFF INH DAILY, (Reported) Scheduled PRN Levalbuterol Hydrochloride (Xopenex Concentrate) 1.25 Mg/0.5 Ml Vial.neb, 1.25 MG INH Q4HP PRN for SOB/WHEEZING Magnesium Hydroxide (Milk of Magnesia) 400 Mg/5 Ml Oral.susp, 30 ML PO DAILY PRN for CONSTIPATION Oxycodone/Acetaminophen (Oxycodone-Acetaminophen 5-325) 1 Each Tablet, 1 TAB PO Q6HP PRN for MODERATE/SEVERE PAIN (PS 5-10) Tramadol HCl/Acetaminophen (Tramadol-Acetaminophn 37.5-325) 1 Each Tablet, 1 TAB PO Q4HP PRN for PAIN LEVEL 1-4 Allergies Coded Allergies: Penicillins (Verified Allergy, Unknown, 01/14/19) clarithromycin (Verified Allergy, Unknown, 11/03/19) clindamycin (Verified Allergy, Unknown, 01/14/19) A-FIB/CHADSVASC A-FIB History Current/History of A-Fib/PAF?: No Current PO Anticoag Therapy: No JESUSITA REID MD Sep 03, 2020 15:19
[2020-09-03] MEDS: REMEDY PHYTOPLEX Z-GUARD PASTE 113GM TUBE (FROM STOREROOM PRODUCT) TOP SCH ×2 (16:00→21:34)
[2020-09-03] MEDS: ACETAMINOPHEN 500 MG TAB PO SCH ×2 (17:48→21:30)
[2020-09-03] MEDS: oxyCODONE 5MG TAB PO PRN (17:51)
[2020-09-03] MEDS ORDERED: RIVAROXABAN 10 MG TAB (XARELTO) PO SCH (18:00)
[2020-09-03 20:00] VITALS: BP 111/56
[2020-09-03] MEDS: LEVALBUTEROL 1.25 MG/0.5 ML CONCENTRATE NEB INH PRN (20:08)
[2020-09-03] MEDS: ADVAIR HFA 230/21MCG INHALER INH SCH (20:22)
[2020-09-03] MEDS: SENNA 8.6 MG TAB (SENOKOT) PO SCH (21:00)
[2020-09-03] MEDS: DOCUSATE SODIUM 100MG CAPSULE PO SCH (21:31)
[2020-09-04] MEDS: oxyCODONE 5MG TAB PO PRN ×3 (04:56→21:34)
[2020-09-04] MEDS: METOPROLOL TART 12.5 MG PER 1/2 TAB PO SCH ×2 (05:18)
[2020-09-04 06:00] VITALS: BP 123/73
[2020-09-04 07:30] LABS: BASO % 0.4 % (0.0-1.0); EOS # 0.2 10^3/uL (0.0-0.5); EOS % 3.1 % (0.0-3.0); HEMATOCRIT 26.8 % (36.0-47.0); HEMOGLOBIN 8.7 g/dl (12.0-15.5); LYMPH # 1.3 10^3/uL (1.5-5.0); LYMPH % 18.7 % (24.0-44.0); MEAN CORPUSCULAR HEMOGLOBIN 32.1 pg (27.0-33.0); MEAN CORPUSCULAR HGB CONC 32.5 g/dl (32.0-36.5); MEAN CORPUSCULAR VOLUME 98.9 fl (80.0-96.0); MONO # 0.8 10^3/uL (0.0-0.8); MONO % 12.2 % (0.0-5.0); NEUTROPHILS # 4.4 10^3/uL (1.5-8.5); NEUTROPHILS % 64.6 % (36.0-66.0); PLATELET COUNT, AUTOMATED 296 10^3/uL (150-450); RED BLOOD COUNT 2.71 10^6/uL (4.00-5.40); WHITE BLOOD COUNT 6.8 10^3/uL (4.0-10.0)
[2020-09-04] MEDS: TIOTROPIUM INHALER/CAPSULE (SPIRIVA) INH SCH (07:31)
[2020-09-04] MEDS: ADVAIR HFA 230/21MCG INHALER INH SCH ×2 (07:31→20:46)
[2020-09-04 07:58] LABS: ALBUMIN 2.6 GM/DL (3.2-5.2); ALT/SGPT 26 U/L (12-78); BILIRUBIN,TOTAL 0.3 MG/DL (0.2-1.0); BLOOD UREA NITROGEN 7 MG/DL (7-18); CALCIUM LEVEL 8.3 MG/DL (8.8-10.2); CARBON DIOXIDE LEVEL 35 MEQ/L (21-32); CHLORIDE LEVEL 96 MEQ/L (98-107); CREATININE FOR GFR 0.35 MG/DL (0.55-1.30); GLOMERULAR FILTRATION RATE > 60.0 (>45); GLUCOSE, FASTING 122 MG/DL (70-100); POTASSIUM SERUM 3.8 MEQ/L (3.5-5.1); SODIUM LEVEL 134 MEQ/L (136-145); TOTAL PROTEIN 5.4 GM/DL (6.4-8.2)
[2020-09-04] MEDS: OMEPRAZOLE 20 MG CAP PO SCH (08:41)
[2020-09-04] MEDS: DOCUSATE SODIUM 100MG CAPSULE PO SCH ×2 (08:41→21:33)
[2020-09-04] MEDS: MULTIVITAMINS/MINERALS THERAP 1 TAB PO SCH (08:41)
[2020-09-04] MEDS: ACETAMINOPHEN 500 MG TAB PO SCH ×3 (08:42→21:34)
[2020-09-04] MEDS: REMEDY PHYTOPLEX Z-GUARD PASTE 113GM TUBE (FROM STOREROOM PRODUCT) TOP SCH ×3 (09:00→21:39)
[2020-09-04] MEDS: METOPROLOL SUCC *XL* 25MG TAB (TopROL *XL*) PO SCH (10:12)
--- NOTE | 2020-09-04 12:09 | REP ---
INDICATION: immobility COMPARISON: None. TECHNIQUE: Cornejo scale and color Doppler evaluation of the right and left lower extremity using linear high frequency transducer. FINDINGS: Ultrasound examination of the bilateral lower extremity deep venous structures from the common femoral vein to the popliteal vein demonstrates normal compressibility flow and wave patterns in response to respiration and augmentation. There is no evidence for deep venous thrombosis. IMPRESSION: No evidence for deep venous thrombosis. <Electronically signed by Rashel Lee > 09/04/20 0619
--- NOTE | 2020-09-04 12:42 | REP ---
INDICATION: ankle pain. COMPARISON: None. TECHNIQUE: Four views. FINDINGS: Four views left ankle demonstrate diffuse osteopenia. Ankle mortise is intact. No fracture or subluxation is seen. There is minimal anterior soft tissue swelling. IMPRESSION: No fracture noted. Diffuse osteopenia. Minimal anterior swelling. <Electronically signed by Dima Ventura > 09/04/20 [id number]
[2020-09-04] MEDS: LEVALBUTEROL 1.25 MG/0.5 ML CONCENTRATE NEB INH PRN (13:08)
[2020-09-04 14:00] VITALS: BP 116/56
[2020-09-04] MEDS: RIVAROXABAN 10 MG TAB (XARELTO) PO SCH (17:16)
[2020-09-04 20:00] VITALS: BP 135/74
[2020-09-04] MEDS: SENNA 8.6 MG TAB (SENOKOT) PO SCH (21:33)
[2020-09-05] MEDS: oxyCODONE 5MG TAB PO PRN ×4 (02:41→18:52)
[2020-09-05 06:00] VITALS: BP 108/62
[2020-09-05] MEDS: OMEPRAZOLE 20 MG CAP PO SCH (07:33)
[2020-09-05] MEDS: DOCUSATE SODIUM 100MG CAPSULE PO SCH ×2 (07:33→21:14)
[2020-09-05] MEDS: MULTIVITAMINS/MINERALS THERAP 1 TAB PO SCH (07:34)
[2020-09-05] MEDS: ACETAMINOPHEN 500 MG TAB PO SCH ×3 (07:34→21:15)
[2020-09-05] MEDS: METOPROLOL SUCC *XL* 25MG TAB (TopROL *XL*) PO SCH (07:34)
[2020-09-05] MEDS: REMEDY PHYTOPLEX Z-GUARD PASTE 113GM TUBE (FROM STOREROOM PRODUCT) TOP SCH ×3 (07:35→21:00)
[2020-09-05] MEDS: TIOTROPIUM INHALER/CAPSULE (SPIRIVA) INH SCH (08:28)
[2020-09-05] MEDS: ADVAIR HFA 230/21MCG INHALER INH SCH ×2 (08:28→20:26)
--- NOTE | 2020-09-05 09:07 | IPNPDOC ---
PM&R Progress Note DATE OF SERVICE: Sep 05, 2020 Crushed Stone Grader Progress Note Subjective: PAtient seen in therapy and agrees to have her foely removed. She is very upset that her breathing treatment has been delayed and would like to be able to self adminsiter albuterol like she does at home. REVIEW OF SYSTEMS: The following is a completed review of systems and has been reviewed. Review of systems otherwise unremarkable. PAIN: Patient self reports left ankle pain and left hip pain EYES: No recent vision changes EARS, NOSE, & THROAT: No throat pain, or dysphagia, or rhinorrhea CARDIOVASCULAR: Denies chest pain or palpitations PULMONARY: + shortness of breath with speaking (chronic) GASTROINTESTINAL: Denies constipation/diarrhea GENITOURINARY: denies dysuria MUSCULOSKELETAL: left hip pain NEUROLOGICAL:+paresthesias right foot HEMATOLOGICAL: denies easy bruising SKIN: left hip incision PSYCHIATRIC: +anxious All other review of systems found to be negative. PHYSICAL EXAMINATION: VITAL SIGNS: Please see below. GENERAL: Pleasant and cooperative. No acute distress. anxious HEENT: PERRL. Extraocular movements intact. Clear conjunctiva CARDIOVASCULAR: Regular rate and rhythm. No murmurs, rubs, or gallops LUNGS: diminished breath sounds bilaterally. No wheezes. No rhonchi ABDOMEN: Soft, nontender, nondistended. Positive bowel sounds. Normal active bowel sounds NEUROLOGICAL: Alert and oriented times three. Cranial nerves II through XII grossly intact. Sensation grossly intact except diminished dorsum of right foot (chronic) EXTREMITIES: 5\5 strength bilateral upper extremities. 5\5 strength right lower extremity. 5/5 strength in left ankle DF/EHL and PF (limited due to surgery SKIN: left hip incision bandaged without any periwound induration ecchymosis or erythema, no drainage ASSESSMENT:65-year-old F with past medical history of COPD, osteoporosis who presents status post left femur fracture PLAN: 1. Rehab- PT/OT advance gait and ADLs, strengthen/stretch/maintain ROM all 4 limbs 2. CArdiac- no specific cardiac history noted, however patient was on lasix at home and recent ECHO was unable to assess diastolic function, will monitor daily weights and monitor for fluid overload -sinus tachycardia, will add low dose metoprolol and optimize pain control -medicine consulted to assist in overall management 3. resp- severe COPD with chronic hypoxia and hypercapnea, c/u supplemental 02 88-92%, monitor for hypercapnea, c/u breathing treatments, Acapella 4. Ortho- pt with osteoporosis sustaining left femur fracture without fall s/p left hip hemiarthroplasty, WBAT with posterior-lateral hip precautions -left ankle Xr negative for fracture 5. GI ppx- prilosec 6. DVT ppx- xarelto -dopplers negative for DVT 7. Pain oxycodone and tylenol 8. Dispo- tbd Allergies Coded Allergies: Penicillins (Verified Allergy, Unknown, 01/14/19) clarithromycin (Verified Allergy, Unknown, 11/03/19) clindamycin (Verified Allergy, Unknown, 01/14/19) Vital Signs Vital Signs Date Time Temp Pulse Resp B/P (MAP) Pulse Ox O2 Delivery O2 Flow Rate FiO2 09/05/20 08:04 18 Nasal Cannula 2.0 09/05/20 07:34 99 108/62 09/05/20 06:00 98.6 100 Current Medications Current Medications Current Medications Medications (Trade) Dose Ordered Sig/Issa Route PRN Reason Start Time Stop Time Status Last Admin Dose Admin Acetaminophen (Tylenol Tab) 1,000 mg TID PO 09/03/20 16:00 09/05/20 07:34 Albuterol/ Ipratropium (Duoneb (Ipr 0.5mg/Alb 2.5mg)) 3 ml ASDIRECTED NEB 09/03/20 13:00 Bisacodyl (Dulcolax Suppository) [address] CONSTIPATION 09/03/20 09:00 Docusate Sodium (Colace) 100 mg BID PO 09/03/20 21:00 09/05/20 07:33 Levalbuterol HCl (Xopenex Neb) 1.25 mg Q2HP PRN INH SOB/WHEEZING 09/03/20 15:30 09/04/20 13:08 Metoprolol Succinate (TopROL XL) 25 mg DAILY PO 09/04/20 10:00 09/04/20 10:12 Metoprolol Tartrate (Lopressor) 12.5 mg Q6H PO 09/03/20 12:00 09/04/20 09:53 DC 09/04/20 05:18 Multivitamins (Theragram-M) 1 tab DAILY PO 09/04/20 09:00 09/05/20 07:34 Omeprazole (PriLOSEC) 20 mg DAILY PO 09/04/20 09:00 09/05/20 07:33 Oxycodone HCl (Roxicodone, Oxyir) 5 mg Q4HP PRN PO PAIN 09/03/20 15:30 09/05/20 07:34 Rivaroxaban (Xarelto) 10 mg ASDIRECTED PO 09/03/20 18:00 09/04/20 16:50 DC 09/03/20 17:52 Rivaroxaban (Xarelto) 10 mg DAILY@1800 PO 09/04/20 18:00 09/04/20 17:16 Salmeterol Xinafoate/ Fluticasone (Advair Hfa ) 2 puff BID INH 09/03/20 21:00 09/05/20 08:28 Senna (Senokot) 1 tab QHS PO 09/03/20 21:00 09/04/20 21:33 Tiotropium [place] (Spiriva Handihaler) 1 inhalation DAILY@08 INH 09/04/20 08:00 09/05/20 08:28 JESUSITA REID MD Sep 05, 2020 09:07
[2020-09-05] MEDS: LEVALBUTEROL 1.25 MG/0.5 ML CONCENTRATE NEB INH PRN (11:20)
[2020-09-05] MEDS: LEVALBUTEROL 1.25 MG/0.5 ML CONCENTRATE NEB INH SCH ×4 (12:00→23:51)
[2020-09-05] MEDS ORDERED: ALBUTEROL 90 MCG/ACT 8GM HFA INHALER INH SCH (12:45)
[2020-09-05] MEDS: ALBUTEROL 90 MCG/ACT 8GM HFA INHALER INH PRN (12:48)
[2020-09-05 14:00] VITALS: BP 110/62
[2020-09-05] MEDS: RIVAROXABAN 10 MG TAB (XARELTO) PO SCH (18:52)
[2020-09-05 20:00] VITALS: BP 140/70
[2020-09-05] MEDS: SENNA 8.6 MG TAB (SENOKOT) PO SCH (21:14)
[2020-09-06] MEDS: LEVALBUTEROL 1.25 MG/0.5 ML CONCENTRATE NEB INH SCH ×6 (03:54→20:52)
[2020-09-06] MEDS: oxyCODONE 5MG TAB PO PRN ×4 (05:33→21:08)
[2020-09-06 05:39] VITALS: BP 115/64
[2020-09-06] MEDS: TIOTROPIUM INHALER/CAPSULE (SPIRIVA) INH SCH (07:19)
[2020-09-06] MEDS: ADVAIR HFA 230/21MCG INHALER INH SCH ×2 (07:19→20:52)
[2020-09-06] MEDS: REMEDY PHYTOPLEX Z-GUARD PASTE 113GM TUBE (FROM STOREROOM PRODUCT) TOP SCH ×3 (09:00→21:09)
[2020-09-06] MEDS: DOCUSATE SODIUM 100MG CAPSULE PO SCH ×2 (09:54→21:07)
[2020-09-06] MEDS: ACETAMINOPHEN 500 MG TAB PO SCH ×3 (09:54→21:08)
[2020-09-06] MEDS: OMEPRAZOLE 20 MG CAP PO SCH (09:54)
[2020-09-06] MEDS: MULTIVITAMINS/MINERALS THERAP 1 TAB PO SCH (09:55)
[2020-09-06] MEDS: METOPROLOL SUCC *XL* 25MG TAB (TopROL *XL*) PO SCH (09:55)
[2020-09-06 10:29] LABS: BASO % 0.3 % (0.0-1.0); EOS # 0.1 10^3/uL (0.0-0.5); EOS % 1.3 % (0.0-3.0); HEMATOCRIT 26.8 % (36.0-47.0); HEMOGLOBIN 8.6 g/dl (12.0-15.5); LYMPH # 1.8 10^3/uL (1.5-5.0); LYMPH % 23.8 % (24.0-44.0); MEAN CORPUSCULAR HGB CONC 32.1 g/dl (32.0-36.5); MEAN CORPUSCULAR VOLUME 99.6 fl (80.0-96.0); MONO # 0.7 10^3/uL (0.0-0.8); MONO % 8.9 % (0.0-5.0); PLATELET COUNT, AUTOMATED 461 10^3/uL (150-450); RED BLOOD COUNT 2.69 10^6/uL (4.00-5.40); WHITE BLOOD COUNT 7.7 10^3/uL (4.0-10.0)
[2020-09-06 11:03] LABS: BLOOD UREA NITROGEN 10 MG/DL (7-18); CALCIUM LEVEL 8.8 MG/DL (8.8-10.2); CARBON DIOXIDE LEVEL 33 MEQ/L (21-32); CHLORIDE LEVEL 98 MEQ/L (98-107); CREATININE FOR GFR 0.32 MG/DL (0.55-1.30); GLOMERULAR FILTRATION RATE > 60.0 (>45); GLUCOSE, FASTING 129 MG/DL (70-100); SODIUM LEVEL 138 MEQ/L (136-145)
[2020-09-06] MEDS: ALBUTEROL 90 MCG/ACT 8GM HFA INHALER INH PRN (12:47)
[2020-09-06 14:00] VITALS: BP 124/58
--- NOTE | 2020-09-06 14:11 | IPNPDOC ---
PM&R Progress Note DATE OF SERVICE: Sep 06, 2020 Conference Service Coordinator Progress Note Subjective: Patient seen in her room asking to see her incision oleg during a dressing change. She states her breathing is better today. REVIEW OF SYSTEMS: The following is a completed review of systems and has been reviewed. Review of systems otherwise unremarkable. PAIN: Patient self reports left ankle pain and left hip pain EYES: No recent vision changes EARS, NOSE, & THROAT: No throat pain, or dysphagia, or rhinorrhea CARDIOVASCULAR: Denies chest pain or palpitations PULMONARY: + shortness of breath with speaking (chronic) GASTROINTESTINAL: Denies constipation/diarrhea GENITOURINARY: denies dysuria MUSCULOSKELETAL: left hip pain NEUROLOGICAL:+paresthesias right foot HEMATOLOGICAL: denies easy bruising SKIN: left hip incision PSYCHIATRIC: +anxious All other review of systems found to be negative. PHYSICAL EXAMINATION: VITAL SIGNS: Please see below. GENERAL: Pleasant and cooperative. No acute distress. anxious HEENT: PERRL. Extraocular movements intact. Clear conjunctiva CARDIOVASCULAR: Regular rate and rhythm. No murmurs, rubs, or gallops LUNGS: diminished breath sounds bilaterally. No wheezes. No rhonchi ABDOMEN: Soft, nontender, nondistended. Positive bowel sounds. Normal active bowel sounds NEUROLOGICAL: Alert and oriented times three. Cranial nerves II through XII grossly intact. Sensation grossly intact except diminished dorsum of right foot (chronic) EXTREMITIES: 5\5 strength bilateral upper extremities. 5\5 strength right lower extremity. 5/5 strength in left ankle DF/EHL and PF (limited due to surgery SKIN: left hip incision with oleg c/d/i ASSESSMENT:65-year-old F with past medical history of COPD, osteoporosis who presents status post left femur fracture PLAN: 1. Rehab- PT/OT advance gait and ADLs, strengthen/stretch/maintain ROM all 4 limbs 2. CArdiac- no specific cardiac history noted, however patient was on lasix at home and recent ECHO was unable to assess diastolic function, will monitor daily weights and monitor for fluid overload -sinus tachycardia, will add low dose metoprolol and optimize pain control -medicine consulted to assist in overall management 3. resp- severe COPD with chronic hypoxia and hypercapnea, c/u supplemental 02 88-92%, monitor for hypercapnea, c/u breathing treatments, Acapella 4. Ortho- pt with osteoporosis sustaining left femur fracture without fall s/p left hip hemiarthroplasty, WBAT with posterior-lateral hip precautions -left ankle Xr negative for fracture 5. GI ppx- prilosec 6. DVT ppx- xarelto -dopplers negative for DVT 7. Pain oxycodone and tylenol 8. Dispo- tbd Allergies Coded Allergies: Penicillins (Verified Allergy, Unknown, 01/14/19) clarithromycin (Verified Allergy, Unknown, 11/03/19) clindamycin (Verified Allergy, Unknown, 01/14/19) Vital Signs Vital Signs Date Time Temp Pulse Resp B/P (MAP) Pulse Ox O2 Delivery O2 Flow Rate FiO2 09/06/20 10:33 20 Nasal Cannula 2.0 09/06/20 09:55 108 115/64 09/06/20 05:39 98.0 96 Laboratory Data CBC/BMP Laboratory Tests 09/06/20 10:16 Labs 24H Laboratory Tests 2 09/06/20 10:16: Immature Granulocyte % (Auto) 0.7, Neutrophils (%) (Auto) 65.0, Lymphocytes (%) (Auto) 23.8L, Monocytes (%) (Auto) 8.9H, Eosinophils (%) (Auto) 1.3, Basophils (%) (Auto) 0.3, Neutrophils # (Auto) 5.0, Lymphocytes # (Auto) 1.8, Monocytes # (Auto) 0.7, Eosinophils # (Auto) 0.1, Basophils # (Auto) 0.0, Nucleated Red Blood Cells % (auto) 0.0, Anion Gap 7L, Glomerular Filtration Rate > 60.0, Calcium Level 8.8 Current Medications Current Medications Current Medications Medications (Trade) Dose Ordered Sig/Issa Route PRN Reason Start Time Stop Time Status Last Admin Dose Admin Acetaminophen (Tylenol Tab) 1,000 mg TID PO 09/03/20 16:00 09/06/20 09:54 Albuterol Sulfate (Proventil, Ventolin Hfa) 2 puff Q2HP INH SHORTNESS OF BREATH 09/05/20 12:45 10/05/20 12:45 No refill Albuterol Sulfate (Proventil, Ventolin Hfa) 2 puff Q2HP PRN INH SHORTNESS OF BREATH 09/05/20 12:00 09/06/20 12:47 Albuterol/ Ipratropium (Duoneb (Ipr 0.5mg/Alb 2.5mg)) 3 ml ASDIRECTED NEB 09/03/20 13:00 09/05/20 11:56 DC Bisacodyl (Dulcolax Suppository) 10 mg DAILYPRN PRN SD CONSTIPATION 09/03/20 09:00 Docusate Sodium (Colace) 100 mg BID PO 09/03/20 21:00 09/06/20 09:54 Levalbuterol HCl (Xopenex Neb) 1.25 mg Q2HP PRN INH SOB/WHEEZING 09/03/20 15:30 09/05/20 11:56 DC 09/05/20 11:20 Levalbuterol HCl (Xopenex Neb) 1.25 mg RQ4H INH 09/05/20 12:00 09/06/20 11:22 Metoprolol Succinate (TopROL XL) 25 mg DAILY PO 09/04/20 10:00 09/06/20 09:55 Metoprolol Tartrate (Lopressor) 12.5 mg Q6H PO 09/03/20 12:00 09/04/20 09:53 DC 09/04/20 05:18 Multivitamins (Theragram-M) 1 tab DAILY PO 09/04/20 09:00 09/06/20 09:55 Omeprazole (PriLOSEC) 20 mg DAILY PO 09/04/20 09:00 09/06/20 09:54 Oxycodone HCl (Roxicodone, Oxyir) 5 mg Q4HP PRN PO PAIN 09/03/20 15:30 09/06/20 09:56 Rivaroxaban (Xarelto) 10 mg ASDIRECTED PO 09/03/20 18:00 09/04/20 16:50 DC 09/03/20 17:52 Rivaroxaban (Xarelto) 10 mg DAILY@1800 PO 09/04/20 18:00 09/05/20 18:52 Salmeterol Xinafoate/ Fluticasone (Advair Hfa ) 2 puff BID INH 09/03/20 21:00 09/06/20 07:19 Senna (Senokot) 1 tab QHS PO 09/03/20 21:00 09/05/20 21:14 Tiotropium [place] (Spiriva Handihaler) 1 inhalation DAILY@08 INH 09/04/20 08:00 09/06/20 07:19 JESUSITA REID MD Sep 06, 2020 14:11
[2020-09-06] MEDS: RIVAROXABAN 10 MG TAB (XARELTO) PO SCH (16:56)
[2020-09-06 20:00] VITALS: BP 130/62
[2020-09-06] MEDS: SENNA 8.6 MG TAB (SENOKOT) PO SCH (21:00)
[2020-09-07] MEDS: oxyCODONE 5MG TAB PO PRN ×4 (03:31→20:32)
[2020-09-07] MEDS: LEVALBUTEROL 1.25 MG/0.5 ML CONCENTRATE NEB INH SCH ×6 (04:00→20:51)
[2020-09-07 06:00] VITALS: BP 124/76
[2020-09-07] MEDS: ADVAIR HFA 230/21MCG INHALER INH SCH ×2 (07:25→20:53)
[2020-09-07] MEDS: TIOTROPIUM INHALER/CAPSULE (SPIRIVA) INH SCH (07:25)
[2020-09-07] MEDS: DOCUSATE SODIUM 100MG CAPSULE PO SCH ×2 (08:23→20:32)
[2020-09-07] MEDS: OMEPRAZOLE 20 MG CAP PO SCH (08:23)
[2020-09-07] MEDS: METOPROLOL SUCC *XL* 25MG TAB (TopROL *XL*) PO SCH (08:24)
[2020-09-07] MEDS: MULTIVITAMINS/MINERALS THERAP 1 TAB PO SCH (08:24)
[2020-09-07] MEDS: ACETAMINOPHEN 500 MG TAB PO SCH ×3 (08:24→20:32)
[2020-09-07] MEDS: REMEDY PHYTOPLEX Z-GUARD PASTE 113GM TUBE (FROM STOREROOM PRODUCT) TOP SCH ×3 (08:25→20:33)
[2020-09-07] MEDS: ALBUTEROL 90 MCG/ACT 8GM HFA INHALER INH PRN (13:40)
[2020-09-07 14:00] VITALS: BP 149/79
[2020-09-07] MEDS: RIVAROXABAN 10 MG TAB (XARELTO) PO SCH (17:24)
[2020-09-07 20:00] VITALS: BP 127/66
[2020-09-07] MEDS: SENNA 8.6 MG TAB (SENOKOT) PO SCH (20:32)
[2020-09-08] MEDS: oxyCODONE 5MG TAB PO PRN ×2 (02:38→20:35)
[2020-09-08] MEDS: ALBUTEROL 90 MCG/ACT 8GM HFA INHALER INH PRN ×2 (02:39→19:34)
[2020-09-08] MEDS: LEVALBUTEROL 1.25 MG/0.5 ML CONCENTRATE NEB INH SCH ×7 (04:00→23:43)
[2020-09-08 06:00] VITALS: BP 130/76
[2020-09-08] MEDS: TIOTROPIUM INHALER/CAPSULE (SPIRIVA) INH SCH (07:17)
[2020-09-08] MEDS: ADVAIR HFA 230/21MCG INHALER INH SCH ×2 (07:17→20:28)
[2020-09-08] MEDS: DOCUSATE SODIUM 100MG CAPSULE PO SCH ×2 (08:07→20:34)
[2020-09-08] MEDS: MULTIVITAMINS/MINERALS THERAP 1 TAB PO SCH (08:08)
[2020-09-08] MEDS: OMEPRAZOLE 20 MG CAP PO SCH (08:08)
[2020-09-08] MEDS: METOPROLOL SUCC *XL* 25MG TAB (TopROL *XL*) PO SCH (08:08)
[2020-09-08] MEDS: ACETAMINOPHEN 500 MG TAB PO SCH ×3 (08:09→20:36)
[2020-09-08] MEDS: REMEDY PHYTOPLEX Z-GUARD PASTE 113GM TUBE (FROM STOREROOM PRODUCT) TOP SCH ×3 (08:10→20:36)
[2020-09-08 14:00] VITALS: BP 116/60
[2020-09-08] MEDS: RIVAROXABAN 10 MG TAB (XARELTO) PO SCH (17:32)
[2020-09-08 20:00] VITALS: BP 131/58
[2020-09-08] MEDS: SENNA 8.6 MG TAB (SENOKOT) PO SCH (20:34)
[2020-09-09] MEDS: LEVALBUTEROL 1.25 MG/0.5 ML CONCENTRATE NEB INH SCH ×5 (04:00→21:06)
[2020-09-09] MEDS: oxyCODONE 5MG TAB PO PRN ×3 (05:37→21:22)
[2020-09-09 06:00] VITALS: BP 116/60
[2020-09-09] MEDS: DOCUSATE SODIUM 100MG CAPSULE PO SCH ×2 (07:17→20:36)
[2020-09-09] MEDS: ADVAIR HFA 230/21MCG INHALER INH SCH ×2 (07:28→21:03)
[2020-09-09] MEDS: TIOTROPIUM INHALER/CAPSULE (SPIRIVA) INH SCH (07:28)
[2020-09-09] MEDS: ALBUTEROL 90 MCG/ACT 8GM HFA INHALER INH PRN (08:22)
[2020-09-09] MEDS: ACETAMINOPHEN 500 MG TAB PO SCH ×4 (08:23→23:59)
[2020-09-09] MEDS: MULTIVITAMINS/MINERALS THERAP 1 TAB PO SCH (08:23)
[2020-09-09] MEDS: METOPROLOL SUCC *XL* 25MG TAB (TopROL *XL*) PO SCH (08:23)
[2020-09-09] MEDS: OMEPRAZOLE 20 MG CAP PO SCH (08:23)
[2020-09-09] MEDS: REMEDY PHYTOPLEX Z-GUARD PASTE 113GM TUBE (FROM STOREROOM PRODUCT) TOP SCH ×3 (08:25→20:19)
[2020-09-09 09:08] LABS: BASO % 0.5 % (0.0-1.0); EOS # 0.1 10^3/uL (0.0-0.5); EOS % 1.8 % (0.0-3.0); HEMATOCRIT 28.4 % (36.0-47.0); HEMOGLOBIN 8.6 g/dl (12.0-15.5); LYMPH # 1.9 10^3/uL (1.5-5.0); LYMPH % 26.5 % (24.0-44.0); MEAN CORPUSCULAR HEMOGLOBIN 30.8 pg (27.0-33.0); MEAN CORPUSCULAR HGB CONC 30.3 g/dl (32.0-36.5); MEAN CORPUSCULAR VOLUME 101.8 fl (80.0-96.0); MONO # 0.7 10^3/uL (0.0-0.8); NEUTROPHILS # 4.4 10^3/uL (1.5-8.5); NEUTROPHILS % 60.6 % (36.0-66.0); PLATELET COUNT, AUTOMATED 778 10^3/uL (150-450); RED BLOOD COUNT 2.79 10^6/uL (4.00-5.40); WHITE BLOOD COUNT 7.3 10^3/uL (4.0-10.0)
[2020-09-09 09:36] LABS: BLOOD UREA NITROGEN 5 MG/DL (7-18); CARBON DIOXIDE LEVEL 33 MEQ/L (21-32); CHLORIDE LEVEL 99 MEQ/L (98-107); CREATININE FOR GFR 0.37 MG/DL (0.55-1.30); GLOMERULAR FILTRATION RATE > 60.0 (>45); GLUCOSE, FASTING 116 MG/DL (70-100); POTASSIUM SERUM 4.6 MEQ/L (3.5-5.1); SODIUM LEVEL 138 MEQ/L (136-145)
--- NOTE | 2020-09-09 10:29 | IPNPDOC ---
PM&R Progress Note DATE OF SERVICE: Sep 09, 2020 [employer] [employer] [employer]o Progress Note Subjective: Patient seen in her room with OT stating she feels well overall, denies fevers, chills, dysuria. REVIEW OF SYSTEMS: The following is a completed review of systems and has been reviewed. Review of systems otherwise unremarkable. PAIN: Patient self reports left ankle pain and left hip pain EYES: No recent vision changes EARS, NOSE, & THROAT: No throat pain, or dysphagia, or rhinorrhea CARDIOVASCULAR: Denies chest pain or palpitations PULMONARY: + shortness of breath with speaking (chronic) GASTROINTESTINAL: Denies constipation/diarrhea GENITOURINARY: denies dysuria MUSCULOSKELETAL: left hip pain NEUROLOGICAL:+paresthesias right foot HEMATOLOGICAL: denies easy bruising SKIN: left hip incision PSYCHIATRIC: +anxious All other review of systems found to be negative. PHYSICAL EXAMINATION: VITAL SIGNS: Please see below. GENERAL: Pleasant and cooperative. No acute distress. anxious HEENT: PERRL. Extraocular movements intact. Clear conjunctiva CARDIOVASCULAR: Regular rate and rhythm. No murmurs, rubs, or gallops LUNGS: diminished breath sounds bilaterally. No wheezes. No rhonchi ABDOMEN: Soft, nontender, nondistended. Positive bowel sounds. Normal active bowel sounds NEUROLOGICAL: Alert and oriented times three. Cranial nerves II through XII grossly intact. Sensation grossly intact except diminished dorsum of right foot (chronic) EXTREMITIES: 5\5 strength bilateral upper extremities. 5\5 strength right lower extremity. 5/5 strength in left ankle DF/EHL and PF (limited due to surgery SKIN: left hip incision with oleg c/d/i ASSESSMENT:65-year-old F with past medical history of COPD, osteoporosis who presents status post left femur fracture PLAN: 1. Rehab- PT/OT advance gait and ADLs, strengthen/stretch/maintain ROM all 4 limbs, ambulating with RW 2. Cardiac- no specific cardiac history noted, however patient was on lasix at home and recent ECHO was unable to assess diastolic function, will monitor daily weights and monitor for fluid overload -sinus tachycardia, will add low dose metoprolol and optimize pain control -medicine consulted to assist in overall management 3. resp- severe COPD with chronic hypoxia and hypercapnea, c/u supplemental 02 88-92%, monitor for hypercapnea, c/u breathing treatments, Acapella 4. Ortho- pt with osteoporosis sustaining left femur fracture without fall s/p left hip hemiarthroplasty, WBAT with posterior-lateral hip precautions -left ankle Xr negative for fracture 5. GI ppx- prilosec 6. DVT ppx- xarelto -dopplers negative for DVT 7. Pain oxycodone and tylenol 8. Dispo- tbd Allergies Coded Allergies: Penicillins (Verified Allergy, Unknown, 01/14/19) clarithromycin (Verified Allergy, Unknown, 11/03/19) clindamycin (Verified Allergy, Unknown, 01/14/19) Vital Signs Vital Signs Date Time Temp Pulse Resp B/P (MAP) Pulse Ox O2 Delivery O2 Flow Rate FiO2 09/09/20 08:23 109 116/60 09/09/20 08:00 2.0 09/09/20 06:10 20 Nasal Cannula 09/09/20 06:00 98.5 97 Laboratory Data CBC/BMP Laboratory Tests 09/09/20 08:05 Labs 24H Laboratory Tests 2 09/09/20 08:05: Immature Granulocyte % (Auto) 1.6, Neutrophils (%) (Auto) 60.6, Lymphocytes (%) (Auto) 26.5, Monocytes (%) (Auto) 9.0H, Eosinophils (%) (Auto) 1.8, Basophils (%) (Auto) 0.5, Neutrophils # (Auto) 4.4, Lymphocytes # (Auto) 1.9, Monocytes # (Auto) 0.7, Eosinophils # (Auto) 0.1, Basophils # (Auto) 0.0, Nucleated Red Blood Cells % (auto) 0.0, Anion Gap 6L, Glomerular Filtration Rate > 60.0, Calcium Level 9.0 Current Medications Current Medications Current Medications Medications (Trade) Dose Ordered Sig/Issa Route PRN Reason Start Time Stop Time Status Last Admin Dose Admin Acetaminophen (Tylenol Tab) 1,000 mg TID PO 09/03/20 16:00 09/09/20 08:23 Albuterol Sulfate (Proventil, Ventolin Hfa) 2 puff Q2HP INH SHORTNESS OF BREATH 09/05/20 12:45 10/05/20 12:45 No refill Albuterol Sulfate (Proventil, Ventolin Hfa) 2 puff Q2HP PRN INH SHORTNESS OF BREATH 09/05/20 12:00 09/09/20 08:22 Albuterol/ Ipratropium (Duoneb (Ipr 0.5mg/Alb 2.5mg)) 3 ml ASDIRECTED NEB 09/03/20 13:00 09/05/20 11:56 DC Bisacodyl (Dulcolax Suppository) 10 mg DAILYPRN PRN [place] CONSTIPATION 09/03/20 09:00 Docusate Sodium (Colace) 100 mg BID PO 09/03/20 21:00 09/08/20 20:34 Levalbuterol HCl (Xopenex Neb) 1.25 mg Q2HP PRN INH SOB/WHEEZING 09/03/20 15:30 09/05/20 11:56 DC 09/05/20 11:20 Levalbuterol HCl (Xopenex Neb) 1.25 mg RQ4H INH 09/05/20 12:00 09/08/20 23:43 Metoprolol Succinate (TopROL XL) 25 mg DAILY PO 09/04/20 10:00 09/09/20 08:23 Metoprolol Tartrate (Lopressor) 12.5 mg Q6H PO 09/03/20 12:00 09/04/20 09:53 DC 09/04/20 05:18 Multivitamins (Theragram-M) 1 tab DAILY PO 09/04/20 09:00 09/09/20 08:23 Omeprazole (PriLOSEC) 20 mg DAILY PO 09/04/20 09:00 09/09/20 08:23 Oxycodone HCl (Roxicodone, Oxyir) 5 mg Q4HP PRN PO PAIN 09/03/20 15:30 09/09/20 05:37 Rivaroxaban (Xarelto) 10 mg ASDIRECTED PO 09/03/20 18:00 09/04/20 16:50 DC 09/03/20 17:52 Rivaroxaban (Xarelto) 10 mg DAILY@1800 PO 09/04/20 18:00 09/08/20 17:32 Salmeterol Xinafoate/ Fluticasone (Advair Hfa ) 2 puff BID INH 09/03/20 21:00 09/09/20 07:28 Senna (Senokot) 1 tab QHS PO 09/03/20 21:00 09/08/20 20:34 Tiotropium [place] (Spiriva Handihaler) 1 inhalation DAILY@08 INH 09/04/20 08:00 09/09/20 07:28 JESUSITA REID MD Sep 09, 2020 10:29
[2020-09-09 14:00] VITALS: BP 137/80
[2020-09-09] MEDS: RIVAROXABAN 10 MG TAB (XARELTO) PO SCH (17:08)
[2020-09-09 20:00] VITALS: BP 119/66
[2020-09-09] MEDS: SENNA 8.6 MG TAB (SENOKOT) PO SCH (20:18)
[2020-09-10] MEDS: LEVALBUTEROL 1.25 MG/0.5 ML CONCENTRATE NEB INH SCH ×7 (04:00→23:13)
[2020-09-10] MEDS: oxyCODONE 5MG TAB PO PRN ×2 (05:43→20:44)
[2020-09-10 06:00] VITALS: BP 125/59
[2020-09-10] MEDS: TIOTROPIUM INHALER/CAPSULE (SPIRIVA) INH SCH (07:46)
[2020-09-10] MEDS: ADVAIR HFA 230/21MCG INHALER INH SCH ×2 (07:49→20:32)
[2020-09-10] MEDS: DOCUSATE SODIUM 100MG CAPSULE PO SCH ×3 (09:00→20:43)
[2020-09-10] MEDS: REMEDY PHYTOPLEX Z-GUARD PASTE 113GM TUBE (FROM STOREROOM PRODUCT) TOP SCH ×3 (09:00→20:43)
[2020-09-10] MEDS: MULTIVITAMINS/MINERALS THERAP 1 TAB PO SCH (10:06)
[2020-09-10] MEDS: OMEPRAZOLE 20 MG CAP PO SCH (10:07)
[2020-09-10] MEDS: ACETAMINOPHEN 500 MG TAB PO SCH ×3 (10:08→20:44)
[2020-09-10] MEDS: METOPROLOL SUCC *XL* 25MG TAB (TopROL *XL*) PO SCH (10:11)
--- NOTE | 2020-09-10 11:48 | IPNPDOC ---
PM&R Progress Note DATE OF SERVICE: Sep 10, 2020 [employer] Progress Note Subjective: Patient seen walking in therapy stating she skipped her morning breathing treatment so feels more short of breath, but states overall she feels better. REVIEW OF SYSTEMS: The following is a completed review of systems and has been reviewed. Review of systems otherwise unremarkable. PAIN: Patient self reports left ankle pain and left hip pain EYES: No recent vision changes EARS, NOSE, & THROAT: No throat pain, or dysphagia, or rhinorrhea CARDIOVASCULAR: Denies chest pain or palpitations PULMONARY: + shortness of breath with speaking (chronic) GASTROINTESTINAL: Denies constipation/diarrhea GENITOURINARY: denies dysuria MUSCULOSKELETAL: left hip pain NEUROLOGICAL:+paresthesias right foot HEMATOLOGICAL: denies easy bruising SKIN: left hip incision PSYCHIATRIC: +anxious All other review of systems found to be negative. PHYSICAL EXAMINATION: VITAL SIGNS: Please see below. GENERAL: Pleasant and cooperative. No acute distress. anxious HEENT: PERRL. Extraocular movements intact. Clear conjunctiva CARDIOVASCULAR: Regular rate and rhythm. No murmurs, rubs, or gallops LUNGS: diminished breath sounds bilaterally. No wheezes. No rhonchi ABDOMEN: Soft, nontender, nondistended. Positive bowel sounds. Normal active bowel sounds NEUROLOGICAL: Alert and oriented times three. Cranial nerves II through XII grossly intact. Sensation grossly intact except diminished dorsum of right foot (chronic) EXTREMITIES: 5\5 strength bilateral upper extremities. 5\5 strength right lower extremity. 5/5 strength in left ankle DF/EHL and PF (limited due to surgery SKIN: left hip incision with oleg c/d/i ASSESSMENT:65-year-old F with past medical history of COPD, osteoporosis who presents status post left femur fracture PLAN: 1. Rehab- PT/OT advance gait and ADLs, strengthen/stretch/maintain ROM all 4 limbs, ambulating with RW 2. Cardiac- no specific cardiac history noted, however patient was on lasix at home and recent ECHO was unable to assess diastolic function, will monitor daily weights and monitor for fluid overload -will increase metoprolol dosing, patient receiving frequent breathing treatments and chronically dyspneic contributing to tachycardia -medicine consulted to assist in overall management 3. resp- severe COPD with chronic hypoxia and hypercapnea, c/u supplemental 02 88-92%, monitor for hypercapnea, c/u breathing treatments, Acapella 4. Ortho- pt with osteoporosis sustaining left femur fracture without fall s/p left hip hemiarthroplasty, WBAT with posterior-lateral hip precautions -left ankle Xr negative for fracture 5. GI ppx- prilosec 6. DVT ppx- xarelto -dopplers negative for DVT 7. Pain oxycodone and tylenol 8. Dispo- tbd Allergies Coded Allergies: Penicillins (Verified Allergy, Unknown, 01/14/19) clarithromycin (Verified Allergy, Unknown, 11/03/19) clindamycin (Verified Allergy, Unknown, 01/14/19) Vital Signs Vital Signs Date Time Temp Pulse Resp B/P (MAP) Pulse Ox O2 Delivery O2 Flow Rate FiO2 09/10/20 10:11 120 121/70 09/10/20 06:15 20 Nasal Cannula 2.0 09/10/20 06:00 98.6 98 Current Medications Current Medications Current Medications Medications (Trade) Dose Ordered Sig/Issa Route PRN Reason Start Time Stop Time Status Last Admin Dose Admin Acetaminophen (Tylenol Tab) 1,000 mg TID PO 09/03/20 16:00 09/10/20 10:08 Albuterol Sulfate (Proventil, Ventolin Hfa) 2 puff Q2HP INH SHORTNESS OF BREATH 09/05/20 12:45 10/05/20 12:45 No refill Albuterol Sulfate (Proventil, Ventolin Hfa) 2 puff Q2HP PRN INH SHORTNESS OF BREATH 09/05/20 12:00 09/09/20 08:22 Albuterol/ Ipratropium (Duoneb (Ipr 0.5mg/Alb 2.5mg)) 3 ml ASDIRECTED NEB 09/03/20 13:00 09/05/20 11:56 DC Bisacodyl (Dulcolax Suppository) 10 mg DAILYPRN PRN [place] CONSTIPATION 09/03/20 09:00 Docusate Sodium (Colace) 100 mg BID PO 09/03/20 21:00 09/09/20 20:36 Levalbuterol HCl (Xopenex Neb) 1.25 mg Q2HP PRN INH SOB/WHEEZING 09/03/20 15:30 09/05/20 11:56 DC 09/05/20 11:20 Levalbuterol HCl (Xopenex Neb) 1.25 mg RQ4H INH 09/05/20 12:00 09/10/20 11:10 Metoprolol Succinate (TopROL XL) 25 mg DAILY PO 09/04/20 10:00 09/10/20 10:11 Metoprolol Tartrate (Lopressor) 12.5 mg Q6H PO 09/03/20 12:00 09/04/20 09:53 DC 09/04/20 05:18 Multivitamins (Theragram-M) 1 tab DAILY PO 09/04/20 09:00 09/10/20 10:06 Omeprazole (PriLOSEC) 20 mg DAILY PO 09/04/20 09:00 09/10/20 10:07 Oxycodone HCl (Roxicodone, Oxyir) 5 mg Q4HP PRN PO PAIN 09/03/20 15:30 09/10/20 05:43 Rivaroxaban (Xarelto) 10 mg ASDIRECTED PO 09/03/20 18:00 09/04/20 16:50 DC 09/03/20 17:52 Rivaroxaban (Xarelto) 10 mg DAILY@1800 PO 09/04/20 18:00 09/09/20 17:08 Salmeterol Xinafoate/ Fluticasone (Advair Hfa 230) 2 puff BID INH 09/03/20 21:00 09/10/20 07:49 Senna (Senokot) 1 tab QHS PO 09/03/20 21:00 09/08/20 20:34 Tiotropium [place] (Spiriva Handihaler) 1 inhalation DAILY@08 INH 09/04/20 08:00 09/10/20 07:46 JESUSITA REID MD Sep 10, 2020 11:48
[2020-09-10] MEDS ORDERED: METOPROLOL TART 12.5 MG PER 1/2 TAB PO ONE (12:00)
[2020-09-10] MEDS ORDERED: PILL CUTTER 1 EACH XX PRN (12:00)
[2020-09-10 14:00] VITALS: BP 136/64
--- NOTE | 2020-09-10 17:00 | REP ---
INDICATION: groin pain. COMPARISON: Portable AP pelvis of 09/01/2020 TECHNIQUE: AP pelvis and AP and frog lateral views of the right hip FINDINGS: There is a partially imaged left hip prosthesis. There is no evidence of an acute pelvic fracture or destructive osseous lesion involving the pelvis. The bones are demineralized. There are degenerative changes seen involving the sacroiliac joints. Mild asymmetric right hip joint space narrowing is present. There is no prominent marginal osteophytosis, buttressing, fracture, subluxation, or dislocation. IMPRESSION: 1. Known left hip prosthesis. 2. Chronic changes as described above. <Electronically signed by Angel Blount > 09/10/20 [id number]
[2020-09-10] MEDS: RIVAROXABAN 10 MG TAB (XARELTO) PO SCH (17:28)
[2020-09-10 20:00] VITALS: BP 120/80
[2020-09-10] MEDS: SENNA 8.6 MG TAB (SENOKOT) PO SCH (20:43)
[2020-09-11] MEDS: oxyCODONE 5MG TAB PO PRN ×3 (02:53→21:42)
[2020-09-11] MEDS: LEVALBUTEROL 1.25 MG/0.5 ML CONCENTRATE NEB INH SCH ×5 (05:16→20:34)
[2020-09-11 06:05] VITALS: BP 132/65
[2020-09-11] MEDS: ADVAIR HFA 230/21MCG INHALER INH SCH ×2 (07:27→20:34)
[2020-09-11] MEDS: TIOTROPIUM INHALER/CAPSULE (SPIRIVA) INH SCH (07:28)
[2020-09-11] MEDS: MULTIVITAMINS/MINERALS THERAP 1 TAB PO SCH (08:26)
[2020-09-11] MEDS: DOCUSATE SODIUM 100MG CAPSULE PO SCH ×2 (08:26→21:41)
[2020-09-11] MEDS: OMEPRAZOLE 20 MG CAP PO SCH (08:26)
[2020-09-11] MEDS: ACETAMINOPHEN 500 MG TAB PO SCH ×3 (08:27→21:00)
[2020-09-11] MEDS: METOPROLOL SUCC *XL* 25MG TAB (TopROL *XL*) PO SCH (08:27)
[2020-09-11] MEDS: REMEDY PHYTOPLEX Z-GUARD PASTE 113GM TUBE (FROM STOREROOM PRODUCT) TOP SCH ×3 (08:27→21:42)
[2020-09-11 08:58] LABS: BASO % 0.4 % (0.0-1.0); EOS # 0.1 10^3/uL (0.0-0.5); EOS % 1.3 % (0.0-3.0); HEMATOCRIT 29.7 % (36.0-47.0); HEMOGLOBIN 8.9 g/dl (12.0-15.5); LYMPH # 1.9 10^3/uL (1.5-5.0); LYMPH % 20.8 % (24.0-44.0); MEAN CORPUSCULAR HEMOGLOBIN 30.6 pg (27.0-33.0); MEAN CORPUSCULAR VOLUME 102.1 fl (80.0-96.0); MONO # 0.8 10^3/uL (0.0-0.8); MONO % 8.6 % (0.0-5.0); NEUTROPHILS # 6.2 10^3/uL (1.5-8.5); NEUTROPHILS % 67.4 % (36.0-66.0); PLATELET COUNT, AUTOMATED 851 10^3/uL (150-450); RED BLOOD COUNT 2.91 10^6/uL (4.00-5.40); WHITE BLOOD COUNT 9.2 10^3/uL (4.0-10.0)
[2020-09-11 09:28] LABS: BLOOD UREA NITROGEN 4 MG/DL (7-18); CALCIUM LEVEL 9.1 MG/DL (8.8-10.2); CARBON DIOXIDE LEVEL 33 MEQ/L (21-32); CHLORIDE LEVEL 98 MEQ/L (98-107); CREATININE FOR GFR 0.47 MG/DL (0.55-1.30); GLOMERULAR FILTRATION RATE > 60.0 (>45); GLUCOSE, FASTING 127 MG/DL (70-100); POTASSIUM SERUM 4.3 MEQ/L (3.5-5.1); SODIUM LEVEL 137 MEQ/L (136-145)
--- NOTE | 2020-09-11 13:48 | IPNPDOC ---
PM&R Progress Note DATE OF SERVICE: Sep 11, 2020 [employer] Progress Note Subjective: Patient seen in therapy stating she has right groin pain intermittently, but that she is able to move around well. REVIEW OF SYSTEMS: The following is a completed review of systems and has been reviewed. Review of systems otherwise unremarkable. PAIN: Patient self reports left ankle pain and left hip pain EYES: No recent vision changes EARS, NOSE, & THROAT: No throat pain, or dysphagia, or rhinorrhea CARDIOVASCULAR: Denies chest pain or palpitations PULMONARY: + shortness of breath with speaking (chronic) GASTROINTESTINAL: Denies constipation/diarrhea GENITOURINARY: denies dysuria MUSCULOSKELETAL: left hip pain NEUROLOGICAL:+paresthesias right foot HEMATOLOGICAL: denies easy bruising SKIN: left hip incision PSYCHIATRIC: +anxious All other review of systems found to be negative. PHYSICAL EXAMINATION: VITAL SIGNS: Please see below. GENERAL: Pleasant and cooperative. No acute distress. anxious HEENT: PERRL. Extraocular movements intact. Clear conjunctiva CARDIOVASCULAR: Regular rate and rhythm. No murmurs, rubs, or gallops LUNGS: diminished breath sounds bilaterally. No wheezes. No rhonchi ABDOMEN: Soft, nontender, nondistended. Positive bowel sounds. Normal active bowel sounds NEUROLOGICAL: Alert and oriented times three. Cranial nerves II through XII grossly intact. Sensation grossly intact except diminished dorsum of right foot (chronic) EXTREMITIES: 5\5 strength bilateral upper extremities. 5\5 strength right lower extremity. 5/5 strength in left ankle DF/EHL and PF (limited due to surgery SKIN: left hip incision with oleg c/d/i ASSESSMENT:65-year-old F with past medical history of COPD, osteoporosis who pr esents status post left femur fracture PLAN: 1. Rehab- PT/OT advance gait and ADLs, strengthen/stretch/maintain ROM all 4 limbs, ambulating with RW 2. Cardiac- no specific cardiac history noted, however patient was on lasix at home and recent ECHO was unable to assess diastolic function, will monitor daily weights and monitor for fluid overload -will increase metoprolol dosing, patient receiving frequent breathing treatments and chronically dyspneic contributing to tachycardia -medicine consulted to assist in overall management 3. resp- severe COPD with chronic hypoxia and hypercapnea, c/u supplemental 02 88-92%, monitor for hypercapnea, c/u breathing treatments, Acapella 4. Ortho- pt with osteoporosis sustaining left femur fracture without fall s/p left hip hemiarthroplasty, WBAT -left ankle Xr negative for fracture -patient reporting intermittent right groin pain, Xray ordered 09-10-20 negative for fracture 5. GI ppx- prilosec 6. DVT ppx- xarelto -dopplers negative for DVT 7. Pain oxycodone and tylenol 8. Dispo- 09-13-20 to home, progressing towards goals Allergies Coded Allergies: Penicillins (Verified Allergy, Unknown, 01/14/19) clarithromycin (Verified Allergy, Unknown, 11/03/19) clindamycin (Verified Allergy, Unknown, 01/14/19) Vital Signs Vital Signs Date Time Temp Pulse Resp B/P (MAP) Pulse Ox O2 Delivery O2 Flow Rate FiO2 09/11/20 12:09 16 09/11/20 08:27 96 132/65 09/11/20 08:00 2.0 09/11/20 06:05 97.2 98 Nasal Cannula Laboratory Data CBC/BMP Laboratory Tests 09/11/20 08:46 Labs 24H Laboratory Tests 2 09/11/20 08:46: Immature Granulocyte % (Auto) 1.5, Neutrophils (%) (Auto) 67.4H, Lymphocytes (%) (Auto) 20.8L, Monocytes (%) (Auto) 8.6H, Eosinophils (%) (Auto) 1.3, Basophils (%) (Auto) 0.4, Neutrophils # (Auto) 6.2, Lymphocytes # (Auto) 1.9, Monocytes # (Auto) 0.8, Eosinophils # (Auto) 0.1, Basophils # (Auto) 0.0, Nucleated Red Blood Cells % (auto) 0.0, Anion Gap 6L, Glomerular Filtration Rate > 60.0, Calcium Level 9.1 Current Medications Current Medications Current Medications Medications (Trade) Dose Ordered Sig/Issa Route PRN Reason Start Time Stop Time Status Last Admin Dose Admin Acetaminophen (Tylenol Tab) 1,000 mg TID PO 09/03/20 16:00 09/11/20 08:27 Albuterol Sulfate (Proventil, Ventolin Hfa) 2 puff Q2HP INH SHORTNESS OF BREATH 09/05/20 12:45 10/05/20 12:45 No refill Albuterol Sulfate (Proventil, Ventolin Hfa) 2 puff Q2HP PRN INH SHORTNESS OF BREATH 09/05/20 12:00 09/09/20 08:22 Albuterol/ Ipratropium (Duoneb (Ipr 0.5mg/Alb 2.5mg)) 3 ml ASDIRECTED NEB 09/03/20 13:00 09/05/20 11:56 DC Bisacodyl (Dulcolax Suppository) 10 mg DAILYPRN PRN [place] CONSTIPATION 09/03/20 09:00 Docusate Sodium (Colace) 100 mg BID PO 09/03/20 21:00 09/11/20 08:26 Levalbuterol HCl (Xopenex Neb) 1.25 mg Q2HP PRN INH SOB/WHEEZING 09/03/20 15:30 09/05/20 11:56 DC 09/05/20 11:20 Levalbuterol HCl (Xopenex Neb) 1.25 mg RQ4H INH 09/05/20 12:00 09/11/20 12:01 Metoprolol Succinate (TopROL XL) 25 mg DAILY PO 09/04/20 10:00 09/10/20 11:46 DC 09/10/20 10:11 Metoprolol Succinate (TopROL XL) 37.5 mg DAILY PO 09/11/20 09:00 09/11/20 08:27 Metoprolol Tartrate (Lopressor) 12.5 mg Q6H PO 09/03/20 12:00 09/04/20 09:53 DC 09/04/20 05:18 Multivitamins (Theragram-M) 1 tab DAILY PO 09/04/20 09:00 09/11/20 08:26 Omeprazole (PriLOSEC) 20 mg DAILY PO 09/04/20 09:00 09/11/20 08:26 Oxycodone HCl (Roxicodone, Oxyir) 5 mg Q4HP PRN PO PAIN 09/03/20 15:30 09/11/20 12:09 Rivaroxaban (Xarelto) 10 mg ASDIRECTED PO 09/03/20 18:00 09/04/20 16:50 DC 09/03/20 17:52 Rivaroxaban (Xarelto) 10 mg DAILY@1800 PO 09/04/20 18:00 09/10/20 17:28 Salmeterol Xinafoate/ Fluticasone (Advair Hfa ) 2 puff BID INH 09/03/20 21:00 09/11/20 07:27 Senna (Senokot) 1 tab QHS PO 09/03/20 21:00 09/08/20 20:[address] (Spiriva Handihaler) 1 inhalation DAILY@08 INH 09/04/20 08:00 09/11/20 07:28 JESUSITA REID MD Sep 11, 2020 13:48
[2020-09-11 14:00] VITALS: BP 150/63
[2020-09-11] MEDS: RIVAROXABAN 10 MG TAB (XARELTO) PO SCH (16:58)
[2020-09-11 20:00] VITALS: BP 130/72
[2020-09-11] MEDS: SENNA 8.6 MG TAB (SENOKOT) PO SCH (21:00)
[2020-09-12] MEDS: oxyCODONE 5MG TAB PO PRN ×2 (03:00→20:33)
[2020-09-12] MEDS: LEVALBUTEROL 1.25 MG/0.5 ML CONCENTRATE NEB INH SCH ×8 (04:00→23:59)
[2020-09-12 06:00] VITALS: BP 126/66
[2020-09-12] MEDS: TIOTROPIUM INHALER/CAPSULE (SPIRIVA) INH SCH (07:13)
[2020-09-12] MEDS: ADVAIR HFA 230/21MCG INHALER INH SCH ×2 (07:13→20:16)
[2020-09-12] MEDS: MULTIVITAMINS/MINERALS THERAP 1 TAB PO SCH (09:21)
[2020-09-12] MEDS: DOCUSATE SODIUM 100MG CAPSULE PO SCH ×2 (09:21→20:33)
[2020-09-12] MEDS: METOPROLOL SUCC *XL* 25MG TAB (TopROL *XL*) PO SCH (09:22)
[2020-09-12] MEDS: OMEPRAZOLE 20 MG CAP PO SCH (09:24)
[2020-09-12] MEDS: REMEDY PHYTOPLEX Z-GUARD PASTE 113GM TUBE (FROM STOREROOM PRODUCT) TOP SCH ×3 (09:25→20:36)
[2020-09-12] MEDS: ACETAMINOPHEN 500 MG TAB PO SCH ×3 (09:25→20:34)
--- NOTE | 2020-09-12 12:11 | IPNPDOC ---
PM&R Progress Note DATE OF SERVICE: Sep 12, 2020 [employer] Progress Note Subjective: Patient seen in her room stating her right groin pain is much better today and she is not worrie dbaout there being a fracture there any longer. She reprts at home she takes 40mg of lasix and potassium and was worried about some swelling in her left leg. REVIEW OF SYSTEMS: The following is a completed review of systems and has been reviewed. Review of systems otherwise unremarkable. PAIN: Patient self reports left ankle pain and left hip pain EYES: No recent vision changes EARS, NOSE, & THROAT: No throat pain, or dysphagia, or rhinorrhea CARDIOVASCULAR: Denies chest pain or palpitations PULMONARY: + shortness of breath with speaking (chronic) GASTROINTESTINAL: Denies constipation/diarrhea GENITOURINARY: denies dysuria MUSCULOSKELETAL: left hip pain NEUROLOGICAL:+paresthesias right foot HEMATOLOGICAL: denies easy bruising SKIN: left hip incision PSYCHIATRIC: +anxious All other review of systems found to be negative. PHYSICAL EXAMINATION: VITAL SIGNS: Please see below. GENERAL: Pleasant and cooperative. No acute distress. anxious HEENT: PERRL. Extraocular movements intact. Clear conjunctiva CARDIOVASCULAR: Regular rate and rhythm. No murmurs, rubs, or gallops LUNGS: diminished breath sounds bilaterally. No wheezes. No rhonchi ABDOMEN: Soft, nontender, nondistended. Positive bowel sounds. Normal active bowel sounds NEUROLOGICAL: Alert and oriented times three. Cranial nerves II through XII grossly intact. Sensation grossly intact except diminished dorsum of right foot (chronic) EXTREMITIES: 5\5 strength bilateral upper extremities. 5\5 strength right lower extremity. 5/5 strength in left ankle DF/EHL and PF (limited due to surgery mild left LE edema SKIN: left hip incision with oleg c/d/i ASSESSMENT:65-year-old F with past medical history of COPD, osteoporosis who presents status post left femur fracture PLAN: 1. Rehab- PT/OT advance gait and ADLs, strengthen/stretch/maintain ROM all 4 limbs, ambulating with RW, room privileges 2. Cardiac- no specific cardiac history noted, however patient was on lasix at home and recent ECHO was unable to assess diastolic function, will monitor daily weights and monitor for fluid overload, will restart back lasix at lower dose 20mg daily for mild LLE edema -will increase metoprolol dosing, patient receiving frequent breathing treatments and chronically dyspneic contributing to tachycardia -medicine consulted to assist in overall management 3. resp- severe COPD with chronic hypoxia and hypercapnea, c/u supplemental 02 88-92%, monitor for hypercapnea, c/u breathing treatments, Acapella 4. Ortho- pt with osteoporosis sustaining left femur fracture without fall s/p left hip hemiarthroplasty, WBAT -left ankle Xr negative for fracture -patient reporting intermittent right groin pain, Xray ordered 09-10-20 negative for fracture and pain resolved, low suspicion for occult fracture 5. GI ppx- prilosec 6. DVT ppx- xarelto -dopplers negative for DVT 7. Pain oxycodone and tylenol 8. Dispo- 09-13-20 to home, progressing towards goals Allergies Coded Allergies: Penicillins (Verified Allergy, Unknown, 01/14/19) clarithromycin (Verified Allergy, Unknown, 11/03/19) clindamycin (Verified Allergy, Unknown, 01/14/19) Vital Signs Vital Signs Date Time Temp Pulse Resp B/P (MAP) Pulse Ox O2 Delivery O2 Flow Rate FiO2 09/12/20 09:22 93 126/66 09/12/20 06:00 98.0 22 94 Nasal Cannula 2.0 Current Medications Current Medications Current Medications Medications (Trade) Dose Ordered Sig/Issa Route PRN Reason Start Time Stop Time Status Last Admin Dose Admin Acetaminophen (Tylenol Tab) 1,000 mg TID PO 09/03/20 16:00 09/12/20 09:25 Albuterol Sulfate (Proventil, Ventolin Hfa) 2 puff Q2HP INH SHORTNESS OF BREATH 09/05/20 12:45 10/05/20 12:45 No refill Albuterol Sulfate (Proventil, Ventolin Hfa) 2 puff Q2HP PRN INH SHORTNESS OF BREATH 09/05/20 12:00 09/09/20 08:22 Albuterol/ Ipratropium (Duoneb (Ipr 0.5mg/Alb 2.5mg)) 3 ml ASDIRECTED NEB 09/03/20 13:00 09/05/20 11:56 DC Bisacodyl (Dulcolax Suppository) 10 mg DAILYPRN PRN [place] CONSTIPATION 09/03/20 09:00 Docusate Sodium (Colace) 100 mg BID PO 09/03/20 21:00 09/12/20 09:21 Levalbuterol HCl (Xopenex Neb) 1.25 mg Q2HP PRN INH SOB/WHEEZING 09/03/20 15:30 09/05/20 11:56 DC 09/05/20 11:20 Levalbuterol HCl (Xopenex Neb) 1.25 mg RQ4H INH 09/05/20 12:00 09/12/20 11:20 Metoprolol Succinate (TopROL XL) 25 mg DAILY PO 09/04/20 10:00 09/10/20 11:46 DC 09/10/20 10:11 Metoprolol Succinate (TopROL XL) 37.5 mg DAILY PO 09/11/20 09:00 09/12/20 09:22 Metoprolol Tartrate (Lopressor) 12.5 mg Q6H PO 09/03/20 12:00 09/04/20 09:53 DC 09/04/20 05:18 Multivitamins (Theragram-M) 1 tab DAILY PO 09/04/20 09:00 09/12/20 09:21 Omeprazole (PriLOSEC) 20 mg DAILY PO 09/04/20 09:00 09/12/20 09:24 Oxycodone HCl (Roxicodone, Oxyir) 5 mg Q4HP PRN PO PAIN 09/03/20 15:30 09/12/20 03:00 Rivaroxaban (Xarelto) 10 mg ASDIRECTED PO 09/03/20 18:00 09/04/20 16:50 DC 09/03/20 17:52 Rivaroxaban (Xarelto) 10 mg DAILY@1800 PO 09/04/20 18:00 09/11/20 16:58 Salmeterol Xinafoate/ Fluticasone (Advair Hfa 230/ ) 2 puff BID INH 09/03/20 21:00 09/12/20 07:13 Senna (Senokot) 1 tab QHS PO 09/03/20 21:00 09/08/20 20:34 Tiotropium [place] (Spiriva Handihaler) 1 inhalation DAILY@08 INH 09/04/20 08:00 09/12/20 07:13 JESUSITA REID MD Sep 12, 2020 12:11
[2020-09-12] MEDS ORDERED: TIOT18INH INH (12:32)
[2020-09-12] MEDS ORDERED: OXYC-517 PO (12:32)
[2020-09-12] MEDS ORDERED: INCR1INH INH (12:32)
[2020-09-12] MEDS ORDERED: ADVA230A INH (12:32)
[2020-09-12] MEDS ORDERED: METO1TAB7 PO (12:32)
[2020-09-12] MEDS ORDERED: FURO20TA2 PO (12:32)
[2020-09-12] MEDS ORDERED: XARE10TA PO (12:32)
[2020-09-12] MEDS ORDERED: OMEP-218 PO (12:32)
[2020-09-12] MEDS ORDERED: VENTAER INH (12:32)
[2020-09-12 14:00] VITALS: BP 119/57
[2020-09-12] MEDS: RIVAROXABAN 10 MG TAB (XARELTO) PO SCH (15:59)
[2020-09-12] MEDS: FUROSEMIDE 20 MG TAB PO SCH (15:59)
[2020-09-12 20:15] VITALS: BP 141/55
[2020-09-12] MEDS: SENNA 8.6 MG TAB (SENOKOT) PO SCH (20:34)
[2020-09-13] MEDS: oxyCODONE 5MG TAB PO PRN ×2 (00:35→10:27)
[2020-09-13] MEDS: LEVALBUTEROL 1.25 MG/0.5 ML CONCENTRATE NEB INH SCH ×2 (03:51→07:22)
[2020-09-13 06:00] VITALS: BP 101/59
[2020-09-13] MEDS: TIOTROPIUM INHALER/CAPSULE (SPIRIVA) INH SCH (07:13)
[2020-09-13] MEDS: ADVAIR HFA 230/21MCG INHALER INH SCH (07:13)
[2020-09-13] MEDS: ALBUTEROL 90 MCG/ACT 8GM HFA INHALER INH PRN (07:14)
[2020-09-13 08:19] LABS: BASO % 0.4 % (0.0-1.0); EOS # 0.1 10^3/uL (0.0-0.5); EOS % 1.3 % (0.0-3.0); HEMATOCRIT 29.6 % (36.0-47.0); HEMOGLOBIN 9.2 g/dl (12.0-15.5); LYMPH # 2.3 10^3/uL (1.5-5.0); LYMPH % 21.7 % (24.0-44.0); MEAN CORPUSCULAR HEMOGLOBIN 31.5 pg (27.0-33.0); MEAN CORPUSCULAR HGB CONC 31.1 g/dl (32.0-36.5); MEAN CORPUSCULAR VOLUME 101.4 fl (80.0-96.0); MONO # 0.8 10^3/uL (0.0-0.8); MONO % 7.3 % (0.0-5.0); NEUTROPHILS # 7.3 10^3/uL (1.5-8.5); NEUTROPHILS % 68.3 % (36.0-66.0); PLATELET COUNT, AUTOMATED 916 10^3/uL (150-450); RED BLOOD COUNT 2.92 10^6/uL (4.00-5.40); WHITE BLOOD COUNT 10.6 10^3/uL (4.0-10.0)
[2020-09-13 08:26] VITALS: BP 101/59
[2020-09-13] MEDS: OMEPRAZOLE 20 MG CAP PO SCH (08:26)
[2020-09-13] MEDS: MULTIVITAMINS/MINERALS THERAP 1 TAB PO SCH (08:27)
[2020-09-13] MEDS: FUROSEMIDE 20 MG TAB PO SCH (08:27)
[2020-09-13] MEDS: ACETAMINOPHEN 500 MG TAB PO SCH (08:27)
[2020-09-13] MEDS: DOCUSATE SODIUM 100MG CAPSULE PO SCH (08:27)
[2020-09-13] MEDS: REMEDY PHYTOPLEX Z-GUARD PASTE 113GM TUBE (FROM STOREROOM PRODUCT) TOP SCH (08:28)
[2020-09-13 08:48] LABS: BLOOD UREA NITROGEN 5 MG/DL (7-18); CALCIUM LEVEL 9.1 MG/DL (8.8-10.2); CARBON DIOXIDE LEVEL 35 MEQ/L (21-32); CHLORIDE LEVEL 97 MEQ/L (98-107); CREATININE FOR GFR 0.42 MG/DL (0.55-1.30); GLOMERULAR FILTRATION RATE > 60.0 (>45); GLUCOSE, FASTING 110 MG/DL (70-100); SODIUM LEVEL 138 MEQ/L (136-145)
[2020-09-13] MEDS ORDERED: METOPROLOL SUCC (TopROL XL) 50MG **XL** TAB PO SCH (09:00)
[2020-09-13] MEDS ORDERED: OXYC-517 PO (10:14)
== END 2020-09-13 11:35 | disposition home health service (06) | DRG 560 ==
LOC: M PM&R 14:20
PROVIDERS: ADMIT Physical Medicine & Rehabilitation; ATTEND Physical Medicine & Rehabilitation
DX: S72.002D Fracture of unspecified part of neck of left femur, subsequent encounter for closed fracture with routine healing (principal); J96.11 Chronic respiratory failure with hypoxia; J96.12 Chronic respiratory failure with hypercapnia; E87.1 Hypo-osmolality and hyponatremia; J44.9 Chronic obstructive pulmonary disease, unspecified; I27.20 Pulmonary hypertension, unspecified; I73.9 Peripheral vascular disease, unspecified; M81.0 Age-related osteoporosis without current pathological fracture; K21.9 Gastro-esophageal reflux disease without esophagitis; Z96.642 Presence of left artificial hip joint; F41.9 Anxiety disorder, unspecified; F17.200 Nicotine dependence, unspecified, uncomplicated; Z74.09 Other reduced mobility; Z79.01 Long term (current) use of anticoagulants; Z79.899 Other long term (current) drug therapy; Z88.0 Allergy status to penicillin; Z88.1 Allergy status to other antibiotic agents

== ENCOUNTER → 2020-10-30 | Outpatient (CLI) | payer MEDICARE, BC, MEDICAID ==
[~2020-10-30] MED LIST changes: -BISACODYL 10 MG SUPP PR PRN; +FURO20TA2 PO; -MAG400TA PO; +MAGN400T35 PO; +METO1TAB7 PO; +OXYC-517 PO; +VENTAER INH
--- NOTE | 2020-10-30 10:40 | REP ---
INDICATION: COPD COMPARISON: All prior examinations dating through 01/14/2019 TECHNIQUE: Axial noncontrast images from the thoracic inlet to the upper abdomen with coronal and sagittal reformations. This CT examination was performed using the following dose reduction techniques: Automated exposure control, adjustment of mA and/or kv according to the patient's size, and use of iterative reconstruction technique. FINDINGS: Stable advanced emphysematous changes with scattered scarring and bronchiectasis are again noted along with multiple stable calcified nodules. The small irregular areas of density on all the prior examinations have subsequently resolved over time. Current examination demonstrates a new 6 mm non solid density in the posterior right lower lobe (series 201; image 56) which most likely represents small scarring. No further new consolidation, suspicious nodule or mass lesion is appreciated. No pleural effusion. No pneumothorax. Calcified hilar and mediastinal lymph nodes remain unchanged. Thoracic aorta, pulmonary vasculature, and heart/pericardium are stable and grossly age-appropriate. Musculoskeletal structures demonstrate stable age-related changes and stable chronic compression deformities at T9 and T11. IMPRESSION: 1. Advanced COPD/emphysematous changes with scattered scarring and evidence for prior granulomatous disease all of which remain relatively stable. 2. All previous small ill-defined opacities have resolved. 3. There is a small new 6 mm non solid density in the right lower lobe, while this likely represents similar transient atelectasis or small scar, active pathology (less likely) cannot definitively be excluded. Based on criteria, short-term follow-up examination at 3-6 months may be warranted. <Electronically signed by Rashel Lee > 10/30/20 1036
== END ==
LOC: M RAD 10:00
PROVIDERS: ATTEND Nurse Practitioner Family
DX: R91.8 Other nonspecific abnormal finding of lung field (principal); J44.9 Chronic obstructive pulmonary disease, unspecified

== ENCOUNTER 2021-01-09 11:59 | Emergency (ER) | payer MEDICARE, BC, MEDICAID ==
[2021-01-09] MEDS ORDERED: NS 1,000 ML IV ONE (12:20)
--- NOTE | 2021-01-09 13:06 | REP ---
INDICATION: fall injury; R upper leg/knee pain COMPARISON: None. TECHNIQUE: AP and lateral right femur. FINDINGS: There is a comminuted fracture of the supracondylar portion of the distal femur. There is lateral displacement and angulation. Proximal femur is intact. IMPRESSION: Comminuted fracture supracondylar distal femur with lateral displacement and angulation. <Electronically signed by Gumaro Cornejo > 01/09/21 [id number]
--- NOTE | 2021-01-09 13:07 | REP ---
INDICATION: CHEST PAIN. COMPARISON: 09/03/2020. TECHNIQUE: Single portable AP view of the chest was performed. FINDINGS: There is no acute infiltrate or pulmonary edema. There are bilateral calcified granulomas and fibrotic changes again noted. The heart is not significantly enlarged. The mediastinal silhouette is unremarkable. The visualized osseous structures are intact. IMPRESSION: No acute pulmonary disease. <Electronically signed by Gumaro Cornejo > 01/09/21 [id number]
[2021-01-09] MEDS: fentaNYL 100 MCG/2 ML INJECTION (J3010) IV PRN ×2 (13:08→15:57)
--- NOTE | 2021-01-09 13:10 | REP ---
INDICATION: fall injury; bilateral knee pain COMPARISON: None. TECHNIQUE: Four views bilateral knees. FINDINGS: There is a comminuted fracture of the supracondylar portion of the distal right femur with lateral displacement and angulation. There is nondisplaced fracture of the distal 3rd of the left femur. The proximal tibia and fibula are intact bilaterally. IMPRESSION: There is a comminuted fracture of the supracondylar portion of the distal right femur with lateral displacement and angulation. There is nondisplaced fracture of the distal 3rd of the left femur. <Electronically signed by Gumaro Cornejo > 01/09/21 [id number]
[2021-01-09 13:30] LABS: BASO % 0.1 % (0.0-1.0); HEMATOCRIT 27.4 % (36.0-47.0); HEMOGLOBIN 9.4 g/dl (12.0-15.5); LYMPH # 1.9 10^3/uL (1.5-5.0); LYMPH % 11.8 % (24.0-44.0); MEAN CORPUSCULAR HGB CONC 34.3 g/dl (32.0-36.5); MEAN CORPUSCULAR VOLUME 87.5 fl (80.0-96.0); MONO # 1.2 10^3/uL (0.0-0.8); NEUTROPHILS # 13.2 10^3/uL (1.5-8.5); PLATELET COUNT, AUTOMATED 427 10^3/uL (150-450); RED BLOOD COUNT 3.13 10^6/uL (4.00-5.40); WHITE BLOOD COUNT 16.5 10^3/uL (4.0-10.0)
[2021-01-09 13:48] LABS: INR 1.05; PROTHROMBIN TIME 13.9 SECONDS (12.5-14.3)
[2021-01-09 13:49] LABS: PARTIAL THROMBOPLASTIN TIME 32.4 SECONDS (24.2-38.5)
[2021-01-09 14:11] LABS: ALBUMIN 3.4 GM/DL (3.2-5.2); ALT/SGPT 32 U/L (12-78); BILIRUBIN,DIRECT 0.4 MG/DL (0.0-0.2); BILIRUBIN,TOTAL 1.3 MG/DL (0.2-1.0); BLOOD UREA NITROGEN 11 MG/DL (7-18); CALCIUM LEVEL 8.9 MG/DL (8.8-10.2); CARBON DIOXIDE LEVEL 32 MEQ/L (21-32); CHLORIDE LEVEL 85 MEQ/L (98-107); CPK CREATINE PHOSPHOKINASE 1603 U/L (26-192); CREATININE FOR GFR 0.72 MG/DL (0.55-1.30); GLOMERULAR FILTRATION RATE > 60.0 (>45); GLUCOSE, FASTING 167 MG/DL (70-100); MB/CK RELATIVE INDEX 1.62 (< OR =4); NT-PRO BNP 754 PG/ML (<125); SODIUM LEVEL 125 MEQ/L (136-145); THYROID STIMULATING HORMONE 0.411 uIU/ML (0.358-3.740); TOTAL PROTEIN 6.4 GM/DL (6.4-8.2); TROPONIN I < 0.02 NG/ML (< 0.10)
[2021-01-09] MEDS ORDERED: NS 1,000 ML IV SCH (14:25)
[2021-01-09 16:24] VITALS: BP 103/64
--- NOTE | 2021-01-10 04:53 | ECGEPIP ---
[facility] - ED Test Date: 2021-01-09 Pat Name: JAMARCUS BROOKS Department: Room: - Gender: Female Java Lead: TIA : 1955 Requested By: CIPRIANO POE Order Number: [id number] Reading MD: Adeel Aguiar Measurements Intervals [place] Rate: 112 P: 81 NE: 154 QRS: 64 QRSD: 78 T: 77 QT: 332 QTc: 453 Interpretive Statements Sinus tachycardia BASELINE ARTIFACT AFFECTS INTERPRETATION Electronically Signed on 01-10-2021 4:52:53 EDT by Adeel Aguiar
== END 2021-01-09 16:26 | disposition short-term general hospital (02) ==
LOC: M ED 11:59 → EDBD 11:59 → M ED 16:26
DX: S72.402A Unspecified fracture of lower end of left femur, initial encounter for closed fracture (principal); S72.451A Displaced supracondylar fracture without intracondylar extension of lower end of right femur, initial encounter for closed fracture; M62.82 Rhabdomyolysis; R00.0 Tachycardia, unspecified; W19.XXXA Unspecified fall, initial encounter; Y92.9 Unspecified place or not applicable; Y93.01 Activity, walking, marching and hiking; Y99.9 Unspecified external cause status; I50.9 Heart failure, unspecified; J44.9 Chronic obstructive pulmonary disease, unspecified; Z79.01 Long term (current) use of anticoagulants; Z79.899 Other long term (current) drug therapy; Z88.0 Allergy status to penicillin; Z88.1 Allergy status to other antibiotic agents; Z88.8 Allergy status to other drugs, medicaments and biological substances
CPT/HCPCS: 71045; 73552; 73564; 80048; 80076; 82550; 82553; 83880; 84443; 84484; 85025; 85610; 85730; 87798; 93005; 93041; 94760; 96361; 96374; 96376; 99285; J3010

== ENCOUNTER 2021-05-07 15:45 | Emergency (ER) | payer MEDICARE, BC, MEDICAID ==
[~2021-05-07] VITALS: Ht 160 cm; Wt 43.0 kg
[~2021-05-07 15:45] MED LIST changes: +DOK1CAP4 PO; -DOK1CAP7 PO; +OMEP40CA4 PO; -OMEP40CA97 PO
[2021-05-08 00:10] LABS: BASO # 0.1 10^3/uL (0.0-0.2); BASO % 0.7 % (0.0-1.0); EOS # 0.3 10^3/uL (0.0-0.5); EOS % 3.5 % (0.0-3.0); HEMATOCRIT 39.2 % (36.0-47.0); HEMOGLOBIN 13.1 g/dl (12.0-15.5); LYMPH # 1.9 10^3/uL (1.5-5.0); LYMPH % 22.4 % (24.0-44.0); MEAN CORPUSCULAR HEMOGLOBIN 31.4 pg (27.0-33.0); MEAN CORPUSCULAR HGB CONC 33.4 g/dl (32.0-36.5); MONO # 1.2 10^3/uL (0.0-0.8); MONO % 13.9 % (2.0-8.0); NEUTROPHILS # 4.9 10^3/uL (1.5-8.5); NEUTROPHILS % 58.1 % (36.0-66.0); PLATELET COUNT, AUTOMATED 475 10^3/uL (150-450); RED BLOOD COUNT 4.17 10^6/uL (4.00-5.40); WHITE BLOOD COUNT 8.5 10^3/uL (4.0-10.0)
[2021-05-08 00:35] LABS: ALBUMIN 3.2 GM/DL (3.2-5.2); ALT/SGPT 21 U/L (12-78); BILIRUBIN,TOTAL 0.7 MG/DL (0.2-1.0); BLOOD UREA NITROGEN 12 MG/DL (7-18); C REACTIVE PROTEIN QUANTITATIV 4.32 MG/DL (0.00-0.30); CALCIUM LEVEL 9.3 MG/DL (8.8-10.2); CARBON DIOXIDE LEVEL 35 MEQ/L (21-32); CHLORIDE LEVEL 90 MEQ/L (98-107); CREATININE FOR GFR 0.46 MG/DL (0.55-1.30); GLOMERULAR FILTRATION RATE > 60.0 (>45); GLUCOSE, FASTING 79 MG/DL (70-100); POTASSIUM SERUM 2.9 MEQ/L (3.5-5.1); SODIUM LEVEL 134 MEQ/L (136-145); TOTAL PROTEIN 6.8 GM/DL (6.4-8.2)
[2021-05-08 00:48] LABS: ERYTHROCYTE SEDIMENTATION RATE 44 mm/hr (0-30)
--- NOTE | 2021-05-08 01:00 | REPVR ---
PROCEDURE INFORMATION: Exam: US Left Non-Vascular Joint or Other Extremity Structure Exam date and time: 05/07/2021 11:47 PM Age: 66 years old Clinical indication: Pain; Ankle; Left; Additional info: Cellulitis R/O fluid collection TECHNIQUE: Imaging protocol: Left US joint or other nonvascular extremity structure or structures. Real-time ultrasound with image documentation. Limited study. Exam focused on the lower extremity in the region of clinical interest. COMPARISON: US Duplex, Ext LOWER veins, bilat 09/04/2020 11:56 AM FINDINGS: Soft tissues: Mild subcutaneous edema. No loculated collections. IMPRESSION: No loculated collections. Electronically signed by: Jeff De Luna On 05/08/2021 00:59:47 AM
[2021-05-08] MEDS ORDERED: POTASSIUM CHLORIDE 10MEQ SR TABLET PO ONE (01:10)
[2021-05-08] MEDS ORDERED: KCL 10MEQ/100ML SWI (KRUN) 10 MEQ in IV 1 EA IV ONE ×2 (01:10→02:10)
[2021-05-08] MEDS ORDERED: DOXYCYCLINE HYCLATE 100MG TABLET PO ONE (01:40)
[2021-05-08] MEDS ORDERED: DOXY1CAP62 PO (03:16)
[2021-05-08] MEDS ORDERED: K-TA10TA2 PO (03:16)
[2021-05-08 05:07] VITALS: BP 115/54
--- NOTE | 2021-05-08 18:52 | ECGEPIP ---
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
== END 2021-05-08 07:53 | disposition home or self-care (01) ==
LOC: M ED 15:45
DX: L03.116 Cellulitis of left lower limb (principal); E87.6 Hypokalemia; M81.0 Age-related osteoporosis without current pathological fracture; J44.9 Chronic obstructive pulmonary disease, unspecified; I50.9 Heart failure, unspecified; Z96.649 Presence of unspecified artificial hip joint; Z79.899 Other long term (current) drug therapy; Z88.0 Allergy status to penicillin; Z88.1 Allergy status to other antibiotic agents; Z88.8 Allergy status to other drugs, medicaments and biological substances

== ENCOUNTER → 2021-05-14 | Outpatient (CLI) | payer MEDICARE, BC, MEDICAID ==
[~2021-05-14] MED LIST changes: +DOXY1CAP62 PO; +K-TA10TA2 PO
--- NOTE | 2021-05-14 11:54 | REP ---
INDICATION: COPD. COMPARISON: 10/30/2020. TECHNIQUE: CT chest performed without the use of intravenous contrast. Sagittal and coronal reconstruction images are performed. FINDINGS: Lungs: There has been resolution of the previously noted 6 mm nodularOpacity in the right lower lobe. Diffuse fibrotic changes are again noted. No new nodule is seen. Calcified granulomas are again seen bilaterally. Mediastinum: There are calcified lymph nodes. [place]: There are calcified lymph nodes. Axilla: No gross adenopathy. Pleura: No effusion. Heart: Not enlarged. Thoracic aorta: No aneurysm. Upper abdominal structures: There are multiple calcified granulomas in the liver and spleen. There is a left renal cyst measuring 2.2 cm in diameter. Visualized osseous structures: 2 stable compression deformities are noted of the lower thoracic vertebral bodies. IMPRESSION: There has been resolution of the previously noted 6 mm nodular opacity in the right lower lobe. Other chronic findings are stable. <Electronically signed by Gumaro Cornejo > 05/14/21 [id number]
== END ==
LOC: M PLAIMG 11:00
PROVIDERS: ATTEND Nurse Practitioner Family
DX: J44.9 Chronic obstructive pulmonary disease, unspecified (principal); N28.1 Cyst of kidney, acquired; K75.3 Granulomatous hepatitis, not elsewhere classified

== ENCOUNTER 2021-08-08 09:38 | Outpatient (CLI) | payer MEDICARE, BC ==
[~2021-08-08] VITALS: Ht 160 cm; Wt 45.5 kg
[~2021-08-08 09:38] MED LIST changes: +DOXY-443 PO; -DOXY1CAP62 PO; +OMEP-173 PO; -OMEP-218 PO
[2021-08-08 09:45] VITALS: BP 113/65
[2021-08-08] MEDS ORDERED: ZOLEDRONIC ACID 5 MG in IV 1 EA IV ONE (10:00)
[2021-08-08 10:25] VITALS: BP 111/53
== END 2021-08-08 10:45 | disposition home or self-care (01) ==
LOC: M INFU 09:38
PROVIDERS: ATTEND Internal Medicine Endocrinology, Diabetes & Metabolism
DX: M81.0 Age-related osteoporosis without current pathological fracture (principal); Z88.0 Allergy status to penicillin; Z88.1 Allergy status to other antibiotic agents
CPT/HCPCS: 96365; J3489

== ENCOUNTER → 2021-11-19 | Outpatient (CLI) | payer MEDICARE, BC | LOC: M RAD 10:32 | PROVIDERS: ATTEND Internal Medicine Pulmonary Disease | DX: R91.8 Other nonspecific abnormal finding of lung field (principal) ==

== ENCOUNTER → 2022-05-28 | Outpatient (CLI) | payer MEDICARE, BC | LOC: M RAD 10:29 | PROVIDERS: ATTEND Nurse Practitioner Family | DX: R91.8 Other nonspecific abnormal finding of lung field (principal); J44.9 Chronic obstructive pulmonary disease, unspecified ==

== ENCOUNTER → 2022-06-24 | Outpatient (REF) | payer MEDICARE, BC ==
[2022-06-24 16:45] LABS: BASO % 0.4 % (0.0-1.0); EOS # 0.1 10^3/uL (0.0-0.5); EOS % 1.7 % (0.0-3.0); HEMATOCRIT 43.7 % (36.0-47.0); HEMOGLOBIN 13.9 g/dl (12.0-15.5); LYMPH # 1.6 10^3/uL (1.5-5.0); LYMPH % 23.5 % (24.0-44.0); MEAN CORPUSCULAR HEMOGLOBIN 32.1 pg (27.0-33.0); MEAN CORPUSCULAR HGB CONC 31.8 g/dl (32.0-36.5); MEAN CORPUSCULAR VOLUME 100.9 fl (80.0-96.0); MONO # 0.6 10^3/uL (0.0-0.8); MONO % 9.3 % (2.0-8.0); NEUTROPHILS # 4.4 10^3/uL (1.5-8.5); NEUTROPHILS % 64.7 % (36.0-66.0); PLATELET COUNT, AUTOMATED 404 10^3/uL (150-450); RED BLOOD COUNT 4.33 10^6/uL (4.00-5.40); WHITE BLOOD COUNT 6.9 10^3/uL (4.0-10.0)
[2022-06-24 17:56] LABS: ALBUMIN 4.2 GM/DL (3.2-5.2); ALT/SGPT 30 U/L (12-78); BILIRUBIN,TOTAL 0.8 MG/DL (0.2-1.0); BLOOD UREA NITROGEN 6 MG/DL (7-18); CALCIUM LEVEL 9.6 MG/DL (8.8-10.2); CARBON DIOXIDE LEVEL 34 MEQ/L (21-32); CHLORIDE LEVEL 96 MEQ/L (98-107); CHOLESTEROL LEVEL 223 MG/DL (<200); CHOLESTEROL RISK RATIO 1.604 (<5); CREATININE FOR GFR 0.58 MG/DL (0.55-1.30); GLOMERULAR FILTRATION RATE > 60.0 (>45); GLUCOSE, FASTING 73 MG/DL (70-100); HDL CHOLESTEROL 139 MG/DL (>40); LDL CHOLESTEROL 69 MG/DL (<100); NON-HDL-C 84 MG/DL; POTASSIUM SERUM 4.7 MEQ/L (3.5-5.1); SODIUM LEVEL 139 MEQ/L (136-145); TOTAL PROTEIN 7.3 GM/DL (6.4-8.2); TRIGLYCERIDES LEVEL 73 MG/DL (<150)
[2022-06-24 20:31] LABS: HEMOGLOBIN A1c 5.1 %
== END ==
LOC: M LAB REF 16:10
PROVIDERS: ATTEND Nurse Practitioner Family
DX: Z13.228 Encounter for screening for other metabolic disorders (principal)

== ENCOUNTER → 2023-03-17 | Outpatient (CLI) | payer MEDICARE, MEDICAID ==
[~2023-03-17] MED LIST changes: -K-TA10TA2 PO; +POTA-165 PO; -POTA10CA32 PO; +POTA10CA60 PO
== END ==
LOC: M RAD 09:52
PROVIDERS: ATTEND Nurse Practitioner Family
DX: R91.8 Other nonspecific abnormal finding of lung field (principal); J43.9 Emphysema, unspecified; I70.0 Atherosclerosis of aorta; I25.10 Atherosclerotic heart disease of native coronary artery without angina pectoris

== ENCOUNTER → 2023-05-17 | Outpatient (CLI) | payer MEDICARE, MEDICAID | LOC: M PLARAD 13:49 | PROVIDERS: ATTEND Nurse Practitioner Family | DX: R91.8 Other nonspecific abnormal finding of lung field (principal) | CPT/HCPCS: 78815; A9552 ==

== ENCOUNTER → 2023-06-30 | Outpatient (CLI) | payer MEDICARE, MEDICAID | LOC: M ONCR 09:53 | PROVIDERS: ATTEND General Practice | DX: R91.1 Solitary pulmonary nodule (principal); J44.9 Chronic obstructive pulmonary disease, unspecified; I27.20 Pulmonary hypertension, unspecified; Z71.2 Person consulting for explanation of examination or test findings; Z79.2 Long term (current) use of antibiotics; Z79.891 Long term (current) use of opiate analgesic; Z79.01 Long term (current) use of anticoagulants; Z79.51 Long term (current) use of inhaled steroids; Z79.899 Other long term (current) drug therapy; Z87.891 Personal history of nicotine dependence; Z88.0 Allergy status to penicillin; Z88.1 Allergy status to other antibiotic agents; Z88.8 Allergy status to other drugs, medicaments and biological substances ==

== ENCOUNTER → 2023-07-09 | Outpatient (CLI) | payer MEDICARE, MEDICAID | LOC: M CARPUL 09:17 | PROVIDERS: ATTEND Nurse Practitioner Family | DX: I27.29 Other secondary pulmonary hypertension (principal); I08.3 Combined rheumatic disorders of mitral, aortic and tricuspid valves ==

== ENCOUNTER 2023-07-13 10:07 | Outpatient (RCR) | payer MEDICARE, MEDICAID ==
[~2023-07-13 10:07] MED LIST changes: -PROHANCE 279.3MG/ML 5ML VIAL As Ordered ONE
== END 2023-07-29 ==
LOC: M ONCR 10:07
PROVIDERS: ATTEND General Practice
DX: Z51.0 Encounter for antineoplastic radiation therapy (principal); C34.32 Malignant neoplasm of lower lobe, left bronchus or lung

== ENCOUNTER → 2023-07-13 | Outpatient (CLI) | payer MEDICARE, MEDICAID ==
[~2023-07-13] MED LIST changes: +PROHANCE 279.3MG/ML 5ML VIAL As Ordered ONE
== END ==
LOC: M RAD 12:02
PROVIDERS: ATTEND Otolaryngology
DX: R22.1 Localized swelling, mass and lump, neck (principal); J33.8 Other polyp of sinus
CPT/HCPCS: 70543; A9576

== ENCOUNTER → 2023-08-03 | Outpatient (REF) | payer MEDICARE, MEDICAID ==
[2023-08-03 14:56] LABS: TOTAL 25(OH) VITAMIN D 56.6 NG/ML (20.0-100.0)
[2023-08-03 14:58] LABS: BLOOD UREA NITROGEN 12 MG/DL (9-23); CALCIUM LEVEL 9.3 MG/DL (8.3-10.6); CARBON DIOXIDE LEVEL > 40.0 MMOL/L (20-31); CHLORIDE LEVEL 94 MMOL/L (98-107); GLOMERULAR FILTRATION RATE > 60.0 (>45); GLUCOSE, FASTING 126 MG/DL (74-106); POTASSIUM SERUM 3.7 MMOL/L (3.5-5.1); SODIUM LEVEL 138 MMOL/L (136-145)
== END ==
LOC: M LAB REF 13:45
PROVIDERS: ATTEND Internal Medicine Endocrinology, Diabetes & Metabolism
DX: E55.9 Vitamin D deficiency, unspecified (principal)

== ENCOUNTER 2023-08-06 13:11 | Outpatient (RCR) | payer MEDICARE, MEDICAID | END 2023-08-29 | PROVIDERS: ATTEND General Practice | DX: Z51.0 Encounter for antineoplastic radiation therapy (principal); C34.32 Malignant neoplasm of lower lobe, left bronchus or lung ==

== ENCOUNTER → 2023-09-22 | Outpatient (CLI) | payer MEDICARE | LOC: M WHC 11:11 | PROVIDERS: ATTEND Internal Medicine Endocrinology, Diabetes & Metabolism | DX: M81.0 Age-related osteoporosis without current pathological fracture (principal) ==

== ENCOUNTER → 2023-09-27 | Outpatient (REF) | payer MEDICARE | LOC: M SFHCDERM 18:36 | PROVIDERS: ATTEND Physician Assistant | DX: C44.319 Basal cell carcinoma of skin of other parts of face (principal) ==

== ENCOUNTER → 2023-11-03 | Outpatient (CLI) | payer MEDICARE | LOC: M RAD 15:15 | PROVIDERS: ATTEND General Practice | DX: C34.32 Malignant neoplasm of lower lobe, left bronchus or lung (principal); R91.8 Other nonspecific abnormal finding of lung field; M81.0 Age-related osteoporosis without current pathological fracture; M47.812 Spondylosis without myelopathy or radiculopathy, cervical region; M47.816 Spondylosis without myelopathy or radiculopathy, lumbar region; M47.817 Spondylosis without myelopathy or radiculopathy, lumbosacral region; M47.814 Spondylosis without myelopathy or radiculopathy, thoracic region; M48.54XA Collapsed vertebra, not elsewhere classified, thoracic region, initial encounter for fracture ==

== ENCOUNTER → 2023-11-03 | Outpatient (CLI) | payer MEDICARE | LOC: M RAD 15:23 | PROVIDERS: ATTEND Internal Medicine Endocrinology, Diabetes & Metabolism | DX: M81.0 Age-related osteoporosis without current pathological fracture (principal); M47.812 Spondylosis without myelopathy or radiculopathy, cervical region; M47.816 Spondylosis without myelopathy or radiculopathy, lumbar region; M47.817 Spondylosis without myelopathy or radiculopathy, lumbosacral region; M47.814 Spondylosis without myelopathy or radiculopathy, thoracic region; M48.54XA Collapsed vertebra, not elsewhere classified, thoracic region, initial encounter for fracture ==

== ENCOUNTER → 2023-11-04 | Outpatient (CLI) | payer MEDICAID, MEDICARE | LOC: M ONCR 14:43 | PROVIDERS: ATTEND General Practice | DX: R91.8 Other nonspecific abnormal finding of lung field (principal); Z85.118 Personal history of other malignant neoplasm of bronchus and lung; Z92.3 Personal history of irradiation ==

== ENCOUNTER → 2023-12-13 | Outpatient (CLI) | payer MEDICAID, MEDICARE | LOC: M PLARAD 13:56 | PROVIDERS: ATTEND General Practice | DX: C34.32 Malignant neoplasm of lower lobe, left bronchus or lung (principal) | CPT/HCPCS: 78815; A9552 ==

== ENCOUNTER → 2023-12-22 | Outpatient (CLI) | payer MEDICARE ==
[~2023-12-22] MED LIST changes: +ISOVUE-370 76% 100ML VIAL As Ordered ONE
[2023-12-22 17:30] LABS: ALBUMIN 3.8 G/DL (3.2-5.2); ALKALINE PHOSPHATASE 76 U/L (46-116); ALT/SGPT 16 U/L (7.0-40); AST/SGOT 23 U/L (<34); BILIRUBIN,TOTAL 0.6 MG/DL (0.3-1.2); BLOOD UREA NITROGEN 14 MG/DL (9-23); CARBON DIOXIDE LEVEL 40 MMOL/L (20-31); CHLORIDE LEVEL 91 MMOL/L (98-107); CREATININE FOR GFR 0.55 MG/DL (0.55-1.30); GLOMERULAR FILTRATION RATE > 60.0 (>45); GLUCOSE, FASTING 97 MG/DL (74-106); POTASSIUM SERUM 3.5 MMOL/L (3.5-5.1); SODIUM LEVEL 137 MMOL/L (136-145); TOTAL PROTEIN 6.9 G/DL (5.7-8.2)
== END ==
LOC: M RAD 16:25
PROVIDERS: ATTEND General Practice
DX: C34.32 Malignant neoplasm of lower lobe, left bronchus or lung (principal); J84.10 Pulmonary fibrosis, unspecified; I70.0 Atherosclerosis of aorta; N28.1 Cyst of kidney, acquired; J43.9 Emphysema, unspecified; R91.8 Other nonspecific abnormal finding of lung field
CPT/HCPCS: 36415; 71260; 80053; Q9967

== ENCOUNTER 2024-01-26 08:58 | Day surgery (SDC) | payer MEDICARE ==
[~2024-01-26] VITALS: Ht 160 cm; Wt 43.2 kg
[~2024-01-26 08:58] MED LIST changes: +DOXY-323 PO; -DOXY-443 PO; +FLUT1BLS8 INH; -ISOVUE-370 76% 100ML VIAL As Ordered ONE; -POTA10CA60 PO; +POTA10CA70 PO; +RECL5INJ2 IV
[2024-01-26] MEDS ORDERED: ROCURONIUM BROMIDE 50MG/5ML VIAL As Ordered ONE (09:54)
[2024-01-26] MEDS ORDERED: propofoL 500 MG/50 ML VIAL As Ordered ONE (09:54)
[2024-01-26] MEDS ORDERED: propofoL 200 MG/20 ML VIAL As Ordered ONE (09:54)
[2024-01-26] MEDS ORDERED: SUGAMMADEX SODIUM 500 MG/5 ML VIAL (BRIDION) As Ordered ONE (09:54)
[2024-01-26] MEDS ORDERED: fentaNYL 100 MCG/2 ML INJECTION As Ordered ONE (09:54)
[2024-01-26] MEDS ORDERED: ONDANSETRON 4MG 2ML VIAL As Ordered ONE (09:54)
[2024-01-26] MEDS ORDERED: LIDOCAINE 2% 100MG/5ML SDV (FOR ANES.) As Ordered ONE (09:54)
[2024-01-26] MEDS: ALBUTEROL SULFATE 2.5MG/0.5ML INH NEB SOLN INH ONE (10:48)
[2024-01-26] MEDS: LR 1,000 ML IV SCH (10:48)
[2024-01-26] MEDS: LIDOCAINE PRES-FREE 2% 10ML AMP INH ONE (10:48)
[2024-01-26] MEDS: CETACAINE SPRAY 5GM As Ordered ONE (11:46)
[2024-01-26] MEDS: EPINEPHrine 1MG/10ML SYRINGE 1.5IN As Ordered ONE (11:53)
[2024-01-26] MEDS ORDERED: LR 1,000 ML IV SCH (11:55)
[2024-01-26] MEDS ORDERED: ONDANSETRON 4MG 2ML VIAL IV PRN (11:55)
[2024-01-26] MEDS ORDERED: fentaNYL 100 MCG/2 ML INJECTION IV PRN (11:55)
[2024-01-26] MEDS ORDERED: oxyCODONE 5MG TAB PO PRN (11:55)
[2024-01-26 13:30] VITALS: BP 115/59; TEMP 97.9; O2SAT 95
== END 2024-01-26 13:30 | disposition home or self-care (01) ==
LOC: M SDC 08:58
PROVIDERS: ATTEND Internal Medicine Pulmonary Disease
DX: R59.0 Localized enlarged lymph nodes (principal); Z87.891 Personal history of nicotine dependence; K21.9 Gastro-esophageal reflux disease without esophagitis; I50.9 Heart failure, unspecified; Z92.3 Personal history of irradiation; M81.0 Age-related osteoporosis without current pathological fracture; F41.9 Anxiety disorder, unspecified; J44.9 Chronic obstructive pulmonary disease, unspecified; Z99.81 Dependence on supplemental oxygen; Z79.51 Long term (current) use of inhaled steroids; Z79.899 Other long term (current) drug therapy; Z88.0 Allergy status to penicillin; Z88.1 Allergy status to other antibiotic agents; Z88.8 Allergy status to other drugs, medicaments and biological substances
CPT/HCPCS: 31652; 71045; 88173; 88305; J1100; J2405; J3010

== ENCOUNTER → 2024-02-11 | Outpatient (CLI) | payer MEDICARE | LOC: M ONCR 11:07 | PROVIDERS: ATTEND General Practice | DX: C34.32 Malignant neoplasm of lower lobe, left bronchus or lung (principal); Z92.3 Personal history of irradiation; Z87.891 Personal history of nicotine dependence; Z71.2 Person consulting for explanation of examination or test findings; Z88.0 Allergy status to penicillin; Z88.1 Allergy status to other antibiotic agents; Z88.8 Allergy status to other drugs, medicaments and biological substances; Z79.899 Other long term (current) drug therapy ==

== ENCOUNTER → 2024-03-27 | Outpatient (REF) | payer MEDICARE ==
[~2024-03-27] MED LIST changes: +TRAM-443 PO; -TRAM37.53 PO
[2024-03-28 07:54] LABS: BASO % 0.4 % (0.0-1.0); EOS # 0.1 10^3/uL (0.0-0.5); EOS % 1.4 % (0.0-3.0); HEMATOCRIT 41.8 % (36.0-47.0); HEMOGLOBIN 13.3 g/dl (12.0-15.5); LYMPH # 1.5 10^3/uL (1.5-5.0); LYMPH % 29.9 % (24.0-44.0); MEAN CORPUSCULAR HEMOGLOBIN 31.4 pg (27.0-33.0); MEAN CORPUSCULAR HGB CONC 31.8 g/dl (32.0-36.5); MEAN CORPUSCULAR VOLUME 98.8 fl (80.0-96.0); MONO # 0.6 10^3/uL (0.0-0.8); MONO % 11.5 % (2.0-8.0); NEUTROPHILS # 2.8 10^3/uL (1.5-8.5); NEUTROPHILS % 56.4 % (36.0-66.0); PLATELET COUNT, AUTOMATED 300 10^3/uL (150-450); RED BLOOD COUNT 4.23 10^6/uL (4.00-5.40); WHITE BLOOD COUNT 4.9 10^3/uL (4.0-10.0)
[2024-03-28 08:06] LABS: ALBUMIN 3.7 G/DL (3.2-5.2); ALKALINE PHOSPHATASE 99 U/L (46-116); ALT/SGPT 16 U/L (7.0-40); AST/SGOT 23 U/L (<34); BILIRUBIN,TOTAL 0.6 MG/DL (0.3-1.2); BLOOD UREA NITROGEN 8 MG/DL (9-23); CALCIUM LEVEL 9.6 MG/DL (8.3-10.6); CARBON DIOXIDE LEVEL > 40.0 MMOL/L (20-31); CHLORIDE LEVEL 90 MMOL/L (98-107); CHOLESTEROL LEVEL 177 MG/DL (<200); CHOLESTEROL RISK RATIO 1.82 (<5); CREATININE FOR GFR 0.48 MG/DL (0.55-1.30); GLOMERULAR FILTRATION RATE > 60.0 (>39); GLUCOSE, FASTING 101 MG/DL (74-106); HDL CHOLESTEROL 96.9 MG/DL (>40); LDL CHOLESTEROL 65.1 MG/DL (<100); MAGNESIUM LEVEL 1.5 MG/DL (1.8-2.4); NON-HDL-C 80.1 MG/DL; POTASSIUM SERUM 3.2 MMOL/L (3.5-5.1); SODIUM LEVEL 136 MMOL/L (136-145); THYROID STIMULATING HORMONE 0.922 uIU/ML (0.55-4.78); TOTAL 25(OH) VITAMIN D 56.8 NG/ML (20.0-100.0); TOTAL PROTEIN 6.7 G/DL (5.7-8.2); TRIGLYCERIDES LEVEL 75 MG/DL (<150)
[2024-03-28 09:04] LABS: HEMOGLOBIN A1c 5.2 % (4.0-6.0)
== END ==
LOC: M LAB REF 14:48
PROVIDERS: ATTEND Nurse Practitioner Family
DX: E55.9 Vitamin D deficiency, unspecified (principal); R63.6 Underweight; Z79.899 Other long term (current) drug therapy

== ENCOUNTER → 2024-09-25 | Outpatient (CLI) | payer MEDICARE ==
[~2024-09-25] MED LIST changes: -DOXY-323 PO; +DOXY-441 PO; -TRAM-443 PO; +TRAM1TAB42 PO
== END ==
LOC: M RAD 11:00
PROVIDERS: ATTEND Internal Medicine Pulmonary Disease
DX: R91.8 Other nonspecific abnormal finding of lung field (principal); J47.9 Bronchiectasis, uncomplicated; J84.10 Pulmonary fibrosis, unspecified; J43.2 Centrilobular emphysema; I70.0 Atherosclerosis of aorta; N28.1 Cyst of kidney, acquired

== ENCOUNTER → 2024-09-29 | Outpatient (CLI) | payer MEDICARE ==
[2024-09-29 15:12] LABS: BLOOD UREA NITROGEN 10 MG/DL (9-23); CALCIUM LEVEL 10.5 MG/DL (8.3-10.6); CARBON DIOXIDE LEVEL > 40.0 MMOL/L (20-31); CHLORIDE LEVEL 95 MMOL/L (98-107); CREATININE FOR GFR 0.52 MG/DL (0.55-1.30); GLOMERULAR FILTRATION RATE > 60.0 (>39); GLUCOSE, FASTING 99 MG/DL (74-106); POTASSIUM SERUM 3.7 MMOL/L (3.5-5.1); SODIUM LEVEL 141 MMOL/L (136-145); TOTAL 25(OH) VITAMIN D 57.1 NG/ML (20.0-100.0)
== END ==
LOC: M LAB 13:53
PROVIDERS: ATTEND Nurse Practitioner Family
DX: M81.0 Age-related osteoporosis without current pathological fracture (principal); E55.9 Vitamin D deficiency, unspecified

== ENCOUNTER → 2025-03-22 | Outpatient (REF) | payer MEDICARE ==
[~2025-03-22] MED LIST changes: +MAG30ORA18 PO; -MYLASSUD PO
[2025-03-22 18:06] LABS: BASO # 0.0 10^3/uL (0.0-0.2); BASO % 0.2 % (0.0-1.0); EOS # 0.1 10^3/uL (0.0-0.5); EOS % 2.2 % (0.0-3.0); LYMPH # 1.8 10^3/uL (1.5-5.0); LYMPH % 39.3 % (24.0-44.0); MONO # 0.4 10^3/uL (0.0-0.8); MONO % 7.9 % (2.0-8.0); NEUTROPHILS # 2.2 10^3/uL (1.5-8.5); NEUTROPHILS % 50.2 % (36.0-66.0); PLATELET COUNT, AUTOMATED 209 10^3/uL (150-450)
[2025-03-22 18:30] LABS: ALT/SGPT 18 U/L (7.0-40); AST/SGOT 29 U/L (<34); CALCIUM LEVEL 9.2 MG/DL (8.3-10.6); CARBON DIOXIDE LEVEL 36 MMOL/L (20-31); CHLORIDE LEVEL 96 MMOL/L (98-107); CHOLESTEROL LEVEL 209 MG/DL (<200); CHOLESTEROL RISK RATIO 2.16 (<5); CREATININE FOR GFR 0.57 MG/DL (0.55-1.30); GLOMERULAR FILTRATION RATE > 90.0 (>39); LDL CHOLESTEROL 90.1 MG/DL (<100); MAGNESIUM LEVEL 1.9 MG/DL (1.8-2.4); NON-HDL-C 112.5 MG/DL; POTASSIUM SERUM 4.5 MMOL/L (3.5-5.1); SODIUM LEVEL 142 MMOL/L (136-145); TRIGLYCERIDES LEVEL 112 MG/DL (<150)
== END ==
LOC: M LAB REF 17:29
PROVIDERS: ATTEND Nurse Practitioner Family
DX: R63.6 Underweight (principal); Z79.899 Other long term (current) drug therapy

== ENCOUNTER → 2025-04-04 | Outpatient (CLI) | payer MEDICARE ==
[2025-04-04 14:35] LABS: CALCIUM LEVEL 10.0 MG/DL (8.3-10.6); CARBON DIOXIDE LEVEL > 40.0 MMOL/L (20-31); CHLORIDE LEVEL 95 MMOL/L (98-107); CREATININE FOR GFR 0.66 MG/DL (0.55-1.30); GLOMERULAR FILTRATION RATE > 90.0 (>39); POTASSIUM SERUM 4.5 MMOL/L (3.5-5.1); SODIUM LEVEL 141 MMOL/L (136-145); TOTAL 25(OH) VITAMIN D 45.9 NG/ML (20.0-100.0)
== END ==
LOC: M PLALAB 11:12
PROVIDERS: ATTEND Internal Medicine Endocrinology, Diabetes & Metabolism
DX: M81.0 Age-related osteoporosis without current pathological fracture (principal)

== ENCOUNTER → 2025-04-04 | Outpatient (CLI) | payer MEDICARE | LOC: M PLAIMG 10:41 | PROVIDERS: ATTEND Internal Medicine Pulmonary Disease | DX: R91.8 Other nonspecific abnormal finding of lung field (principal); R59.0 Localized enlarged lymph nodes; J90 Pleural effusion, not elsewhere classified; M81.0 Age-related osteoporosis without current pathological fracture ==

== ENCOUNTER → 2025-05-16 | Outpatient (CLI) | payer MEDICARE ==
[~2025-05-16] MED LIST changes: +CENT1TAB PO; +OMEP1CAP73 PO
== END ==
LOC: M CARPUL 13:07
PROVIDERS: ATTEND Student in an Organized Health Care Education/Training Program
DX: R06.89 Other abnormalities of breathing (principal); R53.83 Other fatigue

== ENCOUNTER → 2025-05-28 | Outpatient (CLI) | payer MEDICARE ==
[~2025-05-28] MED LIST changes: -CENT1TAB PO; -OMEP1CAP73 PO
== END ==
LOC: M PLARAD 14:12
PROVIDERS: ATTEND Internal Medicine Pulmonary Disease
DX: R91.8 Other nonspecific abnormal finding of lung field (principal)
CPT/HCPCS: 78815; A9552

== ENCOUNTER → 2025-07-03 | Outpatient (CLI) | payer MEDICARE ==
[~2025-07-03] MED LIST changes: +CENT1TAB PO; +OMEP1CAP73 PO
[2025-07-03 14:34] LABS: PLATELET COUNT, AUTOMATED 219 10^3/uL (150-450)
[2025-07-03 14:56] LABS: INR 0.95
== END ==
LOC: M LAB 14:02
PROVIDERS: ATTEND Internal Medicine Pulmonary Disease
DX: R91.8 Other nonspecific abnormal finding of lung field (principal)

== ENCOUNTER → 2025-07-05 | Outpatient (CLI) | payer MEDICARE ==
[~2025-07-05] MED LIST changes: +HOME MED LIST COMPLETE! XX SCH; +LIDOCAINE 1% MDV 20 ML VIAL SC STA
[2025-07-05 09:02] VITALS: TEMP 99.4
[2025-07-05] MEDS: LIDOCAINE 1% MDV 20 ML VIAL SC ONE (11:19)
[2025-07-05 12:50] VITALS: BP 143/93; O2SAT 97
== END ==
LOC: M IRPRO 08:46
PROVIDERS: ATTEND Internal Medicine Pulmonary Disease
DX: R91.8 Other nonspecific abnormal finding of lung field (principal)

== ENCOUNTER → 2025-07-20 | Outpatient (REF) | payer MEDICARE ==
[~2025-07-20] MED LIST changes: -HOME MED LIST COMPLETE! XX SCH; -LIDOCAINE 1% MDV 20 ML VIAL SC STA
[2025-07-20 17:06] LABS: ALT/SGPT 18 U/L (7.0-40); AST/SGOT 28 U/L (<34); CALCIUM LEVEL 8.9 MG/DL (8.3-10.6); CARBON DIOXIDE LEVEL > 40.0 MMOL/L (20-31); CHLORIDE LEVEL 94 MMOL/L (98-107); CREATININE FOR GFR 0.53 MG/DL (0.55-1.30); GLOMERULAR FILTRATION RATE > 90.0 (>39); MAGNESIUM LEVEL 1.9 MG/DL (1.8-2.4); POTASSIUM SERUM 4.0 MMOL/L (3.5-5.1); SODIUM LEVEL 143 MMOL/L (136-145)
== END ==
LOC: M LAB REF 16:24
PROVIDERS: ATTEND Student in an Organized Health Care Education/Training Program
DX: M81.0 Age-related osteoporosis without current pathological fracture (principal); Z68.1 Body mass index [BMI] 19.9 or less, adult; Z79.899 Other long term (current) drug therapy

== ENCOUNTER → 2025-07-25 | Outpatient (CLI) | payer MEDICARE | LOC: M RAD 12:38 | PROVIDERS: ATTEND Internal Medicine Pulmonary Disease | DX: R91.8 Other nonspecific abnormal finding of lung field (principal) ==